=== PATIENT | male | born 1980 | race American Indian/Alaskan Native ===

== ENCOUNTER 2019-05-29 00:22 | Inpatient (IN) | payer MEDICAID ==
[2019-05-29 02:20] LABS: Basophils # (Auto) 0.1 K/mm3 (0.0-0.1); Basophils % (Auto) 0.7 % (0.0-1.8); Eosinophils # (Auto) 0.1 K/mm3 (0.0-0.4); Eosinophils % (Auto) 1.4 % (0.0-4.3); Hematocrit 31.9 % (35.5-45.6); Hemoglobin 9.8 gm/dl (11.8-15.2); Lymphocytes # (Auto) 1.4 K/mm3 (1.2-5.4); Mean Corpuscular HGB Conc 31 % (32-34); Mean Corpuscular Volume 87 fl (84-94); Monocytes # (Auto) 0.5 K/mm3 (0.0-0.8); Monocytes % (Auto) 5.1 % (0.0-7.3); Platelet Count 398 K/mm3 (140-440); Red Blood Count 3.66 M/mm3 (3.65-5.03); Red Cell Distribution Width 15.6 % (13.2-15.2)
[2019-05-29 02:45] LABS: Alanine Aminotransferase 15 units/L (7-56); Albumin 3.8 g/dL (3.9-5); BUN/Creatinine Ratio 31; Blood Urea Nitrogen 34 mg/dL (9-20); Calcium 9.3 mg/dL (8.4-10.2); Hemolysis Index 3
[2019-05-29] MEDS ORDERED: SODIUM CHLORIDE 0.9% 1000 ML 2,000 ML ONE (03:23)
[2019-05-29] MEDS ORDERED: SODIUM CHLORIDE 0.9% 1000 ML 1,000 ML IV ONE (03:26)
--- NOTE | 2019-05-29 03:28 | Emergency Department Report ---
ED General Adult HPI - General Chief complaint: Hyperglycemia Stated complaint: HYPERGLYCEMIA Time Seen by Provider: 05/29/19 03:25 Source: patient Mode of arrival: Ambulatory Limitations: No Limitations - History of Present Illness Initial comments: Patient is a 38-year-old type I diabetic that presents emergency room for high blood sugar. Patient states he ran out of his insulin 2 days ago. Patient states that he is having increased urination. Patient also complains of polyuria and polydipsia. Patient states he is pretty compliant with his med ications. Patient states he just moved to [place] and needs a primary care to help him with his refills. Patient also complains of an infection and open wound to his left BKA site. Patient states he had an ulcer that started 5 days ago and has a purulent discharge. Patient states right before he came to the hospital he poured a whole bottle of rubbing alcohol onto it. Patient states that the pain in the left BKA is an 8 out of 10. Patient states the pain is worse with palpation and movement. Patient states the pain is better with rest. -: Sudden - Related Data Allergies Allergy/AdvReac Type Severity Reaction Status Date / Time shellfish derived Allergy Hives Verified 05/29/19 01:22 ED Review of Systems ROS: Stated complaint: HYPERGLYCEMIA Other details as noted in HPI Constitutional: denies: chills, fever Eyes: denies: eye pain, eye discharge, vision change ENT: denies: ear pain, throat pain Respiratory: denies: cough, shortness of breath, wheezing Cardiovascular: denies: chest pain, palpitations Endocrine: no symptoms reported Gastrointestinal: denies: abdominal pain, nausea, diarrhea Genitourinary: denies: urgency, dysuria Musculoskeletal: denies: back pain, joint swelling, arthralgia Skin: denies: rash, lesions Neurological: denies: headache, weakness, paresthesias Psychiatric: denies: anxiety, depression Hematological/Lymphatic: denies: easy bleeding, easy bruising ED Past Medical Hx - Past Medical History Previous Medical History?: Yes Hx Diabetes: Yes (Type 1) - Surgical History Past Surgical History?: Yes Additional Surgical History: Left BKA - Social History Smoking Status: Current Every Day Smoker ED Physical Exam - General Limitations: No Limitations General appearance: alert, in no apparent distress - Head Head exam: Present: atraumatic, normocephalic - Eye Eye exam: Present: normal appearance - ENT ENT exam: Present: mucous membranes moist - Neck Neck exam: Present: normal inspection - Respiratory Respiratory exam: Present: normal lung sounds bilaterally. Absent: respiratory distress, wheezes, rales - Cardiovascular Cardiovascular Exam: Present: regular rate, normal rhythm. Absent: systolic murmur, diastolic murmur, rubs, gallop - GI/Abdominal GI/Abdominal exam: Present: soft, normal bowel sounds. Absent: distended, tenderness, guarding - Rectal Rectal exam: Present: deferred - Extremities Exam Extremities exam: Present: normal inspection (Except for left BKA.), tenderness (To the left BKA stump. Open area noted.) - Back Exam Back exam: Present: normal inspection - Neurological Exam Neurological exam: Present: alert, oriented X3 - Psychiatric Psychiatric exam: Present: normal affect, normal mood - Skin Skin exam: Present: warm, dry, normal color, other (Ulceration noted to the left BKA on the lateral aspect. Purulent discharge noted.). Absent: rash ED Course Vital Signs 05/29/19 05/29/19 00:32 05:05 Temperature 97.9 F Pulse Rate 93 H Respiratory 18 17 Rate Blood Pressure 121/80 O2 Sat by Pulse 97 98 Oximetry - Reevaluation(s) Reevaluation #1: I discussed all results with patient. I discussed plan of care with patient. Patient agrees with plan of care and admission. Patient to be admitted to the hospitalist service. 05/29/19 05:25 - Consultations Consultation #1: Hospitalist consulted for admission. Hospitalist to admit patient. Bridge orders placed. 05/29/19 05:20 ED Medical Decision Making - Lab Data Result diagrams: 05/29/19 01:36 05/29/19 05:32 - Medical Decision Making Patient is a 38-year-old male that presents emergency room with a elevated blood sugar and diabetic ulcer. Patient's findings with infected diabetic ulcer of the left BKA and extremely elevated blood sugar. Patient initial blood sugar was at 1090. Patient placed on insulin drip and given fluids. Patient also found to have hyperkalemia and hyponatremia. Patient given calcium chloride. Patient admitted to the hospitalist service and into the ICU. Patient also given clindamycin for his ulceration. - Differential Diagnosis DKA, HHS, hyperglycemia, electrolyte imbalance, dehydration, diabetic ulcer Critical Care Time: Yes Critical care time in (mins) excluding proc time.: 35 Critical care attestation.: If time is entered above; I have spent that time in minutes in the direct care of this critically ill patient, excluding procedure time. 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
[2019-05-29] MEDS ORDERED: INSULIN REGULAR, HUMAN 100 UNITS in SODIUM CHLORIDE 0.9% 99 ML IV SCH (04:00)
[2019-05-29] MEDS ORDERED: SODIUM POLYSTYRENE 15 GM/60 ML ORAL LIQD PO ONE (05:05)
[2019-05-29 05:18] LABS: BUN/Creatinine Ratio 33; Blood Urea Nitrogen 33 mg/dL (9-20); Calcium 8.9 mg/dL (8.4-10.2); Hemolysis Index 1
[2019-05-29 05:23] LABS: Bilirubin,Urine NEG (Negative); Blood,Urine NEG (Negative); Color,Urine Colorless (Yellow); Protein,Urine <15 mg/dL mg/dL (Negative); Urobilinogen,Urine < 2.0 mg/dL (<2.0)
[2019-05-29] MEDS ORDERED: ONDANSETRON 4 MG/2 ML INJ IV PRN (05:23)
[2019-05-29] MEDS ORDERED: MAGNESIUM HYDROXIDE (MOM) ORAL LIQD UDC PO PRN (05:23)
[2019-05-29] MEDS ORDERED: CALCIUM CHLORIDE 1,000 MG/10 ML SDV IVP ONE (05:25)
[2019-05-29] MEDS ORDERED: CLINDAMYCIN 300 MG/50 mL 300 MG/50 ML BAG IV ONE (05:36)
--- NOTE | 2019-05-29 05:36 | History and Physical Report ---
History of Present Illness Date of examination: 05/29/19 Date of admission: 05/29/2019 Chief complaint: Left lower extremity stump wound Elevated blood sugar History of present illness: 38-year-old male with known history of diabetes mellitus and left below-knee amputation presents to the emergency room today complaining of elevated blood glucose. He has been out of his insulin for about 2 days. He has also been having increased frequency of urination, polydipsia and polyuria. Patient also indicates that he has had a wound over the stump on on the stump of the left BKA. He denies any fever or chills, no chest pain or shortness of breath, no nausea vomiting and no diarrhea. Patient denies any headache or dizziness. He has been having worsening pain on the wound sites over the stump. He decided to poor bottle of alcohol on these wound site prior to reporting to the emergency room. Patient indicates that he has been quite compliant with his medications and he just returned from [place] where he went for burial of a family member. He is trying to establish with a primary care physician here in [place]. Work-up in the emergency room here reveals blood glucose of over 1000. Was found to be hyperkalemic and also hyponatremic. He was subsequently started on insulin drip. Past History Past Medical History: diabetes Past Surgical History: Other (Left BKA) Social history: no significant social history Family history: no significant family history Medications and Allergies Allergies Allergy/AdvReac Type Severity Reaction Status Date / Time shellfish derived Allergy Hives Verified 05/29/19 01:22 Active Meds: Active Medications Insulin Human Regular 100 (units/ Sodium Chloride) 100 mls @ 1 mls/hr IV TITR SHANIKA; Protocol Last Admin: 05/29/19 04:11 Dose: 8 units/hr, 8 mls/hr Documented by: Clindamycin HCl (Cleocin 300 Mg/50 Ml) 300 mg in 50 mls @ 100 mls/hr IV ONCE ONE; Protocol Stop: 05/29/19 06:05 Last Admin: 05/29/19 05:22 Dose: 100 mls/hr Documented by: Review of Systems Constitutional: no fever, no chills Cardiovascular: no chest pain, no palpitations Respiratory: no cough, no shortness of breath Gastrointestinal: no abdominal pain, no nausea, no vomiting, no diarrhea Genitourinary Male: no dysuria, no hematuria Musculoskeletal: other (Pain on left lower extremity stump), no neck pain, no low back pain Integumentary: no rash, no pruritis Neurological: no headaches, no confusion Exam - Constitutional Vitals: Temp Pulse Resp BP Pulse Ox 97.9 F 93 H 17 121/80 98 05/29/19 00:32 05/29/19 00:32 05/29/19 05:05 05/29/19 00:32 05/29/19 05:05 General appearance: Present: no acute distress, well-nourished - EENT Eyes: Present: PERRL, EOM intact ENT: hearing intact, clear oral mucosa, dentition normal - Neck Neck: Present: supple, normal ROM - Respiratory Respiratory effort: normal Respiratory: bilateral: CTA - Cardiovascular Rhythm: regular Heart Sounds: Present: S1 & S2 - Extremities Extremities: no ischemia, pulses intact, No edema, Full ROM, abnormal (Left BKA with open wound on the lateral aspect of the stump) Peripheral Pulses: within normal limits - Abdominal General gastrointestinal: Present: soft, non-tender, non-distended - Musculoskeletal Musculoskeletal: strength equal bilaterally, other (Left BKA) - Psychiatric Psychiatric: appropriate mood/affect, intact judgment & insight - Neurologic Neurologic: CNII-XII intact, moves all extremities Results - Labs CBC & Chem 7: 05/29/19 01:36 05/29/19 04:33 Labs: Abnormal lab results 05/29/19 05/29/19 05/29/19 Range/Units 00:46 01:36 01:36 Hgb 9.8 L (11.8-15.2) gm/dl Hct 31.9 L (35.5-45.6) % MCH 27 L (28-32) pg MCHC 31 L (32-34) % RDW 15.6 H (13.2-15.2) % Seg Neutrophils % 78.8 H (40.0-70.0) % Sodium 120 L (137-145) mmol/L Potassium 5.8 H (3.6-5.0) mmol/L Chloride 78.4 L (98-107) mmol/L BUN 34 H (9-20) mg/dL Glucose 1090 H* (75-100) mg/dL POC Glucose > 500 H (70-105) Alkaline Phosphatase 175 H (35-129) units/L Albumin 3.8 L (3.9-5) g/dL 05/28/ Range/Units 04:33 Hgb (11.8-15.2) gm/dl Hct (35.5-45.6) % MCH (28-32) pg MCHC (32-34) % RDW (13.2-15.2) % Seg Neutrophils % (40.0-70.0) % Sodium (137-145) mmol/L Potassium (3.6-5.0) mmol/L Chloride 85.9 L (98-107) mmol/L BUN 33 H (9-20) mg/dL Glucose (75-100) mg/dL POC Glucose (70-105) Alkaline Phosphatase (35-129) units/L Albumin (3.9-5) g/dL Assessment and Plan - Patient Problems (1) Hyperglycemia Current Visit: Yes Status: Acute Plan to address problem: Patient is having hyperosmolar nonketotic hyperglycemia. He has been placed on insulin drip will monitor blood glucose closely. (2) Hyperkalemia Current Visit: Yes Status: Acute Plan to address problem: We will monitor potassium levels. Patient has also had calcium chloride in the emergency room. We will also monitor EKG. (3) Diabetic ulcer of lower leg Current Visit: Yes Status: Acute Plan to address problem: He has been placed on empiric IV antibiotics for his stump ulcer. We will place a consult to wound care team for further evaluation. (4) DVT prophylaxis Current Visit: Yes Status: Acute Plan to address problem: Patient placed on subcutaneous heparin. (5) Hyponatremia Current Visit: Yes Status: Acute Plan to address problem: Possibly secondary to the hyperglycemia. Will monitor chemistry (6) Full code status Current Visit: Yes Status: Acute
[2019-05-29 06:01] LABS: BUN/Creatinine Ratio 30; Blood Urea Nitrogen 30 mg/dL (9-20); Calcium 11.1 mg/dL (8.4-10.2); Chol/HDL Ratio 5.38 %; Hemolysis Index 13
[2019-05-29] MEDS: HEPARIN 5,000 UNIT/1 ML VIAL SUB-Q SCH ×2 (06:40→16:30)
[2019-05-29] MEDS ORDERED: D5W/0.45% NACL/KCL 20 MEQ 20 MEQ/1,000 ML BAG IV ONE (07:43)
[2019-05-29] MEDS: D5W/0.45% NACL/KCL 20 MEQ 20 MEQ/1,000 ML BAG IV SCH (07:49)
[2019-05-29 08:52] LABS: BUN/Creatinine Ratio 33; Blood Urea Nitrogen 26 mg/dL (9-20); Calcium 10.5 mg/dL (8.4-10.2); Hemolysis Index 5
[2019-05-29] MEDS ORDERED: DEXTROSE 50% IN WATER (25GM) 50 ML SYRINGE IV ONE ×2 (09:16→09:20)
[2019-05-29] MEDS ORDERED: DEXTROSE 50% IN WATER (25GM) 50 ML SYRINGE IV PRN (10:49)
[2019-05-29] MEDS: INSULIN GLARGINE 100 UNITS/ML SUB-Q SCH (10:58)
--- NOTE | 2019-05-29 11:17 | Consultation ---
History of Present Illness Consult date: 05/29/19 Past History Past Medical History: diabetes Past Surgical History: Other (Left BKA) Social history: no significant social history Family history: no significant family history Medications and Allergies Allergies Allergy/AdvReac Type Severity Reaction Status Date / Time shellfish derived Allergy Hives Verified 05/29/19 01:22 Active Meds: Active Medications Dextrose (D50w (25gm) Syringe) 50 ml IV Q30MIN PRN; Protocol PRN Reason: Hypoglycemia Heparin Sodium (Porcine) (Heparin) 5,000 unit SUB-Q Q8HR [facility] Last Admin: 05/29/19 06:40 Dose: 5,000 unit Documented by: Potassium Chloride/Dextrose/Sod Cl (D5w/0.45% Nacl/Kcl 20 Meq) 20 meq in 1,000 mls @ 125 mls/hr IV DIRECT [facility] Last Admin: 05/29/19 07:49 Dose: 125 mls/hr Documented by: Clindamycin HCl (Cleocin 600 Mg/50 Ml) 600 mg in 50 mls @ 100 mls/hr IV Q8HR [facility]; Protocol Insulin Glargine (Lantus) 15 units SUB-Q QAMDIAB [facility] Stop: 06/04/19 10:29 Last Admin: 05/29/19 10:58 Dose: 15 units Documented by: Insulin Human Lispro (Humalog) 0 unit SUB-Q ACHS [facility]; Protocol Magnesium Hydroxide (Milk Of Magnesia) 30 ml PO Q4H PRN PRN Reason: Constipation Morphine Sulfate (Morphine) 2 mg IV Q4H PRN PRN Reason: Pain, Moderate (4-6) Ondansetron HCl (Zofran) 4 mg IV Q8H PRN PRN Reason: Nausea And Vomiting Sodium Chloride (Sodium Chloride Flush Syringe 10 Ml) 10 ml IV BID SHANIKA Sodium Chloride (Sodium Chloride Flush Syringe 10 Ml) 10 ml IV PRN PRN PRN Reason: LINE FLUSH Physical Examination Vital signs: Vital Signs Temp Pulse Resp BP Pulse Ox 97.9 F 93 H 18 121/80 97 05/29/19 00:32 05/29/19 00:32 05/29/19 00:32 05/29/19 00:32 05/29/19 00:32 Results - Laboratory Findings CBC and BMP: 05/29/19 01:36 05/29/19 08:06 Abnormal lab findings: Abnormal Labs 03/20/20 03/20/20 03/20/20 00:46 01:36 01:36 Hgb 9.8 L Hct 31.9 L MCH 27 L MCHC 31 L RDW 15.6 H Seg Neutrophils % 78.8 H Sodium 120 L Potassium 5.8 H Chloride 78.4 L BUN 34 H Glucose 1090 H* POC Glucose > 500 H Hemoglobin A1c Calcium Alkaline Phosphatase 175 H Albumin 3.8 L Triglycerides Cholesterol LDL Cholesterol Direct 05/29/19 05/29/19 05/29/19 04:33 05:32 05:32 Hgb Hct MCH MCHC RDW Seg Neutrophils % Sodium 128 L D 130 L Potassium Chloride 85.9 L 88.9 L BUN 33 H 30 H Glucose 749 H* 549 H* POC Glucose Hemoglobin A1c 12.0 H Calcium 11.1 H D Alkaline Phosphatase Albumin Triglycerides Cholesterol LDL Cholesterol Direct 05/29/19 05/29/19 05/29/19 05:32 06:45 07:40 Hgb Hct MCH MCHC RDW Seg Neutrophils % Sodium Potassium Chloride BUN Glucose POC Glucose 380 H 219 H Hemoglobin A1c Calcium Alkaline Phosphatase Albumin Triglycerides 172 H Cholesterol 253 H LDL Cholesterol Direct 174 H 05/29/19 05/29/19 05/29/19 08:06 09:02 09:26 Hgb Hct MCH MCHC RDW Seg Neutrophils % Sodium 134 L Potassium Chloride 92.7 L BUN 26 H Glucose 130 H POC Glucose 66 L 48 L Hemoglobin A1c Calcium 10.5 H Alkaline Phosphatase Albumin Triglycerides Cholesterol LDL Cholesterol Direct 05/29/19 10:35 Hgb Hct MCH MCHC RDW Seg Neutrophils % Sodium Potassium Chloride BUN Glucose POC Glucose 237 H Hemoglobin A1c Calcium Alkaline Phosphatase Albumin Triglycerides Cholesterol LDL Cholesterol Direct
[2019-05-29] MEDS ORDERED: MORPHINE 2 MG/1 ML INJ ONE ×2 (12:07→16:17)
[2019-05-29] MEDS ORDERED: INSULIN LISPRO 100 UNIT/ML SUB-Q ONE (12:10)
[2019-05-29] MEDS: INSULIN LISPRO 100 UNIT/ML SUB-Q SCH ×2 (12:21→22:58)
[2019-05-29] MEDS: MORPHINE 2 MG/1 ML INJ IV PRN ×2 (12:22→16:22)
--- NOTE | 2019-05-29 12:33 | Event Note ---
Date: 05/29/19 Patient seen and examined. We will continue to plan as outlined in the H&P. This is a follow-up from an admission earlier this morning. Total visit time equals 25 minutes with greater than 50% spent on coordination of care and counseling
[2019-05-29] MEDS ORDERED: HEPARIN 5,000 UNIT/1 ML VIAL ONE (16:28)
[2019-05-29] MEDS ORDERED: CLINDAMYCIN 600 MG/50 mL 600 MG/50 ML BAG IV ONE (16:28)
[2019-05-29] MEDS: CLINDAMYCIN 600 MG/50 mL 600 MG/50 ML BAG IV SCH (16:29)
[2019-05-29] MEDS ORDERED: INSULIN REGULAR, HUMAN 100 UNITS/1 ML ONE (23:02)
[2019-05-30] MEDS: D5W/0.45% NACL/KCL 20 MEQ 20 MEQ/1,000 ML BAG IV SCH (02:04)
[2019-05-30] MEDS: MORPHINE 2 MG/1 ML INJ IV PRN ×2 (02:10→22:21)
[2019-05-30] MEDS: CLINDAMYCIN 600 MG/50 mL 600 MG/50 ML BAG IV SCH ×4 (05:26→21:46)
[2019-05-30] MEDS: HEPARIN 5,000 UNIT/1 ML VIAL SUB-Q SCH ×5 (05:26→21:55)
[2019-05-30] MEDS: INSULIN LISPRO 100 UNIT/ML SUB-Q SCH ×5 (07:35→22:58)
[2019-05-30] MEDS ORDERED: INSULIN GLARGINE 100 UNITS/ML SUB-Q SCH (08:00)
[2019-05-30] MEDS: INSULIN GLARGINE 100 UNITS/ML SUB-Q SCH ×2 (08:19→12:10)
--- NOTE | 2019-05-30 09:25 | Discharge Summary ---
Providers - Providers Date of Admission: 05/29/19 05:11 Date of discharge: 05/30/19 Attending physician: GAB PATRICK 05/29/19 05:23 Consult to Dietitian/Nutrition [CONS] Routine Physician Instructions: Reason For Exam: hyperglycemia Reason for Consult: Nutrition Recommendations Reason for Consult: Diet education 05/29/19 05:27 Consult to Wound/ET Nurse [CONS] Routine Reason For Exam: wound eval on left lower extremity stump 05/29/19 05:28 Consult to Physician [CONS] Routine Comment: Consulting Provider: LAURENT RIVERA Physician Instructions: Reason For Exam: Hyperosmolar nonketotic hyperglycemia Primary care physician: TOUR MANAGER Hospitalization Reason for admission: HNKS Condition: Critical Hospital course: 38-year-old male with known history of diabetes mellitus and left below-knee amputation presents to the emergency room today complaining of elevated blood glucose. He was out of his insulin for about 2 days. He had also been having increased frequency of urination, polydipsia and polyuria. The patient was admitted with diagnosis of hyperosmolar nonketotic syndrome. Patient received initially IV insulin drip and then was transitioned to his home insulin regimen. The patient's blood sugars have now stabilized x24 hours. Patient is felt to receive maximal hospital benefit and will be discharged home. Dedicated discharge time 35 minutes. 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 Status: Acute Core Measure Documentation - Palliative Care Palliative Care/ Comfort Measures: Not Applicable - Core Measures Any of the following diagnoses?: none Exam - Constitutional Vitals: Temp Pulse Resp BP Pulse Ox 98.1 F 77 16 104/68 99 05/30/19 05:02 05/30/19 05:02 05/30/19 05:02 05/30/19 05:02 05/30/19 05:02 General appearance: Present: no acute distress, well-nourished - EENT Eyes: Present: PERRL ENT: hearing intact, clear oral mucosa - Neck Neck: Present: supple, normal ROM - Respiratory Respiratory effort: normal Respiratory: bilateral: CTA - Cardiovascular Heart Sounds: Present: S1 & S2. Absent: rub, click - Extremities Extremities: pulses symmetrical, No edema Peripheral Pulses: within normal limits - Abdominal General gastrointestinal: Present: soft, non-tender, non-distended, normal bowel sounds Male genitourinary: Present: normal - Integumentary Integumentary: Present: clear, warm, dry - Musculoskeletal Musculoskeletal: gait normal, strength equal bilaterally - Psychiatric Psychiatric: appropriate mood/affect, intact judgment & insight - Neurologic Neurologic: CNII-XII intact, moves all extremities Plan Activity: advance as tolerated Weight Bearing Status: Weight Bear as Tolerated Diet: diabetic Follow up with: PRIMARY CARE, [Primary Care Provider] - 3-5 Days Prescriptions: Insulin Glargine [Lantus VIAL] 15 units SUB-Q QAMDIAB 30 Days units
[2019-05-30] MEDS ORDERED: FLU VACC QUAD 2019-20 (3 YR UP)/PF 60 MCG/0.5 ML SYRINGE IM ONE (12:00)
--- NOTE | 2019-05-30 13:01 | Progress Note ---
Assessment and Plan Hyperosmolar non-ketotic syndrome Hyperkalemia Diabetic ulcer of lower leg Hyponatremia - continue wound care per WCT - continue mobility protocols to prevent pressure ulcers - PT/OT as tolerated - continue accuchecks with glycemic control per SSI for target blood glucose < 180 mg/dL - Smoking abstinence strongly counseled at the bedside - home oxygen evaluation at discharge - GI & VTE prophylaxis - Flu & pneumovax per protocol - prn analgesia per pain score - continue other care per attending / other consultants ... re-evaluate in am & prn Subjective Date of service: 05/30/19 Principal diagnosis: Hyperosmolar non-ketotic syndrome; Hyperkalemia; Infected DM Foot Ulcer Interval history: Patient is seen today for: Hyperosmolar non-ketotic syndrome; Hyperkalemia; Diabetic ulcer of lower leg; Hyponatremia; Infected Diabetic Foot Ulcer Seen and examined at bedside; 24hour events reviewed; nursing and respiratory care staff consulted; no adverse overnight events reported to me; resting peacefully in bed; sugars better controlled; awaiting prosthetic leg repair; No N/V/F/C; denies acute chest pains or palpitations Objective Vital Signs - 12hr 05/30/19 05/30/19 05/30/19 01:17 02:10 05:02 Temperature 98.1 F Pulse Rate 92 H 77 Respiratory 18 16 Rate Blood Pressure 104/68 O2 Sat by Pulse 99 Oximetry 05/30/19 12:06 Temperature 98.0 F Pulse Rate 84 Respiratory 15 Rate Blood Pressure 128/85 O2 Sat by Pulse 97 Oximetry Constitutional: no acute distress, other (young CM with normal respiratory effort at rest) Eyes: non-icteric ENT: oropharynx moist Neck: supple, no lymphadenopathy, no JVD Effort: normal Ascultation: Bilateral: clear Percussion: Bilateral: not dull Cardiovascular: regular rate and rhythm Gastrointestinal: normoactive bowel sounds, soft, non-tender, non-distended Integumentary: normal Extremities: no cyanosis, pink and warm, pulses normal, no ischemia or petechiae, other (Left BKA stump wound) Neurologic: normal mental status, non-focal exam, pupils equal and round, CN II- XII normal Psychiatric: mood appropriate, affect normal CBC and BMP: 05/29/19 01:36 05/29/19 08:06 Abnormal lab findings: Abnormal Labs 05/29/19 05/29/19 05/29/19 00:46 01:36 01:36 Hgb 9.8 L Hct 31.9 L MCH 27 L MCHC 31 L RDW 15.6 H Seg Neutrophils % 78.8 H Sodium 120 L Potassium 5.8 H Chloride 78.4 L BUN 34 H Glucose 1090 H* POC Glucose > 500 H Hemoglobin A1c Calcium Alkaline Phosphatase 175 H Albumin 3.8 L Triglycerides Cholesterol LDL Cholesterol Direct 05/29/19 05/29/19 05/29/19 04:33 05:32 05:32 Hgb Hct MCH MCHC RDW Seg Neutrophils % Sodium 128 L D 130 L Potassium Chloride 85.9 L 88.9 L BUN 33 H 30 H Glucose 749 H* 549 H* POC Glucose Hemoglobin A1c 12.0 H Calcium 11.1 H D Alkaline Phosphatase Albumin Triglycerides Cholesterol LDL Cholesterol Direct 05/29/19 05/29/19 05/29/19 05:32 06:45 07:40 Hgb Hct MCH MCHC RDW Seg Neutrophils % Sodium Potassium Chloride BUN Glucose POC Glucose 380 H 219 H Hemoglobin A1c Calcium Alkaline Phosphatase Albumin Triglycerides 172 H Cholesterol 253 H LDL Cholesterol Direct 174 H 05/29/19 05/29/19 05/29/19 08:06 09:02 09:26 Hgb Hct MCH MCHC RDW Seg Neutrophils % Sodium 134 L Potassium Chloride 92.7 L BUN 26 H Glucose 130 H POC Glucose 66 L 48 L Hemoglobin A1c Calcium 10.5 H Alkaline Phosphatase Albumin Triglycerides Cholesterol LDL Cholesterol Direct 05/29/19 05/29/19 05/29/19 10:35 12:13 17:45 Hgb Hct MCH MCHC RDW Seg Neutrophils % Sodium Potassium Chloride BUN Glucose POC Glucose 237 H 411 H 136 H Hemoglobin A1c Calcium Alkaline Phosphatase Albumin Triglycerides Cholesterol LDL Cholesterol Direct 05/29/19 05/30/19 05/30/19 23:08 08:19 12:13 Hgb Hct MCH MCHC RDW Seg Neutrophils % Sodium Potassium Chloride BUN Glucose POC Glucose 307 H 52 L 408 H Hemoglobin A1c Calcium Alkaline Phosphatase Albumin Triglycerides Cholesterol LDL Cholesterol Direct Allied health notes reviewed: nursing
[2019-05-31] MEDS: HEPARIN 5,000 UNIT/1 ML VIAL SUB-Q SCH ×2 (05:15→15:05)
[2019-05-31] MEDS: CLINDAMYCIN 600 MG/50 mL 600 MG/50 ML BAG IV SCH ×2 (05:20→14:39)
--- NOTE | 2019-05-31 08:14 | Progress Note ---
Assessment and Plan Assessment and plan: Hyperosmolar nonketotic syndrome. Patient has been weaned off of IV insulin drip and now is having long-acting insulin. Left BKA wound. Surgery consultation for further evaluation. Patient may need local/bedside debridement. Hyperkalemia. Resolved. DVT prophylaxis. - Patient Problems (1) Diabetic ulcer of lower leg Current Visit: Yes Status: Acute (2) History of left below knee amputation Current Visit: Yes Status: Acute (3) Hyperglycemia Current Visit: Yes Status: Acute (4) Secondary diabetes mellitus with hyperglycemia hyperosmolar non-ketotic coma Current Visit: Yes Status: Acute History Interval history: No new issues overnight. Hospitalist Physical - Constitutional Vitals: Temp Pulse Resp BP Pulse Ox 97.9 F 82 18 134/86 98 05/31/19 06:17 05/31/19 06:17 05/31/19 06:17 05/31/19 06:17 05/31/19 06:17 General appearance: Present: no acute distress, well-nourished - EENT Eyes: Present: PERRL, EOM intact ENT: hearing intact, clear oral mucosa, dentition normal - Neck Neck: Present: supple, normal ROM - Respiratory Respiratory effort: normal Respiratory: bilateral: CTA - Cardiovascular Rhythm: regular Heart Sounds: Present: S1 & S2. Absent: gallop, rub - Extremities Extremities: no ischemia, No edema, Full ROM - Abdominal General gastrointestinal: soft, non-tender, non-distended, normal bowel sounds - Integumentary Integumentary: Present: clear, warm, dry - Neurologic Neurologic: CNII-XII intact, moves all extremities Results - Labs CBC & Chem 7: 05/29/19 01:36 05/29/19 08:06 Labs: Laboratory Last Values WBC 9.8 K/mm3 (4.5-11.0) 05/29/19 01:36 RBC 3.66 M/mm3 (3.65-5.03) 05/29/19 01:36 Hgb 9.8 gm/dl (11.8-15.2) L 05/29/19 01:36 Hct 31.9 % (35.5-45.6) L 05/29/19 01:36 MCV 87 fl (84-94) 05/29/19 01:36 MCH 27 pg (28-32) L 05/29/19 01:36 MCHC 31 % (32-34) L 05/29/19 01:36 RDW 15.6 % (13.2-15.2) H 05/29/19 01:36 Plt Count 398 K/mm3 (140-440) 05/29/19 01:36 Lymph % (Auto) 14.0 % (13.4-35.0) 05/29/19 01:36 Cobb % (Auto) 5.1 % (0.0-7.3) 05/29/19 01:36 Eos % (Auto) 1.4 % (0.0-4.3) 05/29/19 01:36 Baso % (Auto) 0.7 % (0.0-1.8) 05/29/19 01:36 Lymph # 1.4 K/mm3 (1.2-5.4) 05/29/19 01:36 Cobb # 0.5 K/mm3 (0.0-0.8) 05/29/19 01:36 Eos # 0.1 K/mm3 (0.0-0.4) 05/29/19 01:36 Baso # 0.1 K/mm3 (0.0-0.1) 05/29/19 01:36 Seg Neutrophils % 78.8 % (40.0-70.0) H 05/29/19 01:36 Seg Neutrophils # 7.7 K/mm3 (1.8-7.7) 05/29/19 01:36 Sodium 134 mmol/L (137-145) L 05/29/19 08:06 Potassium 3.8 mmol/L (3.6-5.0) 05/29/19 08:06 Chloride 92.7 mmol/L (98-107) L 05/29/19 08:06 Carbon Dioxide 23 mmol/L (22-30) 05/29/19 08:06 Anion Gap 22 mmol/L 05/29/19 08:06 BUN 26 mg/dL (9-20) H 05/29/19 08:06 Creatinine 0.8 mg/dL (0.8-1.5) 05/29/19 08:06 Estimated GFR > 60 ml/min 05/29/19 08:06 BUN/Creatinine Ratio 33 % 05/29/19 08:06 Glucose 130 mg/dL (75-100) H 05/29/19 08:06 POC Glucose 236 (70-105) H 05/31/19 03:16 Hemoglobin A1c 12.0 % (4-6) H 05/29/19 05:32 Calcium 10.5 mg/dL (8.4-10.2) H 05/29/19 08:06 Phosphorus 3.90 mg/dL (2.5-4.5) 05/29/19 04:33 Magnesium 2.00 mg/dL (1.7-2.3) 05/29/19 04:33 Total Bilirubin 0.20 mg/dL (0.1-1.2) 05/29/19 01:36 AST 15 units/L (5-40) 05/29/19 01:36 ALT 15 units/L (7-56) 05/29/19 01:36 Alkaline Phosphatase 175 units/L (35-129) H 05/29/19 01:36 Total Protein 6.8 g/dL (6.3-8.2) 05/29/19 01:36 Albumin 3.8 g/dL (3.9-5) L 05/29/19 01:36 Albumin/Globulin Ratio 1.3 % 05/29/19 01:36 Triglycerides 172 mg/dL (2-149) H 05/29/19 05:32 Cholesterol 253 mg/dL (50-199) H 05/29/19 05:32 LDL Cholesterol Direct 174 mg/dL (50-130) H 05/29/19 05:32 HDL Cholesterol 47 mg/dL (40-59) 05/29/19 05:32 Cholesterol/HDL Ratio 5.38 % 05/29/19 05:32 Urine Color Colorless (Yellow) 05/29/19 05:04 Urine Turbidity Clear (Clear) 05/29/19 05:04 Urine pH 6.0 (5.0-7.0) 05/29/19 05:04 Ur Specific Poston 1.021 (1.003-1.030) 05/29/19 05:04 Urine Protein <15 mg/dl mg/dL (Negative) 05/29/19 05:04 Urine Glucose (UA) >=500 mg/dL (Negative) 05/29/19 05:04 Urine Ketones 20 mg/dL (Negative) 05/29/19 05:04 Urine Blood Neg (Negative) 05/29/19 05:04 Urine Nitrite Neg (Negative) 05/29/19 05:04 Urine Bilirubin Neg (Negative) 05/29/19 05:04 Urine Urobilinogen < 2.0 mg/dL (<2.0) 05/29/19 05:04 Ur Leukocyte Esterase Neg (Negative) 05/29/19 05:04 Urine WBC (Auto) Not Reportable 05/29/19 05:04 Urine RBC (Auto) 1.0 /HPF (0.0-6.0) 05/29/19 05:04 Contreras/IV: Voiding Method Urinal IV Catheter Type [Right Hand] INT / Saline Lock Active Medications - Current Medications Current Medications: Generic Name Dose Route Start Last Admin Trade Name Freq PRN Reason Stop Dose Admin Dextrose 50 ml 05/29/19 10:49 D50w (25gm) Syringe IV Q30MIN PRN Hypoglycemia Protocol Heparin Sodium (Porcine) 5,000 unit 05/29/19 06:00 05/31/19 05:15 Heparin SUB-Q Not Given Q8HR [facility] Clindamycin HCl 600 mg in 50 mls @ 100 mls/hr 05/29/19 14:00 05/31/19 05:20 Cleocin 600 Mg/50 Ml IV 100 mls/hr Q8HR SHANIKA Administration Protocol Insulin Glargine 15 units 05/29/19 10:30 05/30/19 12:10 Lantus SUB-Q 06/04/19 10:29 15 units QAMDIAB SHANIKA Administration Insulin Human Lispro 0 unit 05/29/19 11:30 05/30/19 22:58 Humalog SUB-Q 1 unit ACHS SHANIKA Administration Protocol Magnesium Hydroxide 30 ml 05/29/19 05:23 Milk Of Magnesia PO Q4H PRN Constipation Morphine Sulfate 2 mg 05/29/19 05:23 05/30/19 22:21 Morphine IV 2 mg Q4H PRN Administration Pain, Moderate (4-6) Ondansetron HCl 4 mg 05/29/19 05:23 Zofran IV Q8H PRN Nausea And Vomiting Sodium Chloride 10 ml 05/29/19 10:00 05/30/19 21:42 Sodium Chloride Flush Syringe 10 Ml IV 10 ml BID SHANIKA Administration Sodium Chloride 10 ml 05/29/19 05:23 Sodium Chloride Flush Syringe 10 Ml IV PRN PRN LINE FLUSH Nutrition/Malnutrition Assess - Dietary Evaluation Nutrition/Malnutrition Findings: Nutrition Notes Start: 05/29/19 08:25 Freq: Status: Active Protocol: Document 05/29/19 08:25 LM (Rec: 05/29/19 08:33 LM [id number]) Nutrition Notes Need for Assessment generated from: MD Order,Education Initial or Follow up Brief Note Current Diagnosis Diabetes Other Pertinent Diagnosis DM L leg ulcer Current Diet NPO Labs/Tests BG 549 A1c 12 Na 130 BUN 30 TG 172 Chol 253 Pertinent Medications Reviewed Height 6 ft Weight 77.111 kg Aldie Body Weight (kg) 80.90 BMI 23.0 Weight Status Appropriate Subjective/Other Information MD consult for diet education. Pt in ED. Nutrition Intervention Follow-Up By: 06/01/19 Additional Comments F/U for diet ed/assessment
[2019-05-31] MEDS: INSULIN LISPRO 100 UNIT/ML SUB-Q SCH ×2 (09:34→12:00)
[2019-05-31] MEDS: INSULIN GLARGINE 100 UNITS/ML SUB-Q SCH (09:36)
--- NOTE | 2019-05-31 10:15 | Consultation ---
History of Present Illness Consult date: 05/31/19 Reason for consult: other (left BKA stump wound) - History of present illness History of present illness: 38 year old male with a hx of Type 1 diabetes. He had a left BKA years ago, and recently moved to [place]. He has a hx of wound to the lateral side of the stump that he has had in past and healed, but has returned over the last 2-3 weeks. He says his prosthesis needs to be modified as it is applying pressure against the wound and making it worse. He has not been able to find the appropriate doctors since he moved here. He presented to ED with hyperglycemia after running out of his insulin. He says he knows how to take care of his wound, but needs to find PCP to facilitate orders to prosthetic company for revision. He says he can still fit the prosthesis but it is very tight with the recent swelling, making it more painful. Past History Past Medical History: diabetes Past Surgical History: Other (Left BKA) Social history: no significant social history Family history: no significant family history Medications and Allergies Allergies Allergy/AdvReac Type Severity Reaction Status Date / Time shellfish derived Allergy Hives Verified 05/29/19 01:22 Home Medications Medication Instructions Recorded Confirmed Last Taken Type Insulin Glargine [Lantus VIAL] 15 units SUB-Q QAMDIAB 30 Days 05/30/19 Unknown Rx units Active Meds: Active Medications Dextrose (D50w (25gm) Syringe) 50 ml IV Q30MIN PRN; Protocol PRN Reason: Hypoglycemia Heparin Sodium (Porcine) (Heparin) 5,000 unit SUB-Q Q8HR [facility] Last Admin: 05/31/19 05:15 Dose: Not Given Documented by: Clindamycin HCl (Cleocin 600 Mg/50 Ml) 600 mg in 50 mls @ 100 mls/hr IV Q8HR [facility]; Protocol Last Admin: 05/31/19 05:20 Dose: 100 mls/hr Documented by: Insulin Glargine (Lantus) 15 units SUB-Q QAMDIAB [facility] Stop: 06/04/19 10:29 Last Admin: 05/31/19 09:36 Dose: 15 units Documented by: Insulin Human Lispro (Humalog) 0 unit SUB-Q ACHS [facility]; Protocol Last Admin: 05/31/19 09:34 Dose: 3 unit Documented by: Magnesium Hydroxide (Milk Of Magnesia) 30 ml PO Q4H PRN PRN Reason: Constipation Morphine Sulfate (Morphine) 2 mg IV Q4H PRN PRN Reason: Pain, Moderate (4-6) Last Admin: 05/30/19 22:21 Dose: 2 mg Documented by: Ondansetron HCl (Zofran) 4 mg IV Q8H PRN PRN Reason: Nausea And Vomiting Sodium Chloride (Sodium Chloride Flush Syringe 10 Ml) 10 ml IV BID SHANIKA Last Admin: 05/31/19 09:35 Dose: 10 ml Documented by: Sodium Chloride (Sodium Chloride Flush Syringe 10 Ml) 10 ml IV PRN PRN PRN Reason: LINE FLUSH Review of Systems - Cardiovascular no chest pain - Respiratory no cough - Gastrointestinal no abdominal pain - Genitourinary no dysuria - Integumentary foot/leg ulcers Exam Vital Signs Temp Pulse Resp BP Pulse Ox 97.9 F 93 H 18 121/80 97 05/29/19 00:32 05/29/19 00:32 05/29/19 00:32 05/29/19 00:32 05/29/19 00:32 - General physical appearance Positive: well developed, no distress - Respiratory Positive: normal expansion, normal respiratory effort - Cardiovascular Heart Sounds: Present: S1 & S2 - Extremities Extremity abnormal: other (left BKA with 3cm shallow wound with granulation tissue and small amount of fibrinous exudate. no fluctuance suggestive of abscess, no active expression of fluid. no odor, minimal erythema directly around the wound. tender to firm palpation. mild swelling. ) Results - Labs 05/29/19 01:36 05/29/19 08:06 Abnormal lab results 05/30/19 05/30/19 05/30/19 Range/Units 12:13 17:38 22:35 POC Glucose 408 H 251 H 184 H (70-105) 05/31/19 05/31/19 05/31/19 Range/Units 00:44 03:16 08:19 POC Glucose 59 L 236 H 279 H (70-105) Assessment and Plan 38 year old male with type 1 diabetes. stable and afebrile with a non healing left BKA stump ulcer. no surgical intervention at this time, but needs daily wound care to keep it clean. He will need to get his prosthesis evaluated and possible revised to improve fit and allow ulcer to heal, or prevent future wounds. Pt should follow up with wound care clinic as an outpatient. [phone] Placed an order for crutches, to allow him to be mobile without him having to put on the ill fitting prosthesis at this time. Some relief may allow the wound a better environment for healing. He has suboptimal control of his blood sugars which may deter wound healing. Before discharge he should get a prescription for insulin so he can get it filled when he leaves and maintain his blood sugar within as normal limits as possible. Recommended Dr. Jaquez as PCP that he can be sent to in order to resume care.
--- NOTE | 2019-05-31 13:01 | Progress Note ---
Assessment and Plan Hyperosmolar non-ketotic syndrome Hyperkalemia Diabetic ulcer of lower leg Hyponatremia - per surgeon use crutches till able to fix prosthesis - continue accuchecks with glycemic control per SSI for target blood glucose < 180 mg/dL - continue wound care per WCT - continue mobility protocols to prevent pressure ulcers - PT/OT as tolerated - Smoking abstinence strongly counseled at the bedside - home oxygen evaluation at discharge - GI & VTE prophylaxis - Flu & pneumovax per protocol - prn analgesia per pain score - continue other care per attending / other consultants ... re-evaluate in am & prn Subjective Date of service: 05/31/19 Principal diagnosis: Hyperosmolar non-ketotic syndrome; Hyperkalemia; Infected DM Foot Ulcer Interval history: Patient is seen today for: Hyperosmolar non-ketotic syndrome; Hyperkalemia; Diabetic ulcer of lower leg; Hyponatremia; Infected Diabetic Foot Ulcer Seen and examined at bedside; 24hour events reviewed; nursing and respiratory care staff consulted; no adverse overnight events reported to me; resting peacefully in bed; seen by surgeoa; No N/V/F/C/Chest pains Objective Vital Signs - 12hr 05/31/19 06:17 Temperature 97.9 F Pulse Rate 82 Respiratory 18 Rate Blood Pressure 134/86 O2 Sat by Pulse 98 Oximetry Constitutional: no acute distress, other (young CM with normal respiratory effort at rest) Eyes: non-icteric ENT: oropharynx moist Neck: supple, no lymphadenopathy, no JVD Effort: normal Ascultation: Bilateral: clear Percussion: Bilateral: not dull Cardiovascular: regular rate and rhythm Gastrointestinal: normoactive bowel sounds, soft, non-tender, non-distended Integumentary: normal Extremities: no cyanosis, pink and warm, pulses normal, no ischemia or petechiae, other (Left BKA stump wound) Neurologic: normal mental status, non-focal exam, pupils equal and round, CN II- XII normal Psychiatric: mood appropriate, affect normal CBC and BMP: 05/29/19 01:36 05/29/19 08:06 Abnormal lab findings: Abnormal Labs 05/29/19 05/29/19 05/29/19 00:46 01:36 01:36 Hgb 9.8 L Hct 31.9 L MCH 27 L MCHC 31 L RDW 15.6 H Seg Neutrophils % 78.8 H Sodium 120 L Potassium 5.8 H Chloride 78.4 L BUN 34 H Glucose 1090 H* POC Glucose > 500 H Hemoglobin A1c Calcium Alkaline Phosphatase 175 H Albumin 3.8 L Triglycerides Cholesterol LDL Cholesterol Direct 05/29/19 05/29/19 05/29/19 04:33 05:32 05:32 Hgb Hct MCH MCHC RDW Seg Neutrophils % Sodium 128 L D 130 L Potassium Chloride 85.9 L 88.9 L BUN 33 H 30 H Glucose 749 H* 549 H* POC Glucose Hemoglobin A1c 12.0 H Calcium 11.1 H D Alkaline Phosphatase Albumin Triglycerides Cholesterol LDL Cholesterol Direct 05/29/19 05/29/19 05/29/19 05:32 06:45 07:40 Hgb Hct MCH MCHC RDW Seg Neutrophils % Sodium Potassium Chloride BUN Glucose POC Glucose 380 H 219 H Hemoglobin A1c Calcium Alkaline Phosphatase Albumin Triglycerides 172 H Cholesterol 253 H LDL Cholesterol Direct 174 H 05/29/19 05/29/19 05/29/19 08:06 09:02 09:26 Hgb Hct MCH MCHC RDW Seg Neutrophils % Sodium 134 L Potassium Chloride 92.7 L BUN 26 H Glucose 130 H POC Glucose 66 L 48 L Hemoglobin A1c Calcium 10.5 H Alkaline Phosphatase Albumin Triglycerides Cholesterol LDL Cholesterol Direct 05/29/19 05/29/19 05/29/19 10:35 12:13 17:45 Hgb Hct MCH MCHC RDW Seg Neutrophils % Sodium Potassium Chloride BUN Glucose POC Glucose 237 H 411 H 136 H Hemoglobin A1c Calcium Alkaline Phosphatase Albumin Triglycerides Cholesterol LDL Cholesterol Direct 05/29/19 05/30/19 05/30/19 23:08 08:19 12:13 Hgb Hct MCH MCHC RDW Seg Neutrophils % Sodium Potassium Chloride BUN Glucose POC Glucose 307 H 52 L 408 H Hemoglobin A1c Calcium Alkaline Phosphatase Albumin Triglycerides Cholesterol LDL Cholesterol Direct 05/30/19 05/30/19 05/31/19 17:38 22:35 00:44 Hgb Hct MCH MCHC RDW Seg Neutrophils % Sodium Potassium Chloride BUN Glucose POC Glucose 251 H 184 H 59 L Hemoglobin A1c Calcium Alkaline Phosphatase Albumin Triglycerides Cholesterol LDL Cholesterol Direct 05/31/19 05/31/19 03:16 08:19 Hgb Hct MCH MCHC RDW Seg Neutrophils % Sodium Potassium Chloride BUN Glucose POC Glucose 236 H 279 H Hemoglobin A1c Calcium Alkaline Phosphatase Albumin Triglycerides Cholesterol LDL Cholesterol Direct Allied health notes reviewed: nursing
[2019-05-31 13:58] VITALS: BP 106/75
[2019-05-31] MEDS: MORPHINE 2 MG/1 ML INJ IV PRN (14:56)
== END 2019-05-31 16:30 | disposition home or self-care (01) | DRG 638 ==
LOC: SUATTDRO 00:22 → ED 00:22 → CC1 05:11 → 3A 22:33
PROVIDERS: ADMIT Internal Medicine Geriatric Medicine; ATTEND Hospitalist
DX: E13.622 Other specified diabetes mellitus with other skin ulcer (principal); E87.1 Hypo-osmolality and hyponatremia; L97.828 Non-pressure chronic ulcer of other part of left lower leg with other specified severity; E13.65 Other specified diabetes mellitus with hyperglycemia; E13.00 Other specified diabetes mellitus with hyperosmolarity without nonketotic hyperglycemic-hyperosmolar coma (NKHHC); E87.5 Hyperkalemia; Z91.013 Allergy to seafood; F17.210 Nicotine dependence, cigarettes, uncomplicated; Z79.4 Long term (current) use of insulin; Z89.512 Acquired absence of left leg below knee
CPT/HCPCS: 36415; 80048; 80053; 80061; 81001; 82962; 83036; 83735; 84100; 85025; 87116; 90686; G0378; J1644; J1815; J2270; J7030

== ENCOUNTER 2019-07-23 14:16 | Emergency (ER) | payer MEDICAID ==
[2019-07-23] MEDS ORDERED: DEXTROSE 50% IN WATER (25GM) 50 ML SYRINGE IV PRN (15:31)
--- NOTE | 2019-07-23 15:32 | Emergency Department Report ---
ED General Adult HPI - General Chief complaint: Hypoglycemia Stated complaint: LOW BLOOD SUGAR PUI?: No Time Seen by Provider: 07/23/19 15:02 Source: patient, EMS (Verbal report received from emergency medical services. 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 This was corrected with dextrose. The patient states that he typically does not have to check his blood glucose because "I can feel when it is normal and not normal." He is now back to his baseline. He has no complaints at this time with the exception of chronic nontraumatic right-sided knee pain. Review of systems is otherwise negative. The patient has no complaints at this time. He denies fever, cough, and coronavirus exposure. As per collateral information from nursing team, he also did not eat much, if anything for breakfast, or have dinner last night. -: This afternoon Consistency: now resolved Improves with: medication Worsens with: other Associated Symptoms: denies other symptoms, other (Nontraumatic chronic right- sided knee pain) - Related Data Previous Rx's Medication Instructions Recorded Last Taken Type Insulin Glargine [Lantus VIAL] 15 units SUB-Q QAMDIAB 30 Days 05/30/19 Unknown Rx units Insulin NPH Hum/Reg Insulin Hm 6 unit SQ TIDAC #1 insuln.pen 07/11/19 Unknown Rx [Novolin 70-30 Flexpen] Allergies Allergy/AdvReac Type Severity Reaction Status Date / Time shellfish derived Allergy Hives Verified 05/29/19 01:22 ED Review of Systems ROS: Stated complaint: LOW BLOOD SUGAR Other details as noted in HPI Constitutional: denies: fever Eyes: denies: eye discharge ENT: denies: congestion Respiratory: denies: cough Cardiovascular: denies: syncope Gastrointestinal: denies: abdominal pain Genitourinary: denies: dysuria Musculoskeletal: arthralgia, myalgia Skin: as per HPI Neurological: as per HPI Psychiatric: as per HPI Hematological/Lymphatic: as per HPI ED Past Medical Hx - Past Medical History Hx Heart Attack/AMI: No Hx Congestive Heart Failure: No Hx Diabetes: Yes (Type 1) Hx Deep Vein Thrombosis: No Hx Arthritis: No Hx Seizures: No Hx Asthma: No Hx COPD: No Hx HIV: No - Surgical History Hx Cholecystectomy: No Hx Appendectomy: No Additional Surgical History: Left BKA - Social History Smoking Status: Never Smoker - Medications Home Medications: Home Medications Medication Instructions Recorded Confirmed Last Taken Type Insulin Glargine [Lantus VIAL] 15 units SUB-Q QAMDIAB 30 Days 05/30/19 07/10/19 Unknown Rx units Insulin NPH Hum/Reg Insulin Hm 6 unit SQ TIDAC #1 insuln.pen 07/11/19 Unknown Rx [Novolin 70-30 Flexpen] ED Physical Exam - General Limitations: No Limitations General appearance: alert, in no apparent distress - Head Head exam: Present: atraumatic, normocephalic - Eye Eye exam: Present: normal appearance, EOMI. Absent: nystagmus - ENT ENT exam: Present: normal exam, normal orophraynx, mucous membranes moist, normal external ear exam - Neck Neck exam: Present: normal inspection, full ROM. Absent: tenderness, meningismus - Respiratory Respiratory exam: Present: normal lung sounds bilaterally. Absent: respiratory distress - Cardiovascular Cardiovascular Exam: Present: regular rate, normal rhythm, normal heart sounds. Absent: bradycardia, tachycardia, irregular rhythm, systolic murmur, diastolic murmur, rubs, gallop - GI/Abdominal GI/Abdominal exam: Present: soft, normal bowel sounds. Absent: distended, tenderness, guarding, rebound, rigid, pulsatile mass - Rectal Rectal exam: Present: deferred - Extremities Exam Extremities exam: Present: normal inspection, full ROM, other (2+ pulses noted in the bilateral upper and right lower extremity. There is a left lower extremity below-knee amputation there is no palpable cord. negative Homans sign. Muscular compartments are soft. The pelvis is stable.). Absent: pedal edema, calf tenderness - Back Exam Back exam: Present: normal inspection, full ROM. Absent: tenderness, CVA tenderness (R), CVA tenderness (L), paraspinal tenderness, vertebral tenderness - Neurological Exam Neurological exam: Present: alert, oriented X3, other (No facial droop. Tongue midline. Extraocular movements intact bilaterally. Facial sensation intact to light touch in V1, V2, V3 distribution bilaterally. 5 and a 5 strength in 4 extremities. Sensation intact to light touch in 4 extremities.). Absent: motor sensory deficit - Psychiatric Psychiatric exam: Present: normal affect, normal mood - Skin Skin exam: Present: warm, dry, intact, normal color. Absent: rash ED Course Vital Signs 07/23/19 07/23/19 16:03 17:34 Temperature 98.5 F Pulse Rate 92 H 82 Respiratory 11 L 22 Rate Blood Pressure 146/80 Blood Pressure 145/91 [Left] O2 Sat by Pulse 100 97 Oximetry ED Medical Decision Making - Lab Data Vital Signs 07/23/19 16:03 Temperature 98.5 F Pulse Rate 92 H Respiratory 11 L Rate Blood Pressure 146/80 O2 Sat by Pulse 100 Oximetry - Medical Decision Making Differential diagnosis, including but not limited to: Hypoglycemia, now resolved Assessment and plan: 38-year-old gentleman, with resolved hypoglycemia, likely secondary to insulin administration without checking pre-existing glucose le vels, and inadequate oral intake. The patient is afebrile, with reassuring vital signs, clinically sober at this time, and denies additional complaints with the exception of chronic right-sided knee pain. The patient was fed in the emergency room, glucose remained stable, he was given acetaminophen for his chronic pain, and he did not experience a decompensation while here in the emergency room. The patient is reliable at this point time to monitor his glucose at home, he was counseled appropriately about insulin administration in the context of food intake and glucose monitoring. Critical care attestation.: If time is entered above; I have spent that time in minutes in the direct care of this critically ill patient, excluding procedure time. ED Disposition Clinical Impression: History of hypoglycemia Disposition: DC-01 TO HOME OR SELFCARE Is pt being admited?: No Does the pt Need Aspirin: No Condition: Stable Additional Instructions: Please make certain to eat at least 3-4 times per day, with meals that are appropriate for diabetic diet. Patient may reference the [place] [employer] website for recommendations on how to put together appropriate meals and diet plans if he has any questions. I also recommend that the patient check his glucose levels prior to insulin administration. Not checking glucose levels and administering insulin without knowing what sugar levels are, and not eating adequately may cause low blood sugar levels, which can cause , disability, paralysis, loss of quality of life. Please follow-up with your primary care doctor within the next 2 to 3 weeks. Patient may take [id number] Tylenol or Motrin as needed for chronic knee pain. Please return to the emergency room right away with new pain, worsened pain, migration of pain, projectile vomiting, change in mental status, confusion, inability to tolerate liquid feeds, new, worsened or different symptoms not present on the initial emergency room evaluation. Referrals: DARINEL MOSER MD [Primary Care Provider] - 3-5 Days
[2019-07-23] MEDS ORDERED: ACETAMINOPHEN 325 MG TAB PO ONE (16:02)
[2019-07-23 17:35] VITALS: BP 145/91
== END 2019-07-23 18:48 | disposition home or self-care (01) ==
LOC: ED 14:16
DX: E11.649 Type 2 diabetes mellitus with hypoglycemia without coma (principal); Z97.4 Presence of external hearing-aid; Z79.899 Other long term (current) drug therapy
CPT/HCPCS: 82962

== ENCOUNTER 2020-07-31 01:03 | Inpatient (IN) | payer MEDICAID ==
--- NOTE | 2020-07-31 05:36 | Event Note ---
ED Screening Note Date of service: 07/31/20 Time: 05:33 ED Screening Note: Patient is a 39 yo WM with a h/o IDDM and left AKA who presents to the ED with c/o right foot pain due to ulcerated diabetic ulcer wound and also states "I have DKA" with hyperglycemia of 273mg/dL prior to arrival in the ED for the last 2 days. Patient denies nausea, vomiting, abdominal pain, cough, chest pain, dyspnea, dizziness, syncope, vision changes, diarrhea, back pain, traumatic injury or vision changes. Patient refused any physical exam especially of his right foot stating "I know what am talking about." This initial assessment/diagnostic orders/clinical plan/treatment(s) is/are subject to change based on patients health status, clinical progression and re- assessment by fellow clinical providers in the ED. Further treatment and workup at subsequent clinical providers discretion. Patient/guardian urged not to elope from the ED as their condition may be serious if not clinically assessed and managed. Initial orders include: CBC, CMP Acetone
[2020-07-31 05:58] LABS: Basophils # (Auto) 0.1 K/mm3 (0.0-0.1); Basophils % (Auto) 0.7 % (0.0-1.8); Eosinophils # (Auto) 0.5 K/mm3 (0.0-0.4); Eosinophils % (Auto) 3.7 % (0.0-4.3); Hematocrit 32.8 % (35.5-45.6); Lymphocytes # (Auto) 2.7 K/mm3 (1.2-5.4); Lymphocytes % (Auto) 21.7 % (13.4-35.0); Mean Corpuscular HGB Conc 34 % (32-34); Mean Corpuscular Volume 84 fl (84-94); Monocytes # (Auto) 0.9 K/mm3 (0.0-0.8); Monocytes % (Auto) 7.5 % (0.0-7.3); Platelet Count 355 K/mm3 (140-440); Red Blood Count 3.91 M/mm3 (3.65-5.03); Red Cell Distribution Width 16.2 % (13.2-15.2)
[2020-07-31 06:28] LABS: Alanine Aminotransferase 11 units/L (7-56); Albumin 3.8 g/dL (3.9-5); Blood Urea Nitrogen 19 mg/dL (9-20); Calcium 9.1 mg/dL (8.4-10.2); Hemolysis Index 18
[2020-07-31 06:32] LABS: BUN/Creatinine Ratio 32
--- NOTE | 2020-07-31 09:15 | XRay Report ---
RIGHT FOOT 3 VIEW(S) INDICATION / CLINICAL INFORMATION: right foot redness with swelling COMPARISON: None available. FINDINGS: BONES / JOINT(S): Amputation first toe at proximal metatarsal. No acute fracture or subluxation. Old healed fractures of second through fifth distal metatarsals and second, third and fifth proximal phal anges. Cortical destruction involving the fourth toe distal phalanx with overlying soft tissue dressi ng SOFT TISSUES: Mild dorsal soft tissue swelling. ADDITIONAL FINDINGS: None. IMPRESSION: Osteomyelitis fourth toe distal phalanx. Signer Name: Ricky Casillas MD Signed: 07/31/2020 9:11 AM Workstation Name: [id number]
--- NOTE | 2020-07-31 10:45 | Emergency Department Report ---
ED Lower Extremity HPI - General Chief Complaint: Hyperglycemia Stated Complaint: DKA Time Seen by Provider: 07/31/20 08:24 Source: patient Mode of arrival: Ambulatory Limitations: No Limitations - History of Present Illness Initial Comments: Chief complaint: "I tried to take care of my foot myself." HPI: This is a 39-year-old male with history of type 1 diabetes mellitus and left BKA who presents with right foot infection. For several months he has had large ulceration with skin peeling especially around the toes. He has minimal pain in the area. He has not followed up with primary care physician or surgeon. He denies fever. Denies direct injury. MD Complaint: other (Right foot ulceration) Injury: Foot: Right Severity: severe Improves With: nothing Worsens With: nothing Treatments Prior to Arrival: bandage, other (Hydrogen peroxide) - Related Data Previous Rx's Medication Instructions Recorded Last Taken Type Insulin Glargine [Lantus VIAL] 15 units SUB-Q QAMDIAB 30 Days 05/30/19 Unknown Rx units Insulin NPH Hum/Reg Insulin Hm 6 unit SQ TIDAC #1 insuln.pen 07/11/19 Unknown Rx [Novolin 70-30 Flexpen] Allergies Allergy/AdvReac Type Severity Reaction Status Date / Time shellfish derived Allergy Hives Verified 05/29/19 01:22 ED Review of Systems ROS: Stated complaint: DKA Other details as noted in HPI Comment: All other systems reviewed and negative Constitutional: denies: fever, malaise Respiratory: denies: cough, shortness of breath Cardiovascular: denies: chest pain Gastrointestinal: denies: abdominal pain, nausea, vomiting, diarrhea Skin: rash, lesions ED Past Medical Hx - Past Medical History Previous Medical History?: Yes Hx Heart Attack/AMI: No Hx Congestive Heart Failure: No Hx Diabetes: Yes (Type 1) Hx Deep Vein Thrombosis: No Hx Arthritis: No Hx Seizures: No Hx Asthma: No Hx COPD: No Hx HIV: No - Surgical History Past Surgical History?: Yes Hx Cholecystectomy: No Hx Appendectomy: No Additional Surgical History: Left BKA, right great toe amputation - Family History Family history: diabetes - Social History Smoking Status: Never Smoker Substance Use Type: None - Medications Home Medications: Home Medications Medication Instructions Recorded Confirmed Last Taken Type Insulin Glargine [Lantus VIAL] 15 units SUB-Q QAMDIAB 30 Days 05/30/19 07/10/19 Unknown Rx units Insulin NPH Hum/Reg Insulin Hm 6 unit SQ TIDAC #1 insuln.pen 07/11/19 Unknown Rx [Novolin 70-30 Flexpen] ED Physical Exam - General Limitations: No Limitations General appearance: alert, in no apparent distress - Head Head exam: Present: atraumatic, normocephalic - Eye Eye exam: Present: normal appearance - ENT ENT exam: Present: mucous membranes moist - Neck Neck exam: Present: normal inspection, full ROM - Respiratory Respiratory exam: Present: normal lung sounds bilaterally. Absent: respiratory distress, wheezes, rales, rhonchi, stridor - Cardiovascular Cardiovascular Exam: Present: regular rate, normal rhythm, normal heart sounds. Absent: systolic murmur, diastolic murmur, rubs, gallop - GI/Abdominal GI/Abdominal exam: Present: soft, normal bowel sounds. Absent: distended, tenderness, guarding, rebound - Rectal Rectal exam: Present: deferred - Extremities Exam Extremities exam: Present: other (Left AKA with prosthesis,) - Back Exam Back exam: Present: normal inspection - Neurological Exam Neurological exam: Present: alert, oriented X3 - Psychiatric Psychiatric exam: Present: normal affect, normal mood - Other Other exam information: Large ulcer involving the entire right forefoot with beefy red skin underneath, pale dusky peeling skin involving the majority of the toes, there is a surgically absent right big toe ED Course Vital Signs 07/31/20 07/31/20 01:14 07:33 Temperature 98.2 F 98.8 F Pulse Rate 112 H 92 H Respiratory 16 20 Rate Blood Pressure 143/75 [Left] Blood Pressure 133/79 [Right] O2 Sat by Pulse 99 98 Oximetry ED Lower Extremity MDM - Lab Data Result diagrams: 07/31/20 05:24 07/31/20 05:24 Laboratory Results - last 24 hr 07/31/20 07/31/20 07/31/20 01:54 05:24 05:24 WBC 12.5 H RBC 3.91 Hgb 11.0 L Hct 32.8 L MCV 84 MCH 28 MCHC 34 RDW 16.2 H Plt Count 355 Lymph % (Auto) 21.7 [place] % (Auto) 7.5 H Eos % (Auto) 3.7 Baso % (Auto) 0.7 Lymph # (Auto) 2.7 [place] # (Auto) 0.9 H Eos # (Auto) 0.5 H Baso # (Auto) 0.1 Seg Neutrophils % 66.4 Seg Neutrophils # 8.3 H Sodium 142 Potassium 4.7 Chloride 101.5 Carbon Dioxide 31 H Anion Gap 14 BUN 19 Creatinine 0.6 L Estimated GFR > 60 BUN/Creatinine Ratio 32 Glucose 41 L POC Glucose 294 H Calcium 9.1 Total Bilirubin < 0.20 AST 17 ALT 11 Alkaline Phosphatase 158 H Total Protein 7.0 Albumin 3.8 L Albumin/Globulin Ratio 1.2 - Radiology Data Radiology results: report reviewed Patient Name: FRIEDA LIM Gender: Male Date of : 1980 Referring Provider: RADHA GARCÍA Organization: [facility] Accession Number: [id number] Requested Date: July 31, 2020 08:35 Report Status: Final Requested Procedure: 1 Procedure Description: XR foot 3+V RT Modality: XR Findings Reporting MD: Ricky Casillas Dictation Time: July 31, 2020 08:11 Director University: Not available Criminal Attorney Date: RIGHT FOOT 3 VIEW(S) INDICATION / CLINICAL INFORMATION: right foot redness with swelling COMPARISON: None available. FINDINGS: BONES / JOINT(S): Amputation first toe at proximal metatarsal. No acute fracture or subluxation. Old healed fractures of second through fifth distal metatarsals and second, third and fifth proximal phalanges. Cortical destruction involving the fourth toe distal phalanx with overlying soft tissue dressing SOFT TISSUES: Mild dorsal soft tissue swelling. ADDITIONAL FINDINGS: None. IMPRESSION: Osteomyelitis fourth toe distal phalanx. Signer Name: Ricky Casillas MD Signed: 07/31/2020 8:11 AM Workstation Name: [id number] - Medical Decision Making Diabetic foot infection and ulcer osteomyelitis of the fourth phalanx on radiographs: Patient is admitted for IV antibiotics and further treatment evaluation. Tdap booster ordered. Unasyn and vancomycin initiated in emergency department Critical care attestation.: If time is entered above; I have spent that time in minutes in the direct care of this critically ill patient, excluding procedure time. ED Disposition Clinical Impression: Diabetic infection of right foot, Diabetic foot ulcer, Diabetic osteomyelitis Disposition: OP ADMIT IP TO THIS HOSP Is pt being admited?: Yes Does the pt Need Aspirin: No Condition: Stable Instructions: Diabetes Mellitus Type 2 in Adults (ED)
[2020-07-31] MEDS ORDERED: TETANUS,DIPH,PERTUSS(ACELL) VACCINE 0.5 ML SYRINGE IM ONE (10:52)
[2020-07-31] MEDS ORDERED: VANCOMYCIN/NS 1 GM/250 ML 1 GM/250 ML BAG IV ONE (10:52)
[2020-07-31] MEDS ORDERED: AMPICILLIN/SULBACTA 3GM/100ML 3 GM/100 ML BAG IV ONE (10:52)
[2020-07-31] MEDS ORDERED: MORPHINE 4 MG/1 ML INJ IV PRN (12:37)
[2020-07-31] MEDS ORDERED: ACETAMINOPHEN 325 MG TAB PO PRN (12:37)
[2020-07-31] MEDS ORDERED: NALOXONE 0.4 MG/1 ML INJ IV PRN (12:37)
[2020-07-31] MEDS ORDERED: ONDANSETRON 4 MG/2 ML INJ IV PRN (12:37)
[2020-07-31] MEDS ORDERED: DEXTROSE 50% IN WATER (25GM) 50 ML SYRINGE IV PRN (12:49)
[2020-07-31] MEDS ORDERED: VANCOMYCIN PHARMACY TO DOSE IV SCH (13:00)
[2020-07-31] MEDS ORDERED: CEFEPIME/NS 2 GM/100 ML 2 GM/100 ML BAG IV SCH (13:00)
--- NOTE | 2020-07-31 13:32 | History and Physical Report ---
History of Present Illness Date of examination: 07/31/20 Date of admission: 07/31/20 10:55 Chief complaint: Right foot wound History of present illness: 39 year-old diabetic type I with history of left BKA who presents with right foot wound. Patient had some sort of plastic amount in his right shoe, dug into his right foot and caused a large wound over the dorsal aspect of his foot. Patient was using [id number] antibiotic cream and hydrogen peroxide to 10 to it for about a week. However swelling increased in his foot, came to [facility] for [facility]. Patient afebrile, slightly tachycardic, blood pressure controlled. Patient with 12.5 leukocytosis, blood glucose 41, creatinine 0.6, x-ray of the foot showing fourth toe, right foot osteomyelitis. Patient was placed on Unasyn and vancomycin. Patient will be admitted to the hospital for IV antibiotics, wound care, and blood glucose control. Past History Past Medical History: other (Diabetes mellitus type 1) Past Surgical History: Other (Right foot first hallux amputation, left BKA) Social history: other (Patient smokes 1 cigarette a day for the last 17 years, no alcohol use, no illicit drug use) Family history: other (Diabetes mellitus) Medications and Allergies Allergies Allergy/AdvReac Type Severity Reaction Status Date / Time shellfish derived Allergy Hives Verified 05/29/19 01:22 Home Medications Medication Instructions Recorded Confirmed Last Taken Type Insulin Glargine [Lantus VIAL] 15 units SUB-Q QAMDIAB 30 Days 05/30/19 07/10/19 Unknown Rx units Insulin NPH Hum/Reg Insulin Hm 6 unit SQ TIDAC #1 insuln.pen 07/11/19 Unknown Rx [Novolin 70-30 Flexpen] Active Meds: Active Medications Acetaminophen (Acetaminophen 325 Mg Tab) 650 mg PO Q4H PRN PRN Reason: Pain MILD(1-3)/Fever >100.5/ODOM Dextrose (Dextrose 50% In Water (25gm) 50 Ml Syringe) 50 ml IV Q30MIN PRN; Protocol PRN Reason: Hypoglycemia Heparin Sodium (Porcine) (Heparin 5,000 Unit/1 Ml Vial) 5,000 unit SUB-Q Q12HR [facility] Vancomycin HCl (Vancomycin/Ns 1 Gm/250 Ml) 1 gm in 250 mls @ 166.667 mls/hr IV Q12H [facility]; Protocol Cefepime HCl (Cefepime/Ns 2 Gm/100 Ml) 2 gm in 100 mls @ 200 mls/hr IV Q12HR [facility]; Protocol Vancomycin HCl (Vancomycin/Ns 500 Mg/100 Ml) 500 mg in 100 mls @ 100 mls/hr IV ONCE [facility] Sodium Chloride (Nacl 0.9% 1000 Ml) 1,000 mls @ 100 mls/hr IV DIRECT [facility]A Insulin Human Isoph/Insulin Regular (Insulin Nph/Regular 70/30 Inj) 10 unit SUB-Q BIDDIAB [facility] Insulin Human Lispro (Insulin Lispro 100 Unit/Ml) 0 unit SUB-Q ACHS [facility]; Pr otocol Lisinopril (Lisinopril 5 Mg Tab) 5 mg PO QDAY [facility] Morphine Sulfate (Morphine 4 Mg/1 Ml Inj) 4 mg IV Q4H PRN PRN Reason: Pain , Severe (7-10) Naloxone HCl (Naloxone 0.4 Mg/1 Ml Inj) 0.1 mg IV Q2MIN PRN PRN Reason: Res Rate </= 8 or 02 SAT < 92% Ondansetron HCl (Ondansetron 4 Mg/2 Ml Inj) 4 mg IV Q8H PRN PRN Reason: Nausea And Vomiting Oxycodone/Acetaminophen (Oxycodone /Acetaminophen 5-325mg Tab) 1 tab PO Q6H PRN PRN Reason: Pain, Moderate (4-6) Sodium Chloride (Sodium Chloride 0.9% 10 Ml Flush Syringe) 10 ml IV BID [facility] Sodium Chloride (Sodium Chloride 0.9% 10 Ml Flush Syringe) 10 ml IV PRN PRN PRN Reason: LINE FLUSH Review of Systems All systems: negative Integumentary: other (Right foot wound) Exam - Physical Exam Narrative exam: General appearance: no acute distress, well-nourished EENT: PERRL, EOM intact, hearing intact, clear oral mucosa Neck: Present: supple, normal ROM Respiratory: bilateral CTA, negative: rales, rhonchi, wheezing Cardiovascular: Regular rate/rhythm, Normal S1 & S2. No gallop, rub Extremities: Swelling of right foot, possible ischemia in toes of right foot, right foot first hallux amputation, left leg amputation Abdominal: soft, no tenderness, non-distended, normal bowel sounds Integumentary: Present: clear, warm, wet 4 cm x 3 cm dorsal wound on right foot, pale to black skin on toes of right foot Psychiatric: appropriate mood/affect, intact judgment & insight Neurologic: CNII-XII intact, decreased sensation in right foot - Constitutional Vitals: Temp Pulse Resp BP Pulse Ox 98.8 F 97 H 16 145/89 97 07/31/20 07:33 07/31/20 13:25 07/31/20 11:00 07/31/20 11:00 07/31/20 13:25 Results - Labs CBC & Chem 7: 07/31/20 05:24 07/31/20 05:24 Labs: Laboratory Last Values WBC 12.5 K/mm3 (4.5-11.0) H 07/31/20 05:24 RBC 3.91 M/mm3 (3.65-5.03) 07/31/20 05:24 Hgb 11.0 gm/dl (11.8-15.2) L 07/31/20 05:24 Hct 32.8 % (35.5-45.6) L 07/31/20 05:24 MCV 84 fl (84-94) 07/31/20 05:24 MCH 28 pg (28-32) 07/31/20 05:24 MCHC 34 % (32-34) 07/31/20 05:24 RDW 16.2 % (13.2-15.2) H 07/31/20 05:24 Plt Count 355 K/mm3 (140-440) 07/31/20 05:24 Lymph % (Auto) 21.7 % (13.4-35.0) 07/31/20 05:24 [place] % (Auto) 7.5 % (0.0-7.3) H 07/31/20 05:24 Eos % (Auto) 3.7 % (0.0-4.3) 07/31/20 05:24 Baso % (Auto) 0.7 % (0.0-1.8) 07/31/20 05:24 Lymph # (Auto) 2.7 K/mm3 (1.2-5.4) 07/31/20 05:24 [place] # (Auto) 0.9 K/mm3 (0.0-0.8) H 07/31/20 05:24 Eos # (Auto) 0.5 K/mm3 (0.0-0.4) H 07/31/20 05:24 Baso # (Auto) 0.1 K/mm3 (0.0-0.1) 07/31/20 05:24 Seg Neutrophils % 66.4 % (40.0-70.0) 07/31/20 05:24 Seg Neutrophils # 8.3 K/mm3 (1.8-7.7) H 07/31/20 05:24 Sodium 142 mmol/L (137-145) 07/31/20 05:24 Potassium 4.7 mmol/L (3.6-5.0) 07/31/20 05:24 Chloride 101.5 mmol/L (98-107) 07/31/20 05:24 Carbon Dioxide 31 mmol/L (22-30) H 07/31/20 05:24 Anion Gap 14 mmol/L 07/31/20 05:24 BUN 19 mg/dL (9-20) 07/31/20 05:24 Creatinine 0.6 mg/dL (0.8-1.3) L 07/31/20 05:24 Estimated GFR > 60 ml/min 07/31/20 05:24 BUN/Creatinine Ratio 32 % 07/31/20 05:24 Glucose 41 mg/dL (75-100) L 07/31/20 05:24 POC Glucose 294 mg/dL (70-105) H 07/31/20 01:54 Calcium 9.1 mg/dL (8.4-10.2) 07/31/20 05:24 Total Bilirubin < 0.20 mg/dL (0.1-1.2) 07/31/20 05:24 AST 17 units/L (5-40) 07/31/20 05:24 ALT 11 units/L (7-56) 07/31/20 05:24 Alkaline Phosphatase 158 units/L (35-129) H 07/31/20 05:24 Total Protein 7.0 g/dL (6.3-8.2) 07/31/20 05:24 Albumin 3.8 g/dL (3.9-5) L 07/31/20 05:24 Albumin/Globulin Ratio 1.2 % 07/31/20 05:24 Assessment and Plan Assessment and plan: 39-year-old male with a past medical history of uncontrolled diabetes type 1 who presents with right foot diabetic ulceration Right foot diabetic ulceration Wound care Vancomycin and cefepime antibiotics Blood cultures are pending Sepsis secondary to right foot fourth toe osteomyelitis X-ray foot reviewed Pending MRI Vancomycin and cefepime antibiotics Orthopedic surgery consulted for recommendations on debridement versus amputation Infectious disease consulted Blood cultures pending Wound cultures pending Possible ischemia of right foot toes Arterial Dopplers pending Diabetes mellitus type 1, insulin-dependent, uncontrolled 70/30 insulin, 10 units twice daily Hypoglycemia protocol initiated Insulin sliding scale Diabetic education Low-dose lisinopril initiated for renal protection Hypoglycemia Hypoglycemia protocol initiated Accu-Cheks Encourage p.o. intake CODE STATUS: Full DVT prophylaxis: Heparin Disposition: Patient will need more than 2 midnight stay, continue antibiotics, wound care, infectious disease and orthopedic consultation pending. Advance Directives: Yes VTE prophylaxis?: Chemical Plan of care discussed with patient/family: Yes
[2020-07-31] MEDS: SODIUM CHLORIDE 0.9% 1000 ML 1,000 ML IV SCH (14:12)
[2020-07-31] MEDS ORDERED: VANCOMYCIN/NS 500 MG/100 ML 500 MG/100 ML BAG IV SCH (16:00)
[2020-07-31] MEDS: INSULIN LISPRO 100 UNIT/ML SUB-Q SCH ×2 (17:29→22:54)
[2020-07-31] MEDS: INSULIN NPH/REGULAR 70/30 INJ SUB-Q SCH (17:46)
--- NOTE | 2020-07-31 17:49 | Consultation ---
History of Present Illness - Reason for Consult Consult date: 07/31/20 - History of Present Illness 39-year-old male past medical history type 1 diabetes with history of left BKA, right hallux amputation presents with right foot wound. Reportedly there is a traumatic wound with plastic dog into his foot which resulted in a large wound over the foot. Is a worsening swelling of the foot which resulted in him without him to the hospital for treatment. Afebrile since admission with a white count of 12.5 no cultures available for review. Currently on cefepime and vancomycin. Creatinine clearance normal. Imaging personally reviewed: Foot x-ray: Osteomyelitis of the fourth toe distal phalanx. Review of Systems: Bold if positive, otherwise negative General: fevers, chills, rigors HEENT: visual disturbance, diplopia, eye pain Respiratory: cough, sputum, hemoptysis, shortness of breath Cardiovascular: chest pain, syncope Gastrointestinal: nausea, vomiting, diarrhea, abdominal pain Genitourinary: dysuria, hematuria, flank pain Musculoskeletal: neck pain, back pain, joint pain, edema Neurologic: headaches, seizures Hematologic: easy bruising or bleeding Endocrine: night sweats, acute weight loss Skin: rash, jaundice, redness Psychiatric: suicidal, homicidal ideation Past History Past Medical History: other (Diabetes mellitus type 1) Past Surgical History: Other (Right foot first hallux amputation, left BKA) Social history: other (Patient smokes 1 cigarette a day for the last 17 years, no alcohol use, no illicit drug use) Family history: other (Diabetes mellitus) Medications and Allergies Allergies Allergy/AdvReac Type Severity Reaction Status Date / Time shellfish derived Allergy Hives Verified 05/29/19 01:22 Home Medications Medication Instructions Recorded Confirmed Last Taken Type Insulin Glargine [Lantus VIAL] 15 units SUB-Q QAMDIAB 30 Days 05/30/19 07/10/19 Unknown Rx units Insulin NPH Hum/Reg Insulin Hm 6 unit SQ TIDAC #1 insuln.pen 07/11/19 Unknown Rx [Novolin 70-30 Flexpen] Active Meds: Active Medications Acetaminophen (Acetaminophen 325 Mg Tab) 650 mg PO Q4H PRN PRN Reason: Pain MILD(1-3)/Fever >100.5/ODOM Dextrose (Dextrose 50% In Water (25gm) 50 Ml Syringe) 50 ml IV Q30MIN PRN; Protocol PRN Reason: Hypoglycemia Heparin Sodium (Porcine) (Heparin 5,000 Unit/1 Ml Vial) 5,000 unit SUB-Q Q12HR SHANIKA Vancomycin HCl (Vancomycin/Ns 1 Gm/250 Ml) 1 gm in 250 mls @ 166.667 mls/hr IV Q12H [facility]; Protocol Cefepime HCl (Cefepime/Ns 2 Gm/100 Ml) 2 gm in 100 mls @ 200 mls/hr IV Q12HR S ; Protocol Last Infusion: 07/31/20 14:41 Dose: Infused Documented by: Vancomycin HCl (Vancomycin/Ns 500 Mg/100 Ml) 500 mg in 100 mls @ 100 mls/hr IV ONCE SHANIKA Sodium Chloride (Nacl 0.9% 1000 Ml) 1,000 mls @ 100 mls/hr IV DIRECT SHANIKA Last Admin: 07/31/20 14:12 Dose: 100 mls/hr Documented by: Insulin Human Isoph/Insulin Regular (Insulin Nph/Regular 70/30 Inj) 10 unit SUB-Q BIDDIAB [facility] Insulin Human Lispro (Insulin Lispro 100 Unit/Ml) 0 unit SUB-Q ACHS [facility]; Protocol Last Admin: 07/31/20 17:29 Dose: 8 unit Documented by: Lisinopril (Lisinopril 5 Mg Tab) 5 mg PO QDAY [facility] Morphine Sulfate (Morphine 4 Mg/1 Ml Inj) 4 mg IV Q4H PRN PRN Reason: Pain , Severe (7-10) Naloxone HCl (Naloxone 0.4 Mg/1 Ml Inj) 0.1 mg IV Q2MIN PRN PRN Reason: Res Rate </= 8 or 02 SAT < 92% Ondansetron HCl (Ondansetron 4 Mg/2 Ml Inj) 4 mg IV Q8H PRN PRN Reason: Nausea And Vomiting Oxycodone/Acetaminophen (Oxycodone /Acetaminophen 5-325mg Tab) 1 tab PO Q6H PRN PRN Reason: Pain, Moderate (4-6) Sodium Chloride (Sodium Chloride 0.9% 10 Ml Flush Syringe) 10 ml IV BID [facility] Sodium Chloride (Sodium Chloride 0.9% 10 Ml Flush Syringe) 10 ml IV PRN PRN PRN Reason: LINE FLUSH Physical Examination - Physical Exam Narrative exam: Physical Exam: Constitutional: Alert, cooperative. No acute distress Head, Ears, Nose: Normocephalic, atraumatic. External ears, nose normal Eyes: Conjunctivae/corneas clear. No icterus. No ptosis. Neck: Supple, no meningeal signs Oral: dentition fair, no thrush Cardiovascular: S1, S2 normal. Respiratory: Good air entry, clear to auscultation bilaterally GI: Soft, non-tender; bowel sounds normal. No peritoneal signs. Musculoskeletal: Left BKA, right great toe amputation. Dorsal wound, sloughing skin over all remaining toes. Skin: No rash or abscess Hem/Lymphatic: No palpable cervical or supraclavicular nodes. No lymphangitis Psych: Mood ok. Affect normal Neurological: Awake, alert, oriented. No gross abnormality - Constitutional Vitals: Vital Signs Temp Pulse Resp BP Pulse Ox 98.2 F 97 H 18 125/79 98 07/31/20 17:40 07/31/20 17:40 07/31/20 17:40 07/31/20 17:40 07/31/20 17:40 Temperature -Last 24 Hours Temperature 98.2 F Temperature 98.8 F Temperature 98.4 F Temperature 98.2 F Results - Labs CBC & Chem 7: 07/31/20 05:24 07/31/20 05:24 Labs: Abnormal lab results 07/31/20 07/31/20 07/31/20 Range/Units 01:54 05:24 05:24 WBC 12.5 H (4.5-11.0) K/mm3 Hgb 11.0 L (11.8-15.2) gm/dl Hct 32.8 L (35.5-45.6) % RDW 16.2 H (13.2-15.2) % [place] % (Auto) 7.5 H (0.0-7.3) % [place] # (Auto) 0.9 H (0.0-0.8) K/mm3 Eos # (Auto) 0.5 H (0.0-0.4) K/mm3 Seg Neutrophils # 8.3 H (1.8-7.7) K/mm3 Carbon Dioxide 31 H (22-30) mmol/L Creatinine 0.6 L (0.8-1.3) mg/dL Glucose 41 L (75-100) mg/dL POC Glucose 294 H (70-105) mg/dL Alkaline Phosphatase 158 H (35-129) units/L Albumin 3.8 L (3.9-5) g/dL 07/31/ Range/Units 17:06 WBC (4.5-11.0) K/mm3 Hgb (11.8-15.2) gm/dl Hct (35.5-45.6) % RDW (13.2-15.2) % [place] % (Auto) (0.0-7.3) % [place] # (Auto) (0.0-0.8) K/mm3 Eos # (Auto) (0.0-0.4) K/mm3 Seg Neutrophils # (1.8-7.7) K/mm3 Carbon Dioxide (22-30) mmol/L Creatinine (0.8-1.3) mg/dL Glucose (75-100) mg/dL POC Glucose 379 H (70-105) mg/dL Alkaline Phosphatase (35-129) units/L Albumin (3.9-5) g/dL Assessment and Plan Cultures: None A/P: 39-year-old man past medical history of poorly controlled diabetes, history of left BKA, right great toe amputation presents with right foot wound #Right foot wound with fourth toe osteomyelitis: Given extent of sloughing skin over all the toes, recommend MRI to evaluate further for osteomyelitis in the other 3 toes. Continue empiric antibiotics for now, recommend surgical consult. #Diabetes: tight glycemic control for best outcomes. Recs: -Stop cefepime, start ceftriaxone 2 g every 24 hours -Continue vancomycin dosed per pharmacy, goal trough 10-20. -Obtain MRI of the right foot -Consult Dr. Shaw for wound care and potential amputation. -If amputation performed recommend obtaining cultures and distal margins for pathology. Thank you for the consult, we will continue to follow. Meeta Jara MD [facility] O: [phone] F: [phone]
[2020-07-31] MEDS: cefTRIAXone/NS 2 GM/100 ML 2 GM/100 ML BAG IV SCH (19:18)
[2020-07-31] MEDS: HEPARIN 5,000 UNIT/1 ML VIAL SUB-Q SCH ×2 (22:07→22:10)
[2020-08-01] MEDS: SODIUM CHLORIDE 0.9% 1000 ML 1,000 ML IV SCH ×2 (01:17→22:14)
[2020-08-01] MEDS ORDERED: VANCOMYCIN/NS 1 GM/250 ML 1 GM/250 ML BAG IV SCH (04:00)
[2020-08-01 06:51] LABS: Basophils # (Auto) 0.1 K/mm3 (0.0-0.1); Basophils % (Auto) 0.6 % (0.0-1.8); Eosinophils # (Auto) 0.4 K/mm3 (0.0-0.4); Eosinophils % (Auto) 4.4 % (0.0-4.3); Hematocrit 31.6 % (35.5-45.6); Hemoglobin 10.4 gm/dl (11.8-15.2); Lymphocytes # (Auto) 2.2 K/mm3 (1.2-5.4); Mean Corpuscular HGB Conc 33 % (32-34); Mean Corpuscular Volume 84 fl (84-94); Monocytes # (Auto) 0.7 K/mm3 (0.0-0.8); Monocytes % (Auto) 7.2 % (0.0-7.3); Platelet Count 308 K/mm3 (140-440); Red Blood Count 3.75 M/mm3 (3.65-5.03); Red Cell Distribution Width 16.5 % (13.2-15.2)
[2020-08-01 07:14] LABS: BUN/Creatinine Ratio 30; Blood Urea Nitrogen 18 mg/dL (9-20); HDL Cholesterol 40 mg/dL (40-59); Hemolysis Index 16; LDL Cholesterol,Direct 134 mg/dL (50-130)
[2020-08-01] MEDS: LISINOPRIL 5 MG TAB PO SCH (09:09)
[2020-08-01] MEDS: HEPARIN 5,000 UNIT/1 ML VIAL SUB-Q SCH ×2 (09:10→21:34)
[2020-08-01] MEDS: INSULIN LISPRO 100 UNIT/ML SUB-Q SCH ×4 (09:22→22:41)
[2020-08-01] MEDS: INSULIN NPH/REGULAR 70/30 INJ SUB-Q SCH (09:25)
--- NOTE | 2020-08-01 10:57 | Progress Note ---
Assessment and Plan Assessment and plan: 39-year-old male with a past medical history of uncontrolled diabetes type 1 who presents with right foot diabetic ulceration Right foot diabetic ulceration Wound care Vancomycin and ceftriaxone antibiotics Blood cultures are pending Sepsis secondary to right foot fourth toe osteomyelitis X-ray foot reviewed Pending MRI of right foot Vancomycin and ceftriaxone antibiotics General surgery surgery consulted for recommendations on debridement versus amputation Infectious disease consulted Blood cultures pending Wound cultures pending Possible ischemia of right foot toes Arterial Dopplers pending Diabetes mellitus type 1, insulin-dependent, uncontrolled 70/30 insulin, 10 units twice daily Hypoglycemia protocol initiated Insulin sliding scale Diabetic education Low-dose lisinopril initiated for renal protection Hypoglycemia Hypoglycemia protocol initiated Accu-Cheks Encourage p.o. intake CODE STATUS: Full DVT prophylaxis: Heparin Disposition: Patient will need more than 2 midnight stay, continue antibiotics, wound care, infectious disease recommendations noted and general surgery consultation pending. History Interval history: 08/01/2020: Patient seen and examined, no overnight events, patient's blood glucose somewhat elevated, insulin given, pain is controlled. Hospitalist Physical - Physical exam Narrative exam: General appearance: no acute distress, well-nourished EENT: PERRL, EOM intact, hearing intact, clear oral mucosa Neck: Present: supple, normal ROM Respiratory: bilateral CTA, negative: rales, rhonchi, wheezing Cardiovascular: Regular rate/rhythm, Normal S1 & S2. No gallop, rub Extremities: Swelling of right foot, right foot wrapped in gauze, left BKA Abdominal: soft, no tenderness, non-distended, normal bowel sounds Psychiatric: appropriate mood/affect, intact judgment & insight Neurologic: CNII-XII intact, decreased sensation in right foot - Constitutional Vitals: Temp Pulse Resp BP Pulse Ox 98.2 F 83 18 112/75 98 08/01/20 05:14 08/01/20 09:09 08/01/20 05:14 08/01/20 09:09 08/01/20 05:14 Results - Labs CBC & Chem 7: 08/01/20 06:21 08/01/20 06:21 Labs: Laboratory Last Values WBC 9.6 K/mm3 (4.5-11.0) 08/01/20 06:21 RBC 3.75 M/mm3 (3.65-5.03) 08/01/20 06:21 Hgb 10.4 gm/dl (11.8-15.2) L 08/01/20 06:21 Hct 31.6 % (35.5-45.6) L 08/01/20 06:21 MCV 84 fl (84-94) 08/01/20 06:21 MCH 28 pg (28-32) 08/01/20 06:21 MCHC 33 % (32-34) 08/01/20 06:21 RDW 16.5 % (13.2-15.2) H 08/01/20 06:21 Plt Count 308 K/mm3 (140-440) 08/01/20 06:21 Lymph % (Auto) 23.0 % (13.4-35.0) 08/01/20 06:21 Isabela % (Auto) 7.2 % (0.0-7.3) 08/01/20 06:21 Eos % (Auto) 4.4 % (0.0-4.3) H 08/01/20 06:21 Baso % (Auto) 0.6 % (0.0-1.8) 08/01/20 06:21 Lymph # (Auto) 2.2 K/mm3 (1.2-5.4) 08/01/20 06:21 Isabela # (Auto) 0.7 K/mm3 (0.0-0.8) 08/01/20 06:21 Eos # (Auto) 0.4 K/mm3 (0.0-0.4) 08/01/20 06:21 Baso # (Auto) 0.1 K/mm3 (0.0-0.1) 08/01/20 06:21 Seg Neutrophils % 64.8 % (40.0-70.0) 08/01/20 06:21 Seg Neutrophils # 6.2 K/mm3 (1.8-7.7) 08/01/20 06:21 Sodium 137 mmol/L (137-145) 08/01/20 06:21 Potassium 4.5 mmol/L (3.6-5.0) 08/01/20 06:21 Chloride 101.9 mmol/L (98-107) 08/01/20 06:21 Carbon Dioxide 28 mmol/L (22-30) 08/01/20 06:21 Anion Gap 12 mmol/L 08/01/20 06:21 BUN 18 mg/dL (9-20) 08/01/20 06:21 Creatinine 0.6 mg/dL (0.8-1.3) L 08/01/20 06:21 Estimated GFR > 60 ml/min 08/01/20 06:21 BUN/Creatinine Ratio 30 % 08/01/20 06:21 Glucose 183 mg/dL (75-100) H 08/01/20 06:21 POC Glucose 341 mg/dL (70-105) H 08/01/20 09:21 Hemoglobin A1c 10.5 % (4-6) H 08/01/20 06:21 Calcium 8.0 mg/dL (8.4-10.2) L 08/01/20 06:21 Total Bilirubin < 0.20 mg/dL (0.1-1.2) 07/31/20 05:24 AST 17 units/L (5-40) 07/31/20 05:24 ALT 11 units/L (7-56) 07/31/20 05:24 Alkaline Phosphatase 158 units/L (35-129) H 07/31/20 05:24 Total Protein 7.0 g/dL (6.3-8.2) 07/31/20 05:24 Albumin 3.8 g/dL (3.9-5) L 07/31/20 05:24 Albumin/Globulin Ratio 1.2 % 07/31/20 05:24 Triglycerides 107 mg/dL (2-149) 08/01/20 06:21 Cholesterol 188 mg/dL (50-199) 08/01/20 06:21 LDL Cholesterol Direct 134 mg/dL (50-130) H 08/01/20 06:21 HDL Cholesterol 40 mg/dL (40-59) 08/01/20 06:21 Cholesterol/HDL Ratio 4.70 % 08/01/20 06:21 Microbiology: Microbiology 07/31/20 17:26 Peripheral/Venous Blood Culture - Preliminary Culture in Progress 07/31/20 17:26 Peripheral/Venous Blood Culture - Preliminary Culture in Progress Contreras/IV: Voiding Method Urinal Active Medications - Current Medications Current Medications: Generic Name Dose Route Start Last Admin Trade Name Freq PRN Reason Stop Dose Admin Acetaminophen 650 mg 07/31/20 12:37 Acetaminophen 325 Mg Tab PO Q4H PRN Pain MILD(1-3)/Fever >100.5/ODOM Dextrose 50 ml 07/31/20 12:49 Dextrose 50% In Water (25gm) 50 Ml Syringe IV Q30MIN PRN Hypoglycemia Protocol Heparin Sodium (Porcine) 5,000 unit 07/31/20 22:00 08/01/20 09:10 Heparin 5,000 Unit/1 Ml Vial SUB-Q 5,000 unit Q12HR SHANIKA Administration Sodium Chloride 1,000 mls @ 100 mls/hr 07/31/20 13:15 08/01/20 01:17 Nacl 0.9% 1000 Ml IV 100 mls/hr DIRECT SHANIKA Administration Ceftriaxone Sodium 2 gm in 100 mls @ 200 mls/hr 07/31/20 18:00 07/31/20 19:18 Rocephin/Ns 2 Gm/100 Ml IV 200 mls/hr Q24H SHANIKA Administration Protocol Vancomycin HCl 1 gm in 250 mls @ 166.667 mls/hr 08/01/20 14:00 Vancomycin/Ns 1 Gm/250 Ml IV Q8HR SHANIKA Insulin Human Isoph/Insulin Regular 10 unit 07/31/20 17:00 08/01/20 09:25 Insulin Nph/Regular 70/30 Inj SUB-Q 10 unit BIDDIAB SHANIKA Administration Insulin Human Lispro 0 unit 07/31/20 16:30 08/01/20 09:22 Insulin Lispro 100 Unit/Ml SUB-Q 6 unit ACHS SHANIKA Administration Protocol Lisinopril 5 mg 08/01/20 10:00 08/01/20 09:09 Lisinopril 5 Mg Tab PO 5 mg QDAY SHANIKA Administration Morphine Sulfate 4 mg 07/31/20 12:37 Morphine 4 Mg/1 Ml Inj IV Q4H PRN Pain , Severe (7-10) Naloxone HCl 0.1 mg 07/31/20 12:37 Naloxone 0.4 Mg/1 Ml Inj IV Q2MIN PRN Res Rate </= 8 or 02 SAT < 92% Ondansetron HCl 4 mg 07/31/20 12:37 Ondansetron 4 Mg/2 Ml Inj IV Q8H PRN Nausea And Vomiting Oxycodone/Acetaminophen 1 tab 07/31/20 12:37 Oxycodone /Acetaminophen 5-325mg Tab PO Q6H PRN Pain, Moderate (4-6) Sodium Chloride 10 ml 07/31/20 22:00 07/31/20 22:55 Sodium Chloride 0.9% 10 Ml Flush Syringe IV 10 ml BID SHANIKA Administration Sodium Chloride 10 ml 07/31/20 12:37 Sodium Chloride 0.9% 10 Ml Flush Syringe IV PRN PRN LINE FLUSH
--- NOTE | 2020-08-01 11:48 | Vascular Lab Report ---
DUPLEX DOPPLER LOWER EXTREMITY ARTERIAL, RIGHT INDICATION / CLINICAL INFORMATION: r/o ischemia of lower right foot. TECHNIQUE: Arterial duplex examination of the right lower extremity performed using B-mode, color reagan w and spectral Doppler assessment. FINDINGS: RIGHT: Common Femoral Artery: PSV 131 cm/sec. Triphasic waveform. Proximal SFA: PSV 122 cm/sec. Triphasic waveform. Mid SFA: PSV 160 cm/sec. Triphasic waveform. Distal SFA: PSV 135 cm/sec. Triphasic waveform. Popliteal artery: PSV 113 cm/sec. Triphasic waveform. Posterior tibial artery: PSV 136 cm/sec. Triphasic waveform. Dorsalis Pedis Artery: PSV 103 cm/sec. Monophasic waveform. Right NICOLAS: Not performed. IMPRESSION: 1. Monophasic waveform in the right dorsalis pedis artery could represent mild upstream disease. No a dditional hemodynamically significant peripheral arterial disease. Ankle-Brachial Index (NICOLAS): - Calcified arteries > 1.4 - Normal = 0.9-1.4 - Mild PAD = 0.7-0.89 - Moderate PAD = 0.51-0.69 - Severe PAD < 0.5 Doppler Waveform: - Triphasic is normal. - Biphasic is abnormal if clear transition from triphasic signal along vascular tree. - Monophasic is abnormal. Scribed by: Kathy Mendoza RDMS, RVT Scribed: 08/01/2020 10:11 AM Signer Name: Matthias Jimenez MD Signed: 08/01/2020 11:43 AM Workstation Name: [id number]
[2020-08-01] MEDS ORDERED: FLU VACC QUAD 2020-2021 (6 months +)/PF 60 0.5 ML SYRINGE IM ONE (12:00)
--- NOTE | 2020-08-01 12:40 | Event Note ---
Date: 08/01/20 Patient off the floor. Continue ceftriaxone, vancomycin. Also obtain vascular consult. Follow-up MRI
--- NOTE | 2020-08-01 15:50 | Consultation ---
History of Present Illness - Reason for Consult Consult date: 08/01/20 Abnormal arterial duplex. Requesting physician: DENNIS PARRISH - History of Present Illness 39 year-old diabetic type I with history of left BKA who presents with right foot wound. Patient had some sort of plastic amount in his right shoe, dug into his right foot and caused a large wound over the dorsal aspect of his foot. Patient was using [id number] antibiotic cream and hydrogen peroxide to 10 to it for about a week. However swelling increased in his foot, came to [facility] for evaluation. Patient afebrile, slightly tachycardic, blood pressure controlled. Patient with 12.5 leukocytosis, blood glucose 41, creatinine 0.6, x-ray of the foot showing fourth toe, right foot osteomyelitis. Patient was placed on Unasyn and vancomycin. Patient will be admitted to the hospital for IV antibiotics, wound care, and blood glucose control. Vascular consulted for abnormal arterial Doppler. Patient has low resistance arterial Doppler signals in the anterior tibial and dorsalis pedis artery. He has bounding right dorsalis pedis and posterior tibial pulses. I tried to have a discussion with him, but he was difficult to remain oriented during the discussion. He reports that he crawls around his home due to his left BKA and this, combined with poor footwear, likely resulted in a large wound of his right foot given underlying neuropathy. Past History Past Medical History: other (Diabetes mellitus type 1) Past Surgical History: Other (Right foot first hallux amputation, left BKA) Social history: other (Patient smokes 1 cigarette a day for the last 17 years, no alcohol use, no illicit drug use) Family history: other (Diabetes mellitus) Medications and Allergies Allergies Allergy/AdvReac Type Severity Reaction Status Date / Time shellfish derived Allergy Hives Verified 05/29/19 01:22 Home Medications Medication Instructions Recorded Confirmed Last Taken Type Novolin 70-30 100 Unit/ml Vial 10 unit SUB-Q TID 08/01/20 08/01/20 Unknown History metFORMIN [Glucophage] 500 mg PO BID 08/01/20 08/01/20 Unknown History Active Meds: Active Medications Acetaminophen (Acetaminophen 325 Mg Tab) 650 mg PO Q4H PRN PRN Reason: Pain MILD(1-3)/Fever >100.5/ODOM Dextrose (Dextrose 50% In Water (25gm) 50 Ml Syringe) 50 ml IV Q30MIN PRN; Protocol PRN Reason: Hypoglycemia Heparin Sodium (Porcine) (Heparin 5,000 Unit/1 Ml Vial) 5,000 unit SUB-Q Q12HR [facility] Last Admin: 08/01/20 09:10 Dose: 5,000 unit Documented by: Sodium Chloride (Nacl 0.9% 1000 Ml) 1,000 mls @ 100 mls/hr IV DIRECT [facility] Last Admin: 08/01/20 01:17 Dose: 100 mls/hr Documented by: Ceftriaxone Sodium (Rocephin/Ns 2 Gm/100 Ml) 2 gm in 100 mls @ 200 mls/hr IV Q24H [facility]; Protocol Last Admin: 07/31/20 19:18 Dose: 200 mls/hr Documented by: Vancomycin HCl (Vancomycin/Ns 1 Gm/250 Ml) 1 gm in 250 mls @ 166.667 mls/hr IV Q8HR [facility] Insulin Human Isoph/Insulin Regular (Insulin Nph/Regular 70/30 Inj) 10 unit SUB-Q BIDDIAB [facility] Last Admin: 08/01/20 09:25 Dose: 10 unit Documented by: Insulin Human Lispro (Insulin Lispro 100 Unit/Ml) 0 unit SUB-Q ACHS [facility]; Protocol Last Admin: 08/01/20 09:22 Dose: 6 unit Documented by: Lisinopril (Lisinopril 5 Mg Tab) 5 mg PO QDAY [facility] Last Admin: 08/01/20 09:09 Dose: 5 mg Documented by: Morphine Sulfate (Morphine 4 Mg/1 Ml Inj) 4 mg IV Q4H PRN PRN Reason: Pain , Severe (7-10) Naloxone HCl (Naloxone 0.4 Mg/1 Ml Inj) 0.1 mg IV Q2MIN PRN PRN Reason: Res Rate </= 8 or 02 SAT < 92% Ondansetron HCl (Ondansetron 4 Mg/2 Ml Inj) 4 mg IV Q8H PRN PRN Reason: Nausea And Vomiting Oxycodone/Acetaminophen (Oxycodone /Acetaminophen 5-325mg Tab) 1 tab PO Q6H PRN PRN Reason: Pain, Moderate (4-6) Sodium Chloride (Sodium Chloride 0.9% 10 Ml Flush Syringe) 10 ml IV BID [facility] Last Admin: 07/31/20 22:55 Dose: 10 ml Documented by: Sodium Chloride (Sodium Chloride 0.9% 10 Ml Flush Syringe) 10 ml IV PRN PRN PRN Reason: LINE FLUSH Review of Systems All systems: negative (See HPI) Exam - Constitutional Vitals: Temp Pulse Resp BP Pulse Ox 98.2 F 83 20 112/75 98 08/01/20 05:14 08/01/20 09:09 08/01/20 11:35 08/01/20 09:09 08/01/20 05:14 General appearance: Present: no acute distress - EENT Eyes: Present: EOM intact ENT: hearing intact - Neck Neck: Present: supple - Respiratory Respiratory effort: normal - Extremities Extremities: abnormal (Palpable, booming, right DP and PT. Large bandage over the right forefoot, and when I inspected the images, large area of macerated skin with exposed tissue.) Extremity abnormal: other (Neuropathy of right forefoot, Charcot changes of the ankle) - Abdominal General gastrointestinal: Present: soft, non-tender - Psychiatric Psychiatric: cooperative, other (Would intermittently speak about himself as a prophet) - Neurologic Neurologic: other (Neuropathy) Results - Labs CBC & Chem 7: 08/01/20 06:21 08/01/20 06:21 Labs: Abnormal lab results 07/31/20 08/01/20 08/01/20 Range/Units 17:06 06:21 06:21 Hgb 10.4 L (11.8-15.2) gm/dl Hct 31.6 L (35.5-45.6) % RDW 16.5 H (13.2-15.2) % Eos % (Auto) 4.4 H (0.0-4.3) % Creatinine 0.6 L (0.8-1.3) mg/dL Glucose 183 H (75-100) mg/dL POC Glucose 379 H (70-105) mg/dL Hemoglobin A1c (4-6) % Calcium 8.0 L (8.4-10.2) mg/dL LDL Cholesterol Direct 134 H (50-130) mg/dL 08/01/20 08/01/20 Range/Units 06:21 09:21 Hgb (11.8-15.2) gm/dl Hct (35.5-45.6) % RDW (13.2-15.2) % Eos % (Auto) (0.0-4.3) % Creatinine (0.8-1.3) mg/dL Glucose (75-100) mg/dL POC Glucose 341 H (70-105) mg/dL Hemoglobin A1c 10.5 H (4-6) % Calcium (8.4-10.2) mg/dL LDL Cholesterol Direct (50-130) mg/dL Assessment and Plan 39-year-old male with type 1 diabetes with right forefoot diabetic ulceration. Patient has bounding right DP and PT pulses. Arterial ultrasound is likely secondary to low resistance waveforms due to underlying infection. No vascular disease which should impair healing. Recommend infectious disease and wound care continue to treat him. Recommend surgical shoe. Patient has some psychiatric issue as he refers to himself as a prophet during our discussion. May have some untreated delusional disorder. Question schizophrenia. Consider psychiatry consult.
--- NOTE | 2020-08-01 15:53 | Magnetic Resonance Report ---
MR LE nonjoint RT wo con INDICATION / CLINICAL INFORMATION: MAIN. TECHNIQUE: Multiplanar, multisequence MR images were obtained. COMPARISON: None available. FINDINGS: The great toe and first metatarsal have been surgically removed. There is fusion of the third and fou rth metatarsals. No abnormal marrow signal is seen on today's examination. No soft tissue fluid colle ction is present. There is no evidence of an abscess. IMPRESSION: 1. Previous great toe and first metatarsal resection 2. No definite evidence of osteomyelitis on today's exam 3. Fusion of the third and fourth metatarsals Signer Name: Sim Frey MD FACR Signed: 08/01/2020 3:49 PM Workstation Name: [id number]
[2020-08-01] MEDS: VANCOMYCIN/NS 1 GM/250 ML 1 GM/250 ML BAG IV SCH ×2 (16:14→22:41)
--- NOTE | 2020-08-01 17:39 | Consultation ---
History of Present Illness Consult date: 08/01/20 Chief complaint: Right DFU - History of present illness History of present illness: 39 yo male with uncontrolled DM and dorsal right foot ulcer. He is s/p left BKA and right great toe amputation. Past History Past Medical History: other (Diabetes mellitus type 1) Past Surgical History: Other (Right foot first hallux amputation, left BKA) Social history: other (Patient smokes 1 cigarette a day for the last 17 years, no alcohol use, no illicit drug use) Family history: other (Diabetes mellitus) Medications and Allergies Allergies Allergy/AdvReac Type Severity Reaction Status Date / Time shellfish derived Allergy Hives Verified 05/29/19 01:22 Home Medications Medication Instructions Recorded Confirmed Last Taken Type Novolin 70-30 100 Unit/ml Vial 10 unit SUB-Q TID 08/01/20 08/01/20 Unknown History metFORMIN [Glucophage] 500 mg PO BID 08/01/20 08/01/20 Unknown History Active Meds: Active Medications Acetaminophen (Acetaminophen 325 Mg Tab) 650 mg PO Q4H PRN PRN Reason: Pain MILD(1-3)/Fever >100.5/ODOM Dextrose (Dextrose 50% In Water (25gm) 50 Ml Syringe) 50 ml IV Q30MIN PRN; Prot ocol PRN Reason: Hypoglycemia Heparin Sodium (Porcine) (Heparin 5,000 Unit/1 Ml Vial) 5,000 unit SUB-Q Q12HR [facility] Last Admin: 08/01/20 09:10 Dose: 5,000 unit Documented by: Sodium Chloride (Nacl 0.9% 1000 Ml) 1,000 mls @ 100 mls/hr IV DIRECT [facility]IKA Last Admin: 08/01/20 01:17 Dose: 100 mls/hr Documented by: Ceftriaxone Sodium (Rocephin/Ns 2 Gm/100 Ml) 2 gm in 100 mls @ 200 mls/hr IV Q24H [facility]ANIKA; Protocol Last Admin: 07/31/20 19:18 Dose: 200 mls/hr Documented by: Vancomycin HCl (Vancomycin/Ns 1 Gm/250 Ml) 1 gm in 250 mls @ 166.667 mls/hr IV Q8HR [facility]ANIKA Last Admin: 08/01/20 16:14 Dose: 166.667 mls/hr Documented by: Insulin Human Isoph/Insulin Regular (Insulin Nph/Regular 70/30 Inj) 10 unit SUB-Q BIDDIAB [facility] Last Admin: 08/01/20 09:25 Dose: 10 unit Documented by: Insulin Human Lispro (Insulin Lispro 100 Unit/Ml) 0 unit SUB-Q ACHS [facility]; Protocol Last Admin: 08/01/20 09:22 Dose: 6 unit Documented by: Lisinopril (Lisinopril 5 Mg Tab) 5 mg PO QDAY [facility] Last Admin: 08/01/20 09:09 Dose: 5 mg Documented by: Morphine Sulfate (Morphine 4 Mg/1 Ml Inj) 4 mg IV Q4H PRN PRN Reason: Pain , Severe (7-10) Naloxone HCl (Naloxone 0.4 Mg/1 Ml Inj) 0.1 mg IV Q2MIN PRN PRN Reason: Res Rate </= 8 or 02 SAT < 92% Ondansetron HCl (Ondansetron 4 Mg/2 Ml Inj) 4 mg IV Q8H PRN PRN Reason: Nausea And Vomiting Oxycodone/Acetaminophen (Oxycodone /Acetaminophen 5-325mg Tab) 1 tab PO Q6H PRN PRN Reason: Pain, Moderate (4-6) Sodium Chloride (Sodium Chloride 0.9% 10 Ml Flush Syringe) 10 ml IV BID [facility] Last Admin: 08/01/20 16:15 Dose: 10 ml Documented by: Sodium Chloride (Sodium Chloride 0.9% 10 Ml Flush Syringe) 10 ml IV PRN PRN PRN Reason: LINE FLUSH Review of Systems All systems: negative (none) Exam Vital Signs Temp Pulse Resp BP Pulse Ox 98.2 F 112 H 16 143/75 99 07/31/20 01:14 07/31/20 01:14 07/31/20 01:14 07/31/20 01:14 07/31/20 01:14 - General physical appearance Positive: well developed, well nourished, no distress - Eyes Positive: PERRL, normal occular movement - ENT Positive: normal pinna, normal nares, normal mucosa, no hearing loss, no congestion - Neck Positive: no masses, no bruits, trachea midline, no venous distension - Respiratory Positive: normal expansion, normal respiratory effort, clear to auscultation - Cardiovascular Rhythm: regular Heart Sounds: Present: S1 & S2. Absent: rub, click - Extremities Extremities: no ischemia, No edema, abnormal (S/p left BKA. S/p right great toe TMA. There is a 3 X 6 X 0.3 cm clean ulcer of the dorsal distal right foot without underlying abscess.) - Breasts Breasts: normal, no mass, no skin changes - Abdomen Abdomen: Present: soft, bowel sounds normal. Absent: tender, distended Hernia: none - Genitourinary Male Genitourinary: normal Female Genitourinary: normal - Integumentary no rash, no growths, no abnormal pigmentation - Neurologic Neurologic: alert and oriented to time, place and person, motor strength and sensation are grossly intact - Musculoskeletal normal gait, normal posture - Psychiatric Psychiatric: appropriate mood/affect, intact judgment & insight Results - Labs 08/01/20 06:21 08/01/20 06:21 Abnormal lab results 08/01/20 08/01/20 08/01/20 Range/Units 06:21 06:21 06:21 Hgb 10.4 L (11.8-15.2) gm/dl Hct 31.6 L (35.5-45.6) % RDW 16.5 H (13.2-15.2) % Eos % (Auto) 4.4 H (0.0-4.3) % Creatinine 0.6 L (0.8-1.3) mg/dL Glucose 183 H (75-100) mg/dL POC Glucose (70-105) mg/dL Hemoglobin A1c 10.5 H (4-6) % Calcium 8.0 L (8.4-10.2) mg/dL LDL Cholesterol Direct 134 H (50-130) mg/dL 08/01/20 08/01/20 Range/Units 09:21 17:19 Hgb (11.8-15.2) gm/dl Hct (35.5-45.6) % RDW (13.2-15.2) % Eos % (Auto) (0.0-4.3) % Creatinine (0.8-1.3) mg/dL Glucose (75-100) mg/dL POC Glucose 341 H 303 H (70-105) mg/dL Hemoglobin A1c (4-6) % Calcium (8.4-10.2) mg/dL LDL Cholesterol Direct (50-130) mg/dL Diabetes panel 08/01/20 08/01/20 Range/Units 06:21 06:21 Sodium 137 (137-145) mmol/L Potassium 4.5 (3.6-5.0) mmol/L Chloride 101.9 (98-107) mmol/L Carbon Dioxide 28 (22-30) mmol/L BUN 18 (9-20) mg/dL Creatinine 0.6 L (0.8-1.3) mg/dL Glucose 183 H (75-100) mg/dL Hemoglobin A1c 10.5 H (4-6) % Calcium 8.0 L (8.4-10.2) mg/dL Triglycerides 107 (2-149) mg/dL HDL Cholesterol 40 (40-59) mg/dL Calcium panel 08/01/20 Range/Units 06:21 Calcium 8.0 L (8.4-10.2) mg/dL Pituitary panel 08/01/20 Range/Units 06:21 Sodium 137 (137-145) mmol/L Potassium 4.5 (3.6-5.0) mmol/L Chloride 101.9 (98-107) mmol/L Carbon Dioxide 28 (22-30) mmol/L BUN 18 (9-20) mg/dL Creatinine 0.6 L (0.8-1.3) mg/dL Glucose 183 H (75-100) mg/dL Calcium 8.0 L (8.4-10.2) mg/dL Adrenal panel 08/01/20 Range/Units 06:21 Sodium 137 (137-145) mmol/L Potassium 4.5 (3.6-5.0) mmol/L Chloride 101.9 (98-107) mmol/L Carbon Dioxide 28 (22-30) mmol/L BUN 18 (9-20) mg/dL Creatinine 0.6 L (0.8-1.3) mg/dL Glucose 183 H (75-100) mg/dL Calcium 8.0 L (8.4-10.2) mg/dL - Imaging Additional studies: MRI of right foot reviewed. RLE arterial dopplers reviewed. Assessment and Plan - Patient Problems (1) Diabetic foot ulcer Current Visit: Yes Status: Acute Plan to address problem: 1) Strict DM management 2) Wound care nurse consult 3) No surgical intervention is indicated.
[2020-08-01] MEDS: cefTRIAXone/NS 2 GM/100 ML 2 GM/100 ML BAG IV SCH (18:30)
[2020-08-01] MEDS: oxyCODONE /ACETAMINOPHEN 5-325MG TAB PO PRN (21:32)
[2020-08-02] MEDS: VANCOMYCIN/NS 1 GM/250 ML 1 GM/250 ML BAG IV SCH ×3 (05:21→21:34)
[2020-08-02] MEDS: SODIUM CHLORIDE 0.9% 1000 ML 1,000 ML IV SCH ×2 (05:22→11:21)
[2020-08-02] MEDS: oxyCODONE /ACETAMINOPHEN 5-325MG TAB PO PRN (05:27)
[2020-08-02] MEDS: INSULIN LISPRO 100 UNIT/ML SUB-Q SCH ×4 (09:28→22:53)
[2020-08-02] MEDS: INSULIN NPH/REGULAR 70/30 INJ SUB-Q SCH ×2 (09:34→18:30)
[2020-08-02] MEDS: LISINOPRIL 5 MG TAB PO SCH (09:38)
[2020-08-02] MEDS: HEPARIN 5,000 UNIT/1 ML VIAL SUB-Q SCH ×2 (09:40→21:32)
--- NOTE | 2020-08-02 16:10 | Progress Note ---
Assessment and Plan Cultures: 07/31/2020 blood culture: No growth 07/31/2020 right foot wound culture: Staph aureus A/P: 39-year-old man past medical history of poorly controlled diabetes, history of left BKA, right great toe amputation presents with right foot wound: #Right foot cellulitis: Appreciate surgical eval. MRI negative for osteomyelitis. #Diabetes mellitus: tight glycemic control for best outcomes. Recs: -Continue ceftriaxone, vancomycin for now -Follow-up wound cultures -Patient will need outpatient wound care, currently doing wound care himself which seems inadequate Kalina Jefferson MD, FACP [facility] O: [phone] F: [phone] Subjective Date of service: 08/02/20 Interval history: No fever. Denies any complaints. Got MRI done. Objective - Exam Narrative Exam: Physical Exam: Constitutional: Alert, cooperative. No acute distress Head, Ears, Nose: Normocephalic, atraumatic. External ears, nose normal Eyes: Conjunctivae/corneas clear. No icterus. No ptosis. Neck: Supple, no meningeal signs Cardiovascular: S1, S2 normal. Respiratory: Good air entry, clear to auscultation bilaterally GI: Soft, non-tender; bowel sounds normal. No peritoneal signs Musculoskeletal: Right foot with macerated skin, previous great toe amputation. Left BKA Skin: No rash or abscess Hem/Lymphatic: No palpable cervical or supraclavicular nodes. No lymphangitis Psych: Flat affect Neurological: Awake, alert, oriented. No gross abnormality - Constitutional Vitals: Vital Signs Temp Pulse Resp BP Pulse Ox 97.8 F 83 20 104/64 98 08/02/20 13:03 08/02/20 13:03 08/02/20 13:03 08/02/20 13:03 08/02/20 13:03 Temperature -Last 24 Hours Temperature 97.8 F Temperature 98.3 F Temperature 98.4 F - Labs CBC & Chem 7: 08/01/20 06:21 08/01/20 06:21 Labs: Abnormal lab results 08/01/20 08/01/20 08/02/20 Range/Units 17:19 21:05 01:26 POC Glucose 303 H 365 H 139 H (70-105) mg/dL 08/02/20 08/02/20 Range/Units 07:28 11:49 POC Glucose 333 H 268 H (70-105) mg/dL
--- NOTE | 2020-08-02 16:51 | Progress Note ---
Assessment and Plan 39-year-old male with a past medical history of uncontrolled diabetes type 1 who presents with right foot diabetic ulceration Right foot diabetic ulceration Continue wound care Vancomycin and ceftriaxone antibiotics Blood cultures are negative Sepsis secondary to right foot diabetic infection X-ray foot reviewed and showed possible right fourth toe osteomyelitis MRI of right foot did not show any sign of osteomyelitis Vancomycin and ceftriaxone antibiotics General surgery surgery consulted and recommended no surgical intervention needed Infectious disease consulted Blood cultures negative Wound cultures growing staph obvious Possible ischemia of right foot toes Arterial Dopplers showed monophasic flow and vascular surgery recommended no further intervention Diabetes mellitus type 1, insulin-dependent, uncontrolled 70/30 insulin, 10 units twice daily Hypoglycemia protocol initiated Insulin sliding scale Diabetic education Low-dose lisinopril initiated for renal protection Left foot BKA, supportive care Hypoglycemia Hypoglycemia protocol initiated Accu-Cheks Encourage p.o. intake CODE STATUS: Full DVT prophylaxis: Heparin Disposition: Patient will need more than 2 midnight stay, continue antibiotics, wound care, infectious disease recommendations noted and general surgery consultation pending. Daily clinical course: 08/01/2020: Patient seen and examined, no overnight events, patient's blood glucose somewhat elevated, insulin given, pain is controlled. Right foot x-ray suggestive for fourth toe osteomyelitis, ordered for MRI right foot 08/02/20: MRI of right foot showed no sign of osteomyelitis, continue empiric antibiotics, follow blood culture and wound culture. Initial wound cultures growing staph aureus. General surgery recommended no surgical intervention. Wait for pending culture results and ID recommendation for discharge antibiotics. Subjective Date of service: 08/02/20 Interval history: Patient seen and examined. Medical records and medication list reviewed. No acute event overnight noted by the RN. Patient denies any chest pain or difficulty breathing. Patient is tolerating diet. Discussed plan of care at bedside with patient. Objective - Exam Narrative Exam: GENERAL: well-developed and well-nourished white male sitting on bed appeared to be in no discomfort. HEENT: Normocephalic. Atraumatic. No conjunctival congestion or icterus. Patient has moist mucous membranes. NECK: Supple. Trachea midline. CHEST/LUNGS: Clear to auscultated bilaterally, breathing nonlabored. No wheezes crackles or rhonchi. HEART/CARDIOVASCULAR: Regular in rate and rhythm. S1 and S2 positive. ABDOMEN: Abdomen is soft, nontender. Patient has normal bowel sounds. SKIN: There is no rash. Warm and dry. NEURO: No focal motor deficit. Follows command. MUSCULOSKELETAL: No joint effusion or tenderness. EXTRIMITY: right foot wrapped in gauze, left BKA PSYCH: Cooperative. - Constitutional Vitals: Vital Signs - 12hr 08/02/20 08/02/20 09:38 13:03 Temperature 97.8 F Pulse Rate 89 83 Respiratory 20 Rate Blood Pressure 122/83 104/64 O2 Sat by Pulse 98 Oximetry - Labs CBC & Chem 7: 08/01/20 06:21 08/04/20 05:11 Labs: Abnormal lab results 08/01/20 08/01/20 08/02/20 Range/Units 17:19 21:05 01:26 POC Glucose 303 H 365 H 139 H (70-105) mg/dL 08/02/20 08/02/20 Range/Units 07:28 11:49 POC Glucose 333 H 268 H (70-105) mg/dL
[2020-08-02] MEDS: cefTRIAXone/NS 2 GM/100 ML 2 GM/100 ML BAG IV SCH (18:20)
[2020-08-03] MEDS: SODIUM CHLORIDE 0.9% 1000 ML 1,000 ML IV SCH (01:22)
[2020-08-03 05:58] LABS: Blood Urea Nitrogen 14 mg/dL (9-20); Calcium 7.7 mg/dL (8.4-10.2); Hemolysis Index 0
[2020-08-03 06:01] LABS: BUN/Creatinine Ratio 28
[2020-08-03] MEDS: VANCOMYCIN/NS 1 GM/250 ML 1 GM/250 ML BAG IV SCH (07:57)
[2020-08-03] MEDS: INSULIN NPH/REGULAR 70/30 INJ SUB-Q SCH ×3 (07:58→19:05)
[2020-08-03] MEDS: INSULIN LISPRO 100 UNIT/ML SUB-Q SCH ×4 (08:51→23:07)
[2020-08-03] MEDS: LISINOPRIL 5 MG TAB PO SCH (09:44)
[2020-08-03] MEDS: HEPARIN 5,000 UNIT/1 ML VIAL SUB-Q SCH ×2 (09:44→22:17)
--- NOTE | 2020-08-03 13:41 | Progress Note ---
Assessment and Plan Cultures: 07/31/2020 blood culture: No growth 07/31/2020 right foot wound culture: Staph aureus A/P: 39-year-old man past medical history of poorly controlled diabetes, history of left BKA, right great toe amputation presents with right foot wound: #Right foot cellulitis: Appreciate surgical eval. MRI negative for osteomyelitis. #Diabetes mellitus: tight glycemic control for best outcomes. Recs: -Continue vancomycin for now -Follow-up wound cultures, if MRSA, discharge on PO linezolid 600 mg BID x 7 days -Agree with outpatient wound care with home health Kalina Jefferson MD, FACP [facility] O: [phone] F: [phone] Subjective Date of service: 08/03/20 Interval history: No fever. Denies any complaints. Objective - Exam Narrative Exam: Physical Exam: Constitutional: Alert, cooperative. No acute distress Head, Ears, Nose: Normocephalic, atraumatic. External ears, nose normal Eyes: Conjunctivae/corneas clear. No icterus. No ptosis. Neck: Supple, no meningeal signs Cardiovascular: S1, S2 normal. Respiratory: Good air entry, clear to auscultation bilaterally GI: Soft, non-tender; bowel sounds normal. No peritoneal signs Musculoskeletal: Right foot with macerated skin, previous great toe amputation. Left BKA Skin: No rash or abscess Hem/Lymphatic: No palpable cervical or supraclavicular nodes. No lymphangitis Psych: Flat affect Neurological: Awake, alert, oriented. No gross abnormality - Constitutional Vitals: Vital Signs Temp Pulse Resp BP Pulse Ox 98.7 F 82 16 137/78 98 08/03/20 11:22 08/03/20 11:22 08/03/20 11:22 08/03/20 11:22 08/03/20 11:22 Temperature -Last 24 Hours Temperature 98.7 F Temperature 97.8 F Temperature 97.7 F Temperature 98.1 F - Labs CBC & Chem 7: 08/01/20 06:21 08/03/20 05:23 Labs: Abnormal lab results 08/02/20 08/02/20 08/02/20 Range/Units 11:49 16:36 19:41 Creatinine (0.8-1.3) mg/dL Glucose 233 H (75-100) mg/dL POC Glucose 268 H 27 L (70-105) mg/dL Calcium (8.4-10.2) mg/dL Vancomycin Trough (5.0-20.0) ug/mL 08/02/20 08/02/20 08/02/20 Range/Units 20:36 21:58 23:48 Creatinine (0.8-1.3) mg/dL Glucose (75-100) mg/dL POC Glucose 136 H 40 L 153 H (70-105) mg/dL Calcium (8.4-10.2) mg/dL Vancomycin Trough (5.0-20.0) ug/mL 08/03/20 08/03/20 08/03/20 Range/Units 05:02 05:23 05:23 Creatinine 0.5 L (0.8-1.3) mg/dL Glucose 162 H (75-100) mg/dL POC Glucose 148 H (70-105) mg/dL Calcium 7.7 L (8.4-10.2) mg/dL Vancomycin Trough 36.3 H (5.0-20.0) ug/mL 08/03/20 08/03/20 Range/Units 07:34 11:24 Creatinine (0.8-1.3) mg/dL Glucose (75-100) mg/dL POC Glucose 188 H 155 H (70-105) mg/dL Calcium (8.4-10.2) mg/dL Vancomycin Trough (5.0-20.0) ug/mL
--- NOTE | 2020-08-03 14:19 | Progress Note ---
Assessment and Plan 39-year-old male with a past medical history of uncontrolled diabetes type 1 who presents with right foot diabetic ulceration Sepsis secondary to right foot diabetic infection X-ray foot reviewed and showed possible right fourth toe osteomyelitis MRI of right foot did not show any sign of osteomyelitis Vancomycin and ceftriaxone antibiotics General surgery surgery consulted and recommended no surgical intervention needed Infectious disease consulted Blood cultures negative Wound cultures growing staph obvious Possible ischemia of right foot toes Arterial Dopplers showed monophasic flow and vascular surgery recommended no further intervention Diabetes mellitus type 1, insulin-dependent, uncontrolled 70/30 insulin, 10 units twice daily Hypoglycemia protocol initiated Insulin sliding scale Diabetic education Low-dose lisinopril initiated for renal protection Left foot BKA, supportive care Hypoglycemia Hypoglycemia protocol initiated Accu-Cheks Encourage p.o. intake CODE STATUS: Full DVT prophylaxis: Heparin Disposition: continue antibiotics, wound care, infectious disease recommendations noted and microbiological final culture data pending. Daily clinical course: 08/01/2020: Patient seen and examined, no overnight events, patient's blood glucose somewhat elevated, insulin given, pain is controlled. Right foot x-ray suggestive for fourth toe osteomyelitis, ordered for MRI right foot 08/02/20: MRI of right foot showed no sign of osteomyelitis, continue empiric antibiotics, follow blood culture and wound culture. Initial wound cultures growing staph aureus. General surgery recommended no surgical intervention. Wait for pending culture results and ID recommendation for discharge antibiotics. 08/03: pending wound cx, if growing MRSA ID recommended to d/c with linezolid for 7 days. wait for final cx result Subjective Date of service: 08/03/20 Interval history: Patient seen and examined. Medical records and medication list reviewed. No acute event overnight noted by the RN. Patient denies any chest pain or difficulty breathing. Patient is tolerating diet. Discussed plan of care at bedside with patient. Objective - Exam Narrative Exam: GENERAL: well-developed and well-nourished white male sitting on bed appeared to be in no discomfort. HEENT: Normocephalic. Atraumatic. No conjunctival congestion or icterus. Patient has moist mucous membranes. NECK: Supple. Trachea midline. CHEST/LUNGS: Clear to auscultated bilaterally, breathing nonlabored. No wheezes crackles or rhonchi. HEART/CARDIOVASCULAR: Regular in rate and rhythm. S1 and S2 positive. ABDOMEN: Abdomen is soft, nontender. Patient has normal bowel sounds. SKIN: There is no rash. Warm and dry. NEURO: No focal motor deficit. Follows command. MUSCULOSKELETAL: No joint effusion or tenderness. EXTRIMITY: right foot wrapped in gauze, left BKA PSYCH: Cooperative. - Constitutional Vitals: Vital Signs - 12hr 08/03/20 08/03/20 04:54 11:22 Temperature 97.8 F 98.7 F Pulse Rate 80 82 Respiratory 18 16 Rate Blood Pressure 110/66 137/78 O2 Sat by Pulse 99 98 Oximetry - Labs CBC & Chem 7: 08/01/20 06:21 08/04/20 05:11 Labs: Abnormal lab results 08/02/20 08/02/20 08/02/20 Range/Units 11:49 16:36 19:41 Creatinine (0.8-1.3) mg/dL Glucose 233 H (75-100) mg/dL POC Glucose 268 H 27 L (70-105) mg/dL Calcium (8.4-10.2) mg/dL Vancomycin Trough (5.0-20.0) ug/mL 08/02/20 08/02/20 08/02/20 Range/Units 20:36 21:58 23:48 Creatinine (0.8-1.3) mg/dL Glucose (75-100) mg/dL POC Glucose 136 H 40 L 153 H (70-105) mg/dL Calcium (8.4-10.2) mg/dL Vancomycin Trough (5.0-20.0) ug/mL 08/03/20 08/03/20 08/03/20 Range/Units 05:02 05:23 05:23 Creatinine 0.5 L (0.8-1.3) mg/dL Glucose 162 H (75-100) mg/dL POC Glucose 148 H (70-105) mg/dL Calcium 7.7 L (8.4-10.2) mg/dL Vancomycin Trough 36.3 H (5.0-20.0) ug/mL 08/03/20 08/03/20 Range/Units 07:34 11:24 Creatinine (0.8-1.3) mg/dL Glucose (75-100) mg/dL POC Glucose 188 H 155 H (70-105) mg/dL Calcium (8.4-10.2) mg/dL Vancomycin Trough (5.0-20.0) ug/mL
[2020-08-04 05:58] LABS: Blood Urea Nitrogen 15 mg/dL (9-20); Calcium 8.5 mg/dL (8.4-10.2); Hemolysis Index 3
[2020-08-04 06:00] LABS: BUN/Creatinine Ratio 25
[2020-08-04] MEDS: INSULIN NPH/REGULAR 70/30 INJ SUB-Q SCH ×2 (08:20→18:26)
[2020-08-04] MEDS: INSULIN LISPRO 100 UNIT/ML SUB-Q SCH ×4 (08:20→21:17)
[2020-08-04] MEDS: VANCOMYCIN/NS 1 GM/250 ML 1 GM/250 ML BAG IV SCH ×2 (10:12→21:18)
[2020-08-04] MEDS: LISINOPRIL 5 MG TAB PO SCH (10:13)
[2020-08-04] MEDS: HEPARIN 5,000 UNIT/1 ML VIAL SUB-Q SCH ×2 (10:13→21:19)
[2020-08-04] MEDS: oxyCODONE /ACETAMINOPHEN 5-325MG TAB PO PRN ×2 (10:16→22:11)
--- NOTE | 2020-08-04 12:24 | Progress Note ---
Assessment and Plan Cultures: 07/31/2020 blood culture: No growth 07/31/2020 right foot wound culture: Staph aureus A/P: 39-year-old man past medical history of poorly controlled diabetes, history of left BKA, right great toe amputation presents with right foot wound: #Right foot cellulitis: Appreciate surgical eval. MRI negative for osteomyelitis. #Diabetes mellitus: tight glycemic control for best outcomes. Recs: -Continue IV vancomycin for now. Called micro lab, no tech available till t omorrow -Follow-up wound cultures, if MRSA, discharge on PO linezolid 600 mg BID x 7 days. If MSSA, can do PO Keflex 750 mg QID x 7 days -Continue wound care as outpatient Kalina Jefferson MD, FACP [facility] ([facility] O: [phone] F: [phone] Subjective Date of service: 08/04/20 Interval history: No fever. Denies any complaints. Does not want home health for wound care, st ates he wants to go to the wound care clinic. Objective - Exam Narrative Exam: Physical Exam: Constitutional: Alert, cooperative. No acute distress Head, Ears, Nose: Normocephalic, atraumatic. External ears, nose normal Eyes: Conjunctivae/corneas clear. No icterus. No ptosis. Neck: Supple, no meningeal signs Cardiovascular: S1, S2 normal. Respiratory: Good air entry, clear to auscultation bilaterally GI: Soft, non-tender; bowel sounds normal. No peritoneal signs Musculoskeletal: Right foot with macerated skin, previous great toe amputation. Left BKA Skin: No rash or abscess Hem/Lymphatic: No palpable cervical or supraclavicular nodes. No lymphangitis Psych: Flat affect Neurological: Awake, alert, oriented. No gross abnormality - Constitutional Vitals: Vital Signs Temp Pulse Resp BP Pulse Ox 98.1 F 82 18 127/80 97 08/04/20 11:10 08/04/20 11:10 08/04/20 11:10 08/04/20 11:10 08/04/20 11:10 Temperature -Last 24 Hours Temperature 98.1 F Temperature 98.3 F Temperature 98.4 F - Labs CBC & Chem 7: 08/01/20 06:21 05/27/21 05:11 Labs: Abnormal lab results 08/03/20 08/03/20 08/04/20 Range/Units 11:24 21:39 05:11 Creatinine 0.6 L (0.8-1.3) mg/dL Glucose 119 H (75-100) mg/dL POC Glucose 155 H 329 H (70-105) mg/dL 08/04/20 Range/Units 07:36 Creatinine (0.8-1.3) mg/dL Glucose (75-100) mg/dL POC Glucose 207 H (70-105) mg/dL
--- NOTE | 2020-08-04 12:36 | Progress Note ---
Assessment and Plan 39-year-old male with a past medical history of uncontrolled diabetes type 1, status post left BKA who presents with right foot diabetic ulceration Sepsis secondary to right foot diabetic infection X-ray foot reviewed and showed possible right fourth toe osteomyelitis MRI of right foot did not show any sign of osteomyelitis Continue vancomycin antibiotics General surgery surgery consulted and recommended no surgical intervention n eeded Infectious disease consulted Blood cultures negative Wound cultures growing staph obvious Possible ischemia of right foot toes Arterial Dopplers showed monophasic flow and vascular surgery recommended no further intervention Diabetes mellitus type 1, insulin-dependent, uncontrolled 70/30 insulin, 10 units twice daily Hypoglycemia protocol initiated Insulin sliding scale Diabetic education Low-dose lisinopril initiated for renal protection Left foot BKA, supportive care Hypoglycemia Hypoglycemia protocol initiated Accu-Cheks Encourage p.o. intake CODE STATUS: Full DVT prophylaxis: Heparin Disposition: continue antibiotics, wound care, infectious disease recommendations noted and microbiological final culture data pending. Daily clinical course: 08/01/2020: Patient seen and examined, no overnight events, patient's blood glucose somewhat elevated, insulin given, pain is controlled. Right foot x-ray suggestive for fourth toe osteomyelitis, ordered for MRI right foot 08/02/20: MRI of right foot showed no sign of osteomyelitis, continue empiric antibiotics, follow blood culture and wound culture. Initial wound cultures growing staph aureus. General surgery recommended no surgical intervention. Wait for pending culture results and ID recommendation for discharge antibiotics. 08/03: pending wound cx, if growing MRSA ID recommended to d/c with linezolid for 7 days. wait for final cx result 08/04: Continue IV vancomycin for now. no tech available in microbiology lab till tomorrow. Follow-up wound cultures, if MRSA, discharge on PO linezolid 600 mg BID x 7 days. If MSSA, can do PO Keflex 750 mg QID x 7 days. Subjective Date of service: 08/04/20 Interval history: Patient seen and examined. Medical records and medication list reviewed. No acute event overnight noted by the RN. Patient denies any chest pain or difficulty breathing. Patient is tolerating diet. Discussed plan of care at bedside with patient. Objective - Exam Narrative Exam: GENERAL: well-developed and well-nourished white male sitting on bed appeared to be in no discomfort. HEENT: Normocephalic. Atraumatic. No conjunctival congestion or icterus. Patient has moist mucous membranes. NECK: Supple. Trachea midline. CHEST/LUNGS: Clear to auscultated bilaterally, breathing nonlabored. No wheezes crackles or rhonchi. HEART/CARDIOVASCULAR: Regular in rate and rhythm. S1 and S2 positive. ABDOMEN: Abdomen is soft, nontender. Patient has normal bowel sounds. SKIN: There is no rash. Warm and dry. NEURO: No focal motor deficit. Follows command. MUSCULOSKELETAL: No joint effusion or tenderness. EXTRIMITY: right foot wrapped in gauze, left BKA PSYCH: Cooperative. - Constitutional Vitals: Vital Signs - 12hr 08/04/20 08/04/20 05:13 11:10 Temperature 98.3 F 98.1 F Pulse Rate 78 82 Respiratory 18 18 Rate Blood Pressure 129/81 Blood Pressure 127/80 [Right] O2 Sat by Pulse 98 97 Oximetry - Labs CBC & Chem 7: 08/01/20 06:21 08/04/20 05:11 Labs: Abnormal lab results 08/03/20 08/03/20 08/04/20 Range/Units 11:24 21:39 05:11 Creatinine 0.6 L (0.8-1.3) mg/dL Glucose 119 H (75-100) mg/dL POC Glucose 155 H 329 H (70-105) mg/dL 08/04/20 Range/Units 07:36 Creatinine (0.8-1.3) mg/dL Glucose (75-100) mg/dL POC Glucose 207 H (70-105) mg/dL
[2020-08-05 04:06] VITALS: BP 120/71
[2020-08-05] MEDS: INSULIN LISPRO 100 UNIT/ML SUB-Q SCH ×3 (08:43→16:31)
[2020-08-05] MEDS: INSULIN NPH/REGULAR 70/30 INJ SUB-Q SCH (08:43)
[2020-08-05] MEDS: HEPARIN 5,000 UNIT/1 ML VIAL SUB-Q SCH (09:08)
[2020-08-05] MEDS: LISINOPRIL 5 MG TAB PO SCH (09:46)
[2020-08-05] MEDS: metFORMIN 500 MG TAB PO SCH ×2 (12:16→17:42)
--- NOTE | 2020-08-05 13:35 | Discharge Summary ---
Providers - Providers Date of Admission: 07/31/20 12:37 Date of discharge: 08/05/20 Attending physician: MAKSIM SAHU 07/31/20 12:41 Consult to Wound/ET Nurse [CONS] Routine Reason For Exam: wound eval 07/31/20 12:49 Consult to Dietitian/Nutrition [CONS] Routine Physician Instructions: Reason For Exam: Reason for Consult: Diet education 07/31/20 12:54 Consult to Physician [CONS] Routine Comment: Consulting Provider: ELANA SCHNEIDER Physician Instructions: Reason For Exam: osteomyelitis of right foot 07/31/20 13:57 Consult to Wound/ET Nurse [CONS] Routine Reason For Exam: wound to right foot pictures taken thanks 08/01/20 10:54 Consult to Physician [CONS] Routine Comment: Consulting Provider: DEVORAH ROGERS Physician Instructions: Reason For Exam: diabetic ulcer wound care/debridement recs 08/01/20 15:54 Consult to Physician [CONS] Routine Comment: Consulting Provider: LUCIO MACEDO Physician Instructions: Reason For Exam: PVD 08/02/20 15:35 Physical Therapy Evaluation and Treat [CONS] Routine Comment: Reason For Exam: Eval & Treat Primary care physician: [employer] Hospitalization Condition: Stable Pertinent studies: Foot xry LE MRI LE doppler study Hospital course: 39-year-old male with a past medical history of uncontrolled diabetes type 1, status post left BKA who presents with right foot diabetic ulceration. Daily clinical course: 08/01/2020: Patient seen and examined, no overnight events, patient's blood glucose somewhat elevated, insulin given, pain is controlled. Right foot x-ray suggestive for fourth toe osteomyelitis, ordered for MRI right foot 08/02/20: MRI of right foot showed no sign of osteomyelitis, continue empiric antibiotics, follow blood culture and wound culture. Initial wound cultures growing staph aureus. General surgery recommended no surgical intervention. Wait for pending culture results and ID recommendation for discharge antibiotics. 08/03: pending wound cx, if growing MRSA ID recommended to d/c with linezolid for 7 days. wait for final cx result 08/04: Continue IV vancomycin for now. no tech available in microbiology lab till tomorrow. Follow-up wound cultures, if MRSA, discharge on PO linezolid 600 mg BID x 7 days. If MSSA, can do PO Keflex 750 mg QID x 7 days. 08/05: Cx growing MSSA. Will d/.c home with PO Keflex 750 mg QID x 7 days. A/P: Sepsis secondary to right foot diabetic infection X-ray foot reviewed and showed possible right fourth toe osteomyelitis MRI of right foot did not show any sign of osteomyelitis Continue vancomycin antibiotics General surgery surgery consulted and recommended no surgical intervention ne eded Infectious disease consulted Blood cultures negative Wound cultures growing MSSA Possible ischemia of right foot toes Arterial Dopplers showed monophasic flow and vascular surgery recommended no further intervention Diabetes mellitus type 1, insulin-dependent, uncontrolled 70/30 insulin, 10 units twice daily Hypoglycemia protocol initiated Insulin sliding scale Diabetic education Low-dose lisinopril initiated for renal protection Left foot BKA, supportive care Hypoglycemia Hypoglycemia protocol initiated Accu-Cheks Encourage p.o. intake CODE STATUS: Full DVT prophylaxis: Heparin Disposition: DC- TO HOME OR SELFCARE Final Discharge Diagnosis (Prints w/discharge instructions): Sepsis secondary to right foot diabetic infection. Possible ischemia of right foot toes with Arterial Dopplers showed monophasic flow. Diabetes mellitus type 1, insulin- dependent, uncontrolled. Left foot BKA. Hypoglycemia Time spent for discharge: 36 minutes Core Measure Documentation - Palliative Care Palliative Care/ Comfort Measures: Not Applicable - Core Measures Any of the following diagnoses?: none Exam - Physical Exam Narrative exam: GENERAL: well-developed and well-nourished white male sitting on bed appeared to be in no discomfort. HEENT: Normocephalic. Atraumatic. No conjunctival congestion or icterus. Patient has moist mucous membranes. NECK: Supple. Trachea midline. CHEST/LUNGS: Clear to auscultated bilaterally, breathing nonlabored. No wheezes crackles or rhonchi. HEART/CARDIOVASCULAR: Regular in rate and rhythm. S1 and S2 positive. ABDOMEN: Abdomen is soft, nontender. Patient has normal bowel sounds. SKIN: There is no rash. Warm and dry. NEURO: No focal motor deficit. Follows command. MUSCULOSKELETAL: No joint effusion or tenderness. EXTRIMITY: right foot wrapped in gauze, left BKA PSYCH: Cooperative. - Constitutional Vitals: Temp Pulse Resp BP Pulse Ox 97.7 F 72 18 120/71 97 08/05/20 04:03 08/05/20 04:03 08/05/20 04:03 08/05/20 04:03 08/05/20 04:03 Plan Activity: advance as tolerated Weight Bearing Status: Weight Bear as Tolerated Diet: diabetic Wound: per wound nurse instructions Special Instructions: home health RN Prescriptions: Lispro Insulin [HumaLOG] 0 unit SUB-Q ACHS 30 Days units oxyCODONE [roxiCODONE] 5 mg PO Q6HR PRN #30 tablet PRN Reason: Pain lisinopriL [Zestril TAB] 5 mg PO QDAY #30 tablet
[2020-08-05] MEDS: VANCOMYCIN/NS 1 GM/250 ML 1 GM/250 ML BAG IV SCH (14:36)
[2020-08-05] MEDS ORDERED: VANCOMYCIN/NS 1 GM/250 ML 1 GM/250 ML BAG IV SCH (15:00)
--- NOTE | 2020-08-05 16:12 | Progress Note ---
Assessment and Plan Cultures: 07/31/2020 blood culture: No growth 07/31/2020 right foot wound culture: MSSA, beta-hemolytic group B streptococcus, Acinetobacter baumannii A/P: 39-year-old man past medical history of poorly controlled diabetes, history of left BKA, right great toe amputation presents with right foot wound: #Right foot cellulitis: Appreciate surgical eval. MRI negative for osteomyelitis. #Diabetes mellitus: tight glycemic control for best outcomes. Recs: -Okay for discharge on p.o. Keflex 500 mg 4 times daily + PO levofloxacin 500 mg daily for 10 days -Continue wound care as outpatient Kalina Jefferson MD, FACP [facility] O: [phone] F: [phone] Subjective Date of service: 08/05/20 Interval history: No fever. Denies any complaints. Objective - Exam Narrative Exam: Physical Exam: Constitutional: Alert, cooperative. No acute distress Head, Ears, Nose: Normocephalic, atraumatic. External ears, nose normal Eyes: Conjunctivae/corneas clear. No icterus. No ptosis. Neck: Supple, no meningeal signs Cardiovascular: S1, S2 normal. Respiratory: Good air entry, clear to auscultation bilaterally GI: Soft, non-tender; bowel sounds normal. No peritoneal signs Musculoskeletal: Right foot with macerated skin, previous great toe amputation. Left BKA Skin: No rash or abscess Hem/Lymphatic: No palpable cervical or supraclavicular nodes. No lymphangitis Psych: Flat affect Neurological: Awake, alert, oriented. No gross abnormality - Constitutional Vitals: Vital Signs Temp Pulse Resp BP Pulse Ox 97.7 F 72 18 120/71 97 08/05/20 04:03 08/05/20 04:03 08/05/20 04:03 08/05/20 04:03 08/05/20 04:03 Temperature -Last 24 Hours Temperature 97.7 F Temperature 98.5 F Temperature 98.1 F - Labs CBC & Chem 7: 08/01/20 06:21 08/05/20 11:57 Labs: Abnormal lab results 08/04/20 08/04/20 08/04/20 Range/Units 16:19 20:16 21:15 Glucose (75-100) mg/dL POC Glucose 241 H 39 L 112 H (70-105) mg/dL 08/05/20 08/05/20 08/05/20 Range/Units 07:55 11:22 11:57 Glucose 164 H (75-100) mg/dL POC Glucose 429 H 289 H (70-105) mg/dL 08/05/20 Range/Units 13:36 Glucose (75-100) mg/dL POC Glucose 38 L (70-105) mg/dL
[2020-08-05] MEDS ORDERED: INSULIN NPH/REGULAR 70/30 INJ SUB-Q SCH ×2 (17:00)
== END 2020-08-05 18:40 | disposition home or self-care (01) | DRG 872 ==
LOC: ED 01:03 → 3A 10:55 → OBSVTOIN 12:37
PROVIDERS: ADMIT Family Medicine; ATTEND Internal Medicine
DX: A41.9 Sepsis, unspecified organism (principal); E10.649 Type 1 diabetes mellitus with hypoglycemia without coma; E10.621 Type 1 diabetes mellitus with foot ulcer; E10.51 Type 1 diabetes mellitus with diabetic peripheral angiopathy without gangrene; D72.829 Elevated white blood cell count, unspecified; E10.69 Type 1 diabetes mellitus with other specified complication; M86.9 Osteomyelitis, unspecified; F17.210 Nicotine dependence, cigarettes, uncomplicated; Z79.4 Long term (current) use of insulin; Z91.013 Allergy to seafood; Z83.3 Family history of diabetes mellitus; Z89.411 Acquired absence of right great toe; Z79.899 Other long term (current) drug therapy; Z79.891 Long term (current) use of opiate analgesic; Z23 Encounter for immunization
CPT/HCPCS: 36415; 80048; 80053; 80061; 80202; 82947; 82962; 83036; 85025; 87040; 87076; 87116; 87186; 87641; 90471; 90715; 96374; 96375; G0378; J0295; J0692; J0696; J1644; J1815; J3370; J7030

== ENCOUNTER 2020-08-24 11:51 | Outpatient (CLI) | payer MEDICAID | END 2020-08-24 11:52 | disposition home or self-care (01) | LOC: WOUND 11:51 | PROVIDERS: ATTEND Surgery | DX: E11.621 Type 2 diabetes mellitus with foot ulcer (principal); L97.512 Non-pressure chronic ulcer of other part of right foot with fat layer exposed; F32.9 Major depressive disorder, single episode, unspecified; Z79.4 Long term (current) use of insulin; Z89.512 Acquired absence of left leg below knee; Z87.891 Personal history of nicotine dependence | CPT/HCPCS: 11042; G0463; 99215 ==

== ENCOUNTER 2021-06-10 06:11 | Inpatient (IN) | payer MEDICAID ==
[2021-06-10] MEDS ORDERED: SODIUM CHLORIDE 0.9% 1000 ML 1,000 ML IV ONE ×2 (06:33→11:12)
[2021-06-10] MEDS ORDERED: DEXTROSE 50% IN WATER (25GM) 50 ML SYRINGE IV PRN (06:33)
[2021-06-10] MEDS ORDERED: VANCOMYCIN 1,250 MG in SODIUM CHLORIDE 0.9% 500 ML 500 ML IV ONE (06:33)
[2021-06-10] MEDS ORDERED: SODIUM CHLORIDE 0.9% 1000 ML IV SOLN IV ONE (06:33)
[2021-06-10] MEDS ORDERED: ONDANSETRON 4 MG/2 ML INJ IV ONE (06:42)
--- NOTE | 2021-06-10 06:43 | Emergency Department Report ---
ED General Adult HPI - General Chief complaint: Hyperglycemia Stated complaint: HYPERGLYCEMIA Time Seen by Provider: 06/10/21 06:25 Source: patient, EMS Mode of arrival: Stretcher Limitations: Physical Limitation - History of Present Illness Initial comments: 40-year-old male with a past medical history of type 1 insulin-dependent diabetes with previous DKA, left BKA, and right great toe amputation presents to the hospital with complaints of progressively worsening left leg pain, fatigue, nausea, and vomiting. Patient initially thought that the pain to left leg was secondary to ill fitting prosthesis however pain continued and he has developed significant fatigue is sleeping a lot for the past 3 to 4 days. Patient denies having a fever. He has not been checking his sugar. He has not had much to eat or drink but states and states that he is taking his insulin. Mild cough reported. Patient is vaccinated for COVID. He denies abdominal pain or chest pain. Pt denies IVDA or and drug/substance abuse. - Related Data Home Medications Medication Instructions Recorded Confirmed Last Taken metFORMIN [Glucophage] 500 mg PO BID 08/01/20 08/04/20 07/29/20 22:00 Previous Rx's Medication Instructions Recorded Last Taken Type Insulin NPH/Regular [NovoLIN 70/30] 10 unit SUB-Q BIDDIAB 30 Days 08/05/20 Unknown Rx units Lispro Insulin [HumaLOG] 0 unit SUB-Q ACHS 30 Days units 08/05/20 Unknown Rx cephALEXin [Keflex] 500 mg PO Q8HR #40 cap 08/05/20 Unknown Rx levoFLOXacin [Levaquin TAB] 500 mg PO QDAY #10 tablet 08/05/20 Unknown Rx lisinopriL [Zestril TAB] 5 mg PO QDAY #30 tablet 08/05/20 Unknown Rx oxyCODONE [roxiCODONE] 5 mg PO Q6HR PRN #30 tablet 08/05/20 Unknown Rx Allergies Allergy/AdvReac Type Severity Reaction Status Date / Time piperacillin [From Zosyn] Allergy Itching Verified 06/10/21 06:36 shellfish derived Allergy Hives Verified 05/29/19 01:22 tazobactam [From Zosyn] Allergy Itching Verified 06/10/21 06:36 ED Review of Systems ROS: Stated complaint: HYPERGLYCEMIA Other details as noted in HPI Comment: All other systems reviewed and negative ED Past Medical Hx - Past Medical History Previous Medical History?: Yes Hx Heart Attack/AMI: No Hx Congestive Heart Failure: No Hx Diabetes: Yes (Type 1) Hx Deep Vein Thrombosis: No Hx Arthritis: No Hx Seizures: No Hx Asthma: No Hx COPD: No Hx HIV: No - Surgical History Past Surgical History?: Yes Hx Cholecystectomy: No Hx Appendectomy: No Additional Surgical History: Left BKA, right great toe amputation - Social History Smoking Status: Never Smoker Substance Use Type: None - Medications Home Medications: Home Medications Medication Instructions Recorded Confirmed Last Taken Type metFORMIN [Glucophage] 500 mg PO BID 08/01/20 08/04/20 07/29/20 22:00 History Insulin NPH/Regular [NovoLIN 70/30] 10 unit SUB-Q BIDDIAB 30 Days 08/05/20 Unknown Rx units Lispro Insulin [HumaLOG] 0 unit SUB-Q ACHS 30 Days units 08/05/20 Unknown Rx cephALEXin [Keflex] 500 mg PO Q8HR #40 cap 08/05/20 Unknown Rx levoFLOXacin [Levaquin TAB] 500 mg PO QDAY #10 tablet 08/05/20 Unknown Rx lisinopriL [Zestril TAB] 5 mg PO QDAY #30 tablet 08/05/20 Unknown Rx oxyCODONE [roxiCODONE] 5 mg PO Q6HR PRN #30 tablet 08/05/20 Unknown Rx ED Physical Exam - General Limitations: Physical Limitation - Other Other exam information: General: Ill-appearing Head: Atraumatic Eyes: normal appearance ENT: Dry mucous membrane Neck: Normal appearance, no midline tenderness Chest: Clear to auscultation bilaterally CV: Tachycardic regular rhythm Abdomen: Soft, normal bowel sounds, nontender, nondistended, no rebound or guarding Back: Normal inspection Extremity: Left leg BKA without anterior knee pain or swelling. Patient has erythema to distal posterior thigh/hamstring area with tenderness to palpation. Pain also reproducible with extension of the lower leg. No pain to hip with movement Neuro: Alert O x 3, no facial asymmetry, speech clear, no gross motor sensory deficit Psych: Appropriate behavior Skin: Hot to touch ED Course Vital Signs 06/10/21 06/10/21 06/10/21 06:17 06:46 07:33 Temperature 98 F 101.1 F H Pulse Rate 134 H 126 H Respiratory 20 20 16 Rate Blood Pressure 131/75 Blood Pressure 142/79 [Right] O2 Sat by Pulse 100 96 98 Oximetry 06/10/21 06/10/21 06/10/21 08:01 08:16 08:30 Temperature Pulse Rate 122 H 112 H 129 H Respiratory 13 16 19 Rate Blood Pressure 112/63 112/63 Blood Pressure [Right] O2 Sat by Pulse 98 94 96 Oximetry 06/10/21 06/10/21 06/10/21 08:46 09:18 09:19 Temperature 98.4 F Pulse Rate 104 H Respiratory 21 Rate Blood Pressure 112/63 Blood Pressure [Right] O2 Sat by Pulse 65 L 96 Oximetry - Reevaluation(s) Reevaluation #1: 06/10/21 06:43 Patient skin is warm to touch. Oral temp afebrile as per triage. Rectal temp requested 06/10/21 06:45 oral temp 101 therefore rectal canceled. initial oral temp entered was what was reported by ems 06/10/21 11:14 glucose 150's, Insulin drip discontinued. Nurse instructed to Recheck glucose in 1 hour. - Consultations Consultation #1: 06/10/21 09:[address] Pat orthopedic surgeon. He will evaluate patient at request surgery consultation 06/10/21 09:57 case d/w Michael gen surgeon, he will consult and assist with management of the patient 06/10/21 11:14 Case d/w Dr Harden to determine if patient is a IR candidate. Will evaluate ED Medical Decision Making - Lab Data Result diagrams: 06/10/21 06:56 06/10/21 08:07 Lab Results 06/10/21 06/10/21 06/10/21 Range/Units 06:56 06:56 06:56 WBC 19.2 H (4.5-11.0) K/mm3 RBC 3.63 L (3.65-5.03) M/mm3 Hgb 9.5 L (11.8-15.2) gm/dl Hct 29.2 L (35.5-45.6) % MCV 81 L (84-94) fl MCH 26 L (28-32) pg MCHC 33 (32-34) % RDW 15.5 H (13.2-15.2) % Plt Count 420 (140-440) K/mm3 Add Manual Diff Complete Total Counted 100 Seg Neutrophils % Swing Driver Seg Neuts % (Manual) 91.0 H (40.0-70.0) % Band Neutrophils % 0 % Lymphocytes % (Manual) 4.0 L (13.4-35.0) % Reactive Lymphs % (Man) 0 % Monocytes % (Manual) 5.0 (0.0-7.3) % Eosinophils % (Manual) 0 (0.0-4.3) % Basophils % (Manual) 0 (0.0-1.8) % Metamyelocytes % 0 % Myelocytes % 0 % Promyelocytes % 0 % Blast Cells % 0 % Nucleated RBC % Not Reportable Seg Neutrophils # Man 17.5 H (1.8-7.7) K/mm3 Band Neutrophils # 0.0 K/mm3 Lymphocytes # (Manual) 0.8 L (1.2-5.4) K/mm3 Abs React Lymphs (Man) 0.0 K/mm3 Monocytes # (Manual) 1.0 H (0.0-0.8) K/mm3 Eosinophils # (Manual) 0.0 (0.0-0.4) K/mm3 Basophils # (Manual) 0.0 (0.0-0.1) K/mm3 Metamyelocytes # 0.0 K/mm3 Myelocytes # 0.0 K/mm3 Promyelocytes # 0.0 K/mm3 Blast Cells # 0.0 K/mm3 WBC Morphology Not Reportable Hypersegmented Neuts Not Reportable Hyposegmented Neuts Not Reportable Hypogranular Neuts Not Reportable Smudge Cells Not Reportable Toxic Granulation Not Reportable Toxic Vacuolation Not Reportable Dohle Bodies Not Reportable Pelger-Huet Anomaly Not Reportable Rachid Rods Not Reportable Platelet Estimate Consistent w auto Clumped Platelets Not Reportable Plt Clumps, EDTA Not Reportable Large Platelets Not Reportable Giant Platelets Not Reportable Platelet Satelliting Not Reportable Plt Morphology Comment Not Reportable RBC Morphology Normal Dimorphic RBCs Not Reportable Polychromasia Not Reportable Hypochromasia Not Reportable Poikilocytosis Not Reportable Anisocytosis Not Reportable Microcytosis Not Reportable Macrocytosis Not Reportable Spherocytes Not Reportable Pappenheimer Bodies Not Reportable Sickle Cells Not Reportable Target Cells Not Reportable Tear Drop Cells Not Reportable Ovalocytes Not Reportable Helmet Cells Not Reportable Cardona-[place] Bodies Not Reportable [place] Rings Not Reportable Angelina Cells Not Reportable Bite Cells Not Reportable Crenated Cell Not Reportable Elliptocytes Not Reportable Acanthocytes (Spur) Not Reportable Rouleaux Not Reportable Hemoglobin C Crystals Not Reportable Schistocytes Not Reportable Malaria parasites Not Reportable Refugio Bodies Not Reportable Hem Pathologist Commnt No VBG pH (7.320-7.420) Sodium 129 L (137-145) mmol/L Potassium 4.4 (3.6-5.0) mmol/L Chloride 90.3 L (98-107) mmol/L Carbon Dioxide 23 (22-30) mmol/L Anion Gap 20 mmol/L BUN 45 H (9-20) mg/dL Creatinine 1.5 H (0.8-1.3) mg/dL Estimated GFR > 60 ml/min BUN/Creatinine Ratio 30 % Glucose 567 H* (75-100) mg/dL Lactic Acid (0.7-2.0) mmol/L Calcium 9.1 (8.4-10.2) mg/dL Phosphorus 1.90 L (2.5-4.5) mg/dL Magnesium 2.60 H (1.7-2.3) mg/dL Total Bilirubin 0.30 (0.1-1.2) mg/dL Direct Bilirubin (0-0.2) mg/dL Indirect Bilirubin mg/dL AST 7 (5-40) units/L ALT 5 L (7-56) units/L Alkaline Phosphatase 170 H (35-129) units/L Total Protein 7.5 (6.3-8.2) g/dL Albumin 3.2 L (3.9-5) g/dL Albumin/Globulin Ratio 0.7 % Lipase (13-60) units/L TSH (0.270-4.200) mlU/mL Free T4 (0.76-1.46) ng/dL 06/10/21 06/10/21 06/10/21 Range/Units 06:56 06:56 06:56 WBC (4.5-11.0) K/mm3 RBC (3.65-5.03) M/mm3 Hgb (11.8-15.2) gm/dl Hct (35.5-45.6) % MCV (84-94) fl MCH (28-32) pg MCHC (32-34) % RDW (13.2-15.2) % Plt Count (140-440) K/mm3 Add Manual Diff Total Counted Seg Neutrophils % Seg Neuts % (Manual) (40.0-70.0) % Band Neutrophils % % Lymphocytes % (Manual) (13.4-35.0) % Reactive Lymphs % (Man) % Monocytes % (Manual) (0.0-7.3) % Eosinophils % (Manual) (0.0-4.3) % Basophils % (Manual) (0.0-1.8) % Metamyelocytes % % Myelocytes % % Promyelocytes % % Blast Cells % % Nucleated RBC % Seg Neutrophils # Man (1.8-7.7) K/mm3 Band Neutrophils # K/mm3 Lymphocytes # (Manual) (1.2-5.4) K/mm3 Abs React Lymphs (Man) K/mm3 Monocytes # (Manual) (0.0-0.8) K/mm3 Eosinophils # (Manual) (0.0-0.4) K/mm3 Basophils # (Manual) (0.0-0.1) K/mm3 Metamyelocytes # K/mm3 Myelocytes # K/mm3 Promyelocytes # K/mm3 Blast Cells # K/mm3 WBC Morphology Hypersegmented Neuts Hyposegmented Neuts Hypogranular Neuts Smudge Cells Toxic Granulation Toxic Vacuolation Dohle Bodies Pelger-Huet Anomaly Rachid Rods Platelet Estimate Clumped Platelets Plt Clumps, EDTA Large Platelets Giant Platelets Platelet Satelliting Plt Morphology Comment RBC Morphology Dimorphic RBCs Polychromasia Hypochromasia Poikilocytosis Anisocytosis Microcytosis Macrocytosis Spherocytes Pappenheimer Bodies Sickle Cells Target Cells Tear Drop Cells Ovalocytes Helmet Cells Cardona-[place] Bodies [place] Rings Angelina Cells Bite Cells Crenated Cell Elliptocytes Acanthocytes (Spur) Rouleaux Hemoglobin C Crystals Schistocytes Malaria parasites Refugio Bodies Hem Pathologist Commnt VBG pH (7.320-7.420) Sodium 128 L (137-145) mmol/L Potassium 4.7 (3.6-5.0) mmol/L Chloride 88.9 L (98-107) mmol/L Carbon Dioxide 24 (22-30) mmol/L Anion Gap 20 mmol/L BUN 45 H (9-20) mg/dL Creatinine 1.5 H (0.8-1.3) mg/dL Estimated GFR > 60 ml/min BUN/Creatinine Ratio 30 % Glucose TNR (75-100) mg/dL Lactic Acid 2.90 H* (0.7-2.0) mmol/L Calcium 9.0 (8.4-10.2) mg/dL Phosphorus (2.5-4.5) mg/dL Magnesium (1.7-2.3) mg/dL Total Bilirubin (0.1-1.2) mg/dL Direct Bilirubin (0-0.2) mg/dL Indirect Bilirubin mg/dL AST (5-40) units/L ALT (7-56) units/L Alkaline Phosphatase (35-129) units/L Total Protein (6.3-8.2) g/dL Albumin (3.9-5) g/dL Albumin/Globulin Ratio % Lipase (13-60) units/L TSH 1.080 (0.270-4.200) mlU/mL Free T4 1.05 (0.76-1.46) ng/dL 06/10/21 06/10/21 06/10/21 Range/Units 06:56 08:07 08:07 WBC (4.5-11.0) K/mm3 RBC (3.65-5.03) M/mm3 Hgb (11.8-15.2) gm/dl Hct (35.5-45.6) % MCV (84-94) fl MCH (28-32) pg MCHC (32-34) % RDW (13.2-15.2) % Plt Count (140-440) K/mm3 Add Manual Diff Total Counted Seg Neutrophils % Seg Neuts % (Manual) (40.0-70.0) % Band Neutrophils % % Lymphocytes % (Manual) (13.4-35.0) % Reactive Lymphs % (Man) % Monocytes % (Manual) (0.0-7.3) % Eosinophils % (Manual) (0.0-4.3) % Basophils % (Manual) (0.0-1.8) % Metamyelocytes % % Myelocytes % % Promyelocytes % % Blast Cells % % Nucleated RBC % Seg Neutrophils # Man (1.8-7.7) K/mm3 Band Neutrophils # K/mm3 Lymphocytes # (Manual) (1.2-5.4) K/mm3 Abs React Lymphs (Man) K/mm3 Monocytes # (Manual) (0.0-0.8) K/mm3 Eosinophils # (Manual) (0.0-0.4) K/mm3 Basophils # (Manual) (0.0-0.1) K/mm3 Metamyelocytes # K/mm3 Myelocytes # K/mm3 Promyelocytes # K/mm3 Blast Cells # K/mm3 WBC Morphology Hypersegmented Neuts Hyposegmented Neuts Hypogranular Neuts Smudge Cells Toxic Granulation Toxic Vacuolation Dohle Bodies Pelger-Huet Anomaly Rachid Rods Platelet Estimate Clumped Platelets Plt Clumps, EDTA Large Platelets Giant Platelets Platelet Satelliting Plt Morphology Comment RBC Morphology Dimorphic RBCs Polychromasia Hypochromasia Poikilocytosis Anisocytosis Microcytosis Macrocytosis Spherocytes Pappenheimer Bodies Sickle Cells Target Cells Tear Drop Cells Ovalocytes Helmet Cells Cardona-[place] Bodies [place] Rings [place] Cells Bite Cells Crenated Cell Elliptocytes Acanthocytes (Spur) Rouleaux Hemoglobin C Crystals Schistocytes Malaria parasites Refugio Bodies Hem Pathologist Commnt VBG pH (7.320-7.420) Sodium 131 L (137-145) mmol/L Potassium 4.2 (3.6-5.0) mmol/L Chloride 94.4 L (98-107) mmol/L Carbon Dioxide 24 (22-30) mmol/L Anion Gap 17 mmol/L BUN 44 H (9-20) mg/dL Creatinine 1.5 H (0.8-1.3) mg/dL Estimated GFR > 60 ml/min BUN/Creatinine Ratio 29 % Glucose 472 H (75-100) mg/dL Lactic Acid 1.70 (0.7-2.0) mmol/L Calcium 8.2 L (8.4-10.2) mg/dL Phosphorus (2.5-4.5) mg/dL Magnesium (1.7-2.3) mg/dL Total Bilirubin 0.40 (0.1-1.2) mg/dL Direct Bilirubin < 0.2 (0-0.2) mg/dL Indirect Bilirubin 0.2 mg/dL AST 8 (5-40) units/L ALT 6 L (7-56) units/L Alkaline Phosphatase 172 H (35-129) units/L Total Protein 7.7 (6.3-8.2) g/dL Albumin 3.3 L (3.9-5) g/dL Albumin/Globulin Ratio 0.8 % Lipase 5 L (13-60) units/L TSH (0.270-4.200) mlU/mL Free T4 (0.76-1.46) ng/dL 06/10/21 Range/Units 08:07 WBC (4.5-11.0) K/mm3 RBC (3.65-5.03) M/mm3 Hgb (11.8-15.2) gm/dl Hct (35.5-45.6) % MCV (84-94) fl MCH (28-32) pg MCHC (32-34) % RDW (13.2-15.2) % Plt Count (140-440) K/mm3 Add Manual Diff Total Counted Seg Neutrophils % Seg Neuts % (Manual) (40.0-70.0) % Band Neutrophils % % Lymphocytes % (Manual) (13.4-35.0) % Reactive Lymphs % (Man) % Monocytes % (Manual) (0.0-7.3) % Eosinophils % (Manual) (0.0-4.3) % Basophils % (Manual) (0.0-1.8) % Metamyelocytes % % Myelocytes % % Promyelocytes % % Blast Cells % % Nucleated RBC % Seg Neutrophils # Man (1.8-7.7) K/mm3 Band Neutrophils # K/mm3 Lymphocytes # (Manual) (1.2-5.4) K/mm3 Abs React Lymphs (Man) K/mm3 Monocytes # (Manual) (0.0-0.8) K/mm3 Eosinophils # (Manual) (0.0-0.4) K/mm3 Basophils # (Manual) (0.0-0.1) K/mm3 Metamyelocytes # K/mm3 Myelocytes # K/mm3 Promyelocytes # K/mm3 Blast Cells # K/mm3 WBC Morphology Hypersegmented Neuts Hyposegmented Neuts Hypogranular Neuts Smudge Cells Toxic Granulation Toxic Vacuolation Dohle Bodies Pelger-Huet Anomaly Rachid Rods Platelet Estimate Clumped Platelets Plt Clumps, EDTA Large Platelets Giant Platelets Platelet Satelliting Plt Morphology Comment RBC Morphology Dimorphic RBCs Polychromasia Hypochromasia Poikilocytosis Anisocytosis Microcytosis Macrocytosis Spherocytes Pappenheimer Bodies Sickle Cells Target Cells Tear Drop Cells Ovalocytes Helmet Cells Cardona-[place] Bodies [place] Rings Angelina Cells Bite Cells Crenated Cell Elliptocytes Acanthocytes (Spur) Rouleaux Hemoglobin C Crystals Schistocytes Malaria parasites Refugio Bodies Hem Pathologist Commnt VBG pH 7.352 (7.320-7.420) Sodium (137-145) mmol/L Potassium (3.6-5.0) mmol/L Chloride (98-107) mmol/L Carbon Dioxide (22-30) mmol/L Anion Gap mmol/L BUN (9-20) mg/dL Creatinine (0.8-1.3) mg/dL Estimated GFR ml/min BUN/Creatinine Ratio % Glucose (75-100) mg/dL Lactic Acid (0.7-2.0) mmol/L Calcium (8.4-10.2) mg/dL Phosphorus (2.5-4.5) mg/dL Magnesium (1.7-2.3) mg/dL Total Bilirubin (0.1-1.2) mg/dL Direct Bilirubin (0-0.2) mg/dL Indirect Bilirubin mg/dL AST (5-40) units/L ALT (7-56) units/L Alkaline Phosphatase (35-129) units/L Total Protein (6.3-8.2) g/dL Albumin (3.9-5) g/dL Albumin/Globulin Ratio % Lipase (13-60) units/L TSH (0.270-4.200) mlU/mL Free T4 (0.76-1.46) ng/dL - EKG Data -: EKG Interpreted by Fl EKG shows normal: sinus rhythm, ST-T waves (No STEMI, no peak T waves) Rate: tachycardia (120) - Radiology Data Radiology results: report reviewed CHEST 1 VIEW 06/10/2021 6:40 AM INDICATION / CLINICAL INFORMATION: dka, fever. COMPARISON: 07/09/2019 FINDINGS: SUPPORT DEVICES: None. HEART / MEDIASTINUM: No significant abnormality. LUNGS / PLEURA: No significant pulmonary or pleural abnormality. No pneumothorax. ADDITIONAL FINDINGS: No significant additional findings. IMPRESSION: 1. No acute findings. CT lower extremity LT wo con INDICATION: pain, redness posterior distal thigh (hamstring). TECHNIQUE: All CT scans at this location are performed using CT dose reduction for ALARA by means of automated exposure control. COMPARISON: None available. FINDINGS: Soft tissue ulcer is seen along the lateral aspect of the fibula with cortical destruction of the fibular head characteristic for osteomyelitis. Within the left amputation is seen. Intramuscular multiloculated fluid collections/abscesses seen within the biceps femoris muscle measuring 1.1 x 1.8 cm on series 5 image 193 and more distally measuring 1.1 x 1.9 cm image 2020 IMPRESSION: 1. Acute osteomyelitis of proximal fibula with overlying soft tissue ulcer with intramuscular multiloculated abscesses in the biceps femoris muscle described above - Medical Decision Making 40-year male presents to the hospital with symptoms of sepsis and hyperglycemia. Sepsis protocol and DKA protocol initiated. Labs not consistent with DKA but are consistent with sepsis. Patient was initially treated with an IV bolus of insulin followed by insulin drip. Patient received aggressive IV hydration including 30 mL/kg bolus of normal saline. Clinical findings of left thigh cellulitis with CT findings of osteomyelitis and multiple intramuscular abscesses of the left biceps femoris muscle patient treated with IV vancomycin and Flagyl. Elevated lactic acid trending down with resuscitation. Labs consistent with acute renal insufficiency secondary to dehydration. Patient also received Zofran and Reglan for nausea and vomiting and morphine for pain. Case discussed with orthopedic surgery on-call as well as surgeon who have agreed to manage the patient during hospitalization. Critical Care Time: Yes Critical care attestation.: If time is entered above; I have spent that time in minutes in the direct care of this critically ill patient, excluding procedure time. Critical Care Time: 35 Minutes of critical care time excluding procedures were used in the care of the patient. I came immediately to the bedside upon patient's arrival. I obtained history from EMS at the bedside. I discussed treatment plan with the nursing team members. I reviewed electronic record. I Patient required multiple interventions and reassessments. Spoke with hospitalist and consultants for collaborative care ED Disposition Clinical Impression: Sepsis, Abscess of muscle of thigh, Cellulitis of left thigh, History of left below knee amputation, Osteomyelitis of fibula, Hyperglycemia due to diabetes mellitus, Dehydration, Mild renal insufficiency Disposition: 09 ADMITTED INPATIENT Is pt being admited?: Yes Condition: Stable Instructions: Diabetes Mellitus Type 2 in Adults (ED) Referrals: PRIMARY CARE, [Primary Care Provider] - 3-5 Days Time of Disposition: 09:57 (DR sri samuels (awaiting hospitalist admission orders))
[2021-06-10] MEDS ORDERED: ACETAMINOPHEN 500 MG TAB PO ONE (06:47)
[2021-06-10] MEDS ORDERED: MORPHINE 4 MG/1 ML INJ IV ONE (06:54)
[2021-06-10] MEDS ORDERED: VANCOMYCIN 1,250 MG in SODIUM CHLORIDE 0.9% 250ML 250 ML IV ONE (07:00)
[2021-06-10] MEDS ORDERED: INSULIN REGULAR, HUMAN 100 UNITS in SODIUM CHLORIDE 0.9% 99 ML IV SCH (07:00)
[2021-06-10] MEDS ORDERED: POTASSIUM CHLORIDE 10 MEQ 10 MEQ/100 ML BAG IV SCH (07:00)
[2021-06-10] MEDS ORDERED: POTASSIUM CHLORIDE 10 MEQ 10 MEQ/100 ML BAG IV PRN ×2 (07:00)
[2021-06-10] MEDS ORDERED: VANCOMYCIN PHARMACY TO DOSE IV SCH (07:00)
--- NOTE | 2021-06-10 07:00 | XRay Report ---
CHEST 1 VIEW 06/10/2021 6:40 AM INDICATION / CLINICAL INFORMATION: dka, fever. COMPARISON: 07/09/2019 FINDINGS: SUPPORT DEVICES: None. HEART / MEDIASTINUM: No significant abnormality. LUNGS / PLEURA: No significant pulmonary or pleural abnormality. No pneumothorax. ADDITIONAL FINDINGS: No significant additional findings. IMPRESSION: 1. No acute findings. Signer Name: Matthias Jimenez MD Signed: 06/10/2021 6:55 AM Workstation Name: [id number]
[2021-06-10 07:24] LABS: Hematocrit 29.2 % (35.5-45.6); Hemoglobin 9.5 gm/dl (11.8-15.2); Mean Corpuscular HGB Conc 33 % (32-34); Mean Corpuscular Volume 81 fl (84-94); Platelet Count 420 K/mm3 (140-440); Red Blood Count 3.63 M/mm3 (3.65-5.03); Red Cell Distribution Width 15.5 % (13.2-15.2)
[2021-06-10 07:43] LABS: BUN/Creatinine Ratio 30; Blood Urea Nitrogen 45 mg/dL (9-20); Hemolysis Index 2
[2021-06-10 07:46] LABS: Alanine Aminotransferase 6 units/L (7-56); Albumin 3.3 g/dL (3.9-5)
[2021-06-10 07:47] LABS: Alanine Aminotransferase 5 units/L (7-56); Albumin 3.2 g/dL (3.9-5); BUN/Creatinine Ratio 30; Blood Urea Nitrogen 45 mg/dL (9-20); Calcium 9.1 mg/dL (8.4-10.2); Hemolysis Index 0
[2021-06-10 07:53] LABS: Bilirubin,Direct < 0.2 mg/dL (0-0.2)
[2021-06-10 07:59] LABS: Free T4 (Free Thyroxine) 1.05 ng/dL (0.76-1.46)
[2021-06-10 08:12] LABS: Basophils % (Manual) 0 % (0.0-1.8); Eosinophils % (Manual) 0 % (0.0-4.3); Total Cells Counted 100
[2021-06-10 08:13] LABS: Platelet Estimate Consistent w Auto; RBC Morphology Normal
[2021-06-10] MEDS ORDERED: INSULIN REGULAR, HUMAN 100 UNITS/1 ML IV ONE (08:26)
[2021-06-10] MEDS ORDERED: METOCLOPRAMIDE 10 MG/2 ML INJ IV ONE (08:27)
[2021-06-10 08:58] LABS: BUN/Creatinine Ratio 29; Blood Urea Nitrogen 44 mg/dL (9-20); Calcium 8.2 mg/dL (8.4-10.2); Hemolysis Index 0
--- NOTE | 2021-06-10 09:12 | Cat Scan Report ---
CT lower extremity LT wo con INDICATION: pain, redness posterior distal thigh (hamstring). TECHNIQUE: All CT scans at this location are performed using CT dose reduction for ALARA by means of automated e xposure control. COMPARISON: None available. FINDINGS: Soft tissue ulcer is seen along the lateral aspect of the fibula with cortical destruction of the fib ular head characteristic for osteomyelitis. Within the left amputation is seen. Intramuscular multilo culated fluid collections/abscesses seen within the biceps femoris muscle measuring 1.1 x 1.8 cm on s eries 5 image 193 and more distally measuring 1.1 x 1.9 cm image 2020 IMPRESSION: 1. Acute osteomyelitis of proximal fibula with overlying soft tissue ulcer with intramuscular multilo culated abscesses in the biceps femoris muscle described above Signer Name: Ricky Casillas MD Signed: 06/10/2021 9:08 AM Workstation Name: [id number]
[2021-06-10] MEDS ORDERED: metroNIDAZOLE/NS 500 MG/100 ML 500 MG/100 ML BAG IV ONE (09:46)
[2021-06-10] MEDS ORDERED: LIDOCAINE (1%) 10 MG/1 ML VIAL 20 ML MDV INFILTRATI ONE (10:34)
--- NOTE | 2021-06-10 11:10 | Consultation ---
History of Present Illness Consult date: 06/10/21 Requesting physician: YASMANY WESTON - History of present illness History of present illness: 40-year-old male with a past medical history of type 1 insulin-dependent diabetes with previous DKA, left BKA, and right great toe amputation presents to the hospital with complaints of progressively worsening left leg pain, fatigue, nausea, and vomiting. Patient initially thought that the pain to left leg was secondary to ill fitting prosthesis however pain continued and he has developed significant fatigue is sleeping a lot for the past 3 to 4 days. Patient denies having a fever. He has not been checking his sugar. He has not had much to eat or drink but states and states that he is taking his insulin. Mild cough reported. Patient is vaccinated for COVID. He denies abdominal pain or chest pain. Pt denies IVDA or and drug/substance abuse. He had the initial bka at [facility] [address] of the left leg shows osteomyelitis of the fibular head and an intramuscular abscess or fluid collection in the biceps of thigh(hamstring muscle).US of the area consistant with deep process in the muscle belly. Medications and Allergies Allergies Allergy/AdvReac Type Severity Reaction Status Date / Time piperacillin [From Zosyn] Allergy Itching Verified 06/10/21 06:36 shellfish derived Allergy Hives Verified 05/29/19 01:22 tazobactam [From Zosyn] Allergy Itching Verified 06/10/21 06:36 Home Medications Medication Instructions Recorded Confirmed Last Taken Type metFORMIN [Glucophage] 500 mg PO BID 08/01/20 08/04/20 07/29/20 22:00 History Insulin NPH/Regular [NovoLIN 70/30] 10 unit SUB-Q BIDDIAB 30 Days 08/05/20 Unknown Rx units Lispro Insulin [HumaLOG] 0 unit SUB-Q ACHS 30 Days units 08/05/20 Unknown Rx cephALEXin [Keflex] 500 mg PO Q8HR #40 cap 08/05/20 Unknown Rx levoFLOXacin [Levaquin TAB] 500 mg PO QDAY #10 tablet 08/05/20 Unknown Rx lisinopriL [Zestril TAB] 5 mg PO QDAY #30 tablet 08/05/20 Unknown Rx oxyCODONE [roxiCODONE] 5 mg PO Q6HR PRN #30 tablet 08/05/20 Unknown Rx Active Meds: Active Medications Dextrose (Dextrose 50% In Water (25gm) 50 Ml Syringe) 0 ml IV Q30MIN PRN; Protocol PRN Reason: Hypoglycemia Insulin Human Regular 100 (units/ Sodium Chloride) 100 mls @ 1 mls/hr IV TITR SHANIKA; Protocol Last Titration: 06/10/21 09:40 Dose: 7 units/hr, 7 mls/hr Potassium Chloride (Kcl 10meq/100ml) 10 meq in 100 mls @ 100 mls/hr IV Q1H PRN PRN Reason: SEE PROTOCOL Potassium Chloride (Kcl 10meq/100ml) 10 meq in 100 mls @ 100 mls/hr IV Q1H PRN PRN Reason: SEE PROTOCOL Vancomycin HCl (Vancomycin/Ns 1 Gm/250 Ml) 1 gm in 250 mls @ 166.667 mls/hr IV Q12H SHANIKA Cefepime HCl (Cefepime/Ns 1 Gm/100 Ml) 1 gm in 100 mls @ 200 mls/hr IV Q8H SHANIKA; Protocol Exam Vital Signs Temp Pulse Resp BP Pulse Ox 98 F 134 H 20 131/75 100 06/10/21 06:17 06/10/21 06:17 06/10/21 06:17 06/10/21 06:17 06/10/21 06:17 - General physical appearance Positive: well developed, no distress - Eyes Positive: PERRL - Neck Positive: no masses, no bruits, trachea midline - Respiratory Positive: normal expansion - Cardiovascular Rhythm: regular - Extremities Extremities: no ischemia - Abdomen Abdomen: Present: soft. Absent: tender - Neurologic Neurologic: alert and oriented to time, place and person, motor strength and sensation are grossly intact, CN II-XII intact Results - Labs 06/10/21 06:56 06/10/21 08:07 Abnormal lab results 06/10/21 06/10/21 06/10/21 Range/Units 06:56 06:56 06:56 WBC 19.2 H (4.5-11.0) K/mm3 RBC 3.63 L (3.65-5.03) M/mm3 Hgb 9.5 L (11.8-15.2) gm/dl Hct 29.2 L (35.5-45.6) % MCV 81 L (84-94) fl MCH 26 L (28-32) pg RDW 15.5 H (13.2-15.2) % Seg Neuts % (Manual) 91.0 H (40.0-70.0) % Lymphocytes % (Manual) 4.0 L (13.4-35.0) % Seg Neutrophils # Man 17.5 H (1.8-7.7) K/mm3 Lymphocytes # (Manual) 0.8 L (1.2-5.4) K/mm3 Monocytes # (Manual) 1.0 H (0.0-0.8) K/mm3 Sodium 129 L (137-145) mmol/L Chloride 90.3 L (98-107) mmol/L BUN 45 H (9-20) mg/dL Creatinine 1.5 H (0.8-1.3) mg/dL Glucose 567 H* (75-100) mg/dL Lactic Acid (0.7-2.0) mmol/L Calcium (8.4-10.2) mg/dL Phosphorus 1.90 L (2.5-4.5) mg/dL Magnesium 2.60 H (1.7-2.3) mg/dL ALT 5 L (7-56) units/L Alkaline Phosphatase 170 H (35-129) units/L Albumin 3.2 L (3.9-5) g/dL Lipase (13-60) units/L 06/10/21 06/10/21 06/10/21 Range/Units 06:56 06:56 06:56 WBC (4.5-11.0) K/mm3 RBC (3.65-5.03) M/mm3 Hgb (11.8-15.2) gm/dl Hct (35.5-45.6) % MCV (84-94) fl MCH (28-32) pg RDW (13.2-15.2) % Seg Neuts % (Manual) (40.0-70.0) % Lymphocytes % (Manual) (13.4-35.0) % Seg Neutrophils # Man (1.8-7.7) K/mm3 Lymphocytes # (Manual) (1.2-5.4) K/mm3 Monocytes # (Manual) (0.0-0.8) K/mm3 Sodium 128 L (137-145) mmol/L Chloride 88.9 L (98-107) mmol/L BUN 45 H (9-20) mg/dL Creatinine 1.5 H (0.8-1.3) mg/dL Glucose (75-100) mg/dL Lactic Acid 2.90 H* (0.7-2.0) mmol/L Calcium (8.4-10.2) mg/dL Phosphorus (2.5-4.5) mg/dL Magnesium (1.7-2.3) mg/dL ALT 6 L (7-56) units/L Alkaline Phosphatase 172 H (35-129) units/L Albumin 3.3 L (3.9-5) g/dL Lipase 5 L (13-60) units/L 06/10/21 Range/Units 08:07 WBC (4.5-11.0) K/mm3 RBC (3.65-5.03) M/mm3 Hgb (11.8-15.2) gm/dl Hct (35.5-45.6) % MCV (84-94) fl MCH (28-32) pg RDW (13.2-15.2) % Seg Neuts % (Manual) (40.0-70.0) % Lymphocytes % (Manual) (13.4-35.0) % Seg Neutrophils # Man (1.8-7.7) K/mm3 Lymphocytes # (Manual) (1.2-5.4) K/mm3 Monocytes # (Manual) (0.0-0.8) K/mm3 Sodium 131 L (137-145) mmol/L Chloride 94.4 L (98-107) mmol/L BUN 44 H (9-20) mg/dL Creatinine 1.5 H (0.8-1.3) mg/dL Glucose 472 H (75-100) mg/dL Lactic Acid (0.7-2.0) mmol/L Calcium 8.2 L (8.4-10.2) mg/dL Phosphorus (2.5-4.5) mg/dL Magnesium (1.7-2.3) mg/dL ALT (7-56) units/L Alkaline Phosphatase (35-129) units/L Albumin (3.9-5) g/dL Lipase (13-60) units/L Diabetes panel 06/10/21 06/10/21 06/10/21 Range/Units 06:56 06:56 06:56 Sodium 129 L 128 L (137-145) mmol/L Potassium 4.4 4.7 (3.6-5.0) mmol/L Chloride 90.3 L 88.9 L (98-107) mmol/L Carbon Dioxide 23 24 (22-30) mmol/L BUN 45 H 45 H (9-20) mg/dL Creatinine 1.5 H 1.5 H (0.8-1.3) mg/dL Glucose 567 H* TNR (75-100) mg/dL Calcium 9.1 9.0 (8.4-10.2) mg/dL AST 7 8 (5-40) units/L ALT 5 L 6 L (7-56) units/L Alkaline Phosphatase 170 H 172 H (35-129) units/L Total Protein 7.5 7.7 (6.3-8.2) g/dL Albumin 3.2 L 3.3 L (3.9-5) g/dL 06/10/21 Range/Units 08:07 Sodium 131 L (137-145) mmol/L Potassium 4.2 (3.6-5.0) mmol/L Chloride 94.4 L (98-107) mmol/L Carbon Dioxide 24 (22-30) mmol/L BUN 44 H (9-20) mg/dL Creatinine 1.5 H (0.8-1.3) mg/dL Glucose 472 H (75-100) mg/dL Calcium 8.2 L (8.4-10.2) mg/dL AST (5-40) units/L ALT (7-56) units/L Alkaline Phosphatase (35-129) units/L Total Protein (6.3-8.2) g/dL Albumin (3.9-5) g/dL Thyroid panel 06/10/21 Range/Units 06:56 TSH 1.080 (0.270-4.200) mlU/mL Calcium panel 06/10/21 06/10/21 06/10/21 Range/Units 06:56 06:56 06:56 Calcium 9.1 9.0 (8.4-10.2) mg/dL Phosphorus 1.90 L (2.5-4.5) mg/dL Albumin 3.2 L (3.9-5) g/dL 06/10/21 06/10/21 Range/Units 06:56 08:07 Calcium 8.2 L (8.4-10.2) mg/dL Phosphorus (2.5-4.5) mg/dL Albumin 3.3 L (3.9-5) g/dL Pituitary panel 06/10/21 06/10/21 06/10/21 Range/Units 06:56 06:56 06:56 Sodium 129 L 128 L (137-145) mmol/L Potassium 4.4 4.7 (3.6-5.0) mmol/L Chloride 90.3 L 88.9 L (98-107) mmol/L Carbon Dioxide 23 24 (22-30) mmol/L BUN 45 H 45 H (9-20) mg/dL Creatinine 1.5 H 1.5 H (0.8-1.3) mg/dL Glucose 567 H* TNR (75-100) mg/dL Calcium 9.1 9.0 (8.4-10.2) mg/dL TSH 1.080 (0.270-4.200) mlU/mL 06/10/21 Range/Units 08:07 Sodium 131 L (137-145) mmol/L Potassium 4.2 (3.6-5.0) mmol/L Chloride 94.4 L (98-107) mmol/L Carbon Dioxide 24 (22-30) mmol/L BUN 44 H (9-20) mg/dL Creatinine 1.5 H (0.8-1.3) mg/dL Glucose 472 H (75-100) mg/dL Calcium 8.2 L (8.4-10.2) mg/dL TSH (0.270-4.200) mlU/mL Adrenal panel 06/10/21 06/10/21 06/10/21 Range/Units 06:56 06:56 06:56 Sodium 129 L 128 L (137-145) mmol/L Potassium 4.4 4.7 (3.6-5.0) mmol/L Chloride 90.3 L 88.9 L (98-107) mmol/L Carbon Dioxide 23 24 (22-30) mmol/L BUN 45 H 45 H (9-20) mg/dL Creatinine 1.5 H 1.5 H (0.8-1.3) mg/dL Glucose 567 H* TNR (75-100) mg/dL Calcium 9.1 9.0 (8.4-10.2) mg/dL Total Bilirubin 0.30 0.40 (0.1-1.2) mg/dL AST 7 8 (5-40) units/L ALT 5 L 6 L (7-56) units/L Alkaline Phosphatase 170 H 172 H (35-129) units/L Total Protein 7.5 7.7 (6.3-8.2) g/dL Albumin 3.2 L 3.3 L (3.9-5) g/dL 06/10/21 Range/Units 08:07 Sodium 131 L (137-145) mmol/L Potassium 4.2 (3.6-5.0) mmol/L Chloride 94.4 L (98-107) mmol/L Carbon Dioxide 24 (22-30) mmol/L BUN 44 H (9-20) mg/dL Creatinine 1.5 H (0.8-1.3) mg/dL Glucose 472 H (75-100) mg/dL Calcium 8.2 L (8.4-10.2) mg/dL Total Bilirubin (0.1-1.2) mg/dL AST (5-40) units/L ALT (7-56) units/L Alkaline Phosphatase (35-129) units/L Total Protein (6.3-8.2) g/dL Albumin (3.9-5) g/dL Assessment and Plan Left leg intra muscular process. He will be admitted to have iv ab, rehydration and consultaito to IR. Percutaneous drainage would be better so as not to int erfer with the wearing of a prosthetic limb.
--- NOTE | 2021-06-10 11:14 | History and Physical Report ---
History of Present Illness History of present illness: HPI: 40-year-old male with past medical history of uncontrolled type 1 diabetes, history of left BKA, history of right toe amputation presenting to our facility with complaint of left leg pain. Patient complains of worsening leg pain, nausea, and vomiting. Patient states that he utilizes a left leg prosthesis due to his hx of left bka to help ambulate but states that he has had issues with fitment and has noticed skin erroding from his amputation site for some itme now.. He has developed significant fatigue, nausea, vomiting over the last 3-4 days. he denied fevers or chills. He denied ODOM, chest pain, palpitatoins, shortness of breath, peripheral nerve pain. Remainder of ROS negative except stated above. Of note, patient is a poorly controlled diabetic. He swtiched his own insulin regimen to 70/30 which he fills at [facility]. he does not follow with a primary care doctor or food safety specialist. He does not know his fasting sugars as he does not check them. His last hemoglobin a1c in July 2020 was 10.4. He is fully vaccinated for COVID-19. He denies any IV drug abuse or substance abuse otherwise. PMHx: Type 1 Diabetes, History of rt toe amputation. 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 and Allergies Allergies Allergy/AdvReac Type Severity Reaction Status Date / Time piperacillin [From Zosyn] Allergy Itching Verified 06/10/21 06:36 shellfish derived Allergy Hives Verified 05/29/19 01:22 tazobactam [From Zosyn] Allergy Itching Verified 06/10/21 06:36 Home Medications Medication Instructions Recorded Confirmed Last Taken Type metFORMIN [Glucophage] 500 mg PO BID 08/01/20 08/04/20 07/29/20 22:00 History Insulin NPH/Regular [NovoLIN 70/30] 10 unit SUB-Q BIDDIAB 30 Days 08/05/20 Unknown Rx units Lispro Insulin [HumaLOG] 0 unit SUB-Q ACHS 30 Days units 08/05/20 Unknown Rx cephALEXin [Keflex] 500 mg PO Q8HR #40 cap 08/05/20 Unknown Rx levoFLOXacin [Levaquin TAB] 500 mg PO QDAY #10 tablet 08/05/20 Unknown Rx lisinopriL [Zestril TAB] 5 mg PO QDAY #30 tablet 08/05/20 Unknown Rx oxyCODONE [roxiCODONE] 5 mg PO Q6HR PRN #30 tablet 08/05/20 Unknown Rx Active Meds: Active Medications Dextrose (Dextrose 50% In Water (25gm) 50 Ml Syringe) 0 ml IV Q30MIN PRN; Protocol PRN Reason: Hypoglycemia Insulin Human Regular 100 (units/ Sodium Chloride) 100 mls @ 1 mls/hr IV TITR SHANIKA; Protocol Last Titration: 06/10/21 09:40 Dose: 7 units/hr, 7 mls/hr Potassium Chloride (Kcl 10meq/100ml) 10 meq in 100 mls @ 100 mls/hr IV Q1H PRN PRN Reason: SEE PROTOCOL Potassium Chloride (Kcl 10meq/100ml) 10 meq in 100 mls @ 100 mls/hr IV Q1H PRN PRN Reason: SEE PROTOCOL Vancomycin HCl (Vancomycin/Ns 1 Gm/250 Ml) 1 gm in 250 mls @ 166.667 mls/hr IV Q12H SHANIKA Review of Systems All systems: negative (as mentioned in HPI) Exam - Physical Exam Narrative exam: Physical Exam: VITAL SIGNS: Reviewed. GENERAL: The patient appears normally developed, Vital signs as documented. Thin gentleman appears older than stated age. Not in any distress HEAD: No signs of head trauma. EYES: Pupils are equal. Extraocular motions intact. EARS: Hearing grossly intact. MOUTH: Oropharynx is normal. NECK: No adenopathy, no JVD. CHEST: Chest with clear breath sounds bilaterally. No wheezes, rales, or rhonchi. CARDIAC: Regular rate and rhythm. S1 and S2, without murmurs, gallops, or rub s. VASCULAR: No Edema. Peripheral pulses normal and equal in all extremities. ABDOMEN: Soft, non tender and non distended. No rebound or guarding, and no masses palpated. Bowel Sounds normal. MUSCULOSKELETAL: Left leg BKA, right great toe amputation. Good range of motion of all major joints. Extremities without clubbing, cyanosis or edema. NEUROLOGIC EXAM: Alert and oriented x 4. no focal sensory or strength deficits. PSYCHIATRIC: Mood normal. SKIN: detail exam as documented in skin assessment. ulceration in left leg at the site of prosthetic implant. - Constitutional Vitals: Temp Pulse Resp BP Pulse Ox 98.4 F 104 H 21 112/63 96 06/10/21 09:18 06/10/21 08:46 06/10/21 08:46 06/10/21 08:46 06/10/21 09:19 Results - Labs CBC & Chem 7: 06/10/21 06:56 06/10/21 11:25 Labs: Laboratory Last Values WBC 19.2 K/mm3 (4.5-11.0) H 06/10/21 06:56 RBC 3.63 M/mm3 (3.65-5.03) L 06/10/21 06:56 Hgb 9.5 gm/dl (11.8-15.2) L 06/10/21 06:56 Hct 29.2 % (35.5-45.6) L 06/10/21 06:56 MCV 81 fl (84-94) L 06/10/21 06:56 MCH 26 pg (28-32) L 06/10/21 06:56 MCHC 33 % (32-34) 06/10/21 06:56 RDW 15.5 % (13.2-15.2) H 06/10/21 06:56 Plt Count 420 K/mm3 (140-440) 06/10/21 06:56 Add Manual Diff Complete 06/10/21 06:56 Total Counted 100 06/10/21 06:56 Seg Neutrophils % Net Trainer 06/10/21 06:56 Seg Neuts % (Manual) 91.0 % (40.0-70.0) H 06/10/21 06:56 Band Neutrophils % 0 % 06/10/21 06:56 Lymphocytes % (Manual) 4.0 % (13.4-35.0) L 06/10/21 06:56 Reactive Lymphs % (Man) 0 % 06/10/21 06:56 Monocytes % (Manual) 5.0 % (0.0-7.3) 06/10/21 06:56 Eosinophils % (Manual) 0 % (0.0-4.3) 06/10/21 06:56 Basophils % (Manual) 0 % (0.0-1.8) 06/10/21 06:56 Metamyelocytes % 0 % 06/10/21 06:56 Myelocytes % 0 % 06/10/21 06:56 Promyelocytes % 0 % 06/10/21 06:56 Blast Cells % 0 % 06/10/21 06:56 Nucleated RBC % Not Reportable 06/10/21 06:56 Seg Neutrophils # Man 17.5 K/mm3 (1.8-7.7) H 06/10/21 06:56 Band Neutrophils # 0.0 K/mm3 06/10/21 06:56 Lymphocytes # (Manual) 0.8 K/mm3 (1.2-5.4) L 06/10/21 06:56 Abs React Lymphs (Man) 0.0 K/mm3 06/10/21 06:56 Monocytes # (Manual) 1.0 K/mm3 (0.0-0.8) H 06/10/21 06:56 Eosinophils # (Manual) 0.0 K/mm3 (0.0-0.4) 06/10/21 06:56 Basophils # (Manual) 0.0 K/mm3 (0.0-0.1) 06/10/21 06:56 Metamyelocytes # 0.0 K/mm3 06/10/21 06:56 Myelocytes # 0.0 K/mm3 06/10/21 06:56 Promyelocytes # 0.0 K/mm3 06/10/21 06:56 Blast Cells # 0.0 K/mm3 06/10/21 06:56 WBC Morphology Not Reportable 06/10/21 06:56 Hypersegmented Neuts Not Reportable 06/10/21 06:56 Hyposegmented Neuts Not Reportable 06/10/21 06:56 Hypogranular Neuts Not Reportable 06/10/21 06:56 Smudge Cells Not Reportable 06/10/21 06:56 Toxic Granulation Not Reportable 06/10/21 06:56 Toxic Vacuolation Not Reportable 06/10/21 06:56 Dohle Bodies Not Reportable 06/10/21 06:56 Pelger-Huet Anomaly Not Reportable 06/10/21 06:56 Rachid Rods Not Reportable 06/10/21 06:56 Platelet Estimate Consistent w auto 06/10/21 06:56 Clumped Platelets Not Reportable 06/10/21 06:56 Plt Clumps, EDTA Not Reportable 06/10/21 06:56 Large Platelets Not Reportable 06/10/21 06:56 Giant Platelets Not Reportable 06/10/21 06:56 Platelet Satelliting Not Reportable 06/10/21 06:56 Plt Morphology Comment Not Reportable 06/10/21 06:56 RBC Morphology Normal 06/10/21 06:56 Dimorphic RBCs Not Reportable 06/10/21 06:56 Polychromasia Not Reportable 06/10/21 06:56 Hypochromasia Not Reportable 06/10/21 06:56 Poikilocytosis Not Reportable 06/10/21 06:56 Anisocytosis Not Reportable 06/10/21 06:56 Microcytosis Not Reportable 06/10/21 06:56 Macrocytosis Not Reportable 06/10/21 06:56 Spherocytes Not Reportable 06/10/21 06:56 Pappenheimer Bodies Not Reportable 06/10/21 06:56 Sickle Cells Not Reportable 06/10/21 06:56 Target Cells Not Reportable 06/10/21 06:56 Tear Drop Cells Not Reportable 06/10/21 06:56 Ovalocytes Not Reportable 06/10/21 06:56 Helmet Cells Not Reportable 06/10/21 06:56 [place] Bodies Not Reportable 06/10/21 06:56 [place] Rings Not Reportable 06/10/21 06:56 [place] Cells Not Reportable 06/10/21 06:56 Bite Cells Not Reportable 06/10/21 06:56 Crenated Cell Not Reportable 06/10/21 06:56 Elliptocytes Not Reportable 06/10/21 06:56 Acanthocytes (Spur) Not Reportable 06/10/21 06:56 Rouleaux Not Reportable 06/10/21 06:56 Hemoglobin C Crystals Not Reportable 06/10/21 06:56 Schistocytes Not Reportable 06/10/21 06:56 Malaria parasites Not Reportable 06/10/21 06:56 Refugio Bodies Not Reportable 06/10/21 06:56 Hem Pathologist Commnt No 06/10/21 06:56 VBG pH 7.352 (7.320-7.420) 06/10/21 08:07 Sodium 131 mmol/L (137-145) L 06/10/21 08:07 Potassium 4.2 mmol/L (3.6-5.0) 06/10/21 08:07 Chloride 94.4 mmol/L (98-107) L 06/10/21 08:07 Carbon Dioxide 24 mmol/L (22-30) 06/10/21 08:07 Anion Gap 17 mmol/L 06/10/21 08:07 BUN 44 mg/dL (9-20) H 06/10/21 08:07 Creatinine 1.5 mg/dL (0.8-1.3) H 06/10/21 08:07 Estimated GFR > 60 ml/min 06/10/21 08:07 BUN/Creatinine Ratio 29 % 06/10/21 08:07 Glucose 472 mg/dL (75-100) H 06/10/21 08:07 Lactic Acid 1.70 mmol/L (0.7-2.0) 06/10/21 08:07 Calcium 8.2 mg/dL (8.4-10.2) L 06/10/21 08:07 Phosphorus 1.90 mg/dL (2.5-4.5) L 06/10/21 06:56 Magnesium 2.60 mg/dL (1.7-2.3) H 06/10/21 06:56 Total Bilirubin 0.30 mg/dL (0.1-1.2) 06/10/21 06:56 Total Bilirubin 0.40 mg/dL (0.1-1.2) 06/10/21 06:56 Direct Bilirubin < 0.2 mg/dL (0-0.2) 06/10/21 06:56 Indirect Bilirubin 0.2 mg/dL 06/10/21 06:56 AST 7 units/L (5-40) 06/10/21 06:56 AST 8 units/L (5-40) 06/10/21 06:56 ALT 5 units/L (7-56) L 06/10/21 06:56 ALT 6 units/L (7-56) L 06/10/21 06:56 Alkaline Phosphatase 170 units/L (35-129) H 06/10/21 06:56 Alkaline Phosphatase 172 units/L (35-129) H 06/10/21 06:56 Total Protein 7.5 g/dL (6.3-8.2) 06/10/21 06:56 Total Protein 7.7 g/dL (6.3-8.2) 06/10/21 06:56 Albumin 3.2 g/dL (3.9-5) L 06/10/21 06:56 Albumin 3.3 g/dL (3.9-5) L 06/10/21 06:56 Albumin/Globulin Ratio 0.7 % 06/10/21 06:56 Albumin/Globulin Ratio 0.8 % 06/10/21 06:56 Lipase 5 units/L (13-60) L 06/10/21 06:56 TSH 1.080 mlU/mL (0.270-4.200) 06/10/21 06:56 Free T4 1.05 ng/dL (0.76-1.46) 06/10/21 06:56 Assessment and Plan Assessment and plan: #Sepsis secondary to possible left diabetic leg infection - wbc 19.2, LA 2.9, tachycardic on admission - CT left leg: acute osteomyelitis of proximal fibula with overlying soft tissue ulcer with intramuscular multiloculated abscess in the biceps femoris muscle. Please refer to official radiology report - general surgery consulted,d/w Dr. Rodriguez, will be completing bedside I&D today with cultures. - orthopedic surgery consulted - infectious disease consulted - started on vancomycin/cefepime IV #Left fibular head osteomyelitis -CT findings as above -IV antibiotics as above #Left leg intramuscular abscess -CT findings as above Surgical plan as above We will follow cultures from incision and drainage - IR consulted. IV antibiotics as above #Metabolic acidosis - multifactorial from sepsis and HHS IV fluids, glycemic control with IV and subcutaneous insulin #HHS - initiated on IV insulin in emergency department - will start long acting insulin, SSI. - diabetic diet once glycemic control achieved. #Acute kidney injury secondary to vasomotor nephropathy - Cr: 1.5, likely due to dehydration and underlying sepsis - has received approximately 3-4 liters IV fluid in ED. - will start IVF @75 x 1 bag - follow renal function on serial bmp #Type 1 diabetes with hyperglycemia, uncontrolled #History of left below the knee amputation Completed at [facility] approximately 10 years ago #History of right great toe amputation # Medication noncompliance +15 minutes behavioral health counseling on the importance of compliance with home insulin regimen #Advance care planning Disease education conducted, care plan discussed, diagnoses discussed, prognosis discussed, patient is full code, patient acknowledges understanding and agree with care plan, +30 minutes. Dispo: MedSurg
[2021-06-10] MEDS: CEFEPIME/NS 1 GM/100 ML 1 GM/100 ML BAG IV SCH ×2 (11:39→21:48)
[2021-06-10] MEDS ORDERED: SODIUM CHLORIDE 0.9% 1000 ML 1,000 ML IV SCH (12:00)
[2021-06-10 12:12] LABS: BUN/Creatinine Ratio 32; Blood Urea Nitrogen 41 mg/dL (9-20); Calcium 7.9 mg/dL (8.4-10.2); Hemolysis Index 3
[2021-06-10] MEDS: INSULIN LISPRO 100 UNIT/ML SUB-Q SCH ×2 (12:19→17:05)
[2021-06-10] MEDS: DEXTROSE 50% IN WATER (25GM) 50 ML SYRINGE IV PRN ×2 (12:30→13:39)
[2021-06-10] MEDS ORDERED: ONDANSETRON 4 MG/2 ML INJ IV PRN (12:51)
[2021-06-10] MEDS: oxyCODONE /ACETAMINOPHEN 5-325MG TAB PO PRN ×2 (13:39→18:08)
[2021-06-10] MEDS: HEPARIN 5,000 UNIT/1 ML VIAL SUB-Q SCH ×2 (13:40→21:49)
[2021-06-10 15:24] LABS: BUN/Creatinine Ratio 33; Blood Urea Nitrogen 39 mg/dL (9-20); Calcium 7.5 mg/dL (8.4-10.2); Hemolysis Index 4
[2021-06-10] MEDS: MORPHINE 4 MG/1 ML INJ IV PRN ×2 (16:18→20:48)
[2021-06-10 19:04] LABS: BUN/Creatinine Ratio 31; Blood Urea Nitrogen 37 mg/dL (9-20); Calcium 7.4 mg/dL (8.4-10.2); Hemolysis Index 22
[2021-06-10] MEDS ORDERED: diphenhydrAMINE 50 MG/ML VIAL IV ONE (20:53)
[2021-06-10] MEDS: VANCOMYCIN/NS 1 GM/250 ML 1 GM/250 ML BAG IV SCH (21:49)
--- NOTE | 2021-06-10 21:52 | Event Note ---
Date: 06/10/21 Contacted by ER earlier today regarding fluid collections in the left lower extremity musculature. Explained that staffing limitations prevent CT drainage after hours and on weekends. Can perform drainage on saturday. NPO after MN on saturday for CT guided drainage on saturday. If CT guided drainage fails to control the problem, may need open drainage.
[2021-06-10] MEDS ORDERED: INSULIN GLARGINE 100 UNITS/ML SUB-Q SCH (22:00)
[2021-06-10] MEDS: ACETAMINOPHEN 325 MG TAB PO PRN (23:03)
[2021-06-10 23:22] LABS: BUN/Creatinine Ratio 32; Blood Urea Nitrogen 32 mg/dL (9-20); Calcium 7.5 mg/dL (8.4-10.2); Hemolysis Index 133
[2021-06-11] MEDS: INSULIN LISPRO 100 UNIT/ML SUB-Q SCH ×4 (00:46→17:27)
[2021-06-11] MEDS: MORPHINE 4 MG/1 ML INJ IV PRN ×2 (02:34→21:24)
[2021-06-11] MEDS ORDERED: CETIRIZINE 10 MG TAB PO ONE (03:17)
[2021-06-11 03:27] LABS: Amphetamine Screen,Urine Negative; Benzodiazepines Screen,Urine Negative; Cannabinoid Screen,Urine Negative; Cocaine Screen,Urine Negative; Methadone Screen,Urine Negative
[2021-06-11 03:31] LABS: Amorphous Crystals,Urine 1+; Bacteria,Urine 1+ /HPF (Negative); Bilirubin,Urine NEG (Negative); Blood,Urine SM (Negative); Color,Urine Yellow (Yellow); Granular Casts,Urine 16 /LPF; Hyaline Casts,Urine 1 /LPF; Mucus,Urine FEW /HPF; Red Blood Cell Casts,Urine 13 /LPF; Urobilinogen,Urine < 2.0 mg/dL (<2.0)
[2021-06-11] MEDS ORDERED: IBUPROFEN 400 MG TAB PO ONE (03:55)
[2021-06-11 04:00] LABS: Opiate Screen,Urine Positive
[2021-06-11] MEDS: CEFEPIME/NS 1 GM/100 ML 1 GM/100 ML BAG IV SCH ×3 (05:15→21:09)
[2021-06-11] MEDS: HEPARIN 5,000 UNIT/1 ML VIAL SUB-Q SCH ×3 (05:15→21:13)
[2021-06-11] MEDS ORDERED: LISINOPRIL 5 MG TAB PO SCH (05:34)
[2021-06-11 06:09] LABS: Mean Corpuscular HGB Conc 32 % (32-34); Mean Corpuscular Volume 81 fl (84-94); Platelet Count 344 K/mm3 (140-440); Red Blood Count 3.09 M/mm3 (3.65-5.03); Red Cell Distribution Width 15.4 % (13.2-15.2)
[2021-06-11 06:37] LABS: BUN/Creatinine Ratio 29; Blood Urea Nitrogen 26 mg/dL (9-20); Calcium 7.8 mg/dL (8.4-10.2); Hemolysis Index 1
[2021-06-11 06:56] LABS: Band Neutrophils # (Manual) 0.9 K/mm3; Basophils % (Manual) 0 % (0.0-1.8); Eosinophils % (Manual) 0 % (0.0-4.3); Myelocytes # (Manual) 0.4 K/mm3; Total Cells Counted 100
[2021-06-11 06:57] LABS: Hypochromasia 1+
[2021-06-11 07:01] LABS: Platelet Estimate Consistent w Auto
--- NOTE | 2021-06-11 07:18 | Progress Note ---
Assessment and Plan Left leg intra muscular process. He will be admitted to have iv ab, rehydration and consultaito to IR. Percutaneous drainage would be better so as not to interfer with the wearing of a prosthetic limb. Marked improvement of wbc thru the night. IR (Dr. Harden) consult appreciated. Percutaneous drainage and C?S w gram stain anticipated for tomorrow. Subjective Date of service: 06/11/21 Patient Reports: Positive: no new complaints Narrative: Marked improvement of wbc thru the night. IR (Dr. Harden) consult appreciated. Percutaneous drainage and C?S w gram stain anticipated for tomorrow. Objective Vital Signs - 12hr 06/10/21 06/11/21 06/11/21 22:40 04:12 05:15 Temperature 101.7 F H 99.5 F Pulse Rate 124 H 120 H Respiratory 20 18 Rate Blood Pressure 142/76 134/78 O2 Sat by Pulse 91 96 94 Oximetry 06/11/21 06:53 Temperature Pulse Rate 120 H Respiratory Rate Blood Pressure 134/78 O2 Sat by Pulse Oximetry - Labs 06/11/21 04:57 06/11/21 04:57 Diabetes panel 06/10/21 06/10/21 06/10/21 Range/Units 06:56 06:56 06:56 Sodium 129 L 128 L (137-145) mmol/L Potassium 4.4 4.7 (3.6-5.0) mmol/L Chloride 90.3 L 88.9 L (98-107) mmol/L Carbon Dioxide 23 24 (22-30) mmol/L BUN 45 H 45 H (9-20) mg/dL Creatinine 1.5 H 1.5 H (0.8-1.3) mg/dL Glucose 567 H* TNR (75-100) mg/dL Calcium 9.1 9.0 (8.4-10.2) mg/dL AST 7 8 (5-40) units/L ALT 5 L 6 L (7-56) units/L Alkaline Phosphatase 170 H 172 H (35-129) units/L Total Protein 7.5 7.7 (6.3-8.2) g/dL Albumin 3.2 L 3.3 L (3.9-5) g/dL 06/10/21 06/10/21 06/10/21 Range/Units 08:07 11:25 14:39 Sodium 131 L 139 D 135 L (137-145) mmol/L Potassium 4.2 3.6 4.2 (3.6-5.0) mmol/L Chloride 94.4 L 104.6 103.1 (98-107) mmol/L Carbon Dioxide 24 21 L 23 (22-30) mmol/L BUN 44 H 41 H 39 H (9-20) mg/dL Creatinine 1.5 H 1.3 1.2 (0.8-1.3) mg/dL Glucose 472 H 132 H 169 H (75-100) mg/dL Calcium 8.2 L 7.9 L 7.5 L (8.4-10.2) mg/dL AST (5-40) units/L ALT (7-56) units/L Alkaline Phosphatase (35-129) units/L Total Protein (6.3-8.2) g/dL Albumin (3.9-5) g/dL 06/10/21 06/10/21 06/11/21 Range/Units 17:50 22:36 04:57 Sodium 130 L 128 L 133 L (137-145) mmol/L Potassium 4.4 4.7 3.9 (3.6-5.0) mmol/L Chloride 95.8 L 97.7 L 100.4 (98-107) mmol/L Carbon Dioxide 20 L 19 L 22 (22-30) mmol/L BUN 37 H 32 H 26 H (9-20) mg/dL Creatinine 1.2 1.0 0.9 (0.8-1.3) mg/dL Glucose 314 H 51 L 75 (75-100) mg/dL Calcium 7.4 L 7.5 L 7.8 L (8.4-10.2) mg/dL AST (5-40) units/L ALT (7-56) units/L Alkaline Phosphatase (35-129) units/L Total Protein (6.3-8.2) g/dL Albumin (3.9-5) g/dL Thyroid panel 06/10/21 Range/Units 06:56 TSH 1.080 (0.270-4.200) mlU/mL Calcium panel 06/10/21 06/10/21 06/10/21 Range/Units 06:56 06:56 06:56 Calcium 9.1 9.0 (8.4-10.2) mg/dL Phosphorus 1.90 L (2.5-4.5) mg/dL Albumin 3.2 L (3.9-5) g/dL 06/10/21 06/10/21 06/10/21 Range/Units 06:56 08:07 11:25 Calcium 8.2 L 7.9 L (8.4-10.2) mg/dL Phosphorus (2.5-4.5) mg/dL Albumin 3.3 L (3.9-5) g/dL 06/10/21 06/10/21 06/10/21 Range/Units 14:39 17:50 22:36 Calcium 7.5 L 7.4 L 7.5 L (8.4-10.2) mg/dL Phosphorus (2.5-4.5) mg/dL Albumin (3.9-5) g/dL 06/11/21 Range/Units 04:57 Calcium 7.8 L (8.4-10.2) mg/dL Phosphorus (2.5-4.5) mg/dL Albumin (3.9-5) g/dL Pituitary panel 06/10/21 06/10/21 06/10/21 Range/Units 06:56 06:56 06:56 Sodium 129 L 128 L (137-145) mmol/L Potassium 4.4 4.7 (3.6-5.0) mmol/L Chloride 90.3 L 88.9 L (98-107) mmol/L Carbon Dioxide 23 24 (22-30) mmol/L BUN 45 H 45 H (9-20) mg/dL Creatinine 1.5 H 1.5 H (0.8-1.3) mg/dL Glucose 567 H* TNR (75-100) mg/dL Calcium 9.1 9.0 (8.4-10.2) mg/dL TSH 1.080 (0.270-4.200) mlU/mL 06/10/21 06/10/21 06/10/21 Range/Units 08:07 11:25 14:39 Sodium 131 L 139 D 135 L (137-145) mmol/L Potassium 4.2 3.6 4.2 (3.6-5.0) mmol/L Chloride 94.4 L 104.6 103.1 (98-107) mmol/L Carbon Dioxide 24 21 L 23 (22-30) mmol/L BUN 44 H 41 H 39 H (9-20) mg/dL Creatinine 1.5 H 1.3 1.2 (0.8-1.3) mg/dL Glucose 472 H 132 H 169 H (75-100) mg/dL Calcium 8.2 L 7.9 L 7.5 L (8.4-10.2) mg/dL TSH (0.270-4.200) mlU/mL 06/10/21 06/10/21 06/11/21 Range/Units 17:50 22:36 04:57 Sodium 130 L 128 L 133 L (137-145) mmol/L Potassium 4.4 4.7 3.9 (3.6-5.0) mmol/L Chloride 95.8 L 97.7 L 100.4 (98-107) mmol/L Carbon Dioxide 20 L 19 L 22 (22-30) mmol/L BUN 37 H 32 H 26 H (9-20) mg/dL Creatinine 1.2 1.0 0.9 (0.8-1.3) mg/dL Glucose 314 H 51 L 75 (75-100) mg/dL Calcium 7.4 L 7.5 L 7.8 L (8.4-10.2) mg/dL TSH (0.270-4.200) mlU/mL Adrenal panel 06/10/21 06/10/21 06/10/21 Range/Units 06:56 06:56 06:56 Sodium 129 L 128 L (137-145) mmol/L Potassium 4.4 4.7 (3.6-5.0) mmol/L Chloride 90.3 L 88.9 L (98-107) mmol/L Carbon Dioxide 23 24 (22-30) mmol/L BUN 45 H 45 H (9-20) mg/dL Creatinine 1.5 H 1.5 H (0.8-1.3) mg/dL Glucose 567 H* TNR (75-100) mg/dL Calcium 9.1 9.0 (8.4-10.2) mg/dL Total Bilirubin 0.30 0.40 (0.1-1.2) mg/dL AST 7 8 (5-40) units/L ALT 5 L 6 L (7-56) units/L Alkaline Phosphatase 170 H 172 H (35-129) units/L Total Protein 7.5 7.7 (6.3-8.2) g/dL Albumin 3.2 L 3.3 L (3.9-5) g/dL 06/10/21 06/10/21 06/10/21 Range/Units 08:07 11:25 14:39 Sodium 131 L 139 D 135 L (137-145) mmol/L Potassium 4.2 3.6 4.2 (3.6-5.0) mmol/L Chloride 94.4 L 104.6 103.1 (98-107) mmol/L Carbon Dioxide 24 21 L 23 (22-30) mmol/L BUN 44 H 41 H 39 H (9-20) mg/dL Creatinine 1.5 H 1.3 1.2 (0.8-1.3) mg/dL Glucose 472 H 132 H 169 H (75-100) mg/dL Calcium 8.2 L 7.9 L 7.5 L (8.4-10.2) mg/dL Total Bilirubin (0.1-1.2) mg/dL AST (5-40) units/L ALT (7-56) units/L Alkaline Phosphatase (35-129) units/L Total Protein (6.3-8.2) g/dL Albumin (3.9-5) g/dL 06/10/21 06/10/21 06/11/21 Range/Units 17:50 22:36 04:57 Sodium 130 L 128 L 133 L (137-145) mmol/L Potassium 4.4 4.7 3.9 (3.6-5.0) mmol/L Chloride 95.8 L 97.7 L 100.4 (98-107) mmol/L Carbon Dioxide 20 L 19 L 22 (22-30) mmol/L BUN 37 H 32 H 26 H (9-20) mg/dL Creatinine 1.2 1.0 0.9 (0.8-1.3) mg/dL Glucose 314 H 51 L 75 (75-100) mg/dL Calcium 7.4 L 7.5 L 7.8 L (8.4-10.2) mg/dL Total Bilirubin (0.1-1.2) mg/dL AST (5-40) units/L ALT (7-56) units/L Alkaline Phosphatase (35-129) units/L Total Protein (6.3-8.2) g/dL Albumin (3.9-5) g/dL
--- NOTE | 2021-06-11 07:28 | Progress Note ---
Assessment and Plan Assessment and plan: HPI: 40-year-old male with past medical history of uncontrolled type 1 diabetes, history of left BKA, history of right toe amputation presenting to our facility with complaint of left leg pain. Patient complains of worsening leg pain, nausea, and vomiting. Patient states that he utilizes a left leg prosthesis due to his hx of left bka to help ambulate but states that he has had issues with fitment and has noticed skin erroding from his amputation site for some itme now.. He has developed significant fatigue, nausea, vomiting over the last 3-4 days. he denied fevers or chills. He denied ODOM, chest pain, palpitatoins, shortness of breath, peripheral nerve pain. Remainder of ROS negative except stated above. Of note, patient is a poorly controlled diabetic. He swtiched his own insulin regimen to 70/30 which he fills at [facility]. he does not follow with a primary care doctor or renal dialysis technician. He does not know his fasting sugars as he does not check them. His last hemoglobin a1c in July 2020 was 10.4. He is fully vaccinated for COVID-19. He denies any IV drug abuse or substance abuse otherwise. He will be admitted to med/surg floor for sepsis secondary to left leg abscess/osteomyelitis and hyperglycemic hyperosmolar syndrome. Hospital Course: 06/11: Hypoglycemic yesterday evening. Poor appetite per report, but improved this AM. Will decrease lantus to 15 units qhs, continue with SSI coverage. Once sugars stabilize will initiate meal time insulin. metabolic markers and leukocytosis improved. Leg pain likely diabetic neuropathy, added gabapentin for symptoms. Continue with IV abx therapy with guidance per ID. IR plan for CT guided aspiration of intramuscular fluid collection on Monday 06/12. NPO midnight. Assessment and Plan: #Sepsis secondary to left leg intramuscular abscess and fibular head osteomyelitis - wbc 19.2, LA 2.9, tachycardic on admission - CT left leg: acute osteomyelitis of proximal fibula with overlying soft tissue ulcer with intramuscular multiloculated abscess in the biceps femoris muscle. Please refer to official radiology report - general surgery consulted,d/w Dr. Rodriguez, recommended CT drainage of abscess by IR - orthopedic surgery consulted - infectious disease consulted - started on vancomycin/cefepime IV #Left fibular head osteomyelitis -CT findings as above -IV antibiotics as above #Left leg intramuscular abscess -CT findings as above Surgical plan as above - IR consulted, plan for CT guided drainage 06/12. We will follow cultures from incision and drainage IV antibiotics as above #Metabolic acidosis - multifactorial from sepsis and HHS IV fluids, glycemic control with IV and subcutaneous insulin #Diabetic hyperglycemic hyperosmolar syndrome (resolved) - initiated on IV insulin in emergency department, now d/c. - will start long acting insulin, SSI. - accuchecks q1hr then ac/hs once glycemic control achieved. - diabetic diet #Essential Hypertension - was hypotensive most of yesterday, likely due to volume depletion. - now hypertensive, - initiated on norvasc. Will likely need rajinder-i on discharge, however will hold due to recent alex/surgical plans #Type 1 diabetes with hyperglycemia, uncontrolled - A1c in july 2020: 10.3 - will start long acting insulin, SSI. - accuchecks q1hr then ac/hs once glycemic control achieved. - diabetic diet #Diabetic neuropathy Burning pain in left leg Gabapentin 100 mg p.o. 3 times daily initiated #Acute kidney injury secondary to vasomotor nephropathy (resolved) - Cr: 1.5--> 0.9, likely due to dehydration and underlying sepsis - has received approximately 3-4 liters IV fluid in ED. - will start IVF @75 x 1 bag - follow renal function on serial bmp #History of left below the knee amputation Completed at [facility] approximately 10 years ago #History of right great toe amputation # Medication noncompliance +15 minutes behavioral health counseling on the importance of compliance with home insulin regimen #Advance care planning Disease education conducted, care plan discussed, diagnoses discussed, prognosis discussed, patient is full code, patient acknowledges understanding and agree with care plan, +30 minutes. Dispo: MedSur History Interval history: Patient seen and evaluated at bedside. patient only complaint is severe left leg pain he was experiencing last night. He describes the pain as a burning sensation. he states symptoms abated upon administration of pain medication. Hospitalist Physical - Physical exam Narrative exam: Physical Exam: VITAL SIGNS: Reviewed. GENERAL: The patient appears normally developed, Vital signs as documented. Thin gentleman appears older than stated age. Not in any distress HEAD: No signs of head trauma. EYES: Pupils are equal. Extraocular motions intact. EARS: Hearing grossly intact. MOUTH: Oropharynx is normal. NECK: No adenopathy, no JVD. CHEST: Chest with clear breath sounds bilaterally. No wheezes, rales, or rhonchi. CARDIAC: Regular rate and rhythm. S1 and S2, without murmurs, gallops, or rubs. VASCULAR: No Edema. Peripheral pulses normal and equal in all extremities. ABDOMEN: Soft, non tender and non distended. No rebound or guarding, and no masses palpated. Bowel Sounds normal. MUSCULOSKELETAL: Left leg BKA, right great toe amputation. Good range of motion of all major joints. Extremities without clubbing, cyanosis or edema. NEUROLOGIC EXAM: Alert and oriented x 4. no focal sensory or strength deficits. PSYCHIATRIC: Mood normal. SKIN: detail exam as documented in skin assessment. ulceration in left leg at the site of prosthetic implant. - Constitutional Vitals: Temp Pulse Resp BP Pulse Ox 99.5 F 120 H 18 134/78 94 06/11/21 05:15 06/11/21 06:53 06/11/21 05:15 06/11/21 06:53 06/11/21 05:15 Results - Labs CBC & Chem 7: 06/11/21 04:57 06/11/21 04:57 Labs: Laboratory Last Values WBC 11.7 K/mm3 (4.5-11.0) H 06/11/21 04:57 RBC 3.09 M/mm3 (3.65-5.03) L 06/11/21 04:57 Hgb 8.0 gm/dl (11.8-15.2) L 06/11/21 04:57 Hct 25.0 % (35.5-45.6) L 06/11/21 04:57 MCV 81 fl (84-94) L 06/11/21 04:57 MCH 26 pg (28-32) L 06/11/21 04:57 MCHC 32 % (32-34) 06/11/21 04:57 RDW 15.4 % (13.2-15.2) H 06/11/21 04:57 Plt Count 344 K/mm3 (140-440) 06/11/21 04:57 Add Manual Diff Complete 06/11/21 04:57 Total Counted 100 06/11/21 04:57 Seg Neutrophils % Occupational Health And Safety Officer 06/10/21 06:56 Seg Neuts % (Manual) 81.0 % (40.0-70.0) H 06/11/21 04:57 Band Neutrophils % 8.0 % 06/11/21 04:57 Lymphocytes % (Manual) 6.0 % (13.4-35.0) L 06/11/21 04:57 Reactive Lymphs % (Man) 0 % 06/11/21 04:57 Monocytes % (Manual) 1.0 % (0.0-7.3) 06/11/21 04:57 Eosinophils % (Manual) 0 % (0.0-4.3) 06/11/21 04:57 Basophils % (Manual) 0 % (0.0-1.8) 06/11/21 04:57 Metamyelocytes % 1.0 % 06/11/21 04:57 Myelocytes % 3.0 % 06/11/21 04:57 Promyelocytes % 0 % 06/11/21 04:57 Blast Cells % 0 % 06/11/21 04:57 Nucleated RBC % Not Reportable 06/11/21 04:57 Seg Neutrophils # Man 9.5 K/mm3 (1.8-7.7) H 06/11/21 04:57 Band Neutrophils # 0.9 K/mm3 06/11/21 04:57 Lymphocytes # (Manual) 0.7 K/mm3 (1.2-5.4) L 06/11/21 04:57 Abs React Lymphs (Man) 0.0 K/mm3 06/11/21 04:57 Monocytes # (Manual) 0.1 K/mm3 (0.0-0.8) 06/11/21 04:57 Eosinophils # (Manual) 0.0 K/mm3 (0.0-0.4) 06/11/21 04:57 Basophils # (Manual) 0.0 K/mm3 (0.0-0.1) 06/11/21 04:57 Metamyelocytes # 0.1 K/mm3 06/11/21 04:57 Myelocytes # 0.4 K/mm3 06/11/21 04:57 Promyelocytes # 0.0 K/mm3 06/11/21 04:57 Blast Cells # 0.0 K/mm3 06/11/21 04:57 WBC Morphology Not Reportable 06/11/21 04:57 Hypersegmented Neuts Not Reportable 06/11/21 04:57 Hyposegmented Neuts Not Reportable 06/11/21 04:57 Hypogranular Neuts Not Reportable 06/11/21 04:57 Smudge Cells Not Reportable 06/11/21 04:57 Toxic Granulation Not Reportable 06/11/21 04:57 Toxic Vacuolation Not Reportable 06/11/21 04:57 Dohle Bodies Not Reportable 06/11/21 04:57 Pelger-Huet Anomaly Not Reportable 06/11/21 04:57 Rachid Rods Not Reportable 06/11/21 04:57 Platelet Estimate Consistent w auto 06/11/21 04:57 Clumped Platelets Not Reportable 06/11/21 04:57 Plt Clumps, EDTA Not Reportable 06/11/21 04:57 Large Platelets Not Reportable 06/11/21 04:57 Giant Platelets Not Reportable 06/11/21 04:57 Platelet Satelliting Not Reportable 06/11/21 04:57 Plt Morphology Comment Not Reportable 06/11/21 04:57 RBC Morphology Not Reportable 06/11/21 04:57 Dimorphic RBCs Not Reportable 06/11/21 04:57 Polychromasia Not Reportable 06/11/21 04:57 Hypochromasia 1+ 06/11/21 04:57 Poikilocytosis Not Reportable 06/11/21 04:57 Anisocytosis Not Reportable 06/11/21 04:57 Microcytosis Not Reportable 06/11/21 04:57 Macrocytosis Not Reportable 06/11/21 04:57 Spherocytes Not Reportable 06/11/21 04:57 Pappenheimer Bodies Not Reportable 06/11/21 04:57 Sickle Cells Not Reportable 06/11/21 04:57 Target Cells Not Reportable 06/11/21 04:57 Tear Drop Cells Not Reportable 06/11/21 04:57 Ovalocytes Not Reportable 06/11/21 04:57 Helmet Cells Not Reportable 06/11/21 04:57 Cardona-Ider Bodies Not Reportable 06/11/21 04:57 [place]more Rings Not Reportable 06/11/21 04:57 [place] Cells Not Reportable 06/11/21 04:57 Bite Cells Not Reportable 06/11/21 04:57 Crenated Cell Not Reportable 06/11/21 04:57 Elliptocytes Not Reportable 06/11/21 04:57 Acanthocytes (Spur) Not Reportable 06/11/21 04:57 Rouleaux Not Reportable 06/11/21 04:57 Hemoglobin C Crystals Not Reportable 06/11/21 04:57 Schistocytes Not Reportable 06/11/21 04:57 Malaria parasites Not Reportable 06/11/21 04:57 Refugio Bodies Not Reportable 06/11/21 04:57 Hem Pathologist Commnt No 06/11/21 04:57 VBG pH 7.352 (7.320-7.420) 06/10/21 08:07 Sodium 133 mmol/L (137-145) L 06/11/21 04:57 Potassium 3.9 mmol/L (3.6-5.0) 06/11/21 04:57 Chloride 100.4 mmol/L (98-107) 06/11/21 04:57 Carbon Dioxide 22 mmol/L (22-30) 06/11/21 04:57 Anion Gap 15 mmol/L 06/11/21 04:57 BUN 26 mg/dL (9-20) H 06/11/21 04:57 Creatinine 0.9 mg/dL (0.8-1.3) 06/11/21 04:57 Estimated GFR > 60 ml/min 06/11/21 04:57 BUN/Creatinine Ratio 29 % 06/11/21 04:57 Glucose 75 mg/dL (75-100) 06/11/21 04:57 POC Glucose 111 mg/dL (70-105) H 06/11/21 05:57 Lactic Acid 1.70 mmol/L (0.7-2.0) 06/10/21 08:07 Calcium 7.8 mg/dL (8.4-10.2) L 06/11/21 04:57 Phosphorus 1.90 mg/dL (2.5-4.5) L 06/10/21 06:56 Magnesium 2.60 mg/dL (1.7-2.3) H 06/10/21 06:56 Total Bilirubin 0.30 mg/dL (0.1-1.2) 06/10/21 06:56 Total Bilirubin 0.40 mg/dL (0.1-1.2) 06/10/21 06:56 Direct Bilirubin < 0.2 mg/dL (0-0.2) 06/10/21 06:56 Indirect Bilirubin 0.2 mg/dL 06/10/21 06:56 AST 7 units/L (5-40) 06/10/21 06:56 AST 8 units/L (5-40) 06/10/21 06:56 ALT 5 units/L (7-56) L 06/10/21 06:56 ALT 6 units/L (7-56) L 06/10/21 06:56 Alkaline Phosphatase 170 units/L (35-129) H 06/10/21 06:56 Alkaline Phosphatase 172 units/L (35-129) H 06/10/21 06:56 Total Protein 7.5 g/dL (6.3-8.2) 06/10/21 06:56 Total Protein 7.7 g/dL (6.3-8.2) 06/10/21 06:56 Albumin 3.2 g/dL (3.9-5) L 06/10/21 06:56 Albumin 3.3 g/dL (3.9-5) L 06/10/21 06:56 Albumin/Globulin Ratio 0.7 % 06/10/21 06:56 Albumin/Globulin Ratio 0.8 % 06/10/21 06:56 Lipase 5 units/L (13-60) L 06/10/21 06:56 TSH 1.080 mlU/mL (0.270-4.200) 06/10/21 06:56 Free T4 1.05 ng/dL (0.76-1.46) 06/10/21 06:56 Urine Color Yellow (Yellow) 06/10/21 Unknown Urine Turbidity Cloudy (Clear) 06/10/21 Unknown Urine pH 5.0 (5.0-7.0) 06/10/21 Unknown Ur Specific Martell 1.014 (1.003-1.030) 06/10/21 Unknown Urine Protein 100 mg/dl mg/dL (Negative) 06/10/21 Unknown Urine Glucose (UA) >=500 mg/dL (Negative) 06/10/21 Unknown Urine Ketones Neg mg/dL (Negative) 06/10/21 Unknown Urine Blood Sm (Negative) 06/10/21 Unknown Urine Nitrite Neg (Negative) 06/10/21 Unknown Urine Bilirubin Neg (Negative) 06/10/21 Unknown Urine Urobilinogen < 2.0 mg/dL (<2.0) 06/10/21 Unknown Ur Leukocyte Esterase Neg (Negative) 06/10/21 Unknown Urine WBC (Auto) 7.0 /HPF (0.0-6.0) H 06/10/21 Unknown Urine RBC (Auto) 95.0 /HPF (0.0-6.0) 06/10/21 Unknown U Epithel Cells (Auto) 6.0 /HPF (0-13.0) 06/10/21 Unknown Urine Bacteria (Auto) 1+ /HPF (Negative) 06/10/21 Unknown Amorphous Crystals 1+ 06/10/21 Unknown Hyaline Casts 1 /LPF 06/10/21 Unknown Granular Casts 16 /LPF 06/10/21 Unknown RBC Casts 13 /LPF 06/10/21 Unknown Urine Mucus Few /HPF 06/10/21 Unknown Urine Opiates Screen Positive 06/10/21 Unknown Urine Methadone Screen Negative 06/10/21 Unknown Ur Barbiturates Screen Negative 06/10/21 Unknown Ur Phencyclidine Scrn Negative 06/10/21 Unknown Ur Amphetamines Screen Negative 06/10/21 Unknown U Benzodiazepines Scrn Negative 06/10/21 Unknown Urine Cocaine Screen Negative 06/10/21 Unknown U Marijuana (THC) Screen Negative 06/10/21 Unknown Drugs of Abuse Note Disclamer 06/10/21 Unknown Microbiology: Microbiology 06/10/21 06:56 Peripheral/Venous Blood Culture - Preliminary Culture in Progress 06/10/21 06:56 Peripheral/Venous Blood Culture - Preliminary Culture in Progress Contreras/IV: Voiding Method Urinal Active Medications - Current Medications Current Medications: Generic Name Dose Route Start Last Admin Trade Name Freq PRN Reason Stop Dose Admin Acetaminophen 650 mg 06/10/21 12:51 06/10/21 23:03 Acetaminophen 325 Mg Tab PO 650 mg Q4H PRN Administration Pain MILD(1-3)/Fever >100.5/ODOM Dextrose 50 ml 06/10/21 11:43 06/10/21 13:39 Dextrose 50% In Water (25gm) 50 Ml Syringe IV 50 ml Q30MIN PRN Administration Hypoglycemia Protocol Heparin Sodium (Porcine) 5,000 unit 06/10/21 14:00 06/11/21 05:15 Heparin 5,000 Unit/1 Ml Vial SUB-Q 5,000 unit Q8HR SHANIKA Administration Potassium Chloride 10 meq in 100 mls @ 100 mls/hr 06/10/21 07:00 Kcl 10meq/100ml IV Q1H PRN SEE PROTOCOL Potassium Chloride 10 meq in 100 mls @ 100 mls/hr 06/10/21 07:00 Kcl 10meq/100ml IV Q1H PRN SEE PROTOCOL Vancomycin HCl 1 gm in 250 mls @ 166.667 mls/hr 06/10/21 20:00 06/10/21 21:49 Vancomycin/Ns 1 Gm/250 Ml IV 166.667 mls/hr Q12H SHANIKA Administration Cefepime HCl 1 gm in 100 mls @ 200 mls/hr 06/10/21 12:00 06/11/21 05:15 Cefepime/Ns 1 Gm/100 Ml IV 200 mls/hr Q8H SHANIKA Administration Protocol Insulin Glargine 15 units 06/11/21 07:22 Insulin Glargine 100 Units/Ml SUB-Q QHS [facility] Insulin Human Lispro 0 unit 06/10/21 12:00 06/11/21 05:58 Insulin Lispro 100 Unit/Ml SUB-Q Not Given Q6HR [facility] Protocol Lisinopril 5 mg 06/11/21 05:34 06/11/21 06:53 Lisinopril 5 Mg Tab PO 5 mg QDAY SHANIKA Administration Morphine Sulfate 2 mg 06/10/21 12:51 06/11/21 02:34 Morphine 4 Mg/1 Ml Inj IV 2 mg Q4H PRN Administration Pain , Severe (7-10) Ondansetron HCl 4 mg 06/10/21 12:51 Ondansetron 4 Mg/2 Ml Inj IV Q8H PRN Nausea And Vomiting Oxycodone/Acetaminophen 1 tab 06/10/21 12:51 06/10/21 18:08 Oxycodone /Acetaminophen 5-325mg Tab PO 1 tab Q6H PRN Administration Pain, Moderate (4-6) Sodium Chloride 10 ml 06/10/21 13:00 06/10/21 21:49 Sodium Chloride 0.9% 10 Ml Flush Syringe IV 10 ml BID SHANIKA Administration Sodium Chloride 10 ml 06/10/21 12:51 Sodium Chloride 0.9% 10 Ml Flush Syringe IV PRN PRN LINE FLUSH
--- NOTE | 2021-06-11 09:02 | Electrocardiograph Report ---
[facility] Test Date: 2021-06-10 Test Time: 07:30:52 Pat Name: FRIEDA LIM Department: Room: A384 Gender: M Tetryl Wringer Operator: DIANA : [id number] Requested By: YASMANY WESTON Order Number: [id number] Reading MD: Gerardo Aguiar Measurements Intervals [place] Rate: 120 P: 70 DC: 173 QRS: 73 QRSD: 92 T: 34 QT: 279 QTc: 393 Interpretive Statements Sinus tachycardia No previous ECG available for comparison Electronically Signed On 06-11-2021 9:02:14 EDT by Gerardo Aguiar
[2021-06-11] MEDS: VANCOMYCIN/NS 1 GM/250 ML 1 GM/250 ML BAG IV SCH ×2 (09:11→22:10)
[2021-06-11] MEDS: amLODIPine 5 MG TAB PO SCH (09:27)
[2021-06-11] MEDS: oxyCODONE /ACETAMINOPHEN 5-325MG TAB PO PRN ×2 (09:33→17:26)
[2021-06-11] MEDS: GABAPENTIN 100 MG CAP PO SCH ×2 (13:50→21:09)
[2021-06-11] MEDS: DEXTROSE 50% IN WATER (25GM) 50 ML SYRINGE IV PRN (22:36)
[2021-06-11] MEDS: INSULIN GLARGINE 100 UNITS/ML SUB-Q SCH (22:49)
[2021-06-12] MEDS: INSULIN LISPRO 100 UNIT/ML SUB-Q SCH ×4 (00:18→19:52)
--- NOTE | 2021-06-12 01:07 | Event Note ---
Date: 06/12/21 Patient persistently hypoglycemic Patient started on D5W at 100 cc an hour Patient was given glucagon 1 mg IV push x1 Primary team to address the hypoglycemia
[2021-06-12] MEDS: DEXTROSE 5% IN WATER 1,000 ML IV SCH (01:14)
[2021-06-12] MEDS ORDERED: GLUCAGON (HUMAN RECOMBINANT) 1 MG/ML INJ IV ONE (01:35)
[2021-06-12] MEDS: CEFEPIME/NS 1 GM/100 ML 1 GM/100 ML BAG IV SCH ×3 (03:18→19:55)
[2021-06-12] MEDS: ACETAMINOPHEN 325 MG TAB PO PRN (04:57)
[2021-06-12] MEDS: GABAPENTIN 100 MG CAP PO SCH ×3 (05:01→22:13)
[2021-06-12] MEDS ORDERED: MIDAZOLAM 5 MG/5 ML INJ MDV IV NR (09:00)
[2021-06-12] MEDS ORDERED: fentaNYL 100 MCG/2 ML INJ IV NR (09:00)
--- NOTE | 2021-06-12 09:17 | Progress Note ---
Assessment and Plan Left leg intra muscular process. He will be admitted to have iv ab, rehydration and consultaito to IR. Percutaneous drainage would be better so as not to interfer with the wearing of a prosthetic limb. Patient with continued left leg pain. He now notes that he has had periods of severe cramping into the back of his leg going up into his butt cheek on the left side. It is possible that during 1 of these episodes he had an intramuscu lar hemorrhage. We will continue to follow patient with you IR to evaluate today. Subjective Date of service: 06/12/21 Patient Reports: Positive: still having pain Narrative: Patient with continued left leg pain. He now notes that he has had periods of severe cramping into the back of his leg going up into his butt cheek on the left side. It is possible that during 1 of these episodes he had an intramu scular hemorrhage. We will continue to follow patient with you IR to evaluate today. Objective Vital Signs - 12hr 06/12/21 06/12/21 01:40 04:26 Temperature 101.0 F H Pulse Rate 127 H Respiratory 20 Rate Blood Pressure 153/80 O2 Sat by Pulse 97 94 Oximetry - Labs 06/11/21 04:57 06/11/21 04:57
[2021-06-12] MEDS: HEPARIN 5,000 UNIT/1 ML VIAL SUB-Q SCH ×3 (09:31→22:14)
[2021-06-12] MEDS: VANCOMYCIN/NS 1 GM/250 ML 1 GM/250 ML BAG IV SCH ×2 (09:32→19:55)
[2021-06-12] MEDS: amLODIPine 5 MG TAB PO SCH (09:33)
[2021-06-12] MEDS: MORPHINE 4 MG/1 ML INJ IV PRN ×3 (09:34→20:20)
--- NOTE | 2021-06-12 09:40 | Progress Note ---
Assessment and Plan #1 left lower extremity osteomyelitis proximal fibula -We will need 6 weeks antibiotics vancomycin. -Antibiotic coverage Sintia being scheduled per infectious disease. -Supportive care pain control and tight glycemic control #2 multiple abscess lower extremity -Plan today for I&D with interventional radiology -Not a candidate for any further debridement at this time for osteomyelitis Will be difficult to use prosthesis therefore will take a more conservative approach to debridement. #3 uncontrolled diabetes -Hemoglobin A1c 11.4. -Unlikely to benefit from small dose of long-acting medication. -We will change to NovoLog 70/30 15 units twice daily titrate accordingly. #4 hypertension -Fairly well controlled with amlodipine 5 mg. -We will benefit from GLENNA at some point for renal protection. But does not have to be now. #5 sepsis -Multifactorial secondary to multiple lower extremity abscess -Continue vancomycin cefepime. Will require 6 weeks antibiotics outpatient Subjective Date of service: 06/12/21 Principal diagnosis: Left leg abscess, osteomyelitis, hyperosmotic nonketotic state Interval history: 40-year-old male with a history of insulin-dependent diabetes mellitus, left BKA, right toe amputation originally presented to ED for left lower extremity pain. Patient found to have osteomyelitis and proximal fibula and multiple abscess as well as left femoral osteomyelitis. Patient scheduled today to have debridement via interventional radiology. At present patient resting comfortably pain fairly well controlled. All questions and concerns answered per patient Objective - Constitutional Vitals: Vital Signs - 12hr 06/12/21 06/12/21 01:40 04:26 Temperature 101.0 F H Pulse Rate 127 H Respiratory 20 Rate Blood Pressure 153/80 O2 Sat by Pulse 97 94 Oximetry General appearance: Present: no acute distress, well-nourished - EENT Eyes: PERRL, EOM intact ENT: hearing intact, clear oral mucosa Ears: bilateral: normal - Neck Neck: supple, normal ROM - Respiratory Respiratory effort: normal Respiratory: bilateral: CTA - Breasts Breasts: normal - Cardiovascular Rhythm: regular Heart Sounds: Present: S1 & S2. Absent: gallop, rub Extremities: pulses intact, No edema, normal color, Full ROM Extremity abnormal: other (Left BKA stump site erythematous tender.) - Gastrointestinal General gastrointestinal: Present: soft, non-tender, non-distended, normal bowel sounds - Genitourinary Male genitourinary: normal - Integumentary Integumentary: clear, warm, dry - Musculoskeletal Musculoskeletal: 1, strength equal bilaterally - Neurologic Neurologic: moves all extremities - Psychiatric Psychiatric: memory intact, appropriate mood/affect, intact judgment & insight - Labs CBC & Chem 7: 06/11/21 04:57 06/11/21 04:57 Labs: Abnormal lab results 06/11/21 06/11/21 06/11/21 Range/Units 11:42 16:44 22:28 POC Glucose 274 H 308 H 41 L (70-105) mg/dL 06/12/21 Range/Units 00:41 POC Glucose 33 L (70-105) mg/dL
[2021-06-12] MEDS ORDERED: SODIUM CHLORIDE 0.9% 500 ML 500 ML IV SCH (10:00)
--- NOTE | 2021-06-12 10:04 | Progress Note ---
Assessment and Plan Cultures: Blood culture 06/10/21 no growth so far A/P: # # # # Recs: - - - - Thank you for the consult, we will continue to follow. Meeta Jara MD [facility], [place], [facility] ([facility]) O: [phone] F: [phone] Subjective Date of service: 06/12/21 Principal diagnosis: Left leg abscess, osteomyelitis, hyperosmotic nonketotic state Interval history: 40-year-old male past medical history type 1 diabetes, prior left BKA, right toe amputations presented to the hospital complaining of left stump pain. He also notes associated nausea and vomiting. He uses a orthotic limb to help ambulate, however it has been rubbing against his stomach, causing skin erosions. 05/09/2000, white count 11.7, improved from 19.2 on admission. Blood cultures no growth so far. Currently on cefepime and vancomycin. Imaging personally reviewed: CT lower extremity: Acute osteo of the proximal fibula with multiloculated abscesses in the biceps femoris. Review of Systems: Bold if positive, otherwise negative General: fevers, chills, rigors HEENT: visual disturbance, diplopia, eye pain Respiratory: cough, sputum, hemoptysis, shortness of breath Cardiovascular: chest pain, syncope Gastrointestinal: nausea, vomiting, diarrhea, abdominal pain Genitourinary: dysuria, hematuria, flank pain Musculoskeletal: neck pain, back pain, joint pain, edema Neurologic: headaches, seizures Hematologic: easy bruising or bleeding Endocrine: night sweats, acute weight loss Skin: rash, jaundice, redness Psychiatric: suicidal, homicidal ideation Objective - Exam Narrative Exam: Physical Exam: Constitutional: Alert, cooperative. No acute distress Head, Ears, Nose: Normocephalic, atraumatic. External ears, nose normal Eyes: Conjunctivae/corneas clear. No icterus. No ptosis. Neck: Supple, no meningeal signs Oral: dentition fair, no thrush Cardiovascular: S1, S2 normal. Respiratory: Good air entry, clear to auscultation bilaterally GI: Soft, non-tender; bowel sounds normal. No peritoneal signs. Musculoskeletal: Left BKA Skin: No rash or abscess Hem/Lymphatic: No palpable cervical or supraclavicular nodes. No lymphangitis Psych: Mood ok. Affect normal Neurological: Awake, alert, oriented. No gross abnormality - Constitutional Vitals: Vital Signs Temp Pulse Resp BP Pulse Ox 101.0 F H 127 H 20 153/80 94 06/12/21 04:26 06/12/21 04:26 06/12/21 04:26 06/12/21 04:26 06/12/21 04:26 Temperature -Last 24 Hours Temperature 101.0 F Temperature 99.4 F Temperature 97.9 F Temperature 98.3 F - Labs CBC & Chem 7: 06/11/21 04:57 06/11/21 04:57 Labs: Abnormal lab results 06/11/21 06/11/21 06/11/21 Range/Units 11:42 16:44 22:28 POC Glucose 274 H 308 H 41 L (70-105) mg/dL 06/12/21 06/12/21 06/12/21 Range/Units 00:41 05:49 07:21 POC Glucose 33 L 327 H 341 H (70-105) mg/dL
--- NOTE | 2021-06-12 10:10 | Consultation ---
History of Present Illness - Reason for Consult Consult date: 06/12/21 - History of Present Illness 40-year-old male past medical history type 1 diabetes, prior left BKA, right toe amputations presented to the hospital complaining of left stump pain. He also notes associated nausea and vomiting. He uses a orthotic limb to help ambulate, however it has been rubbing against his stomach, causing skin erosions. 05/09/2000, white count 11.7, improved from 19.2 on admission. Blood cultures no growth so far. Currently on cefepime and vancomycin. Imaging personally reviewed: CT lower extremity: Acute osteo of the proximal fibula with multiloculated abscesses in the biceps femoris. Review of Systems: Bold if positive, otherwise negative General: fevers, chills, rigors HEENT: visual disturbance, diplopia, eye pain Respiratory: cough, sputum, hemoptysis, shortness of breath Cardiovascular: chest pain, syncope Gastrointestinal: nausea, vomiting, diarrhea, abdominal pain Genitourinary: dysuria, hematuria, flank pain Musculoskeletal: neck pain, back pain, joint pain, edema Neurologic: headaches, seizures Hematologic: easy bruising or bleeding Endocrine: night sweats, acute weight loss Skin: rash, jaundice, redness Psychiatric: suicidal, homicidal ideation Past History Past Medical History: other (Se HPI) Past Surgical History: Other (See HPI) Social history: denies: smoking, alcohol abuse Family history: diabetes Medications and Allergies Allergies Allergy/AdvReac Type Severity Reaction Status Date / Time piperacillin [From Zosyn] Allergy Itching Verified 06/10/21 06:36 shellfish derived Allergy Hives Verified 05/29/19 01:22 tazobactam [From Zosyn] Allergy Itching Verified 06/10/21 06:36 Home Medications Medication Instructions Recorded Confirmed Last Taken Type metFORMIN [Glucophage] 500 mg PO BID 08/01/20 08/04/20 07/29/20 22:00 History Insulin NPH/Regular [NovoLIN 70/30] 10 unit SUB-Q BIDDIAB 30 Days 08/05/20 Unknown Rx units Lispro Insulin [HumaLOG] 0 unit SUB-Q ACHS 30 Days units 08/05/20 Unknown Rx cephALEXin [Keflex] 500 mg PO Q8HR #40 cap 08/05/20 Unknown Rx levoFLOXacin [Levaquin TAB] 500 mg PO QDAY #10 tablet 08/05/20 Unknown Rx lisinopriL [Zestril TAB] 5 mg PO QDAY #30 tablet 08/05/20 Unknown Rx oxyCODONE [roxiCODONE] 5 mg PO Q6HR PRN #30 tablet 08/05/20 Unknown Rx Active Meds: Active Medications Acetaminophen (Acetaminophen 325 Mg Tab) 650 mg PO Q4H PRN PRN Reason: Pain MILD(1-3)/Fever >100.5/ODOM Last Admin: 06/12/21 04:57 Dose: 650 mg Amlodipine Besylate (Amlodipine 5 Mg Tab) 5 mg PO QDAY SHANIKA Last Admin: 06/12/21 09:33 Dose: Not Given Dextrose (Dextrose 50% In Water (25gm) 50 Ml Syringe) 50 ml IV Q30MIN PRN; Protocol PRN Reason: Hypoglycemia Last Admin: 06/11/21 22:36 Dose: 50 ml Fentanyl (Fentanyl 100 Mcg/2 Ml Inj) 100 mcg IV ONCE NR Stop: 06/12/21 18:00 Gabapentin (Gabapentin 100 Mg Cap) 100 mg PO Q8HR SHANIKA Last Admin: 06/12/21 05:01 Dose: 100 mg Heparin Sodium (Porcine) (Heparin 5,000 Unit/1 Ml Vial) 5,000 unit SUB-Q Q8HR SHANIKA Last Admin: 06/12/21 09:31 Dose: Not Given Vancomycin HCl (Vancomycin/Ns 1 Gm/250 Ml) 1 gm in 250 mls @ 166.667 mls/hr IV Q12H SHANIKA Last Admin: 06/12/21 09:32 Dose: 166.667 mls/hr Cefepime HCl (Cefepime/Ns 1 Gm/100 Ml) 1 gm in 100 mls @ 200 mls/hr IV Q8H SHANIKA; Protocol Last Admin: 06/12/21 03:18 Dose: 200 mls/hr Dextrose (D5w) 1,000 mls @ 100 mls/hr IV DIRECT SHANIKA Last Admin: 06/12/21 01:14 Dose: 100 mls/hr Sodium Chloride (Nacl 0.9% 500 Ml) 500 mls @ 50 mls/hr IV DIRECT SHANIKA Insulin Glargine (Insulin Glargine 100 Units/Ml) 15 units SUB-Q QHS SHANIKA Last Admin: 06/11/21 22:49 Dose: Not Given Insulin Human Lispro (Insulin Lispro 100 Unit/Ml) 0 unit SUB-Q Q6HR [facility]; Protocol Last Admin: 06/12/21 09:31 Dose: Not Given Midazolam HCl (Midazolam 5 Mg/5 Ml Inj Mdv) 5 mg IV ONCE NR Stop: 06/12/21 18:00 Morphine Sulfate (Morphine 4 Mg/1 Ml Inj) 2 mg IV Q4H PRN PRN Reason: Pain , Severe (7-10) Last Admin: 06/12/21 09:34 Dose: 2 mg Ondansetron HCl (Ondansetron 4 Mg/2 Ml Inj) 4 mg IV Q8H PRN PRN Reason: Nausea And Vomiting Oxycodone/Acetaminophen (Oxycodone /Acetaminophen 5-325mg Tab) 1 tab PO Q6H PRN PRN Reason: Pain, Moderate (4-6) Last Admin: 06/11/21 17:26 Dose: 1 tab Sodium Chloride (Sodium Chloride 0.9% 10 Ml Flush Syringe) 10 ml IV BID SHANIKA Last Admin: 06/12/21 09:33 Dose: 10 ml Sodium Chloride (Sodium Chloride 0.9% 10 Ml Flush Syringe) 10 ml IV PRN PRN PRN Reason: LINE FLUSH Physical Examination - Physical Exam Narrative exam: Physical Exam: Constitutional: Alert, cooperative. No acute distress Head, Ears, Nose: Normocephalic, atraumatic. External ears, nose normal Eyes: Conjunctivae/corneas clear. No icterus. No ptosis. Neck: Supple, no meningeal signs Oral: dentition fair, no thrush Cardiovascular: S1, S2 normal. Respiratory: Good air entry, clear to auscultation bilaterally GI: Soft, non-tender; bowel sounds normal. No peritoneal signs. Musculoskeletal: Left BKA, right toe amputations Skin: No rash or abscess Hem/Lymphatic: No palpable cervical or supraclavicular nodes. No lymphangitis Psych: Mood ok. Affect normal Neurological: Awake, alert, oriented. No gross abnormality - Constitutional Vitals: Vital Signs Temp Pulse Resp BP Pulse Ox 101.0 F H 127 H 20 153/80 94 06/12/21 04:26 06/12/21 04:26 06/12/21 04:26 06/12/21 04:26 06/12/21 04:26 Temperature -Last 24 Hours Temperature 101.0 F Temperature 99.4 F Temperature 97.9 F Temperature 98.3 F Results - Labs CBC & Chem 7: 06/11/21 04:57 06/11/21 04:57 Labs: Abnormal lab results 06/11/21 06/11/21 06/11/21 Range/Units 11:42 16:44 22:28 POC Glucose 274 H 308 H 41 L (70-105) mg/dL 06/12/21 06/12/21 06/12/21 Range/Units 00:41 05:49 07:21 POC Glucose 33 L 327 H 341 H (70-105) mg/dL Assessment and Plan Cultures: Blood culture 06/10/21 no growth so far A/P: 40-year-old male past medical history type 1 diabetes, prior left BKA, right toe amputations now with: #Acute sepsis: Present with leukocytosis, secondary to left femur osteomyelitis and abscesses. #Left femur osteomyelitis: Surgery prefers to avoid further debridement in order to allow for continued prosthesis use. Will require 6 weeks antibiotics #Muscular abscesses in the left stump: Pending IR debridement #Diabetes: tight glycemic control for best outcomes. Recs: -Agree with vancomycin goal trough 10-20, cefepime for now pending cultures. -Please obtain cultures during IR drainage of abscesses -We will plan on 6 weeks antibiotics, will likely need PICC when blood cultures negative x48 hours Thank you for the consult, we will continue to follow. MD [facility] ([facility]) O: [phone] F: [phone]
--- NOTE | 2021-06-12 15:09 | Operative Report ---
Operative Report Operative Report: EXAM: CT-guided 8 Tajik drain placement in the left thigh musculature DATE: 06/12/2021 MAGNETO REPAIRER: LUCIO MACEDO MD INDICATION: Intramuscular abscess in the left thigh musculature MEDICATIONS: Please see nursing report for full details. DEVICES: 8 Tajik UreSil drainage catheter CONTRAST: None PROCEDURE: Risks, benefits, and alternatives were discussed with the patient; written informed consent was obtained. The patient was placed prone on the CT scanner and plasticator imaging was performed of the left thigh demonstrating a multiloculated fluid collection in the left posterior thigh musculature. The area was prepped and draped in a sterile fashion. Finder needle was used to access the area in a manner that did not pass through the insertion of the muscles. The area was anesthetized prior to needle access. Intermittent CT scanning was performed until an 18-gauge needle was passed into the fluid collection in the posterior thigh musculature and a 0.035 inch wire was passed into the fluid collection. Serial dilatation was performed and ultimately an 8 Tajik UreSil drainage catheter was advanced over the wire. Approximately 5 mL of foul-smelling purulent fluid was removed and a suction drain was attached. The drain was secured with 0 silk suture and Weston wrap was applied to help sq ueeze the collection into the drain. Patient tolerated the procedure well. No immediate postprocedural complications. FINDINGS: The foul-smelling pinkish purulent fluid was sent to the lab for culture. IMPRESSION: Successful CT-guided drainage placement in left posterior thigh musculature.
[2021-06-12] MEDS: oxyCODONE /ACETAMINOPHEN 5-325MG TAB PO PRN (16:15)
[2021-06-12] MEDS: INSULIN GLARGINE 100 UNITS/ML SUB-Q SCH (22:13)
[2021-06-13] MEDS: oxyCODONE /ACETAMINOPHEN 5-325MG TAB PO PRN (01:37)
[2021-06-13] MEDS: INSULIN LISPRO 100 UNIT/ML SUB-Q SCH ×3 (01:38→13:18)
[2021-06-13] MEDS: CEFEPIME/NS 1 GM/100 ML 1 GM/100 ML BAG IV SCH ×3 (04:02→21:02)
[2021-06-13] MEDS: GABAPENTIN 100 MG CAP PO SCH ×3 (05:03→21:09)
[2021-06-13] MEDS: HEPARIN 5,000 UNIT/1 ML VIAL SUB-Q SCH ×3 (05:03→21:08)
[2021-06-13] MEDS: ACETAMINOPHEN 325 MG TAB PO PRN ×3 (06:44→22:30)
[2021-06-13 07:58] LABS: Hematocrit 26.1 % (35.5-45.6); Hemoglobin 8.5 gm/dl (11.8-15.2); Mean Corpuscular HGB Conc 33 % (32-34); Mean Corpuscular Volume 78 fl (84-94); Platelet Count 500 K/mm3 (140-440); Red Blood Count 3.33 M/mm3 (3.65-5.03); Red Cell Distribution Width 15.7 % (13.2-15.2)
[2021-06-13 08:23] LABS: Blood Urea Nitrogen 20 mg/dL (9-20); Calcium 8.4 mg/dL (8.4-10.2); Hemolysis Index 5
[2021-06-13 08:38] LABS: BUN/Creatinine Ratio 29
[2021-06-13 08:52] LABS: Band Neutrophils # (Manual) 0.5 K/mm3; Basophils % (Manual) 0 % (0.0-1.8); Total Cells Counted 100
[2021-06-13 08:53] LABS: Anisocytosis 1+; Dohle Bodies Rare; Toxic Granulation 2+; Toxic Vacuolation 1+
[2021-06-13 08:54] LABS: Platelet Estimate Consistent w Auto
--- NOTE | 2021-06-13 10:04 | Progress Note ---
Assessment and Plan Cultures: Blood culture 06/10/21 no growth so far IR drainage culture 06/12/2021 pending. GNR A/P: 40-year-old male past medical history type 1 diabetes, prior left BKA, right toe amputations now with: #Acute sepsis: Present with leukocytosis, secondary to left femur osteomyelitis and abscesses. #Left femur osteomyelitis: Surgery prefers to avoid further debridement in order to allow for continued prosthesis use. Will require 6 weeks antibiotics #Muscular abscesses in the left stump: Pending IR debridement #Diabetes: tight glycemic control for best outcomes. Recs: -Agree with vancomycin goal trough 10-20, cefepime for now pending cultures. -Follow up cultures -We will plan on 6 weeks antibiotics, will likely need PICC when blood cultures negative x48 hours Thank you for the consult, we will continue to follow. Meeta Jara MD [facility] ([facility]) O: [phone] F: [phone] Subjective Date of service: 06/13/21 Principal diagnosis: Left leg abscess, osteomyelitis, hyperosmotic nonketotic state Interval history: Afebrile overnight, white count 15.9 post-procedure. Mostly gram negative rods on the gram stain so far. Objective - Exam Narrative Exam: Physical Exam: Constitutional: Alert, cooperative. No acute distress Head, Ears, Nose: Normocephalic, atraumatic. External ears, nose normal Eyes: Conjunctivae/corneas clear. No icterus. No ptosis. Neck: Supple, no meningeal signs Oral: dentition fair, no thrush Cardiovascular: S1, S2 normal. Respiratory: Good air entry, clear to auscultation bilaterally GI: Soft, non-tender; bowel sounds normal. No peritoneal signs. Musculoskeletal: L BKA, R toes amputated Skin: No rash or abscess Hem/Lymphatic: No palpable cervical or supraclavicular nodes. No lymphangitis Psych: Mood ok. Affect normal Neurological: Awake, alert, oriented. No gross abnormality - Constitutional Vitals: Vital Signs Temp Pulse Resp BP Pulse Ox 98.2 F 106 H 18 134/77 985 H 06/13/21 03:59 06/13/21 03:59 06/13/21 03:59 06/13/21 03:59 04/05/22 09:37 Temperature -Last 24 Hours Temperature 98.2 F Temperature 98.5 F Temperature 98.4 F Temperature 97.9 F - Labs CBC & Chem 7: 06/13/21 07:30 06/13/21 07:30 Labs: Abnormal lab results 06/12/21 06/12/21 06/12/21 Range/Units 11:20 15:47 19:27 WBC (4.5-11.0) K/mm3 RBC (3.65-5.03) M/mm3 Hgb (11.8-15.2) gm/dl Hct (35.5-45.6) % MCV (84-94) fl MCH (28-32) pg RDW (13.2-15.2) % Plt Count (140-440) K/mm3 Seg Neuts % (Manual) (40.0-70.0) % Lymphocytes % (Manual) (13.4-35.0) % Seg Neutrophils # Man (1.8-7.7) K/mm3 Sodium (137-145) mmol/L Carbon Dioxide (22-30) mmol/L Creatinine (0.8-1.3) mg/dL POC Glucose 397 H 498 H 402 H (70-105) mg/dL 06/12/21 06/13/21 06/13/21 Range/Units 23:24 01:30 07:30 WBC 15.9 H (4.5-11.0) K/mm3 RBC 3.33 L (3.65-5.03) M/mm3 Hgb 8.5 L (11.8-15.2) gm/dl Hct 26.1 L (35.5-45.6) % MCV 78 L (84-94) fl MCH 26 L (28-32) pg RDW 15.7 H (13.2-15.2) % Plt Count 500 H (140-440) K/mm3 Seg Neuts % (Manual) 81.0 H (40.0-70.0) % Lymphocytes % (Manual) 13.0 L (13.4-35.0) % Seg Neutrophils # Man 12.9 H (1.8-7.7) K/mm3 Sodium (137-145) mmol/L Carbon Dioxide (22-30) mmol/L Creatinine (0.8-1.3) mg/dL POC Glucose 210 H 288 H (70-105) mg/dL 06/13/21 Range/Units 07:30 WBC (4.5-11.0) K/mm3 RBC (3.65-5.03) M/mm3 Hgb (11.8-15.2) gm/dl Hct (35.5-45.6) % MCV (84-94) fl MCH (28-32) pg RDW (13.2-15.2) % Plt Count (140-440) K/mm3 Seg Neuts % (Manual) (40.0-70.0) % Lymphocytes % (Manual) (13.4-35.0) % Seg Neutrophils # Man (1.8-7.7) K/mm3 Sodium 134 L (137-145) mmol/L Carbon Dioxide 21 L (22-30) mmol/L Creatinine 0.7 L (0.8-1.3) mg/dL POC Glucose (70-105) mg/dL
--- NOTE | 2021-06-13 12:02 | Progress Note ---
Assessment and Plan Left leg intra muscular process. He will be admitted to have iv ab, rehydration and consultaito to IR. Percutaneous drainage would be better so as not to interfer with the wearing of a prosthetic limb. Patient with continued left leg pain. He now notes that he has had periods of severe cramping into the back of his leg going up into his butt cheek on the left side. It is possible that during 1 of these episodes he had an intramuscu lar hemorrhage. Dr. Harden successfully placed drain percutaneously yesterday is of is much appreciated. We will continue to follow patient with you IR to evaluate today. Subjective Date of service: 06/13/21 Patient Reports: Positive: still having pain Objective Vital Signs - 12hr 06/13/21 06/13/21 03:59 09:37 Temperature 98.2 F Pulse Rate 106 H Respiratory 18 Rate Blood Pressure 134/77 O2 Sat by Pulse 95 985 H Oximetry - Labs 06/13/21 07:30 06/13/21 07:30 Diabetes panel 06/13/21 Range/Units 07:30 Sodium 134 L (137-145) mmol/L Potassium 4.3 (3.6-5.0) mmol/L Chloride 99.4 (98-107) mmol/L Carbon Dioxide 21 L (22-30) mmol/L BUN 20 (9-20) mg/dL Creatinine 0.7 L (0.8-1.3) mg/dL Glucose 96 (75-100) mg/dL Calcium 8.4 (8.4-10.2) mg/dL Calcium panel 06/13/21 Range/Units 07:30 Calcium 8.4 (8.4-10.2) mg/dL Pituitary panel 06/13/21 Range/Units 07:30 Sodium 134 L (137-145) mmol/L Potassium 4.3 (3.6-5.0) mmol/L Chloride 99.4 (98-107) mmol/L Carbon Dioxide 21 L (22-30) mmol/L BUN 20 (9-20) mg/dL Creatinine 0.7 L (0.8-1.3) mg/dL Glucose 96 (75-100) mg/dL Calcium 8.4 (8.4-10.2) mg/dL Adrenal panel 06/13/21 Range/Units 07:30 Sodium 134 L (137-145) mmol/L Potassium 4.3 (3.6-5.0) mmol/L Chloride 99.4 (98-107) mmol/L Carbon Dioxide 21 L (22-30) mmol/L BUN 20 (9-20) mg/dL Creatinine 0.7 L (0.8-1.3) mg/dL Glucose 96 (75-100) mg/dL Calcium 8.4 (8.4-10.2) mg/dL
[2021-06-13] MEDS: MORPHINE 4 MG/1 ML INJ IV PRN ×2 (13:20→20:51)
--- NOTE | 2021-06-13 15:49 | Cat Scan Report ---
PLEASE SEE OPERATIVE REPORT ON 06/12/21 @1501 MTDD
--- NOTE | 2021-06-13 18:25 | Progress Note ---
Assessment and Plan Assessment and plan: Successful CT-guided drainage placement in the left posterior thigh musculature/abscess per interventional radiologist CT-guided 8 Cymro drain placement in the left thigh musculature 06/13/2019 Continue current antibiotics, pain medications, supportive care Surgery following #1 left lower extremity osteomyelitis proximal fibula -We will need 6 weeks antibiotics vancomycin. -Antibiotic coverage [place] being scheduled per infectious disease. -Supportive care pain control and tight glycemic control #2 multiple abscess lower extremity -Plan today for I&D with interventional radiology -Not a candidate for any further debridement at this time for osteomyelitis Will be difficult to use prosthesis therefore will take a more conservative approach to debridement. #3 uncontrolled diabetes -Hemoglobin A1c 11.4. -Unlikely to benefit from small dose of long-acting medication. -We will change to NovoLog 70/30 15 units twice daily titrate accordingly. #4 hypertension -Fairly well controlled with amlodipine 5 mg. -We will benefit from GLENNA at some point for renal protection. But does not have to be now. #5 sepsis -Multifactorial secondary to multiple lower extremity abscess -Continue vancomycin cefepime. Will require 6 weeks antibiotics outpatient Closely monitor the patient and adjust management as needed Plan of care reviewed with the patient and his nurse History Interval history: I have seen and examined the patient at bedside Patient's chart and medications reviewed Patient complains of severe pain in the left thigh Drainage tube in place to suction Patient complains of excruciating pain Agitated vital signs noted Hospitalist Physical - Constitutional Vitals: Temp Pulse Resp BP Pulse Ox 98.0 F 112 H 18 144/71 95 06/13/21 16:18 06/13/21 16:18 06/13/21 16:18 06/13/21 16:18 06/13/21 16:18 General appearance: Present: no acute distress, well-nourished - EENT Eyes: Present: PERRL, EOM intact - Neck Neck: Present: supple, normal ROM - Respiratory Respiratory effort: normal Respiratory: bilateral: CTA, diminished, rhonchi, negative: rales, wheezing - Cardiovascular Rhythm: regular Heart Sounds: Present: S1 & S2 - Extremities Extremities: no ischemia, abnormal (Left thigh abscess suction drain in place) - Abdominal General gastrointestinal: soft, non-tender, non-distended, normal bowel sounds - Integumentary Integumentary: Present: clear, warm - Psychiatric Psychiatric: appropriate mood/affect, cooperative - Neurologic Neurologic: CNII-XII intact, moves all extremities Results - Labs CBC & Chem 7: 06/13/21 07:30 06/13/21 07:30 Labs: Laboratory Last Values WBC 15.9 K/mm3 (4.5-11.0) H 06/13/21 07:30 RBC 3.33 M/mm3 (3.65-5.03) L 06/13/21 07:30 Hgb 8.5 gm/dl (11.8-15.2) L 06/13/21 07:30 Hct 26.1 % (35.5-45.6) L 06/13/21 07:30 MCV 78 fl (84-94) L 06/13/21 07:30 MCH 26 pg (28-32) L 06/13/21 07:30 MCHC 33 % (32-34) 06/13/21 07:30 RDW 15.7 % (13.2-15.2) H 06/13/21 07:30 Plt Count 500 K/mm3 (140-440) H 06/13/21 07:30 Add Manual Diff Complete 06/13/21 07:30 Total Counted 100 06/13/21 07:30 Seg Neutrophils % [employer] 06/10/21 06:56 Seg Neuts % (Manual) 81.0 % (40.0-70.0) H 06/13/21 07:30 Band Neutrophils % 3.0 % 06/13/21 07:30 Lymphocytes % (Manual) 13.0 % (13.4-35.0) L 06/13/21 07:30 Reactive Lymphs % (Man) 0 % 06/13/21 07:30 Monocytes % (Manual) 2.0 % (0.0-7.3) 06/13/21 07:30 Eosinophils % (Manual) 1.0 % (0.0-4.3) 06/13/21 07:30 Basophils % (Manual) 0 % (0.0-1.8) 06/13/21 07:30 Metamyelocytes % 0 % 06/13/21 07:30 Myelocytes % 0 % 06/13/21 07:30 Promyelocytes % 0 % 06/13/21 07:30 Blast Cells % 0 % 06/13/21 07:30 Nucleated RBC % Not Reportable 06/13/21 07:30 Seg Neutrophils # Man 12.9 K/mm3 (1.8-7.7) H 06/13/21 07:30 Band Neutrophils # 0.5 K/mm3 06/13/21 07:30 Lymphocytes # (Manual) 2.1 K/mm3 (1.2-5.4) 06/13/21 07:30 Abs React Lymphs (Man) 0.0 K/mm3 06/13/21 07:30 Monocytes # (Manual) 0.3 K/mm3 (0.0-0.8) 06/13/21 07:30 Eosinophils # (Manual) 0.2 K/mm3 (0.0-0.4) 06/13/21 07:30 Basophils # (Manual) 0.0 K/mm3 (0.0-0.1) 06/13/21 07:30 Metamyelocytes # 0.0 K/mm3 06/13/21 07:30 Myelocytes # 0.0 K/mm3 06/13/21 07:30 Promyelocytes # 0.0 K/mm3 06/13/21 07:30 Blast Cells # 0.0 K/mm3 06/13/21 07:30 WBC Morphology Not Reportable 06/13/21 07:30 Hypersegmented Neuts Not Reportable 06/13/21 07:30 Hyposegmented Neuts Not Reportable 06/13/21 07:30 Hypogranular Neuts Not Reportable 06/13/21 07:30 Smudge Cells Not Reportable 06/13/21 07:30 Toxic Granulation 2+ 06/13/21 07:30 Toxic Vacuolation 1+ 06/13/21 07:30 Dohle Bodies Rare 06/13/21 07:30 Pelger-Huet Anomaly Not Reportable 06/13/21 07:30 Rachid Rods Not Reportable 06/13/21 07:30 Platelet Estimate Consistent w auto 06/13/21 07:30 Clumped Platelets Not Reportable 06/13/21 07:30 Plt Clumps, EDTA Not Reportable 06/13/21 07:30 Large Platelets Not Reportable 06/13/21 07:30 Giant Platelets Not Reportable 06/13/21 07:30 Platelet Satelliting Not Reportable 06/13/21 07:30 Plt Morphology Comment Not Reportable 06/13/21 07:30 RBC Morphology Not Reportable 06/13/21 07:30 Dimorphic RBCs Not Reportable 06/13/21 07:30 Polychromasia Not Reportable 06/13/21 07:30 Hypochromasia Not Reportable 06/13/21 07:30 Poikilocytosis Not Reportable 06/13/21 07:30 Anisocytosis 1+ 06/13/21 07:30 Microcytosis Not Reportable 06/13/21 07:30 Macrocytosis Not Reportable 06/13/21 07:30 Spherocytes Not Reportable 06/13/21 07:30 Pappenheimer Bodies Not Reportable 06/13/21 07:30 Sickle Cells Not Reportable 06/13/21 07:30 Target Cells Not Reportable 06/13/21 07:30 Tear Drop Cells Not Reportable 06/13/21 07:30 Ovalocytes Not Reportable 06/13/21 07:30 Helmet Cells Not Reportable 06/13/21 07:30 [place] Bodies Not Reportable 06/13/21 07:30 Marcell Rings Not Reportable 06/13/21 07:30 Angelina Cells Not Reportable 06/13/21 07:30 Bite Cells Not Reportable 06/13/21 07:30 Crenated Cell Not Reportable 06/13/21 07:30 Elliptocytes Not Reportable 06/13/21 07:30 Acanthocytes (Spur) Not Reportable 06/13/21 07:30 Rouleaux Not Reportable 06/13/21 07:30 Hemoglobin C Crystals Not Reportable 06/13/21 07:30 Schistocytes Not Reportable 06/13/21 07:30 Malaria parasites Not Reportable 06/13/21 07:30 Refugio Bodies Not Reportable 06/13/21 07:30 Hem Pathologist Commnt No 06/13/21 07:30 VBG pH 7.352 (7.320-7.420) 06/10/21 08:07 Sodium 134 mmol/L (137-145) L 06/13/21 07:30 Potassium 4.3 mmol/L (3.6-5.0) 06/13/21 07:30 Chloride 99.4 mmol/L (98-107) 06/13/21 07:30 Carbon Dioxide 21 mmol/L (22-30) L 06/13/21 07:30 Anion Gap 18 mmol/L 06/13/21 07:30 BUN 20 mg/dL (9-20) 06/13/21 07:30 Creatinine 0.7 mg/dL (0.8-1.3) L 06/13/21 07:30 Estimated GFR > 60 ml/min 06/13/21 07:30 BUN/Creatinine Ratio 29 % 06/13/21 07:30 Glucose 96 mg/dL (75-100) 06/13/21 07:30 POC Glucose 180 mg/dL (70-105) H 06/13/21 15:38 Hemoglobin A1c 11.7 % (4-6) H 06/11/21 Unknown Lactic Acid 1.70 mmol/L (0.7-2.0) 06/10/21 08:07 Calcium 8.4 mg/dL (8.4-10.2) 06/13/21 07:30 Phosphorus 1.90 mg/dL (2.5-4.5) L 06/10/21 06:56 Magnesium 2.60 mg/dL (1.7-2.3) H 06/10/21 06:56 Total Bilirubin 0.30 mg/dL (0.1-1.2) 06/10/21 06:56 Total Bilirubin 0.40 mg/dL (0.1-1.2) 06/10/21 06:56 Direct Bilirubin < 0.2 mg/dL (0-0.2) 06/10/21 06:56 Indirect Bilirubin 0.2 mg/dL 06/10/21 06:56 AST 7 units/L (5-40) 06/10/21 06:56 AST 8 units/L (5-40) 06/10/21 06:56 ALT 5 units/L (7-56) L 06/10/21 06:56 ALT 6 units/L (7-56) L 06/10/21 06:56 Alkaline Phosphatase 170 units/L (35-129) H 06/10/21 06:56 Alkaline Phosphatase 172 units/L (35-129) H 06/10/21 06:56 Total Protein 7.5 g/dL (6.3-8.2) 06/10/21 06:56 Total Protein 7.7 g/dL (6.3-8.2) 06/10/21 06:56 Albumin 3.2 g/dL (3.9-5) L 06/10/21 06:56 Albumin 3.3 g/dL (3.9-5) L 06/10/21 06:56 Albumin/Globulin Ratio 0.7 % 06/10/21 06:56 Albumin/Globulin Ratio 0.8 % 06/10/21 06:56 Lipase 5 units/L (13-60) L 06/10/21 06:56 TSH 1.080 mlU/mL (0.270-4.200) 06/10/21 06:56 Free T4 1.05 ng/dL (0.76-1.46) 06/10/21 06:56 Urine Color Yellow (Yellow) 06/10/21 Unknown Urine Turbidity Cloudy (Clear) 06/10/21 Unknown Urine pH 5.0 (5.0-7.0) 06/10/21 Unknown Ur Specific [place] 1.014 (1.003-1.030) 06/10/21 Unknown Urine Protein 100 mg/dl mg/dL (Negative) 06/10/21 Unknown Urine Glucose (UA) >=500 mg/dL (Negative) 06/10/21 Unknown Urine Ketones Neg mg/dL (Negative) 06/10/21 Unknown Urine Blood Sm (Negative) 06/10/21 Unknown Urine Nitrite Neg (Negative) 06/10/21 Unknown Urine Bilirubin Neg (Negative) 06/10/21 Unknown Urine Urobilinogen < 2.0 mg/dL (<2.0) 06/10/21 Unknown Ur Leukocyte Esterase Neg (Negative) 06/10/21 Unknown Urine WBC (Auto) 7.0 /HPF (0.0-6.0) H 06/10/21 Unknown Urine RBC (Auto) 95.0 /HPF (0.0-6.0) 06/10/21 Unknown U Epithel Cells (Auto) 6.0 /HPF (0-13.0) 06/10/21 Unknown Urine Bacteria (Auto) 1+ /HPF (Negative) 06/10/21 Unknown Amorphous Crystals 1+ 06/10/21 Unknown Hyaline Casts 1 /LPF 06/10/21 Unknown Granular Casts 16 /LPF 06/10/21 Unknown RBC Casts 13 /LPF 06/10/21 Unknown Urine Mucus Few /HPF 06/10/21 Unknown Vancomycin Trough 19.6 ug/mL (5.0-20.0) 06/13/21 07:30 Urine Opiates Screen Positive 06/10/21 Unknown Urine Methadone Screen Negative 06/10/21 Unknown Ur Barbiturates Screen Negative 06/10/21 Unknown Ur Phencyclidine Scrn Negative 06/10/21 Unknown Ur Amphetamines Screen Negative 06/10/21 Unknown U Benzodiazepines Scrn Negative 06/10/21 Unknown Urine Cocaine Screen Negative 06/10/21 Unknown U Marijuana (THC) Screen Negative 06/10/21 Unknown Drugs of Abuse Note Disclamer 06/10/21 Unknown Microbiology: Microbiology 06/10/21 06:56 Peripheral/Venous Blood Culture - Preliminary NO GROWTH AFTER 72 HOURS 06/10/21 06:56 Peripheral/Venous Blood Culture - Preliminary NO GROWTH AFTER 72 HOURS 06/12/21 Unknown Thigh - Left Surgical Culture - Preliminary [place]/IV: Voiding Method Urinal Active Medications - Current Medications Current Medications: Generic Name Dose Route Start Last Admin Trade Name Freq PRN Reason Stop Dose Admin Acetaminophen 650 mg 06/10/21 12:51 06/13/21 13:19 Acetaminophen 325 Mg Tab PO 650 mg Q4H PRN Administration Pain MILD(1-3)/Fever >100.5/ODOM Amlodipine Besylate 5 mg 06/11/21 10:00 06/12/21 09:33 Amlodipine 5 Mg Tab PO Not Given QDAY SHANIKA Dextrose 50 ml 06/10/21 11:43 06/11/21 22:36 Dextrose 50% In Water (25gm) 50 Ml Syringe IV 50 ml Q30MIN PRN Administration Hypoglycemia Protocol Gabapentin 100 mg 06/11/21 14:00 06/13/21 13:20 Gabapentin 100 Mg Cap PO 100 mg Q8HR SHANIKA Administration Heparin Sodium (Porcine) 5,000 unit 06/10/21 14:00 06/13/21 13:19 Heparin 5,000 Unit/1 Ml Vial SUB-Q 5,000 unit Q8HR SHANIKA Administration Cefepime HCl 1 gm in 100 mls @ 200 mls/hr 06/10/21 12:00 06/13/21 04:02 Cefepime/Ns 1 Gm/100 Ml IV 200 mls/hr Q8H SHANIKA Administration Protocol Dextrose 1,000 mls @ 100 mls/hr 06/12/21 01:00 06/12/21 01:14 D5w IV 100 mls/hr DIRECT SHANIKA Administration Vancomycin HCl 1 gm in 250 mls @ 166.667 mls/hr 06/13/21 10:00 Vancomycin/Ns 1 Gm/250 Ml IV Q12HR [facility] Insulin Glargine 15 units 06/11/21 22:00 06/12/21 22:13 Insulin Glargine 100 Units/Ml SUB-Q 15 units QHS SHANIKA Administration Insulin Human Lispro 0 unit 06/10/21 12:00 06/13/21 13:18 Insulin Lispro 100 Unit/Ml SUB-Q 6 unit Q6HR SHANIKA Administration Protocol Morphine Sulfate 2 mg 06/10/21 12:51 06/13/21 13:20 Morphine 4 Mg/1 Ml Inj IV 2 mg Q4H PRN Administration Pain , Severe (7-10) Ondansetron HCl 4 mg 06/10/21 12:51 Ondansetron 4 Mg/2 Ml Inj IV Q8H PRN Nausea And Vomiting Oxycodone/Acetaminophen 2 tab 06/13/21 18:21 Oxycodone /Acetaminophen 5-325mg Tab PO Q4H PRN Pain, Moderate (4-6) Sodium Chloride 10 ml 06/10/21 13:00 06/12/21 22:15 Sodium Chloride 0.9% 10 Ml Flush Syringe IV 10 ml BID SHANIKA Administration Sodium Chloride 10 ml 06/10/21 12:51 Sodium Chloride 0.9% 10 Ml Flush Syringe IV PRN PRN LINE FLUSH Nutrition/Malnutrition Assess - Dietary Evaluation Nutrition/Malnutrition Findings: Nutrition Notes Start: 06/11/21 11:43 Freq: Status: Active Protocol: Document 06/12/21 15:49 NATHALY (Rec: 06/12/21 16:18 NATHALY [id number]) Nutrition Notes Initial or Follow up Assessment Current Diagnosis Diabetes,Sepsis,Hypertension Other Pertinent Diagnosis T1DM, L-BKA, R-Toe Amputation, L-Fibula Osteomyelitis, Abscess in L-stump. Current Diet Consistent Carbohydrates Diet (since D 06/12). Labs/Tests 06/11: Na 133, BUN 26, Ca 7.8. Pertinent Medications 06/12: D5w 1000 ml @ 100 ml/hr , others nutritionally unremarkable. Height 5 ft 11 in Weight 67 kg [place] Body Weight (kg) 78.18 BMI 20.6 Weight change and time frame 0.3 Kg body weight loss in 1 day reported. Weight Status Appropriate Subjective/Other Information RD consult for routine F/U on nutrition education. Pt's PO intake of meals has been Fair (50%), according to ADL notes. Pt is on Room Air with O2 saturation @ 100%, according to Physical Assessment History notes. Pt presents abscess un L-Stump s/p drain placement, according to Progress notes & Operative report. Procedure on 06/12: Drain placement in L-Thigh musculature. Well tolerated, according to Progress notes. Pt still in critical condition , not a candidate for Nutrition Education at the time, will assess feasibility on F/U. Percent of energy/protein needs met: Prescribed Consistent Carbohydrates Diet provides for energy/protein needs (2, 061 Kcal/91 g) during LOS. Burn Absent Trauma Absent GI Symptoms None Food Allergy Yes Skin Integrity/Comment Abscess un L-Stump Current % PO Fair (50-74%) Minimum of two criteria No #1 Nutrition Diagnosis No nutrition diagnosis at this time Comments: Will continue to assess PO intake of meals at F/U. Is patient on ventilator? No Is Patient Ambulatory and/or Out of Bed No [facility] [phone] Calculation Used for Recommendations [facility] Additional Notes Protein: 0.8-1 g/Kg ABW; 54-80 g/day. Fluids: 1 ml/Kcal, or as per MD. Nutrition Intervention Change Diet Order: Continue Consistent Carbohydrates Diet. Goal #1 Maintain body weight within +/ -3% of admission body weight during LOS. Follow-Up By: 06/19/21 Additional Comments Nutrition education will be provided on F/U, if feasible. Continue monitoring food tolerance, %PO intake of meals , and BM.
[2021-06-13] MEDS: VANCOMYCIN/NS 1 GM/250 ML 1 GM/250 ML BAG IV SCH ×2 (21:07)
[2021-06-13] MEDS: DEXTROSE 5% IN WATER 1,000 ML IV SCH (21:14)
[2021-06-13] MEDS: INSULIN GLARGINE 100 UNITS/ML SUB-Q SCH (22:30)
[2021-06-14] MEDS: INSULIN LISPRO 100 UNIT/ML SUB-Q SCH ×6 (00:37→21:00)
[2021-06-14] MEDS: MORPHINE 4 MG/1 ML INJ IV PRN ×4 (02:28→20:47)
[2021-06-14] MEDS: CEFEPIME/NS 1 GM/100 ML 1 GM/100 ML BAG IV SCH ×3 (04:09→20:46)
[2021-06-14] MEDS: HEPARIN 5,000 UNIT/1 ML VIAL SUB-Q SCH ×3 (06:24→21:00)
[2021-06-14] MEDS: GABAPENTIN 100 MG CAP PO SCH ×3 (06:25→21:00)
--- NOTE | 2021-06-14 09:13 | Progress Note ---
Assessment and Plan Assessment and plan: Successful CT-guided drainage placement in the left posterior thigh musculature/abscess per interventional radiologist CT-guided 8 Congolese drain placement in the left thigh musculature 06/13/2019 Continue current antibiotics, pain medications, supportive care Surgery following -- left lower extremity osteomyelitis proximal fibula -We will need 6 weeks antibiotics vancomycin. -Antibiotic coverage S[place]ia being scheduled per infectious disease. -Supportive care pain control and tight glycemic control -- multiple abscess lower extremity -Plan today for I&D with interventional radiology -Not a candidate for any further debridement at this time for osteomyelitis Will be difficult to use prosthesis therefore will take a more conservative approach to debridement. --uncontrolled diabetes -Hemoglobin A1c 11.4. -Unlikely to benefit from small dose of long-acting medication. -We will change to NovoLog 70/30 15 units twice daily titrate accordingly. -- hypertension -Fairly well controlled with amlodipine 5 mg. -We will benefit from GLENNA at some point for renal protection. But does not have to be now. -- sepsis -Multifactorial secondary to multiple lower extremity abscess -Continue vancomycin cefepime. Will require 6 weeks antibiotics outpatient --generalized anxiety; We will add low-dose Xanax 0.253 times a day as needed for anxiety Closely monitor the patient and adjust management as needed Plan of care reviewed with the patient and his nurse Physical therapy/Occupational Therapy evaluation and treatment as tolerated Discharge planning per case agency sales management assistant recommendations noted and appreciated History Interval history: I have seen and examined the patient at the bedside Patient's chart and medications reviewed Patient is very anxious and angry Feels that nobody is taking care of him properly Feels that all the caregivers are confused Patient is in mild distress due to generalized anxiety Vital signs reviewed Hospitalist Physical - Constitutional Vitals: Temp Pulse Resp BP Pulse Ox 98.5 F 116 H 20 153/84 97 06/14/21 05:59 06/14/21 05:59 06/14/21 05:59 06/14/21 05:59 06/14/21 05:59 General appearance: Present: no acute distress, well-nourished - EENT Eyes: Present: PERRL, EOM intact - Neck Neck: Present: supple, normal ROM - Respiratory Respiratory effort: normal Respiratory: bilateral: diminished, negative: rales, rhonchi, wheezing - Cardiovascular Rhythm: regular Heart Sounds: Present: S1 & S2 - Extremities Extremities: no ischemia, No edema, abnormal (Left BKA/left thigh abscess continues to drain in place) - Abdominal General gastrointestinal: soft, non-tender - Integumentary Integumentary: Present: clear, warm - Psychiatric Psychiatric: other (Anxious) - Neurologic Neurologic: moves all extremities Results - Labs CBC & Chem 7: 06/14/21 07:58 06/14/21 07:58 Labs: Laboratory Last Values WBC 15.9 K/mm3 (4.5-11.0) H 06/13/21 07:30 RBC 3.33 M/mm3 (3.65-5.03) L 06/13/21 07:30 Hgb 8.5 gm/dl (11.8-15.2) L 06/13/21 07:30 Hct 26.1 % (35.5-45.6) L 06/13/21 07:30 MCV 78 fl (84-94) L 06/13/21 07:30 MCH 26 pg (28-32) L 06/13/21 07:30 MCHC 33 % (32-34) 06/13/21 07:30 RDW 15.7 % (13.2-15.2) H 06/13/21 07:30 Plt Count 500 K/mm3 (140-440) H 06/13/21 07:30 Add Manual Diff Complete 06/13/21 07:30 Total Counted 100 06/13/21 07:30 Seg Neutrophils % Carpenter Form 06/10/21 06:56 Seg Neuts % (Manual) 81.0 % (40.0-70.0) H 06/13/21 07:30 Band Neutrophils % 3.0 % 06/13/21 07:30 Lymphocytes % (Manual) 13.0 % (13.4-35.0) L 06/13/21 07:30 Reactive Lymphs % (Man) 0 % 06/13/21 07:30 Monocytes % (Manual) 2.0 % (0.0-7.3) 06/13/21 07:30 Eosinophils % (Manual) 1.0 % (0.0-4.3) 06/13/21 07:30 Basophils % (Manual) 0 % (0.0-1.8) 06/13/21 07:30 Metamyelocytes % 0 % 06/13/21 07:30 Myelocytes % 0 % 06/13/21 07:30 Promyelocytes % 0 % 06/13/21 07:30 Blast Cells % 0 % 06/13/21 07:30 Nucleated RBC % Not Reportable 06/13/21 07:30 Seg Neutrophils # Man 12.9 K/mm3 (1.8-7.7) H 06/13/21 07:30 Band Neutrophils # 0.5 K/mm3 06/13/21 07:30 Lymphocytes # (Manual) 2.1 K/mm3 (1.2-5.4) 06/13/21 07:30 Abs React Lymphs (Man) 0.0 K/mm3 06/13/21 07:30 Monocytes # (Manual) 0.3 K/mm3 (0.0-0.8) 06/13/21 07:30 Eosinophils # (Manual) 0.2 K/mm3 (0.0-0.4) 06/13/21 07:30 Basophils # (Manual) 0.0 K/mm3 (0.0-0.1) 06/13/21 07:30 Metamyelocytes # 0.0 K/mm3 06/13/21 07:30 Myelocytes # 0.0 K/mm3 06/13/21 07:30 Promyelocytes # 0.0 K/mm3 06/13/21 07:30 Blast Cells # 0.0 K/mm3 06/13/21 07:30 WBC Morphology Not Reportable 06/13/21 07:30 Hypersegmented Neuts Not Reportable 06/13/21 07:30 Hyposegmented Neuts Not Reportable 06/13/21 07:30 Hypogranular Neuts Not Reportable 06/13/21 07:30 Smudge Cells Not Reportable 06/13/21 07:30 Toxic Granulation 2+ 06/13/21 07:30 Toxic Vacuolation 1+ 06/13/21 07:30 Dohle Bodies Rare 06/13/21 07:30 Pelger-Huet Anomaly Not Reportable 06/13/21 07:30 Rachid Rods Not Reportable 06/13/21 07:30 Platelet Estimate Consistent w auto 06/13/21 07:30 Clumped Platelets Not Reportable 06/13/21 07:30 Plt Clumps, EDTA Not Reportable 06/13/21 07:30 Large Platelets Not Reportable 06/13/21 07:30 Giant Platelets Not Reportable 06/13/21 07:30 Platelet Satelliting Not Reportable 06/13/21 07:30 Plt Morphology Comment Not Reportable 06/13/21 07:30 RBC Morphology Not Reportable 06/13/21 07:30 Dimorphic RBCs Not Reportable 06/13/21 07:30 Polychromasia Not Reportable 06/13/21 07:30 Hypochromasia Not Reportable 06/13/21 07:30 Poikilocytosis Not Reportable 06/13/21 07:30 Anisocytosis 1+ 06/13/21 07:30 Microcytosis Not Reportable 06/13/21 07:30 Macrocytosis Not Reportable 06/13/21 07:30 Spherocytes Not Reportable 06/13/21 07:30 Pappenheimer Bodies Not Reportable 06/13/21 07:30 Sickle Cells Not Reportable 06/13/21 07:30 Target Cells Not Reportable 06/13/21 07:30 Tear Drop Cells Not Reportable 06/13/21 07:30 Ovalocytes Not Reportable 06/13/21 07:30 Helmet Cells Not Reportable 06/13/21 07:30 Cardona-Keats Bodies Not Reportable 06/13/21 07:30 [place] Rings Not Reportable 06/13/21 07:30 Crane Cells Not Reportable 06/13/21 07:30 Bite Cells Not Reportable 06/13/21 07:30 Crenated Cell Not Reportable 06/13/21 07:30 Elliptocytes Not Reportable 06/13/21 07:30 Acanthocytes (Spur) Not Reportable 06/13/21 07:30 Rouleaux Not Reportable 06/13/21 07:30 Hemoglobin C Crystals Not Reportable 06/13/21 07:30 Schistocytes Not Reportable 06/13/21 07:30 Malaria parasites Not Reportable 06/13/21 07:30 Refugio Bodies Not Reportable 06/13/21 07:30 Hem Pathologist Commnt No 06/13/21 07:30 VBG pH 7.352 (7.320-7.420) 06/10/21 08:07 Sodium 134 mmol/L (137-145) L 06/13/21 07:30 Potassium 4.3 mmol/L (3.6-5.0) 06/13/21 07:30 Chloride 99.4 mmol/L (98-107) 06/13/21 07:30 Carbon Dioxide 21 mmol/L (22-30) L 06/13/21 07:30 Anion Gap 18 mmol/L 06/13/21 07:30 BUN 20 mg/dL (9-20) 06/13/21 07:30 Creatinine 0.7 mg/dL (0.8-1.3) L 06/13/21 07:30 Estimated GFR > 60 ml/min 06/13/21 07:30 BUN/Creatinine Ratio 29 % 06/13/21 07:30 Glucose 96 mg/dL (75-100) 06/13/21 07:30 POC Glucose 182 mg/dL (70-105) H 06/14/21 01:57 Hemoglobin A1c 11.7 % (4-6) H 06/11/21 Unknown Lactic Acid 1.70 mmol/L (0.7-2.0) 06/10/21 08:07 Calcium 8.4 mg/dL (8.4-10.2) 06/13/21 07:30 Phosphorus 1.90 mg/dL (2.5-4.5) L 06/10/21 06:56 Magnesium 2.60 mg/dL (1.7-2.3) H 06/10/21 06:56 Total Bilirubin 0.30 mg/dL (0.1-1.2) 06/10/21 06:56 Total Bilirubin 0.40 mg/dL (0.1-1.2) 06/10/21 06:56 Direct Bilirubin < 0.2 mg/dL (0-0.2) 06/10/21 06:56 Indirect Bilirubin 0.2 mg/dL 06/10/21 06:56 AST 7 units/L (5-40) 06/10/21 06:56 AST 8 units/L (5-40) 06/10/21 06:56 ALT 5 units/L (7-56) L 06/10/21 06:56 ALT 6 units/L (7-56) L 06/10/21 06:56 Alkaline Phosphatase 170 units/L (35-129) H 06/10/21 06:56 Alkaline Phosphatase 172 units/L (35-129) H 06/10/21 06:56 Total Protein 7.5 g/dL (6.3-8.2) 06/10/21 06:56 Total Protein 7.7 g/dL (6.3-8.2) 06/10/21 06:56 Albumin 3.2 g/dL (3.9-5) L 06/10/21 06:56 Albumin 3.3 g/dL (3.9-5) L 06/10/21 06:56 Albumin/Globulin Ratio 0.7 % 06/10/21 06:56 Albumin/Globulin Ratio 0.8 % 06/10/21 06:56 Lipase 5 units/L (13-60) L 06/10/21 06:56 TSH 1.080 mlU/mL (0.270-4.200) 06/10/21 06:56 Free T4 1.05 ng/dL (0.76-1.46) 06/10/21 06:56 Urine Color Yellow (Yellow) 06/10/21 Unknown Urine Turbidity Cloudy (Clear) 06/10/21 Unknown Urine pH 5.0 (5.0-7.0) 06/10/21 Unknown Ur Specific [place] 1.014 (1.003-1.030) 06/10/21 Unknown Urine Protein 100 mg/dl mg/dL (Negative) 06/10/21 Unknown Urine Glucose (UA) >=500 mg/dL (Negative) 06/10/21 Unknown Urine Ketones Neg mg/dL (Negative) 06/10/21 Unknown Urine Blood Sm (Negative) 06/10/21 Unknown Urine Nitrite Neg (Negative) 06/10/21 Unknown Urine Bilirubin Neg (Negative) 06/10/21 Unknown Urine Urobilinogen < 2.0 mg/dL (<2.0) 06/10/21 Unknown Ur Leukocyte Esterase Neg (Negative) 06/10/21 Unknown Urine WBC (Auto) 7.0 /HPF (0.0-6.0) H 06/10/21 Unknown Urine RBC (Auto) 95.0 /HPF (0.0-6.0) 06/10/21 Unknown U Epithel Cells (Auto) 6.0 /HPF (0-13.0) 06/10/21 Unknown Urine Bacteria (Auto) 1+ /HPF (Negative) 06/10/21 Unknown Amorphous Crystals 1+ 06/10/21 Unknown Hyaline Casts 1 /LPF 06/10/21 Unknown Granular Casts 16 /LPF 06/10/21 Unknown RBC Casts 13 /LPF 06/10/21 Unknown Urine Mucus Few /HPF 06/10/21 Unknown Vancomycin Trough 19.6 ug/mL (5.0-20.0) 06/13/21 07:30 Urine Opiates Screen Positive 06/10/21 Unknown Urine Methadone Screen Negative 06/10/21 Unknown Ur Barbiturates Screen Negative 06/10/21 Unknown Ur Phencyclidine Scrn Negative 06/10/21 Unknown Ur Amphetamines Screen Negative 06/10/21 Unknown U Benzodiazepines Scrn Negative 06/10/21 Unknown Urine Cocaine Screen Negative 06/10/21 Unknown U Marijuana (THC) Screen Negative 06/10/21 Unknown Drugs of Abuse Note Disclamer 06/10/21 Unknown Microbiology: Microbiology 06/10/21 06:56 Peripheral/Venous Blood Culture - Preliminary NO GROWTH AFTER 72 HOURS 06/10/21 06:56 Peripheral/Venous Blood Culture - Preliminary NO GROWTH AFTER 72 HOURS Contreras/IV: Voiding Method Urinal Active Medications - Current Medications Current Medications: Generic Name Dose Route Start Last Admin Trade Name Freq PRN Reason Stop Dose Admin Acetaminophen 650 mg 06/10/21 12:51 06/13/21 22:30 Acetaminophen 325 Mg Tab PO 650 mg Q4H PRN Administration Pain MILD(1-3)/Fever >100.5/ODOM Amlodipine Besylate 5 mg 06/11/21 10:00 06/12/21 09:33 Amlodipine 5 Mg Tab PO Not Given QDAY SHANIKA Dextrose 50 ml 06/10/21 11:43 06/11/21 22:36 Dextrose 50% In Water (25gm) 50 Ml Syringe IV 50 ml Q30MIN PRN Administration Hypoglycemia Protocol Gabapentin 100 mg 06/11/21 14:00 06/14/21 06:25 Gabapentin 100 Mg Cap PO 100 mg Q8HR SHANIKA Administration Heparin Sodium (Porcine) 5,000 unit 06/10/21 14:00 06/14/21 06:24 Heparin 5,000 Unit/1 Ml Vial SUB-Q 5,000 unit Q8HR SHANIKA Administration Cefepime HCl 1 gm in 100 mls @ 200 mls/hr 06/10/21 12:00 06/14/21 04:09 Cefepime/Ns 1 Gm/100 Ml IV 200 mls/hr Q8H SHANIKA Administration Protocol Dextrose 1,000 mls @ 100 mls/hr 06/12/21 01:00 06/13/21 21:14 D5w IV 100 mls/hr DIRECT SHANIKA Administration Vancomycin HCl 1 gm in 250 mls @ 166.667 mls/hr 06/13/21 10:00 06/13/21 21:07 Vancomycin/Ns 1 Gm/250 Ml IV 166.667 mls/hr Q12HR SHANIKA Administration Insulin Glargine 15 units 06/11/21 22:00 06/13/21 22:30 Insulin Glargine 100 Units/Ml SUB-Q 15 units QHS SHANIKA Administration Insulin Human Lispro 0 unit 06/10/21 12:00 06/14/21 00:49 Insulin Lispro 100 Unit/Ml SUB-Q Not Given Q6HR [facility] Protocol Morphine Sulfate 2 mg 06/10/21 12:51 06/14/21 08:39 Morphine 4 Mg/1 Ml Inj IV 2 mg Q4H PRN Administration Pain , Severe (7-10) Ondansetron HCl 4 mg 06/10/21 12:51 Ondansetron 4 Mg/2 Ml Inj IV Q8H PRN Nausea And Vomiting Oxycodone/Acetaminophen 2 tab 06/13/21 18:21 Oxycodone /Acetaminophen 5-325mg Tab PO Q4H PRN Pain, Moderate (4-6) Sodium Chloride 10 ml 06/10/21 13:00 06/13/21 21:10 Sodium Chloride 0.9% 10 Ml Flush Syringe IV 10 ml BID SHANIKA Administration Sodium Chloride 10 ml 06/10/21 12:51 Sodium Chloride 0.9% 10 Ml Flush Syringe IV PRN PRN LINE FLUSH Nutrition/Malnutrition Assess - Dietary Evaluation Nutrition/Malnutrition Findings: Nutrition Notes Start: 06/11/21 11:43 Freq: Status: Active Protocol: Document 06/12/21 15:49 NATHALY (Rec: 06/12/21 16:18 NATHALY [id number]) Nutrition Notes Initial or Follow up Assessment Current Diagnosis Diabetes,Sepsis,Hypertension Other Pertinent Diagnosis T1DM, L-BKA, R-Toe Amputation, L-Fibula Osteomyelitis, Abscess in L-stump. Current Diet Consistent Carbohydrates Diet (since D 06/12). Labs/Tests 06/11: Na 133, BUN 26, Ca 7.8. Pertinent Medications 06/12: D5w 1000 ml @ 100 ml/hr , others nutritionally unremarkable. Height 5 ft 11 in Weight 67 kg [place] Body Weight (kg) 78.18 BMI 20.6 Weight change and time frame 0.3 Kg body weight loss in 1 day reported. Weight Status Appropriate Subjective/Other Information RD consult for routine F/U on nutrition education. Pt's PO intake of meals has been Fair (50%), according to ADL notes. Pt is on Room Air with O2 saturation @ 100%, according to Physical Assessment History notes. Pt presents abscess un L-Stump s/p drain placement, according to Progress notes & Operative report. Procedure on 06/12: Drain placement in L-Thigh musculature. Well tolerated, according to Progress notes. Pt still in critical condition , not a candidate for Nutrition Education at the time, will assess feasibility on F/U. Percent of energy/protein needs met: Prescribed Consistent Carbohydrates Diet provides for energy/protein needs (2, 061 Kcal/91 g) during LOS. Burn Absent Trauma Absent GI Symptoms None Food Allergy Yes Skin Integrity/Comment Abscess un L-Stump Current % PO Fair (50-74%) Minimum of two criteria No #1 Nutrition Diagnosis No nutrition diagnosis at this time Comments: Will continue to assess PO intake of meals at F/U. Is patient on ventilator? No Is Patient Ambulatory and/or Out of Bed No REE-([facility]-confined to bed) [phone] Calculation Used for Recommendations [facility] Additional Notes Protein: 0.8-1 g/Kg ABW; 54-80 g/day. Fluids: 1 ml/Kcal, or as per MD. Nutrition Intervention Change Diet Order: Continue Consistent Carbohydrates Diet. Goal #1 Maintain body weight within +/ -3% of admission body weight during LOS. Follow-Up By: 06/19/21 Additional Comments Nutrition education will be provided on F/U, if feasible. Continue monitoring food tolerance, %PO intake of meals , and BM.
[2021-06-14 09:27] LABS: Hematocrit 25.7 % (35.5-45.6); Hemoglobin 8.3 gm/dl (11.8-15.2); Mean Corpuscular HGB Conc 32 % (32-34); Mean Corpuscular Volume 80 fl (84-94); Platelet Count 474 K/mm3 (140-440); Red Blood Count 3.21 M/mm3 (3.65-5.03); Red Cell Distribution Width 16.1 % (13.2-15.2)
[2021-06-14 09:37] LABS: Blood Urea Nitrogen 15 mg/dL (9-20); Calcium 8.2 mg/dL (8.4-10.2); Hemolysis Index 2
[2021-06-14 09:40] LABS: BUN/Creatinine Ratio 21
[2021-06-14] MEDS: amLODIPine 5 MG TAB PO SCH ×2 (10:39→10:41)
--- NOTE | 2021-06-14 10:39 | Progress Note ---
Assessment and Plan Cultures: Blood culture 06/10/21 no growth so far IR drainage culture 06/12/2021 pending. GNR A/P: 40-year-old male past medical history type 1 diabetes, prior left BKA, right toe amputations now with: #Acute sepsis: Present with leukocytosis, secondary to left femur osteomyelitis and abscesses. #Left femur osteomyelitis: Surgery prefers to avoid further debridement in order to allow for continued prosthesis use. Will require 6 weeks antibiotics #Muscular abscesses in the left stump: Pending IR debridement #Diabetes: tight glycemic control for best outcomes. Recs: -Agree with vancomycin goal trough 10-20, cefepime for now pending cultures. -Follow up cultures -We will plan on 6 weeks antibiotics, will likely need PICC when blood cultures negative x48 hours Thank you for the consult, we will continue to follow. Meeta Jara MD [facility] ([facility]) O: [phone] F: [phone] Subjective Date of service: 06/14/21 Principal diagnosis: Left leg abscess, osteomyelitis, hyperosmotic nonketotic state Interval history: Afebrile, white count increasing. Cultures remain negative thus far. Objective - Exam Narrative Exam: Physical Exam: Constitutional: Alert, cooperative. No acute distress Head, Ears, Nose: Normocephalic, atraumatic. External ears, nose normal Eyes: Conjunctivae/corneas clear. No icterus. No ptosis. Neck: Supple, no meningeal signs Oral: dentition fair, no thrush Cardiovascular: S1, S2 normal. Respiratory: Good air entry, clear to auscultation bilaterally GI: Soft, non-tender; bowel sounds normal. No peritoneal signs. Musculoskeletal: L BKA, R toes amputated Skin: No rash or abscess Hem/Lymphatic: No palpable cervical or supraclavicular nodes. No lymphangitis Psych: Mood ok. Affect normal Neurological: Awake, alert, oriented. No gross abnormality - Constitutional Vitals: Vital Signs Temp Pulse Resp BP Pulse Ox 98.5 F 116 H 20 153/84 97 06/14/21 05:59 06/14/21 05:59 06/14/21 05:59 06/14/21 05:59 06/14/21 05:59 Temperature -Last 24 Hours Temperature 98.5 F Temperature 99.0 F Temperature 98.0 F Temperature 98.6 F - Labs CBC & Chem 7: 06/14/21 07:58 06/14/21 07:58 Labs: Abnormal lab results 06/13/21 06/13/21 06/13/21 Range/Units 05:26 11:08 15:38 WBC (4.5-11.0) K/mm3 RBC (3.65-5.03) M/mm3 Hgb (11.8-15.2) gm/dl Hct (35.5-45.6) % MCV (84-94) fl MCH (28-32) pg RDW (13.2-15.2) % Plt Count (140-440) K/mm3 Sodium (137-145) mmol/L Creatinine (0.8-1.3) mg/dL POC Glucose 112 H 261 H 180 H (70-105) mg/dL Calcium (8.4-10.2) mg/dL 06/13/21 06/14/21 06/14/21 Range/Units 21:36 01:57 07:58 WBC (4.5-11.0) K/mm3 RBC (3.65-5.03) M/mm3 Hgb (11.8-15.2) gm/dl Hct (35.5-45.6) % MCV (84-94) fl MCH (28-32) pg RDW (13.2-15.2) % Plt Count (140-440) K/mm3 Sodium 134 L (137-145) mmol/L Creatinine 0.7 L (0.8-1.3) mg/dL POC Glucose 222 H 182 H (70-105) mg/dL Calcium 8.2 L (8.4-10.2) mg/dL 06/14/21 Range/Units 07:58 WBC 19.3 H (4.5-11.0) K/mm3 RBC 3.21 L (3.65-5.03) M/mm3 Hgb 8.3 L (11.8-15.2) gm/dl Hct 25.7 L (35.5-45.6) % MCV 80 L (84-94) fl MCH 26 L (28-32) pg RDW 16.1 H (13.2-15.2) % Plt Count 474 H (140-440) K/mm3 Sodium (137-145) mmol/L Creatinine (0.8-1.3) mg/dL POC Glucose (70-105) mg/dL Calcium (8.4-10.2) mg/dL
[2021-06-14] MEDS: VANCOMYCIN/NS 1 GM/250 ML 1 GM/250 ML BAG IV SCH ×2 (10:41→22:11)
[2021-06-14] MEDS: oxyCODONE /ACETAMINOPHEN 5-325MG TAB PO PRN ×2 (10:41→17:02)
[2021-06-14 12:28] LABS: Anisocytosis 1+; Band Neutrophils # (Manual) 2.3 K/mm3; Basophils % (Manual) 0 % (0.0-1.8); Myelocytes # (Manual) 0.6 K/mm3; Platelet Estimate Consistent w Auto; Total Cells Counted 100; Toxic Granulation 1+; Toxic Vacuolation 1+
--- NOTE | 2021-06-14 13:42 | Progress Note ---
Assessment and Plan 40 yo M with 1. left thigh intramuscular abscess s/p IR drainage 2. Left femur osteomyelitis 3. sepsis 2/2 #1 and #2 4. DM - poorly controlled A1C 11.7 Drain output: 30cc/24 hr purulent Abscess culture prelim - gram neg rods Plan: 1. continue management of drain per IR. 2. follow up abscess cultures 3. IV abx per ID 4. strict glucose control 5. OOB to chair 6. prn pain control Will follow peripherally Thank you, please call with questions Subjective Date of service: 06/14/21 Narrative: Pt seen and examined. No acute complaints. Afebrile. Pain well controlled. Objective Vital Signs - 12hr 06/14/21 06/14/21 06/14/21 05:59 09:00 11:44 Temperature 98.5 F 97.8 F Pulse Rate 116 H 116 H Respiratory 20 18 Rate Blood Pressure 153/84 114/67 O2 Sat by Pulse 97 96 95 Oximetry - General physical appearance Narrative Exam: Gen.: Awake, alert, oriented x3. No apparent distress ENT: Trachea midline. No lymphadenopathy. No scleral icterus or conjunctival pallor CV: S1, S2 present Respiratory: No audible wheezes Ext: LLE BKA with old healed wounds. IR drain present with purulent fluid in collection bag - Labs 06/14/21 07:58 06/14/21 07:58 Diabetes panel 06/14/21 Range/Units 07:58 Sodium 134 L (137-145) mmol/L Potassium 3.8 (3.6-5.0) mmol/L Chloride 99.3 (98-107) mmol/L Carbon Dioxide 25 (22-30) mmol/L BUN 15 (9-20) mg/dL Creatinine 0.7 L (0.8-1.3) mg/dL Glucose 81 (75-100) mg/dL Calcium 8.2 L (8.4-10.2) mg/dL Calcium panel 06/14/21 Range/Units 07:58 Calcium 8.2 L (8.4-10.2) mg/dL Pituitary panel 06/14/21 Range/Units 07:58 Sodium 134 L (137-145) mmol/L Potassium 3.8 (3.6-5.0) mmol/L Chloride 99.3 (98-107) mmol/L Carbon Dioxide 25 (22-30) mmol/L BUN 15 (9-20) mg/dL Creatinine 0.7 L (0.8-1.3) mg/dL Glucose 81 (75-100) mg/dL Calcium 8.2 L (8.4-10.2) mg/dL Adrenal panel 06/14/21 Range/Units 07:58 Sodium 134 L (137-145) mmol/L Potassium 3.8 (3.6-5.0) mmol/L Chloride 99.3 (98-107) mmol/L Carbon Dioxide 25 (22-30) mmol/L BUN 15 (9-20) mg/dL Creatinine 0.7 L (0.8-1.3) mg/dL Glucose 81 (75-100) mg/dL Calcium 8.2 L (8.4-10.2) mg/dL
[2021-06-14] MEDS ORDERED: INSULIN NPH/REGULAR 70/30 INJ SUB-Q ONE (18:55)
[2021-06-15] MEDS: MORPHINE 4 MG/1 ML INJ IV PRN ×3 (02:44→20:14)
[2021-06-15] MEDS: CEFEPIME/NS 1 GM/100 ML 1 GM/100 ML BAG IV SCH (03:20)
[2021-06-15] MEDS: HEPARIN 5,000 UNIT/1 ML VIAL SUB-Q SCH ×3 (05:22→21:13)
[2021-06-15] MEDS: ACETAMINOPHEN 325 MG TAB PO PRN (05:23)
[2021-06-15] MEDS: oxyCODONE /ACETAMINOPHEN 5-325MG TAB PO PRN ×3 (05:23→17:06)
[2021-06-15] MEDS: GABAPENTIN 100 MG CAP PO SCH ×3 (05:23→21:13)
[2021-06-15] MEDS: INSULIN LISPRO 100 UNIT/ML SUB-Q SCH ×4 (08:01→22:19)
[2021-06-15] MEDS: INSULIN NPH/REGULAR 70/30 INJ SUB-Q SCH ×2 (08:31→17:05)
[2021-06-15] MEDS: VANCOMYCIN/NS 1 GM/250 ML 1 GM/250 ML BAG IV SCH (09:31)
[2021-06-15] MEDS: amLODIPine 5 MG TAB PO SCH (09:33)
--- NOTE | 2021-06-15 09:59 | Progress Note ---
Assessment and Plan Cultures: Blood culture 06/10/21 no growth so far IR drainage culture 06/12/2021 Proteus mirabilis A/P: 40-year-old male past medical history type 1 diabetes, prior left BKA, right toe amputations now with: #Acute sepsis: Present with leukocytosis, secondary to left femur osteomyelitis and abscesses. #Left femur osteomyelitis: Surgery prefers to avoid further debridement in order to allow for continued prosthesis use. Will require 6 weeks antibiotics #Muscular abscesses in the left stump: Pending IR debridement #Diabetes: tight glycemic control for best outcomes. Recs: -Stop current antibiotics Start ceftriaxone 2 g every 24 hours given MICHAEL profile of Proteus -Repeat fevers likely representing source control issue given appropriate coverage and antibiotics. If they continue may need repeat CT to evaluate for uncontrolled abscess. -Check CRP -We will plan on 6 weeks antibiotics, will likely need PICC when blood cultures negative x48 hours Thank you for the consult, we will continue to follow. Meeta Jara MD [facility] ([facility]) O: [phone] F: [phone] Subjective Date of service: 06/15/21 Principal diagnosis: Left leg abscess, osteomyelitis, hyperosmotic nonketotic state Interval history: Repeat fevers to 102.1 with a white count 19.3 as of yesterday. Surgical cultures with Proteus mirabilis which is largely sensitive. Objective - Exam Narrative Exam: Physical Exam: Constitutional: Alert, cooperative. No acute distress Head, Ears, Nose: Normocephalic, atraumatic. External ears, nose normal Eyes: Conjunctivae/corneas clear. No icterus. No ptosis. Neck: Supple, no meningeal signs Oral: dentition fair, no thrush Cardiovascular: S1, S2 normal. Respiratory: Good air entry, clear to auscultation bilaterally GI: Soft, non-tender; bowel sounds normal. No peritoneal signs. Musculoskeletal: L BKA, R toes amputated Skin: No rash or abscess Hem/Lymphatic: No palpable cervical or supraclavicular nodes. No lymphangitis Psych: Mood ok. Affect normal Neurological: Awake, alert, oriented. No gross abnormality - Constitutional Vitals: Vital Signs Temp Pulse Resp BP Pulse Ox 102.1 F H 103 H 18 118/68 94 06/15/21 03:38 06/15/21 09:33 06/15/21 03:38 06/15/21 09:33 06/15/21 03:38 Temperature -Last 24 Hours Temperature 102.1 F Temperature 100.4 F Temperature 97.8 F - Labs CBC & Chem 7: 06/14/21 07:58 06/14/21 07:58 Labs: Abnormal lab results 06/14/21 06/14/21 06/14/21 Range/Units 07:58 16:18 20:49 Seg Neuts % (Manual) 77.0 H (40.0-70.0) % Lymphocytes % (Manual) 1.0 L (13.4-35.0) % Seg Neutrophils # Man 14.9 H (1.8-7.7) K/mm3 Lymphocytes # (Manual) 0.2 L (1.2-5.4) K/mm3 Monocytes # (Manual) 1.2 H (0.0-0.8) K/mm3 POC Glucose 257 H 44 L (70-105) mg/dL 06/15/21 Range/Units 07:27 Seg Neuts % (Manual) (40.0-70.0) % Lymphocytes % (Manual) (13.4-35.0) % Seg Neutrophils # Man (1.8-7.7) K/mm3 Lymphocytes # (Manual) (1.2-5.4) K/mm3 Monocytes # (Manual) (0.0-0.8) K/mm3 POC Glucose 132 H (70-105) mg/dL
[2021-06-15 10:39] LABS: BUN/Creatinine Ratio 20; Blood Urea Nitrogen 16 mg/dL (9-20); Calcium 7.9 mg/dL (8.4-10.2); Hemolysis Index 9
[2021-06-15] MEDS: cefTRIAXone/NS 2 GM/100 ML 2 GM/100 ML BAG IV SCH (12:47)
[2021-06-15] MEDS ORDERED: FUROSEMIDE 40 MG/4 ML INJ IV ONE (19:46)
--- NOTE | 2021-06-15 19:46 | Progress Note ---
Assessment and Plan Assessment and plan: Successful CT-guided drainage placement in the left posterior thigh musculature/abscess per interventional radiologist CT-guided 8 [place] drain placement in the left thigh musculature 06/13/2019 Continue current antibiotics, pain medications, supportive care Surgery following -- left lower extremity osteomyelitis proximal fibula -We will need 6 weeks antibiotics vancomycin. -Antibiotic coverage [place] being scheduled per infectious disease. -Supportive care pain control and tight glycemic control -- multiple abscess lower extremity -Plan today for I&D with interventional radiology -Not a candidate for any further debridement at this time for osteomyelitis Will be difficult to use prosthesis therefore will take a more conservative approach to debridement. --uncontrolled diabetes -Hemoglobin A1c 11.4. -Unlikely to benefit from small dose of long-acting medication. -We will change to NovoLog 70/30 15 units twice daily titrate accordingly. -- hypertension -Fairly well controlled with amlodipine 5 mg. -We will benefit from GLENNA at some point for renal protection. But does not have to be now. -- sepsis -Multifactorial secondary to multiple lower extremity abscess -Continue vancomycin cefepime. Will require 6 weeks antibiotics outpatient --generalized anxiety; We will add low-dose Xanax 0.253 times a day as needed for anxiety Closely monitor the patient and adjust management as needed Plan of care reviewed with the patient and his nurse Physical therapy/Occupational Therapy evaluation and treatment as tolerated Discharge planning per case business management professor recommendations noted and appreciated History Interval history: I have seen and examined the patient at the bedside Patient's chart and medications reviewed Patient feels slightly better Still frustrated about many things Complaints of feeling bloated Feels that he has a lot of fluid/edema in the scrotal area Patient refused examination Hospitalist Physical - Constitutional Vitals: Temp Pulse Resp BP Pulse Ox 99.1 F 107 H 16 117/68 96 06/15/21 16:25 06/15/21 16:25 06/15/21 16:25 06/15/21 16:25 06/15/21 16:25 General appearance: Present: no acute distress, well-nourished - EENT Eyes: Present: PERRL, EOM intact - Neck Neck: Present: supple, normal ROM - Respiratory Respiratory effort: normal Respiratory: bilateral: diminished, negative: rales, rhonchi, wheezing - Cardiovascular Rhythm: regular Heart Sounds: Present: S1 & S2 - Extremities Extremities: no ischemia, abnormal (Left BKA, left thigh drain functional) - Abdominal General gastrointestinal: soft, non-tender, non-distended - Integumentary Integumentary: Present: clear, warm - Psychiatric Psychiatric: appropriate mood/affect, cooperative - Neurologic Neurologic: moves all extremities Results - Labs CBC & Chem 7: 06/14/21 07:58 06/15/21 09:42 Labs: Laboratory Last Values WBC 19.3 K/mm3 (4.5-11.0) H 06/14/21 07:58 RBC 3.21 M/mm3 (3.65-5.03) L 06/14/21 07:58 Hgb 8.3 gm/dl (11.8-15.2) L 06/14/21 07:58 Hct 25.7 % (35.5-45.6) L 06/14/21 07:58 MCV 80 fl (84-94) L 06/14/21 07:58 MCH 26 pg (28-32) L 06/14/21 07:58 MCHC 32 % (32-34) 06/14/21 07:58 RDW 16.1 % (13.2-15.2) H 06/14/21 07:58 Plt Count 474 K/mm3 (140-440) H 06/14/21 07:58 Add Manual Diff Complete 06/14/21 07:58 Total Counted 100 06/14/21 07:58 Seg Neutrophils % Online User Experience Strategist 06/10/21 06:56 Seg Neuts % (Manual) 77.0 % (40.0-70.0) H 06/14/21 07:58 Band Neutrophils % 12.0 % 06/14/21 07:58 Lymphocytes % (Manual) 1.0 % (13.4-35.0) L 06/14/21 07:58 Reactive Lymphs % (Man) 0 % 06/14/21 07:58 Monocytes % (Manual) 6.0 % (0.0-7.3) 06/14/21 07:58 Eosinophils % (Manual) 1.0 % (0.0-4.3) 06/14/21 07:58 Basophils % (Manual) 0 % (0.0-1.8) 06/14/21 07:58 Metamyelocytes % 0 % 06/14/21 07:58 Myelocytes % 3.0 % 06/14/21 07:58 Promyelocytes % 0 % 06/14/21 07:58 Blast Cells % 0 % 06/14/21 07:58 Nucleated RBC % Not Reportable 06/14/21 07:58 Seg Neutrophils # Man 14.9 K/mm3 (1.8-7.7) H 06/14/21 07:58 Band Neutrophils # 2.3 K/mm3 06/14/21 07:58 Lymphocytes # (Manual) 0.2 K/mm3 (1.2-5.4) L 06/14/21 07:58 Abs React Lymphs (Man) 0.0 K/mm3 06/14/21 07:58 Monocytes # (Manual) 1.2 K/mm3 (0.0-0.8) H 06/14/21 07:58 Eosinophils # (Manual) 0.2 K/mm3 (0.0-0.4) 06/14/21 07:58 Basophils # (Manual) 0.0 K/mm3 (0.0-0.1) 06/14/21 07:58 Metamyelocytes # 0.0 K/mm3 06/14/21 07:58 Myelocytes # 0.6 K/mm3 06/14/21 07:58 Promyelocytes # 0.0 K/mm3 06/14/21 07:58 Blast Cells # 0.0 K/mm3 06/14/21 07:58 WBC Morphology Not Reportable 06/14/21 07:58 Hypersegmented Neuts Not Reportable 06/14/21 07:58 Hyposegmented Neuts Not Reportable 06/14/21 07:58 Hypogranular Neuts Not Reportable 06/14/21 07:58 Smudge Cells Not Reportable 06/14/21 07:58 Toxic Granulation 1+ 06/14/21 07:58 Toxic Vacuolation 1+ 06/14/21 07:58 Dohle Bodies Not Reportable 06/14/21 07:58 Pelger-Huet Anomaly Not Reportable 06/14/21 07:58 Rachid Rods Not Reportable 06/14/21 07:58 Platelet Estimate Consistent w auto 06/14/21 07:58 Clumped Platelets Not Reportable 06/14/21 07:58 Plt Clumps, EDTA Not Reportable 06/14/21 07:58 Large Platelets Not Reportable 06/14/21 07:58 Giant Platelets Not Reportable 06/14/21 07:58 Platelet Satelliting Not Reportable 06/14/21 07:58 Plt Morphology Comment Not Reportable 06/14/21 07:58 RBC Morphology Not Reportable 06/14/21 07:58 Dimorphic RBCs Not Reportable 06/14/21 07:58 Polychromasia Not Reportable 06/14/21 07:58 Hypochromasia Not Reportable 06/14/21 07:58 Poikilocytosis Not Reportable 06/14/21 07:58 Anisocytosis 1+ 06/14/21 07:58 Microcytosis Not Reportable 06/14/21 07:58 Macrocytosis Not Reportable 06/14/21 07:58 Spherocytes Not Reportable 06/14/21 07:58 Pappenheimer Bodies Not Reportable 06/14/21 07:58 Sickle Cells Not Reportable 06/14/21 07:58 Target Cells Not Reportable 06/14/21 07:58 Tear Drop Cells Not Reportable 06/14/21 07:58 Ovalocytes Not Reportable 06/14/21 07:58 Helmet Cells Not Reportable 06/14/21 07:58 [place] Bodies Not Reportable 06/14/21 07:58 [place] Rings Not Reportable 06/14/21 07:58 [place] Cells Not Reportable 06/14/21 07:58 Bite Cells Not Reportable 06/14/21 07:58 Crenated Cell Not Reportable 06/14/21 07:58 Elliptocytes Not Reportable 06/14/21 07:58 Acanthocytes (Spur) Not Reportable 06/14/21 07:58 Rouleaux Not Reportable 06/14/21 07:58 Hemoglobin C Crystals Not Reportable 06/14/21 07:58 Schistocytes Not Reportable 06/14/21 07:58 Malaria parasites Not Reportable 06/14/21 07:58 [place] Bodies Not Reportable 06/14/21 07:58 Hem Pathologist Commnt No 06/14/21 07:58 VBG pH 7.352 (7.320-7.420) 06/10/21 08:07 Sodium 131 mmol/L (137-145) L 06/15/21 09:42 Potassium 4.5 mmol/L (3.6-5.0) 06/15/21 09:42 Chloride 93.3 mmol/L (98-107) L 06/15/21 09:42 Carbon Dioxide 27 mmol/L (22-30) 06/15/21 09:42 Anion Gap 15 mmol/L 06/15/21 09:42 BUN 16 mg/dL (9-20) 06/15/21 09:42 Creatinine 0.8 mg/dL (0.8-1.3) 06/15/21 09:42 Estimated GFR > 60 ml/min 06/15/21 09:42 BUN/Creatinine Ratio 20 % 06/15/21 09:42 Glucose 241 mg/dL (75-100) H 06/15/21 09:42 POC Glucose 157 mg/dL (70-105) H 06/15/21 16:56 Hemoglobin A1c 11.7 % (4-6) H 06/11/21 Unknown Lactic Acid 1.70 mmol/L (0.7-2.0) 06/10/21 08:07 Calcium 7.9 mg/dL (8.4-10.2) L 06/15/21 09:42 Phosphorus 1.90 mg/dL (2.5-4.5) L 06/10/21 06:56 Magnesium 2.00 mg/dL (1.7-2.3) 06/14/21 07:58 Total Bilirubin 0.30 mg/dL (0.1-1.2) 06/10/21 06:56 Total Bilirubin 0.40 mg/dL (0.1-1.2) 06/10/21 06:56 Direct Bilirubin < 0.2 mg/dL (0-0.2) 06/10/21 06:56 Indirect Bilirubin 0.2 mg/dL 06/10/21 06:56 AST 7 units/L (5-40) 06/10/21 06:56 AST 8 units/L (5-40) 06/10/21 06:56 ALT 5 units/L (7-56) L 06/10/21 06:56 ALT 6 units/L (7-56) L 06/10/21 06:56 Alkaline Phosphatase 170 units/L (35-129) H 06/10/21 06:56 Alkaline Phosphatase 172 units/L (35-129) H 06/10/21 06:56 Total Protein 7.5 g/dL (6.3-8.2) 06/10/21 06:56 Total Protein 7.7 g/dL (6.3-8.2) 06/10/21 06:56 Albumin 3.2 g/dL (3.9-5) L 06/10/21 06:56 Albumin 3.3 g/dL (3.9-5) L 06/10/21 06:56 Albumin/Globulin Ratio 0.7 % 06/10/21 06:56 Albumin/Globulin Ratio 0.8 % 06/10/21 06:56 Lipase 5 units/L (13-60) L 06/10/21 06:56 TSH 1.080 mlU/mL (0.270-4.200) 06/10/21 06:56 Free T4 1.05 ng/dL (0.76-1.46) 06/10/21 06:56 Urine Color Yellow (Yellow) 06/10/21 Unknown Urine Turbidity Cloudy (Clear) 06/10/21 Unknown Urine pH 5.0 (5.0-7.0) 06/10/21 Unknown Ur Specific [place] 1.014 (1.003-1.030) 06/10/21 Unknown Urine Protein 100 mg/dl mg/dL (Negative) 06/10/21 Unknown Urine Glucose (UA) >=500 mg/dL (Negative) 06/10/21 Unknown Urine Ketones Neg mg/dL (Negative) 06/10/21 Unknown Urine Blood Sm (Negative) 06/10/21 Unknown Urine Nitrite Neg (Negative) 06/10/21 Unknown Urine Bilirubin Neg (Negative) 06/10/21 Unknown Urine Urobilinogen < 2.0 mg/dL (<2.0) 06/10/21 Unknown Ur Leukocyte Esterase Neg (Negative) 06/10/21 Unknown Urine WBC (Auto) 7.0 /HPF (0.0-6.0) H 06/10/21 Unknown Urine RBC (Auto) 95.0 /HPF (0.0-6.0) 06/10/21 Unknown U Epithel Cells (Auto) 6.0 /HPF (0-13.0) 06/10/21 Unknown Urine Bacteria (Auto) 1+ /HPF (Negative) 06/10/21 Unknown Amorphous Crystals 1+ 06/10/21 Unknown Hyaline Casts 1 /LPF 06/10/21 Unknown Granular Casts 16 /LPF 06/10/21 Unknown RBC Casts 13 /LPF 06/10/21 Unknown Urine Mucus Few /HPF 06/10/21 Unknown Vancomycin Trough 19.6 ug/mL (5.0-20.0) 06/13/21 07:30 Urine Opiates Screen Positive 06/10/21 Unknown Urine Methadone Screen Negative 06/10/21 Unknown Ur Barbiturates Screen Negative 06/10/21 Unknown Ur Phencyclidine Scrn Negative 06/10/21 Unknown Ur Amphetamines Screen Negative 06/10/21 Unknown U Benzodiazepines Scrn Negative 06/10/21 Unknown Urine Cocaine Screen Negative 06/10/21 Unknown U Marijuana (THC) Screen Negative 06/10/21 Unknown Drugs of Abuse Note Disclamer 06/10/21 Unknown Microbiology: Microbiology 06/10/21 06:56 Peripheral/Venous Blood Culture - Final NO GROWTH AFTER 5 DAYS 06/10/21 06:56 Peripheral/Venous Blood Culture - Final NO GROWTH AFTER 5 DAYS 06/12/21 Unknown Thigh - Left Surgical Culture - Final Proteus Mirabilis Contreras/IV: Voiding Method Urinal Active Medications - Current Medications Current Medications: Generic Name Dose Route Start Last Admin Trade Name Freq PRN Reason Stop Dose Admin Acetaminophen 650 mg 06/10/21 12:51 06/15/21 05:23 Acetaminophen 325 Mg Tab PO 650 mg Q4H PRN Administration Pain MILD(1-3)/Fever >100.5/ODOM Alprazolam 0.25 mg 06/14/21 19:00 Alprazolam 0.25 Mg Tab PO Q8H PRN Anxiety Amlodipine Besylate 5 mg 06/11/21 10:00 06/15/21 09:33 Amlodipine 5 Mg Tab PO 5 mg QDAY SHANIKA Administration Dextrose 50 ml 06/10/21 11:43 06/11/21 22:36 Dextrose 50% In Water (25gm) 50 Ml Syringe IV 50 ml Q30MIN PRN Administration Hypoglycemia Protocol Gabapentin 100 mg 06/11/21 14:00 06/15/21 17:10 Gabapentin 100 Mg Cap PO 100 mg Q8HR SHANIKA Administration Heparin Sodium (Porcine) 5,000 unit 06/10/21 14:00 06/15/21 17:05 Heparin 5,000 Unit/1 Ml Vial SUB-Q 5,000 unit Q8HR SHANIKA Administration Ceftriaxone Sodium 2 gm in 100 mls @ 200 mls/hr 06/15/21 12:00 06/15/21 12:47 Rocephin/Ns 2 Gm/100 Ml IV 200 mls/hr Q24H SHANIKA Administration Protocol Insulin Human Isoph/Insulin Regular 15 unit 06/15/21 08:00 06/15/21 17:05 Insulin Nph/Regular 70/30 Inj SUB-Q 15 unit BIDDIAB SHANIKA Administration Insulin Human Lispro 0 unit 06/14/21 22:00 06/15/21 17:11 Insulin Lispro 100 Unit/Ml SUB-Q 2 unit ACHS SHANIKA Administration Protocol Morphine Sulfate 2 mg 06/10/21 12:51 06/15/21 12:08 Morphine 4 Mg/1 Ml Inj IV 2 mg Q4H PRN Administration Pain , Severe (7-10) Ondansetron HCl 4 mg 06/10/21 12:51 Ondansetron 4 Mg/2 Ml Inj IV Q8H PRN Nausea And Vomiting Oxycodone/Acetaminophen 2 tab 06/13/21 18:21 06/15/21 17:06 Oxycodone /Acetaminophen 5-325mg Tab PO 2 tab Q4H PRN Administration Pain, Moderate (4-6) Sodium Chloride 10 ml 06/10/21 13:00 06/15/21 09:34 Sodium Chloride 0.9% 10 Ml Flush Syringe IV 10 ml BID SHANIKA Administration Sodium Chloride 10 ml 06/10/21 12:51 Sodium Chloride 0.9% 10 Ml Flush Syringe IV PRN PRN LINE FLUSH Nutrition/Malnutrition Assess - Dietary Evaluation Nutrition/Malnutrition Findings: Nutrition Notes Start: 06/11/21 11:43 Freq: Status: Active Protocol: Document 06/12/21 15:49 NATHALY (Rec: 06/12/21 16:18 NATHALY [id number]) Nutrition Notes Initial or Follow up Assessment Current Diagnosis Diabetes,Sepsis,Hypertension Other Pertinent Diagnosis T1DM, L-BKA, R-Toe Amputation, L-Fibula Osteomyelitis, Abscess in L-stump. Current Diet Consistent Carbohydrates Diet (since D 06/12). Labs/Tests 06/11: Na 133, BUN 26, Ca 7.8. Pertinent Medications 06/12: D5w 1000 ml @ 100 ml/hr , others nutritionally unremarkable. Height 5 ft 11 in Weight 67 kg [place] Body Weight (kg) 78.18 BMI 20.6 Weight change and time frame 0.3 Kg body weight loss in 1 day reported. Weight Status Appropriate Subjective/Other Information RD consult for routine F/U on nutrition education. Pt's PO intake of meals has been Fair (50%), according to ADL notes. Pt is on Room Air with O2 saturation @ 100%, according to Physical Assessment History notes. Pt presents abscess un L-Stump s/p drain placement, according to Progress notes & Operative report. Procedure on 06/12: Drain placement in L-Thigh musculature. Well tolerated, according to Progress notes. Pt still in critical condition , not a candidate for Nutrition Education at the time, will assess feasibility on F/U. Percent of energy/protein needs met: Prescribed Consistent Carbohydrates Diet provides for energy/protein needs (2, 061 Kcal/91 g) during LOS. Burn Absent Trauma Absent GI Symptoms None Food Allergy Yes Skin Integrity/Comment Abscess un L-Stump Current % PO Fair (50-74%) Minimum of two criteria No #1 Nutrition Diagnosis No nutrition diagnosis at this time Comments: Will continue to assess PO intake of meals at F/U. Is patient on ventilator? No Is Patient Ambulatory and/or Out of Bed No REE-(Schleicher-St. Jeor-confined to bed) [phone] Calculation [facility]ations [facility] Additional Notes Protein: 0.8-1 g/Kg ABW; 54-80 g/day. Fluids: 1 ml/Kcal, or as per MD. Nutrition Intervention Change Diet Order: Continue Consistent Carbohydrates Diet. Goal #1 Maintain body weight within +/ -3% of admission body weight during LOS. Follow-Up By: 06/19/21 Additional Comments Nutrition education will be provided on F/U, if feasible. Continue monitoring food tolerance, %PO intake of meals , and BM.
[2021-06-15] MEDS ORDERED: diphenhydrAMINE 50 MG/ML VIAL IV PRN (20:03)
[2021-06-15] MEDS: DEXTROSE 50% IN WATER (25GM) 50 ML SYRINGE IV PRN (21:57)
[2021-06-16] MEDS: oxyCODONE /ACETAMINOPHEN 5-325MG TAB PO PRN ×4 (02:29→20:48)
[2021-06-16] MEDS: GABAPENTIN 100 MG CAP PO SCH ×3 (05:56→21:03)
[2021-06-16] MEDS: HEPARIN 5,000 UNIT/1 ML VIAL SUB-Q SCH ×3 (05:56→21:03)
[2021-06-16 06:32] LABS: BUN/Creatinine Ratio 19; Blood Urea Nitrogen 19 mg/dL (9-20); Hemolysis Index 0
[2021-06-16] MEDS: INSULIN LISPRO 100 UNIT/ML SUB-Q SCH ×4 (08:53→21:04)
[2021-06-16] MEDS: INSULIN NPH/REGULAR 70/30 INJ SUB-Q SCH ×2 (08:56→17:16)
--- NOTE | 2021-06-16 10:18 | Progress Note ---
Assessment and Plan Assessment and plan: Successful CT-guided drainage placement in the left posterior thigh musculature/abscess per interventional radiologist CT-guided 8 [place] drain placement in the left thigh musculature 06/13/2019 Continue current antibiotics, pain medications, supportive care Surgery following -- left lower extremity osteomyelitis proximal fibula -We will need 6 weeks antibiotics vancomycin. -Antibiotic coverage [place] being scheduled per infectious disease. -Supportive care pain control and tight glycemic control -- multiple abscess lower extremity -Plan today for I&D with interventional radiology -Not a candidate for any further debridement at this time for osteomyelitis Will be difficult to use prosthesis therefore will take a more conservative approach to debridement. --uncontrolled diabetes -Hemoglobin A1c 11.4. -Unlikely to benefit from small dose of long-acting medication. -We will change to NovoLog 70/30 15 units twice daily titrate accordingly. -- hypertension -Fairly well controlled with amlodipine 5 mg. -We will benefit from GLENNA at some point for renal protection. But does not have to be now. -- sepsis -Multifactorial secondary to multiple lower extremity abscess -Continue vancomycin cefepime. Will require 6 weeks antibiotics outpatient --generalized anxiety; We will add low-dose Xanax 0.253 times a day as needed for anxiety --Advance care planning Disease education conducted, care plan discussed, diagnoses discussed, Long-term antibiotics due to osteomyelitis discussed with the patient, consultants recommendations discussed with the patient prognosis discussed, patient is full code, patient acknowledges understanding, had numerous questions, answered all of them Patient verbalized understanding and agree with care plan, +30 minutes. Closely monitor the patient and adjust management as needed Plan of care reviewed with the patient and his nurse Physical therapy/Occupational Therapy evaluation and treatment as tolerated Discharge planning per case configuration management advisor recommendations noted and appreciated History Interval history: I seen and examined the patient at the bedside Patient's chart and medications reviewed Patient complaining about generalized body pains Patient feels little better after receiving low-dose of Lasix Due to poor oral intake, blood sugars are labile Vital signs noted Hospitalist Physical - Constitutional Vitals: Temp Pulse Resp BP Pulse Ox 99.6 F 110 H 18 105/64 94 06/16/21 05:10 06/16/21 05:10 06/16/21 05:10 06/16/21 05:10 06/16/21 05:10 General appearance: Present: no acute distress, well-nourished - EENT Eyes: Present: PERRL, EOM intact - Neck Neck: Present: supple, normal ROM - Respiratory Respiratory effort: normal Respiratory: bilateral: diminished, negative: rales, rhonchi, wheezing - Cardiovascular Rhythm: regular Heart Sounds: Present: S1 & S2 - Extremities Extremities: no ischemia, abnormal (Osteomyelitis left lower extremity left BKA, drain in place) - Abdominal General gastrointestinal: soft, non-tender, non-distended, normal bowel sounds - Integumentary Integumentary: Present: clear, warm - Psychiatric Psychiatric: appropriate mood/affect, cooperative, other (Angry and verbal) - Neurologic Neurologic: moves all extremities Results - Labs CBC & Chem 7: 06/14/21 07:58 06/16/21 05:33 Labs: Laboratory Last Values WBC 19.3 K/mm3 (4.5-11.0) H 06/14/21 07:58 RBC 3.21 M/mm3 (3.65-5.03) L 06/14/21 07:58 Hgb 8.3 gm/dl (11.8-15.2) L 06/14/21 07:58 Hct 25.7 % (35.5-45.6) L 06/14/21 07:58 MCV 80 fl (84-94) L 06/14/21 07:58 MCH 26 pg (28-32) L 06/14/21 07:58 MCHC 32 % (32-34) 06/14/21 07:58 RDW 16.1 % (13.2-15.2) H 06/14/21 07:58 Plt Count 474 K/mm3 (140-440) H 06/14/21 07:58 Add Manual Diff Complete 06/14/21 07:58 Total Counted 100 06/14/21 07:58 Seg Neutrophils % [place] 06/10/21 06:56 Seg Neuts % (Manual) 77.0 % (40.0-70.0) H 06/14/21 07:58 Band Neutrophils % 12.0 % 06/14/21 07:58 Lymphocytes % (Manual) 1.0 % (13.4-35.0) L 06/14/21 07:58 Reactive Lymphs % (Man) 0 % 06/14/21 07:58 Monocytes % (Manual) 6.0 % (0.0-7.3) 06/14/21 07:58 Eosinophils % (Manual) 1.0 % (0.0-4.3) 06/14/21 07:58 Basophils % (Manual) 0 % (0.0-1.8) 06/14/21 07:58 Metamyelocytes % 0 % 06/14/21 07:58 Myelocytes % 3.0 % 06/14/21 07:58 Promyelocytes % 0 % 06/14/21 07:58 Blast Cells % 0 % 06/14/21 07:58 Nucleated RBC % Not Reportable 06/14/21 07:58 Seg Neutrophils # Man 14.9 K/mm3 (1.8-7.7) H 06/14/21 07:58 Band Neutrophils # 2.3 K/mm3 06/14/21 07:58 Lymphocytes # (Manual) 0.2 K/mm3 (1.2-5.4) L 06/14/21 07:58 Abs React Lymphs (Man) 0.0 K/mm3 06/14/21 07:58 Monocytes # (Manual) 1.2 K/mm3 (0.0-0.8) H 06/14/21 07:58 Eosinophils # (Manual) 0.2 K/mm3 (0.0-0.4) 06/14/21 07:58 Basophils # (Manual) 0.0 K/mm3 (0.0-0.1) 06/14/21 07:58 Metamyelocytes # 0.0 K/mm3 06/14/21 07:58 Myelocytes # 0.6 K/mm3 06/14/21 07:58 Promyelocytes # 0.0 K/mm3 06/14/21 07:58 Blast Cells # 0.0 K/mm3 06/14/21 07:58 WBC Morphology Not Reportable 06/14/21 07:58 Hypersegmented Neuts Not Reportable 06/14/21 07:58 Hyposegmented Neuts Not Reportable 06/14/21 07:58 Hypogranular Neuts Not Reportable 06/14/21 07:58 Smudge Cells Not Reportable 06/14/21 07:58 Toxic Granulation 1+ 06/14/21 07:58 Toxic Vacuolation 1+ 06/14/21 07:58 Dohle Bodies Not Reportable 06/14/21 07:58 Pelger-Huet Anomaly Not Reportable 06/14/21 07:58 Rachid Rods Not Reportable 06/14/21 07:58 Platelet Estimate Consistent w auto 06/14/21 07:58 Clumped Platelets Not Reportable 06/14/21 07:58 Plt Clumps, EDTA Not Reportable 06/14/21 07:58 Large Platelets Not Reportable 06/14/21 07:58 Giant Platelets Not Reportable 06/14/21 07:58 Platelet Satelliting Not Reportable 06/14/21 07:58 Plt Morphology Comment Not Reportable 06/14/21 07:58 RBC Morphology Not Reportable 06/14/21 07:58 Dimorphic RBCs Not Reportable 06/14/21 07:58 Polychromasia Not Reportable 06/14/21 07:58 Hypochromasia Not Reportable 06/14/21 07:58 Poikilocytosis Not Reportable 06/14/21 07:58 Anisocytosis 1+ 06/14/21 07:58 Microcytosis Not Reportable 06/14/21 07:58 Macrocytosis Not Reportable 06/14/21 07:58 Spherocytes Not Reportable 06/14/21 07:58 Pappenheimer Bodies Not Reportable 06/14/21 07:58 Sickle Cells Not Reportable 06/14/21 07:58 Target Cells Not Reportable 06/14/21 07:58 Tear Drop Cells Not Reportable 06/14/21 07:58 Ovalocytes Not Reportable 06/14/21 07:58 Helmet Cells Not Reportable 06/14/21 07:58 Cardona-Niarada Bodies Not Reportable 06/14/21 07:58 [place] Rings Not Reportable 06/14/21 07:58 Angelina Cells Not Reportable 06/14/21 07:58 Bite Cells Not Reportable 06/14/21 07:58 Crenated Cell Not Reportable 06/14/21 07:58 Elliptocytes Not Reportable 06/14/21 07:58 Acanthocytes (Spur) Not Reportable 06/14/21 07:58 Rouleaux Not Reportable 06/14/21 07:58 Hemoglobin C Crystals Not Reportable 06/14/21 07:58 Schistocytes Not Reportable 06/14/21 07:58 Malaria parasites Not Reportable 06/14/21 07:58 Refugio Bodies Not Reportable 06/14/21 07:58 Hem Pathologist Commnt No 06/14/21 07:58 VBG pH 7.352 (7.320-7.420) 06/10/21 08:07 Sodium 135 mmol/L (137-145) L 06/16/21 05:33 Potassium 4.1 mmol/L (3.6-5.0) 06/16/21 05:33 Chloride 94.7 mmol/L (98-107) L 06/16/21 05:33 Carbon Dioxide 27 mmol/L (22-30) 06/16/21 05:33 Anion Gap 17 mmol/L 06/16/21 05:33 BUN 19 mg/dL (9-20) 06/16/21 05:33 Creatinine 1.0 mg/dL (0.8-1.3) 06/16/21 05:33 Estimated GFR > 60 ml/min 06/16/21 05:33 BUN/Creatinine Ratio 19 % 06/16/21 05:33 Glucose 199 mg/dL (75-100) H 06/16/21 05:33 POC Glucose 240 mg/dL (70-105) H 06/16/21 07:28 Hemoglobin A1c 11.7 % (4-6) H 06/11/21 Unknown Lactic Acid 1.70 mmol/L (0.7-2.0) 06/10/21 08:07 Calcium 8.0 mg/dL (8.4-10.2) L 06/16/21 05:33 Phosphorus 1.90 mg/dL (2.5-4.5) L 06/10/21 06:56 Magnesium 2.00 mg/dL (1.7-2.3) 06/14/21 07:58 Total Bilirubin 0.30 mg/dL (0.1-1.2) 06/10/21 06:56 Total Bilirubin 0.40 mg/dL (0.1-1.2) 06/10/21 06:56 Direct Bilirubin < 0.2 mg/dL (0-0.2) 06/10/21 06:56 Indirect Bilirubin 0.2 mg/dL 06/10/21 06:56 AST 7 units/L (5-40) 06/10/21 06:56 AST 8 units/L (5-40) 06/10/21 06:56 ALT 5 units/L (7-56) L 06/10/21 06:56 ALT 6 units/L (7-56) L 06/10/21 06:56 Alkaline Phosphatase 170 units/L (35-129) H 06/10/21 06:56 Alkaline Phosphatase 172 units/L (35-129) H 06/10/21 06:56 C-Reactive Protein 28.90 mg/dL (0.00-1.30) H 06/16/21 09:01 Total Protein 7.5 g/dL (6.3-8.2) 06/10/21 06:56 Total Protein 7.7 g/dL (6.3-8.2) 06/10/21 06:56 Albumin 3.2 g/dL (3.9-5) L 06/10/21 06:56 Albumin 3.3 g/dL (3.9-5) L 06/10/21 06:56 Albumin/Globulin Ratio 0.7 % 06/10/21 06:56 Albumin/Globulin Ratio 0.8 % 06/10/21 06:56 Lipase 5 units/L (13-60) L 06/10/21 06:56 TSH 1.080 mlU/mL (0.270-4.200) 06/10/21 06:56 Free T4 1.05 ng/dL (0.76-1.46) 06/10/21 06:56 Urine Color Yellow (Yellow) 06/10/21 Unknown Urine Turbidity Cloudy (Clear) 06/10/21 Unknown Urine pH 5.0 (5.0-7.0) 06/10/21 Unknown Ur Specific [place] 1.014 (1.003-1.030) 06/10/21 Unknown Urine Protein 100 mg/dl mg/dL (Negative) 06/10/21 Unknown Urine Glucose (UA) >=500 mg/dL (Negative) 06/10/21 Unknown Urine Ketones Neg mg/dL (Negative) 06/10/21 Unknown Urine Blood Sm (Negative) 06/10/21 Unknown Urine Nitrite Neg (Negative) 06/10/21 Unknown Urine Bilirubin Neg (Negative) 06/10/21 Unknown Urine Urobilinogen < 2.0 mg/dL (<2.0) 06/10/21 Unknown Ur Leukocyte Esterase Neg (Negative) 06/10/21 Unknown Urine WBC (Auto) 7.0 /HPF (0.0-6.0) H 06/10/21 Unknown Urine RBC (Auto) 95.0 /HPF (0.0-6.0) 06/10/21 Unknown U Epithel Cells (Auto) 6.0 /HPF (0-13.0) 06/10/21 Unknown Urine Bacteria (Auto) 1+ /HPF (Negative) 06/10/21 Unknown Amorphous Crystals 1+ 06/10/21 Unknown Hyaline Casts 1 /LPF 06/10/21 Unknown Granular Casts 16 /LPF 06/10/21 Unknown RBC Casts 13 /LPF 06/10/21 Unknown Urine Mucus Few /HPF 06/10/21 Unknown Vancomycin Trough 19.6 ug/mL (5.0-20.0) 06/13/21 07:30 Urine Opiates Screen Positive 06/10/21 Unknown Urine Methadone Screen Negative 06/10/21 Unknown Ur Barbiturates Screen Negative 06/10/21 Unknown Ur Phencyclidine Scrn Negative 06/10/21 Unknown Ur Amphetamines Screen Negative 06/10/21 Unknown U Benzodiazepines Scrn Negative 06/10/21 Unknown Urine Cocaine Screen Negative 06/10/21 Unknown U Marijuana (THC) Screen Negative 06/10/21 Unknown Drugs of Abuse Note Disclamer 06/10/21 Unknown Microbiology: Microbiology 06/10/21 06:56 Peripheral/Venous Blood Culture - Final NO GROWTH AFTER 5 DAYS 06/10/21 06:56 Peripheral/Venous Blood Culture - Final NO GROWTH AFTER 5 DAYS 06/12/21 Unknown Thigh - Left Surgical Culture - Final Proteus Mirabilis Contreras/IV: Voiding Method Urinal Active Medications - Current Medications Current Medications: Generic Name Dose Route Start Last Admin Trade Name Freq PRN Reason Stop Dose Admin Acetaminophen 650 mg 06/10/21 12:51 06/15/21 05:23 Acetaminophen 325 Mg Tab PO 650 mg Q4H PRN Administration Pain MILD(1-3)/Fever >100.5/ODOM Alprazolam 0.25 mg 06/14/21 19:00 Alprazolam 0.25 Mg Tab PO Q8H PRN Anxiety Amlodipine Besylate 5 mg 06/11/21 10:00 06/15/21 09:33 Amlodipine 5 Mg Tab PO 5 mg QDAY SHANIKA Administration Dextrose 50 ml 06/10/21 11:43 06/15/21 21:57 Dextrose 50% In Water (25gm) 50 Ml Syringe IV 50 ml Q30MIN PRN Administration Hypoglycemia Protocol Diphenhydramine HCl 25 mg 06/15/21 20:03 06/15/21 20:16 Diphenhydramine 50 Mg/Ml Vial IV 25 mg Q6H PRN Administration Itching Gabapentin 100 mg 06/11/21 14:00 06/16/21 05:56 Gabapentin 100 Mg Cap PO 100 mg Q8HR SHANIKA Administration Heparin Sodium (Porcine) 5,000 unit 06/10/21 14:00 06/16/21 05:56 Heparin 5,000 Unit/1 Ml Vial SUB-Q 5,000 unit Q8HR SHANIKA Administration Ceftriaxone Sodium 2 gm in 100 mls @ 200 mls/hr 06/15/21 12:00 06/15/21 12:47 Rocephin/Ns 2 Gm/100 Ml IV 200 mls/hr Q24H SHANIKA Administration Protocol Insulin Human Isoph/Insulin Regular 18 unit 06/16/21 08:00 06/16/21 08:56 Insulin Nph/Regular 70/30 Inj SUB-Q 18 unit BIDDIAB SHANIKA Administration Insulin Human Lispro 0 unit 06/14/21 22:00 06/16/21 08:53 Insulin Lispro 100 Unit/Ml SUB-Q 3 unit ACHS SHANIKA Administration Protocol Morphine Sulfate 2 mg 06/10/21 12:51 06/15/21 20:14 Morphine 4 Mg/1 Ml Inj IV 2 mg Q4H PRN Administration Pain , Severe (7-10) Ondansetron HCl 4 mg 06/10/21 12:51 Ondansetron 4 Mg/2 Ml Inj IV Q8H PRN Nausea And Vomiting Oxycodone/Acetaminophen 2 tab 06/13/21 18:21 06/16/21 10:12 Oxycodone /Acetaminophen 5-325mg Tab PO 2 tab Q4H PRN Administration Pain, Moderate (4-6) Sodium Chloride 10 ml 06/10/21 13:00 06/15/21 21:20 Sodium Chloride 0.9% 10 Ml Flush Syringe IV 10 ml BID SHANIKA Administration Sodium Chloride 10 ml 06/10/21 12:51 Sodium Chloride 0.9% 10 Ml Flush Syringe IV PRN PRN LINE FLUSH Nutrition/Malnutrition Assess - Dietary Evaluation Nutrition/Malnutrition Findings: Nutrition Notes Start: 06/11/21 11:43 Freq: Status: Active Protocol: Document 06/12/21 15:49 NATHALY (Rec: 06/12/21 16:18 NATHALY [id number]) Nutrition Notes Initial or Follow up Assessment Current Diagnosis Diabetes,Sepsis,Hypertension Other Pertinent Diagnosis T1DM, L-BKA, R-Toe Amputation, L-Fibula Osteomyelitis, Abscess in L-stump. Current Diet Consistent Carbohydrates Diet (since D 06/12). Labs/Tests 06/11: Na 133, BUN 26, Ca 7.8. Pertinent Medications 06/12: D5w 1000 ml @ 100 ml/hr , others nutritionally unremarkable. Height 5 ft 11 in Weight 67 kg [place] Body Weight (kg) 78.18 BMI 20.6 Weight change and time frame 0.3 Kg body weight loss in 1 day reported. Weight Status Appropriate Subjective/Other Information RD consult for routine F/U on nutrition education. Pt's PO intake of meals has been Fair (50%), according to ADL notes. Pt is on Room Air with O2 saturation @ 100%, according to Physical Assessment History notes. Pt presents abscess un L-Stump s/p drain placement, according to Progress notes & Operative report. Procedure on 06/12: Drain placement in L-Thigh musculature. Well tolerated, according to Progress notes. Pt still in critical condition , not a candidate for Nutrition Education at the time, will assess feasibility on F/U. Percent of energy/protein needs met: Prescribed Consistent Carbohydrates Diet provides for energy/protein needs (2, 061 Kcal/91 g) during LOS. Burn Absent Trauma Absent GI Symptoms None Food Allergy Yes Skin Integrity/Comment Abscess un L-Stump Current % PO Fair (50-74%) Minimum of two criteria No #1 Nutrition Diagnosis No nutrition diagnosis at this time Comments: Will continue to assess PO intake of meals at F/U. Is patient on ventilator? No Is Patient Ambulatory and/or Out of Bed No REE-([facility]-confined to bed) [phone] Calculation Used for Recommendations [facility] Additional Notes Protein: 0.8-1 g/Kg ABW; 54-80 g/day. Fluids: 1 ml/Kcal, or as per MD. Nutrition Intervention Change Diet Order: Continue Consistent Carbohydrates Diet. Goal #1 Maintain body weight within +/ -3% of admission body weight during LOS. Follow-Up By: 06/19/21 Additional Comments Nutrition education will be provided on F/U, if feasible. Continue monitoring food tolerance, %PO intake of meals , and BM.
[2021-06-16] MEDS: amLODIPine 5 MG TAB PO SCH (10:21)
[2021-06-16] MEDS: ALPRAZolam 0.25 MG TAB PO PRN (10:47)
[2021-06-16] MEDS: DEXTROSE 50% IN WATER (25GM) 50 ML SYRINGE IV PRN (11:51)
--- NOTE | 2021-06-16 15:05 | Progress Note ---
Assessment and Plan Cultures: Blood culture 06/10/21 no growth so far IR drainage culture 06/12/2021 Proteus mirabilis A/P: 40-year-old male past medical history type 1 diabetes, prior left BKA, right toe amputations now with: #Acute sepsis: Present with leukocytosis, secondary to left femur osteomyelitis and abscesses. #Left femur osteomyelitis: Surgery prefers to avoid further debridement in order to allow for continued prosthesis use. Will require 6 weeks antibiotics #Muscular abscesses in the left stump: Pending IR debridement #Diabetes: tight glycemic control for best outcomes. Recs: Start ceftriaxone 2 g every 24 hours given MICHAEL profile of Proteus -We will plan on 6 weeks antibiotics, OK for PICC line. -Case management consulted for ceftriaxone 2g q24h until 07/24/2021 Thank you for the consult, we will continue to follow. Meeat Jara MD [facility] ([facility]) O: [phone] F: [phone] Subjective Date of service: 06/16/21 Principal diagnosis: Left leg abscess, osteomyelitis, hyperosmotic nonketotic state Interval history: Afebrile overnight, no white blood cell count checked. Surgical culture with Proteus. Objective - Exam Narrative Exam: Physical Exam: Constitutional: Alert, cooperative. No acute distress Head, Ears, Nose: Normocephalic, atraumatic. External ears, nose normal Eyes: Conjunctivae/corneas clear. No icterus. No ptosis. Neck: Supple, no meningeal signs Oral: dentition fair, no thrush Cardiovascular: S1, S2 normal. Respiratory: Good air entry, clear to auscultation bilaterally GI: Soft, non-tender; bowel sounds normal. No peritoneal signs. Musculoskeletal: L BKA, R toes amputated Skin: No rash or abscess Hem/Lymphatic: No palpable cervical or supraclavicular nodes. No lymphangitis Psych: Mood ok. Affect normal Neurological: Awake, alert, oriented. No gross abnormality - Constitutional Vitals: Vital Signs Temp Pulse Resp BP Pulse Ox 98.2 F 117 H 18 123/72 96 06/16/21 10:08 06/16/21 10:21 06/16/21 10:08 06/16/21 10:06/16/21 10:08 Temperature -Last 24 Hours Temperature 98.2 F Temperature 99.6 F Temperature 98.7 F Temperature 99.1 F - Labs CBC & Chem 7: 06/14/21 07:58 06/16/21 05:33 Labs: Abnormal lab results 06/15/21 06/15/21 06/15/21 Range/Units 16:56 21:50 22:56 Sodium (137-145) mmol/L Chloride (98-107) mmol/L Glucose (75-100) mg/dL POC Glucose 157 H 40 L 127 H (70-105) mg/dL Calcium (8.4-10.2) mg/dL C-Reactive Protein (0.00-1.30) mg/dL 06/16/21 06/16/21 06/16/21 Range/Units 05:33 07:28 09:01 Sodium 135 L (137-145) mmol/L Chloride 94.7 L (98-107) mmol/L Glucose 199 H (75-100) mg/dL POC Glucose 240 H (70-105) mg/dL Calcium 8.0 L (8.4-10.2) mg/dL C-Reactive Protein 28.90 H (0.00-1.30) mg/dL 06/16/21 Range/Units 11:32 Sodium (137-145) mmol/L Chloride (98-107) mmol/L Glucose (75-100) mg/dL POC Glucose 46 L (70-105) mg/dL Calcium (8.4-10.2) mg/dL C-Reactive Protein (0.00-1.30) mg/dL
[2021-06-16] MEDS: cefTRIAXone/NS 2 GM/100 ML 2 GM/100 ML BAG IV SCH (16:05)
--- NOTE | 2021-06-16 17:33 | Cat Scan Report ---
. CT pelvis w con INDICATION / CLINICAL INFORMATION: L buttock Pain, sepsis. r/o abscess. TECHNIQUE: Axial coronal and sagittal images All CT scans at this location are performed using CT dose reduction for ALARA by means of automated exposure control. COMPARISON: None available. FINDINGS: There is prominence of left gluteal muscles and pelvis. There is a large collection within the left u pper thigh/hamstring. Mixed fluid collection is identified. The inferior extent of this collection is not well seen. Some gas foci are seen anteriorly with hyperdense material centrally. On axial images this measures 7.9 x 6.7 cm. This collection may be intramuscular. On coronal images the inferior ext ent is not visualized and extends inferiorly within the posterior hamstring of the thigh. It measures 9.4 cm in length where visualized. Mild bladder wall thickening. Mild anasarca and subcutaneous edema. Small amount of free fluid in the pelvis. Constipation. IMPRESSION: Large complex fluid collection in the left posterior thigh and hamstring. There is areas of increased density centrally within the complex collection with some foci of gas anteriorly. Findings concernin g for a large intramuscular/subcutaneous abscess. There may be hematoma/blood products centrally wit h areas of foci peripherally. The inferior extent of the collection is not well seen. Bladder wall thickening with free fluid in the pelvis. Signer Name: Zeus Cano MD Signed: 06/16/2021 5:29 PM Workstation Name: [id number]
[2021-06-16] MEDS: MORPHINE 4 MG/1 ML INJ IV PRN (23:55)
[2021-06-17] MEDS: oxyCODONE /ACETAMINOPHEN 5-325MG TAB PO PRN ×2 (04:54→16:41)
[2021-06-17] MEDS: GABAPENTIN 100 MG CAP PO SCH ×3 (05:03→22:44)
[2021-06-17] MEDS: HEPARIN 5,000 UNIT/1 ML VIAL SUB-Q SCH ×3 (05:03→22:43)
[2021-06-17] MEDS: INSULIN LISPRO 100 UNIT/ML SUB-Q SCH ×4 (07:30→22:41)
--- NOTE | 2021-06-17 07:53 | Progress Note ---
Assessment and Plan Assessment and plan: -- left femur osteomyelitis ; Left femur osteomyelitis; Surgery evaluated the patient, no surgical indication ID evaluated the patient long-term antibiotics ceftriaxone 2 g total for 6 weeks, stop date 07/24/2021 Case management consulted Supportive care pain control and tight glycemic control --Muscular abscess left lower extremity -Plan today for I&D with interventional radiology -Not a candidate for any further debridement at this time for osteomyelitis Will be difficult to use prosthesis therefore will take a more conservative approach to debridement. Muscular abscess in the left stump; CT-guided drainage, continue wound care, Cultures positive for Proteus, continue Rocephin next, Successful CT-guided drainage placement in the left posterior thigh musculature/abscess per interventional radiologist CT-guided 8 [place] drain placement in the left thigh musculature 06/13/2019 Continue current antibiotics, pain medications, supportive care Surgery following - sepsis/osteomyelitis/muscular abscess status post I&D -Multifactorial secondary to multiple lower extremity abscess -Continue vancomycin cefepime. Will require 6 weeks antibiotics outpatient --uncontrolled diabetes -Hemoglobin A1c 11.4. Labile blood sugars Accu-Cheks sliding scale coverage ADA diet Long-acting insulin, adjust dose as needed Diabetic education, nutrition education Home health nurse for disease monitoring upon discharge -- hypertension -Fairly well controlled with amlodipine 5 mg. -We will benefit from GLENNA at some point for renal protection. But does not have to be now. --generalized anxiety; We will add low-dose Xanax 0.253 times a day as needed for anxiety Closely monitor the patient and adjust management as needed Plan of care reviewed with the patient and his nurse Physical therapy/Occupational Therapy evaluation and treatment as tolerated Discharge planning per case program management analyst recommendations noted and appreciated --Advance care planning Disease education conducted, care plan discussed, diagnoses discussed, Long-term antibiotics due to osteomyelitis discussed with the patient, consultants recommendations discussed with the patient prognosis discussed, patient is full code, patient acknowledges understanding, had numerous questions, answered all of them Patient verbalized understanding and agree with care plan, +30 minutes. 06/16/2021; osteomyelitis of the left lower extremity, long-term antibiotics total 6 weeks per ID 06/17; patient was given IV Lasix for fluid overload and scrotal edema, edema slightly improved We will continue low-dose Lasix 20 mg p.o. daily and closely monitor input output History Interval history: I have seen and examined the patient at the bedside Patient's chart and medications reviewed No new events reported by the nursing staff Patient continues to have discomfort unable to sit Complains of excruciating pain in buttocks and ischial tuberosities Hospitalist Physical - Constitutional Vitals: Temp Pulse Resp BP Pulse Ox 97.5 F L 101 H 18 132/72 92 06/17/21 04:08 06/17/21 04:08 06/17/21 04:08 06/17/21 04:08 06/17/21 04:08 General appearance: Present: mild distress, well-nourished, other - EENT Eyes: Present: PERRL, EOM intact - Neck Neck: Present: supple, normal ROM - Respiratory Respiratory effort: normal Respiratory: negative: diminished, rales, rhonchi - Cardiovascular Rhythm: regular Heart Sounds: Present: S1 & S2 - Extremities Extremities: No edema, abnormal (Left lower extremity BKA/osteomyelitis) - Abdominal General gastrointestinal: soft, non-tender, non-distended, normal bowel sounds - Integumentary Integumentary: Present: clear, warm - Psychiatric Psychiatric: cooperative, other (Agitated and angry at times) - Neurologic Neurologic: moves all extremities Results - Labs CBC & Chem 7: 06/14/21 07:58 06/16/21 05:33 Labs: Laboratory Last Values WBC 19.3 K/mm3 (4.5-11.0) H 06/14/21 07:58 RBC 3.21 M/mm3 (3.65-5.03) L 06/14/21 07:58 Hgb 8.3 gm/dl (11.8-15.2) L 06/14/21 07:58 Hct 25.7 % (35.5-45.6) L 06/14/21 07:58 MCV 80 fl (84-94) L 06/14/21 07:58 MCH 26 pg (28-32) L 06/14/21 07:58 MCHC 32 % (32-34) 06/14/21 07:58 RDW 16.1 % (13.2-15.2) H 06/14/21 07:58 Plt Count 474 K/mm3 (140-440) H 06/14/21 07:58 Add Manual Diff Complete 06/14/21 07:58 Total Counted 100 06/14/21 07:58 Seg Neutrophils % Loin Puller 06/10/21 06:56 Seg Neuts % (Manual) 77.0 % (40.0-70.0) H 06/14/21 07:58 Band Neutrophils % 12.0 % 06/14/21 07:58 Lymphocytes % (Manual) 1.0 % (13.4-35.0) L 06/14/21 07:58 Reactive Lymphs % (Man) 0 % 06/14/21 07:58 Monocytes % (Manual) 6.0 % (0.0-7.3) 06/14/21 07:58 Eosinophils % (Manual) 1.0 % (0.0-4.3) 06/14/21 07:58 Basophils % (Manual) 0 % (0.0-1.8) 06/14/21 07:58 Metamyelocytes % 0 % 06/14/21 07:58 Myelocytes % 3.0 % 06/14/21 07:58 Promyelocytes % 0 % 06/14/21 07:58 Blast Cells % 0 % 06/14/21 07:58 Nucleated RBC % Not Reportable 06/14/21 07:58 Seg Neutrophils # Man 14.9 K/mm3 (1.8-7.7) H 06/14/21 07:58 Band Neutrophils # 2.3 K/mm3 06/14/21 07:58 Lymphocytes # (Manual) 0.2 K/mm3 (1.2-5.4) L 06/14/21 07:58 Abs React Lymphs (Man) 0.0 K/mm3 06/14/21 07:58 Monocytes # (Manual) 1.2 K/mm3 (0.0-0.8) H 06/14/21 07:58 Eosinophils # (Manual) 0.2 K/mm3 (0.0-0.4) 06/14/21 07:58 Basophils # (Manual) 0.0 K/mm3 (0.0-0.1) 06/14/21 07:58 Metamyelocytes # 0.0 K/mm3 06/14/21 07:58 Myelocytes # 0.6 K/mm3 06/14/21 07:58 Promyelocytes # 0.0 K/mm3 06/14/21 07:58 Blast Cells # 0.0 K/mm3 06/14/21 07:58 WBC Morphology Not Reportable 06/14/21 07:58 Hypersegmented Neuts Not Reportable 06/14/21 07:58 Hyposegmented Neuts Not Reportable 06/14/21 07:58 Hypogranular Neuts Not Reportable 06/14/21 07:58 Smudge Cells Not Reportable 06/14/21 07:58 Toxic Granulation 1+ 06/14/21 07:58 Toxic Vacuolation 1+ 06/14/21 07:58 Dohle Bodies Not Reportable 06/14/21 07:58 Pelger-Huet Anomaly Not Reportable 06/14/21 07:58 Rachid Rods Not Reportable 06/14/21 07:58 Platelet Estimate Consistent w auto 06/14/21 07:58 Clumped Platelets Not Reportable 06/14/21 07:58 Plt Clumps, EDTA Not Reportable 06/14/21 07:58 Large Platelets Not Reportable 06/14/21 07:58 Giant Platelets Not Reportable 06/14/21 07:58 Platelet Satelliting Not Reportable 06/14/21 07:58 Plt Morphology Comment Not Reportable 06/14/21 07:58 RBC Morphology Not Reportable 06/14/21 07:58 Dimorphic RBCs Not Reportable 06/14/21 07:58 Polychromasia Not Reportable 06/14/21 07:58 Hypochromasia Not Reportable 06/14/21 07:58 Poikilocytosis Not Reportable 06/14/21 07:58 Anisocytosis 1+ 06/14/21 07:58 Microcytosis Not Reportable 06/14/21 07:58 Macrocytosis Not Reportable 06/14/21 07:58 Spherocytes Not Reportable 06/14/21 07:58 Pappenheimer Bodies Not Reportable 06/14/21 07:58 Sickle Cells Not Reportable 06/14/21 07:58 Target Cells Not Reportable 06/14/21 07:58 Tear Drop Cells Not Reportable 06/14/21 07:58 Ovalocytes Not Reportable 06/14/21 07:58 Helmet Cells Not Reportable 06/14/21 07:58 [place] Bodies Not Reportable 06/14/21 07:58 [place] Rings Not Reportable 06/14/21 07:58 [place] Cells Not Reportable 06/14/21 07:58 Bite Cells Not Reportable 06/14/21 07:58 Crenated Cell Not Reportable 06/14/21 07:58 Elliptocytes Not Reportable 06/14/21 07:58 Acanthocytes (Spur) Not Reportable 06/14/21 07:58 Rouleaux Not Reportable 06/14/21 07:58 Hemoglobin C Crystals Not Reportable 06/14/21 07:58 Schistocytes Not Reportable 06/14/21 07:58 Malaria parasites Not Reportable 06/14/21 07:58 [place] Bodies Not Reportable 06/14/21 07:58 Hem Pathologist Commnt No 06/14/21 07:58 VBG pH 7.352 (7.320-7.420) 06/10/21 08:07 Sodium 135 mmol/L (137-145) L 06/16/21 05:33 Potassium 4.1 mmol/L (3.6-5.0) 06/16/21 05:33 Chloride 94.7 mmol/L (98-107) L 06/16/21 05:33 Carbon Dioxide 27 mmol/L (22-30) 06/16/21 05:33 Anion Gap 17 mmol/L 06/16/21 05:33 BUN 19 mg/dL (9-20) 06/16/21 05:33 Creatinine 1.0 mg/dL (0.8-1.3) 06/16/21 05:33 Estimated GFR > 60 ml/min 06/16/21 05:33 BUN/Creatinine Ratio 19 % 06/16/21 05:33 Glucose 199 mg/dL (75-100) H 06/16/21 05:33 POC Glucose 187 mg/dL (70-105) H 06/16/21 21:01 Hemoglobin A1c 11.7 % (4-6) H 06/11/21 Unknown Lactic Acid 1.70 mmol/L (0.7-2.0) 06/10/21 08:07 Calcium 8.0 mg/dL (8.4-10.2) L 06/16/21 05:33 Phosphorus 1.90 mg/dL (2.5-4.5) L 06/10/21 06:56 Magnesium 2.00 mg/dL (1.7-2.3) 06/14/21 07:58 Total Bilirubin 0.30 mg/dL (0.1-1.2) 06/10/21 06:56 Total Bilirubin 0.40 mg/dL (0.1-1.2) 06/10/21 06:56 Direct Bilirubin < 0.2 mg/dL (0-0.2) 06/10/21 06:56 Indirect Bilirubin 0.2 mg/dL 06/10/21 06:56 AST 7 units/L (5-40) 06/10/21 06:56 AST 8 units/L (5-40) 06/10/21 06:56 ALT 5 units/L (7-56) L 06/10/21 06:56 ALT 6 units/L (7-56) L 06/10/21 06:56 Alkaline Phosphatase 170 units/L (35-129) H 06/10/21 06:56 Alkaline Phosphatase 172 units/L (35-129) H 06/10/21 06:56 C-Reactive Protein 28.90 mg/dL (0.00-1.30) H 06/16/21 09:01 Total Protein 7.5 g/dL (6.3-8.2) 06/10/21 06:56 Total Protein 7.7 g/dL (6.3-8.2) 06/10/21 06:56 Albumin 3.2 g/dL (3.9-5) L 06/10/21 06:56 Albumin 3.3 g/dL (3.9-5) L 06/10/21 06:56 Albumin/Globulin Ratio 0.7 % 06/10/21 06:56 Albumin/Globulin Ratio 0.8 % 06/10/21 06:56 Lipase 5 units/L (13-60) L 06/10/21 06:56 TSH 1.080 mlU/mL (0.270-4.200) 06/10/21 06:56 Free T4 1.05 ng/dL (0.76-1.46) 06/10/21 06:56 Urine Color Yellow (Yellow) 06/10/21 Unknown Urine Turbidity Cloudy (Clear) 06/10/21 Unknown Urine pH 5.0 (5.0-7.0) 06/10/21 Unknown Ur Specific [place] 1.014 (1.003-1.030) 06/10/21 Unknown Urine Protein 100 mg/dl mg/dL (Negative) 06/10/21 Unknown Urine Glucose (UA) >=500 mg/dL (Negative) 06/10/21 Unknown Urine Ketones Neg mg/dL (Negative) 06/10/21 Unknown Urine Blood Sm (Negative) 06/10/21 Unknown Urine Nitrite Neg (Negative) 06/10/21 Unknown Urine Bilirubin Neg (Negative) 06/10/21 Unknown Urine Urobilinogen < 2.0 mg/dL (<2.0) 06/10/21 Unknown Ur Leukocyte Esterase Neg (Negative) 06/10/21 Unknown Urine WBC (Auto) 7.0 /HPF (0.0-6.0) H 06/10/21 Unknown Urine RBC (Auto) 95.0 /HPF (0.0-6.0) 06/10/21 Unknown U Epithel Cells (Auto) 6.0 /HPF (0-13.0) 06/10/21 Unknown Urine Bacteria (Auto) 1+ /HPF (Negative) 06/10/21 Unknown Amorphous Crystals 1+ 06/10/21 Unknown Hyaline Casts 1 /LPF 06/10/21 Unknown Granular Casts 16 /LPF 06/10/21 Unknown RBC Casts 13 /LPF 06/10/21 Unknown Urine Mucus Few /HPF 06/10/21 Unknown Vancomycin Trough 19.6 ug/mL (5.0-20.0) 06/13/21 07:30 Urine Opiates Screen Positive 06/10/21 Unknown Urine Methadone Screen Negative 06/10/21 Unknown Ur Barbiturates Screen Negative 06/10/21 Unknown Ur Phencyclidine Scrn Negative 06/10/21 Unknown Ur Amphetamines Screen Negative 06/10/21 Unknown U Benzodiazepines Scrn Negative 06/10/21 Unknown Urine Cocaine Screen Negative 06/10/21 Unknown U Marijuana (THC) Screen Negative 06/10/21 Unknown Drugs of Abuse Note Disclamer 06/10/21 Unknown Contreras/IV: Voiding Method Bedside Commode Active Medications - Current Medications Current Medications: Generic Name Dose Route Start Last Admin Trade Name Freq PRN Reason Stop Dose Admin Acetaminophen 650 mg 06/10/21 12:51 06/15/21 05:23 Acetaminophen 325 Mg Tab PO 650 mg Q4H PRN Administration Pain MILD(1-3)/Fever >100.5/ODOM Alprazolam 0.25 mg 06/14/21 19:00 06/16/21 10:47 Alprazolam 0.25 Mg Tab PO 0.25 mg Q8H PRN Administration Anxiety Amlodipine Besylate 5 mg 06/11/21 10:00 06/16/21 10:21 Amlodipine 5 Mg Tab PO 5 mg QDAY SHANIKA Administration Dextrose 50 ml 06/10/21 11:43 06/16/21 11:51 Dextrose 50% In Water (25gm) 50 Ml Syringe IV 50 ml Q30MIN PRN Administration Hypoglycemia Protocol Diphenhydramine HCl 25 mg 06/15/21 20:03 06/15/21 20:16 Diphenhydramine 50 Mg/Ml Vial IV 25 mg Q6H PRN Administration Itching Gabapentin 100 mg 06/11/21 14:00 06/17/21 05:03 Gabapentin 100 Mg Cap PO 100 mg Q8HR SHANIKA Administration Heparin Sodium (Porcine) 5,000 unit 06/10/21 14:00 06/17/21 05:03 Heparin 5,000 Unit/1 Ml Vial SUB-Q 5,000 unit Q8HR SHANIKA Administration Ceftriaxone Sodium 2 gm in 100 mls @ 200 mls/hr 06/15/21 12:00 06/16/21 16:05 Rocephin/Ns 2 Gm/100 Ml IV 200 mls/hr Q24H SHANIKA Administration Protocol Insulin Human Isoph/Insulin Regular 18 unit 06/16/21 08:00 06/16/21 17:16 Insulin Nph/Regular 70/30 Inj SUB-Q Not Given BIDDIAB [facility] Insulin Human Lispro 0 unit 06/14/21 22:00 06/16/21 21:04 Insulin Lispro 100 Unit/Ml SUB-Q Not Given ACHS [facility] Protocol Morphine Sulfate 2 mg 06/10/21 12:51 06/16/21 23:55 Morphine 4 Mg/1 Ml Inj IV 2 mg Q4H PRN Administration Pain , Severe (7-10) Ondansetron HCl 4 mg 06/10/21 12:51 Ondansetron 4 Mg/2 Ml Inj IV Q8H PRN Nausea And Vomiting Oxycodone/Acetaminophen 2 tab 06/13/21 18:21 06/17/21 04:54 Oxycodone /Acetaminophen 5-325mg Tab PO 2 tab Q4H PRN Administration Pain, Moderate (4-6) Sodium Chloride 10 ml 06/10/21 13:00 06/16/21 21:03 Sodium Chloride 0.9% 10 Ml Flush Syringe IV 10 ml BID SHANIKA Administration Sodium Chloride 10 ml 06/10/21 12:51 Sodium Chloride 0.9% 10 Ml Flush Syringe IV PRN PRN LINE FLUSH Nutrition/Malnutrition Assess - Dietary Evaluation Nutrition/Malnutrition Findings: Nutrition Notes Start: 06/11/21 11:43 Freq: Status: Active Protocol: Document 06/12/21 15:49 NATHALY (Rec: 06/12/21 16:18 NATHALY [id number]) Nutrition Notes Initial or Follow up Assessment Current Diagnosis Diabetes,Sepsis,Hypertension Other Pertinent Diagnosis T1DM, L-BKA, R-Toe Amputation, L-Fibula Osteomyelitis, Abscess in L-stump. Current Diet Consistent Carbohydrates Diet (since D 06/12). Labs/Tests 06/11: Na 133, BUN 26, Ca 7.8. Pertinent Medications 06/12: D5w 1000 ml @ 100 ml/hr , others nutritionally unremarkable. Height 5 ft 11 in Weight 67 kg [place] Body Weight (kg) 78.18 BMI 20.6 Weight change and time frame 0.3 Kg body weight loss in 1 day reported. Weight Status Appropriate Subjective/Other Information RD consult for routine F/U on nutrition education. Pt's PO intake of meals has been Fair (50%), according to ADL notes. Pt is on Room Air with O2 saturation @ 100%, according to Physical Assessment History notes. Pt presents abscess un L-Stump s/p drain placement, according to Progress notes & Operative report. Procedure on 06/12: Drain placement in L-Thigh musculature. Well tolerated, according to Progress notes. Pt still in critical condition , not a candidate for Nutrition Education at the time, will assess feasibility on F/U. Percent of energy/protein needs met: Prescribed Consistent Carbohydrates Diet provides for energy/protein needs (2, 061 Kcal/91 g) during LOS. Burn Absent Trauma Absent GI Symptoms None Food Allergy Yes Skin Integrity/Comment Abscess un L-Stump Current % PO Fair (50-74%) Minimum of two criteria No #1 Nutrition Diagnosis No nutrition diagnosis at this time Comments: Will continue to assess PO intake of meals at F/U. Is patient on ventilator? No Is Patient Ambulatory and/or Out of Bed No REE-([facility]-confined to bed) [phone] Calculation Used for Recommendations [facility] Additional Notes Protein: 0.8-1 g/Kg ABW; 54-80 g/day. Fluids: 1 ml/Kcal, or as per MD. Nutrition Intervention Change Diet Order: Continue Consistent Carbohydrates Diet. Goal #1 Maintain body weight within +/ -3% of admission body weight during LOS. Follow-Up By: 06/19/21 Additional Comments Nutrition education will be provided on F/U, if feasible. Continue monitoring food tolerance, %PO intake of meals , and BM.
[2021-06-17] MEDS: MORPHINE 4 MG/1 ML INJ IV PRN ×2 (07:57→13:33)
[2021-06-17] MEDS: INSULIN NPH/REGULAR 70/30 INJ SUB-Q SCH ×2 (08:00→17:05)
[2021-06-17] MEDS: FUROSEMIDE 20 MG TAB PO SCH (09:57)
[2021-06-17] MEDS: amLODIPine 5 MG TAB PO SCH (09:57)
[2021-06-17] MEDS: cefTRIAXone/NS 2 GM/100 ML 2 GM/100 ML BAG IV SCH (12:00)
[2021-06-18] MEDS: oxyCODONE /ACETAMINOPHEN 5-325MG TAB PO PRN ×3 (01:46→11:12)
[2021-06-18] MEDS: HEPARIN 5,000 UNIT/1 ML VIAL SUB-Q SCH ×3 (05:49→22:10)
[2021-06-18] MEDS: GABAPENTIN 100 MG CAP PO SCH ×3 (05:50→22:10)
[2021-06-18] MEDS: INSULIN LISPRO 100 UNIT/ML SUB-Q SCH ×4 (08:04→22:10)
[2021-06-18] MEDS: INSULIN NPH/REGULAR 70/30 INJ SUB-Q SCH ×2 (08:05→16:52)
--- NOTE | 2021-06-18 09:09 | Progress Note ---
Assessment and Plan Assessment and plan: CT pelvis with contrast large complex fluid collection in the left posterior thigh and hamstring area of increased density centrally within the complex collection with some foci gas findings concerning for large intramuscular subcutaneous abscess may be hematoma blood products centrally with areas of foci peripherally the inferior extent of the collection not well seen bladder wall thickening with fluid in the pelvis --Febrile illness; T-max last 24 hours is 102 F Patient has severe sepsis due to osteomyelitis left BKA stump As well as muscular abscess left lower extremity Patient is on IV Rocephin total 6 weeks stop date 07/24/2021 Follow cultures/ID following - left femur osteomyelitis ; Surgery evaluated the patient, no surgical intervention at this point ID evaluated the patient long-term antibiotics total 6 weeks Case management consulted --Muscular abscess left lower extremity Status post CT-guided IR drainage 06/12/2021 -Not a candidate for any further debridement at this time for osteomyelitis Will be difficult to use prosthesis therefore will take a more conservative approach to debridement. Cultures positive for Proteus, continue Rocephin next, Continue current antibiotics, pain medications, Surgery following - sepsis/osteomyelitis/muscular abscess status post I&D -Multifactorial secondary to multiple lower extremity abscess s/pvancomycin cefepime. Will require 6 weeks antibiotics Rocephin --uncontrolled diabetes/labile blood sugars/difficult to control -Hemoglobin A1c 11.4. Labile blood sugars Accu-Cheks sliding scale coverage ADA diet Long-acting insulin, adjust dose as needed Diabetic education, nutrition education Home health nurse for disease monitoring upon discharge -- hypertension -Fairly well controlled with amlodipine 5 mg. -We will benefit from GLENNA at some point for renal protection. But does not have to be now. --generalized anxiety; We will add low-dose Xanax 0.253 times a day as needed for anxiety Closely monitor the patient and adjust management as needed Plan of care reviewed with the patient and his nurse Physical therapy/Occupational Therapy evaluation and treatment as tolerated Discharge planning per case forest fire management officer recommendations noted and appreciated Plan of care reviewed with the patient and his nurse --Advance care planning Disease education conducted, care plan discussed, diagnoses discussed, Long-term antibiotics due to osteomyelitis discussed with the patient, consultants recommendations discussed with the patient prognosis discussed, patient is full code, patient acknowledges understanding, had numerous questions, answered all of them Patient verbalized understanding and agree with care plan, +30 minutes. 06/16/2021; osteomyelitis of the left lower extremity, long-term antibiotics total 6 weeks per ID 06/17; patient was given IV Lasix for fluid overload and scrotal edema, edema slightly improved We will continue low-dose Lasix 20 mg p.o. daily and closely monitor input output 06/18; labile blood sugars, unable to stabilize due to. Soft severe hypoglycemia Closely monitor blood sugars and adjust as needed History Interval history: I have seen and examined the patient at the bedside Patient's chart and medications reviewed Patient is feeling much better today Sometimes very anxious Vital signs noted Hospitalist Physical - Constitutional Vitals: Temp Pulse Resp BP Pulse Ox 97.7 F 106 H 16 120/67 97 06/18/21 03:56 06/17/21 21:27 06/18/21 03:56 06/18/21 03:56 06/17/21 22:00 General appearance: Present: mild distress, well-nourished, other - EENT Eyes: Present: PERRL, EOM intact - Neck Neck: Present: supple, normal ROM - Respiratory Respiratory effort: normal Respiratory: bilateral: diminished, negative: rales, rhonchi, wheezing - Cardiovascular Rhythm: regular Heart Sounds: Present: S1 & S2 - Extremities Extremities: abnormal (Left lower extremity status post BKA/stump osteomyelitis) Extremity abnormal: other (Left thigh drain intact) - Abdominal General gastrointestinal: soft, non-tender, non-distended, normal bowel sounds - Integumentary Integumentary: Present: clear, warm - Psychiatric Psychiatric: appropriate mood/affect, cooperative, other (Anxious) - Neurologic Neurologic: moves all extremities Results - Labs CBC & Chem 7: 06/14/21 07:58 06/16/21 05:33 Labs: Laboratory Last Values WBC 19.3 K/mm3 (4.5-11.0) H 06/14/21 07:58 RBC 3.21 M/mm3 (3.65-5.03) L 06/14/21 07:58 Hgb 8.3 gm/dl (11.8-15.2) L 06/14/21 07:58 Hct 25.7 % (35.5-45.6) L 06/14/21 07:58 MCV 80 fl (84-94) L 06/14/21 07:58 MCH 26 pg (28-32) L 06/14/21 07:58 MCHC 32 % (32-34) 06/14/21 07:58 RDW 16.1 % (13.2-15.2) H 06/14/21 07:58 Plt Count 474 K/mm3 (140-440) H 06/14/21 07:58 Add Manual Diff Complete 06/14/21 07:58 Total Counted 100 06/14/21 07:58 Seg Neutrophils % [employer] 06/10/21 06:56 Seg Neuts % (Manual) 77.0 % (40.0-70.0) H 06/14/21 07:58 Band Neutrophils % 12.0 % 06/14/21 07:58 Lymphocytes % (Manual) 1.0 % (13.4-35.0) L 06/14/21 07:58 Reactive Lymphs % (Man) 0 % 06/14/21 07:58 Monocytes % (Manual) 6.0 % (0.0-7.3) 06/14/21 07:58 Eosinophils % (Manual) 1.0 % (0.0-4.3) 06/14/21 07:58 Basophils % (Manual) 0 % (0.0-1.8) 06/14/21 07:58 Metamyelocytes % 0 % 06/14/21 07:58 Myelocytes % 3.0 % 06/14/21 07:58 Promyelocytes % 0 % 06/14/21 07:58 Blast Cells % 0 % 06/14/21 07:58 Nucleated RBC % Not Reportable 06/14/21 07:58 Seg Neutrophils # Man 14.9 K/mm3 (1.8-7.7) H 06/14/21 07:58 Band Neutrophils # 2.3 K/mm3 06/14/21 07:58 Lymphocytes # (Manual) 0.2 K/mm3 (1.2-5.4) L 06/14/21 07:58 Abs React Lymphs (Man) 0.0 K/mm3 06/14/21 07:58 Monocytes # (Manual) 1.2 K/mm3 (0.0-0.8) H 06/14/21 07:58 Eosinophils # (Manual) 0.2 K/mm3 (0.0-0.4) 06/14/21 07:58 Basophils # (Manual) 0.0 K/mm3 (0.0-0.1) 06/14/21 07:58 Metamyelocytes # 0.0 K/mm3 06/14/21 07:58 Myelocytes # 0.6 K/mm3 06/14/21 07:58 Promyelocytes # 0.0 K/mm3 06/14/21 07:58 Blast Cells # 0.0 K/mm3 06/14/21 07:58 WBC Morphology Not Reportable 06/14/21 07:58 Hypersegmented Neuts Not Reportable 06/14/21 07:58 Hyposegmented Neuts Not Reportable 06/14/21 07:58 Hypogranular Neuts Not Reportable 06/14/21 07:58 Smudge Cells Not Reportable 06/14/21 07:58 Toxic Granulation 1+ 06/14/21 07:58 Toxic Vacuolation 1+ 06/14/21 07:58 Dohle Bodies Not Reportable 06/14/21 07:58 Pelger-Huet Anomaly Not Reportable 06/14/21 07:58 Rachid Rods Not Reportable 06/14/21 07:58 Platelet Estimate Consistent w auto 06/14/21 07:58 Clumped Platelets Not Reportable 06/14/21 07:58 Plt Clumps, EDTA Not Reportable 06/14/21 07:58 Large Platelets Not Reportable 06/14/21 07:58 Giant Platelets Not Reportable 06/14/21 07:58 Platelet Satelliting Not Reportable 06/14/21 07:58 Plt Morphology Comment Not Reportable 06/14/21 07:58 RBC Morphology Not Reportable 06/14/21 07:58 Dimorphic RBCs Not Reportable 06/14/21 07:58 Polychromasia Not Reportable 06/14/21 07:58 Hypochromasia Not Reportable 06/14/21 07:58 Poikilocytosis Not Reportable 06/14/21 07:58 Anisocytosis 1+ 06/14/21 07:58 Microcytosis Not Reportable 06/14/21 07:58 Macrocytosis Not Reportable 06/14/21 07:58 Spherocytes Not Reportable 06/14/21 07:58 Pappenheimer Bodies Not Reportable 06/14/21 07:58 Sickle Cells Not Reportable 06/14/21 07:58 Target Cells Not Reportable 06/14/21 07:58 Tear Drop Cells Not Reportable 06/14/21 07:58 Ovalocytes Not Reportable 06/14/21 07:58 Helmet Cells Not Reportable 06/14/21 07:58 [place] Bodies Not Reportable 06/14/21 07:58 [place] Rings Not Reportable 06/14/21 07:58 [place] Cells Not Reportable 06/14/21 07:58 Bite Cells Not Reportable 06/14/21 07:58 Crenated Cell Not Reportable 06/14/21 07:58 Elliptocytes Not Reportable 06/14/21 07:58 Acanthocytes (Spur) Not Reportable 06/14/21 07:58 Rouleaux Not Reportable 06/14/21 07:58 Hemoglobin C Crystals Not Reportable 06/14/21 07:58 Schistocytes Not Reportable 06/14/21 07:58 Malaria parasites Not Reportable 06/14/21 07:58 [place] Bodies Not Reportable 06/14/21 07:58 Hem Pathologist Commnt No 06/14/21 07:58 VBG pH 7.352 (7.320-7.420) 06/10/21 08:07 Sodium 135 mmol/L (137-145) L 06/16/21 05:33 Potassium 4.1 mmol/L (3.6-5.0) 06/16/21 05:33 Chloride 94.7 mmol/L (98-107) L 06/16/21 05:33 Carbon Dioxide 27 mmol/L (22-30) 06/16/21 05:33 Anion Gap 17 mmol/L 06/16/21 05:33 BUN 19 mg/dL (9-20) 06/16/21 05:33 Creatinine 1.0 mg/dL (0.8-1.3) 06/16/21 05:33 Estimated GFR > 60 ml/min 06/16/21 05:33 BUN/Creatinine Ratio 19 % 06/16/21 05:33 Glucose 199 mg/dL (75-100) H 06/16/21 05:33 POC Glucose 143 mg/dL (70-105) H 06/17/21 21:35 Hemoglobin A1c 11.7 % (4-6) H 06/11/21 Unknown Lactic Acid 1.70 mmol/L (0.7-2.0) 06/10/21 08:07 Calcium 8.0 mg/dL (8.4-10.2) L 06/16/21 05:33 Phosphorus 1.90 mg/dL (2.5-4.5) L 06/10/21 06:56 Magnesium 2.00 mg/dL (1.7-2.3) 06/14/21 07:58 Total Bilirubin 0.30 mg/dL (0.1-1.2) 06/10/21 06:56 Total Bilirubin 0.40 mg/dL (0.1-1.2) 06/10/21 06:56 Direct Bilirubin < 0.2 mg/dL (0-0.2) 06/10/21 06:56 Indirect Bilirubin 0.2 mg/dL 06/10/21 06:56 AST 7 units/L (5-40) 06/10/21 06:56 AST 8 units/L (5-40) 06/10/21 06:56 ALT 5 units/L (7-56) L 06/10/21 06:56 ALT 6 units/L (7-56) L 06/10/21 06:56 Alkaline Phosphatase 170 units/L (35-129) H 06/10/21 06:56 Alkaline Phosphatase 172 units/L (35-129) H 06/10/21 06:56 C-Reactive Protein 28.90 mg/dL (0.00-1.30) H 06/16/21 09:01 Total Protein 7.5 g/dL (6.3-8.2) 06/10/21 06:56 Total Protein 7.7 g/dL (6.3-8.2) 06/10/21 06:56 Albumin 3.2 g/dL (3.9-5) L 06/10/21 06:56 Albumin 3.3 g/dL (3.9-5) L 06/10/21 06:56 Albumin/Globulin Ratio 0.7 % 06/10/21 06:56 Albumin/Globulin Ratio 0.8 % 06/10/21 06:56 Lipase 5 units/L (13-60) L 06/10/21 06:56 TSH 1.080 mlU/mL (0.270-4.200) 06/10/21 06:56 Free T4 1.05 ng/dL (0.76-1.46) 06/10/21 06:56 Urine Color Yellow (Yellow) 06/10/21 Unknown Urine Turbidity Cloudy (Clear) 06/10/21 Unknown Urine pH 5.0 (5.0-7.0) 06/10/21 Unknown Ur Specific [place] 1.014 (1.003-1.030) 06/10/21 Unknown Urine Protein 100 mg/dl mg/dL (Negative) 06/10/21 Unknown Urine Glucose (UA) >=500 mg/dL (Negative) 06/10/21 Unknown Urine Ketones Neg mg/dL (Negative) 06/10/21 Unknown Urine Blood Sm (Negative) 06/10/21 Unknown Urine Nitrite Neg (Negative) 06/10/21 Unknown Urine Bilirubin Neg (Negative) 06/10/21 Unknown Urine Urobilinogen < 2.0 mg/dL (<2.0) 06/10/21 Unknown Ur Leukocyte Esterase Neg (Negative) 06/10/21 Unknown Urine WBC (Auto) 7.0 /HPF (0.0-6.0) H 06/10/21 Unknown Urine RBC (Auto) 95.0 /HPF (0.0-6.0) 06/10/21 Unknown U Epithel Cells (Auto) 6.0 /HPF (0-13.0) 06/10/21 Unknown Urine Bacteria (Auto) 1+ /HPF (Negative) 06/10/21 Unknown Amorphous Crystals 1+ 06/10/21 Unknown Hyaline Casts 1 /LPF 06/10/21 Unknown Granular Casts 16 /LPF 06/10/21 Unknown RBC Casts 13 /LPF 06/10/21 Unknown Urine Mucus Few /HPF 06/10/21 Unknown Vancomycin Trough 19.6 ug/mL (5.0-20.0) 06/13/21 07:30 Urine Opiates Screen Positive 06/10/21 Unknown Urine Methadone Screen Negative 06/10/21 Unknown Ur Barbiturates Screen Negative 06/10/21 Unknown Ur Phencyclidine Scrn Negative 06/10/21 Unknown Ur Amphetamines Screen Negative 06/10/21 Unknown U Benzodiazepines Scrn Negative 06/10/21 Unknown Urine Cocaine Screen Negative 06/10/21 Unknown U Marijuana (THC) Screen Negative 06/10/21 Unknown Drugs of Abuse Note Disclamer 06/10/21 Unknown Contreras/IV: Voiding Method Urinal Active Medications - Current Medications Current Medications: Generic Name Dose Route Start Last Admin Trade Name Freq PRN Reason Stop Dose Admin Acetaminophen 650 mg 06/10/21 12:51 06/15/21 05:23 Acetaminophen 325 Mg Tab PO 650 mg Q4H PRN Administration Pain MILD(1-3)/Fever >100.5/ODOM Alprazolam 0.25 mg 06/14/21 19:00 06/16/21 10:47 Alprazolam 0.25 Mg Tab PO 0.25 mg Q8H PRN Administration Anxiety Amlodipine Besylate 5 mg 06/11/21 10:00 06/17/21 09:57 Amlodipine 5 Mg Tab PO 5 mg QDAY SHANIKA Administration Dextrose 50 ml 06/10/21 11:43 06/16/21 11:51 Dextrose 50% In Water (25gm) 50 Ml Syringe IV 50 ml Q30MIN PRN Administration Hypoglycemia Protocol Diphenhydramine HCl 25 mg 06/15/21 20:03 06/15/21 20:16 Diphenhydramine 50 Mg/Ml Vial IV 25 mg Q6H PRN Administration Itching Furosemide 20 mg 06/17/21 10:00 06/17/21 09:57 Furosemide 20 Mg Tab PO 20 mg QDAY SHANIKA Administration Gabapentin 100 mg 06/11/21 14:00 06/18/21 05:50 Gabapentin 100 Mg Cap PO 100 mg Q8HR SHANIKA Administration Heparin Sodium (Porcine) 5,000 unit 06/10/21 14:00 06/18/21 05:49 Heparin 5,000 Unit/1 Ml Vial SUB-Q 5,000 unit Q8HR SHANIKA Administration Ceftriaxone Sodium 2 gm in 100 mls @ 200 mls/hr 06/15/21 12:00 06/17/21 12:00 Rocephin/Ns 2 Gm/100 Ml IV 200 mls/hr Q24H SHANIKA Administration Protocol Insulin Human Isoph/Insulin Regular 18 unit 06/16/21 08:00 06/18/21 08:05 Insulin Nph/Regular 70/30 Inj SUB-Q 18 unit BIDDIAB SHANIKA Administration Insulin Human Lispro 0 unit 06/14/21 22:00 06/18/21 08:04 Insulin Lispro 100 Unit/Ml SUB-Q 8 unit ACHS SHANIKA Administration Protocol Morphine Sulfate 2 mg 06/10/21 12:51 06/17/21 13:33 Morphine 4 Mg/1 Ml Inj IV 2 mg Q4H PRN Administration Pain , Severe (7-10) Ondansetron HCl 4 mg 06/10/21 12:51 Ondansetron 4 Mg/2 Ml Inj IV Q8H PRN Nausea And Vomiting Oxycodone/Acetaminophen 2 tab 06/13/21 18:21 06/18/21 05:50 Oxycodone /Acetaminophen 5-325mg Tab PO 2 tab Q4H PRN Administration Pain, Moderate (4-6) Sodium Chloride 10 ml 06/10/21 13:00 06/17/21 22:46 Sodium Chloride 0.9% 10 Ml Flush Syringe IV 10 ml BID SHANIKA Administration Sodium Chloride 10 ml 06/10/21 12:51 Sodium Chloride 0.9% 10 Ml Flush Syringe IV PRN PRN LINE FLUSH Nutrition/Malnutrition Assess - Dietary Evaluation Nutrition/Malnutrition Findings: Nutrition Notes Start: 06/11/21 11:43 Freq: Status: Active Protocol: Document 06/12/21 15:49 NATHALY (Rec: 06/12/21 16:18 NATHALY [id number]) Nutrition Notes Initial or Follow up Assessment Current Diagnosis Diabetes,Sepsis,Hypertension Other Pertinent Diagnosis T1DM, L-BKA, R-Toe Amputation, L-Fibula Osteomyelitis, Abscess in L-stump. Current Diet Consistent Carbohydrates Diet (since D 06/12). Labs/Tests 06/11: Na 133, BUN 26, Ca 7.8. Pertinent Medications 06/12: D5w 1000 ml @ 100 ml/hr , others nutritionally unremarkable. Height 5 ft 11 in Weight 67 kg [place] Body Weight (kg) 78.18 BMI 20.6 Weight change and time frame 0.3 Kg body weight loss in 1 day reported. Weight Status Appropriate Subjective/Other Information RD consult for routine F/U on nutrition education. Pt's PO intake of meals has been Fair (50%), according to ADL notes. Pt is on Room Air with O2 saturation @ 100%, according to Physical Assessment History notes. Pt presents abscess un L-Stump s/p drain placement, according to Progress notes & Operative report. Procedure on 06/12: Drain placement in L-Thigh musculature. Well tolerated, according to Progress notes. Pt still in critical condition , not a candidate for Nutrition Education at the time, will assess feasibility on F/U. Percent of energy/protein needs met: Prescribed Consistent Carbohydrates Diet provides for energy/protein needs (2, 061 Kcal/91 g) during LOS. Burn Absent Trauma Absent GI Symptoms None Food Allergy Yes Skin Integrity/Comment Abscess un L-Stump Current % PO Fair (50-74%) Minimum of two criteria No #1 Nutrition Diagnosis No nutrition diagnosis at this time Comments: Will continue to assess PO intake of meals at F/U. Is patient on ventilator? No Is Patient Ambulatory and/or Out of Bed No REE-([facility]-confined to bed) [phone] Calculation Used for Recommendations [facility] Additional Notes Protein: 0.8-1 g/Kg ABW; 54-80 g/day. Fluids: 1 ml/Kcal, or as per MD. Nutrition Intervention Change Diet Order: Continue Consistent Carbohydrates Diet. Goal #1 Maintain body weight within +/ -3% of admission body weight during LOS. Follow-Up By: 06/19/21 Additional Comments Nutrition education will be provided on F/U, if feasible. Continue monitoring food tolerance, %PO intake of meals , and BM.
[2021-06-18] MEDS: FUROSEMIDE 20 MG TAB PO SCH (09:30)
[2021-06-18] MEDS: amLODIPine 5 MG TAB PO SCH (09:30)
--- NOTE | 2021-06-18 11:33 | Progress Note ---
Assessment and Plan 40 yo M with 1. left posterior thigh intramuscular abscess s/p IR drainage 2. Left femur osteomyelitis 3. sepsis 2/2 #1 and #2 4. DM - poorly controlled A1C 11.7 Ct Scan pelvis 06/16/21 -images reviewed independently and radiology report is follows- Large complex fluid collection in left posterior thigh and hamstring. Measuring 7.9 x 6.7. Plan: 1. continue management of drain per IR. 2. IV abx per ID 3. strict glucose control 4. OOB to chair 5. prn pain control 6. Both CT left lower extremity as well as CT scan pelvis reviewed. Unclear if collection seen on CT scan pelvis is separate from or connected to collection with IR drain - as images do not continue distally. Will review with radiology in a.m. to determine if patient will require additional drain placement or will need open drainage of abscesses. Plan discussed with patient in detail and all questions answered. Thank you, please call with questions Subjective Date of service: 06/18/21 Narrative: Pt seen and examined. States he feels much better today and had a good night. Tm 102.9 yesterday evening. No f/c today. Anitha diet. Pain well controlled with medications. IR drain in place. Objective Vital Signs - 12hr 06/18/21 06/18/21 06/18/21 03:56 09:39 10:00 Temperature 97.7 F 98.1 F Pulse Rate 96 H Respiratory 16 20 Rate Blood Pressure 120/67 Blood Pressure 118/66 [Right] O2 Sat by Pulse 96 97 Oximetry 06/18/21 11:12 Temperature Pulse Rate Respiratory 20 Rate Blood Pressure Blood Pressure [Right] O2 Sat by Pulse Oximetry - General physical appearance Narrative Exam: Gen.: Awake, alert, oriented x3. No apparent distress ENT: Trachea midline. No lymphadenopathy. No scleral icterus or conjunctival pallor CV: S1, S2 present Respiratory: No audible wheezes Extremities: LLE IR drain in place with purulent drainage in collection bag. 100cc output recorded for today thus far. Left posterior thigh and buttock is soft with minimal discomfort on palpation. - Labs 06/14/21 07:58 06/16/21 05:33
[2021-06-18] MEDS: CYCLOBENZAPRINE 10 MG TAB PO PRN (13:09)
[2021-06-18] MEDS: cefTRIAXone/NS 2 GM/100 ML 2 GM/100 ML BAG IV SCH (13:17)
[2021-06-18] MEDS: ALPRAZolam 0.25 MG TAB PO PRN (16:05)
[2021-06-18] MEDS: MORPHINE 4 MG/1 ML INJ IV PRN (20:03)
[2021-06-18] MEDS: ACETAMINOPHEN 325 MG TAB PO PRN (22:12)
[2021-06-19 06:26] LABS: Hematocrit 23.5 % (35.5-45.6); Hemoglobin 8.1 gm/dl (11.8-15.2); Mean Corpuscular HGB Conc 35 % (32-34); Mean Corpuscular Volume 78 fl (84-94); Platelet Count 647 K/mm3 (140-440); Red Blood Count 3.01 M/mm3 (3.65-5.03); Red Cell Distribution Width 15.6 % (13.2-15.2)
[2021-06-19] MEDS: GABAPENTIN 100 MG CAP PO SCH ×3 (06:44→21:45)
[2021-06-19] MEDS: HEPARIN 5,000 UNIT/1 ML VIAL SUB-Q SCH ×3 (06:45→21:44)
[2021-06-19] MEDS: MORPHINE 4 MG/1 ML INJ IV PRN ×3 (06:45→21:55)
[2021-06-19] MEDS: INSULIN LISPRO 100 UNIT/ML SUB-Q SCH ×4 (08:30→21:38)
[2021-06-19] MEDS: INSULIN NPH/REGULAR 70/30 INJ SUB-Q SCH ×3 (08:32→17:54)
[2021-06-19] MEDS: FUROSEMIDE 20 MG TAB PO SCH (09:58)
[2021-06-19] MEDS: oxyCODONE /ACETAMINOPHEN 5-325MG TAB PO PRN (09:58)
[2021-06-19] MEDS: amLODIPine 5 MG TAB PO SCH (10:03)
--- NOTE | 2021-06-19 12:44 | Progress Note ---
Assessment and Plan Cultures: Blood culture 06/10/21 no growth so far IR drainage culture 06/12/2021 Proteus mirabilis A/P: 40-year-old male past medical history type 1 diabetes, prior left BKA, right toe amputations now with: #Sepsis secondary to left femur osteomyelitis and intramuscular abscesses, s/p IR drainage on 06/12/2021. CT pelvis showed a large complex fluid collection in the left posterior thigh and hamstring region with foci of gas. #Left femur osteomyelitis: Will require 6 weeks of antibiotics #Acute thrombocytosis: Reactive secondary to above #Diabetes mellitus, uncontrolled: tight glycemic control for best outcomes. #Penicillin allergy: Tolerating ceftriaxone without issue. Recs: -Persistent low-grade fevers, worsening leukocytosis, CT pelvis findings noted. General surgery following. Might need additional drainage, open v/s IR. Please send cultures. -Continue IV ceftriaxone 2 g daily -Flagyl added for anaerobic coverage Kalina Jefferson MD, FACP, OMER [facility] ([facility] O: [phone] F: [phone] C: [phone] Subjective Date of service: 06/19/21 Principal diagnosis: Left leg abscess, osteomyelitis, hyperosmotic nonketotic state Interval history: Patient reports low-grade fevers, ongoing sweats. Pain in his left buttock region. Objective - Exam Narrative Exam: Physical Exam: Constitutional: Alert, cooperative. No acute distress Head, Ears, Nose: Normocephalic, atraumatic. External ears, nose normal Eyes: Conjunctivae/corneas clear. No icterus. No ptosis. Neck: Supple, no meningeal signs Cardiovascular: S1, S2 + Respiratory: Good air entry, clear to auscultation bilaterally GI: Soft, non-tender; bowel sounds normal. No peritoneal signs Musculoskeletal: Left BKA, drain present, left buttock region with induration, tenderness right foot with prior toe amputations. Skin: No rash or abscess Hem/Lymphatic: No palpable cervical or supraclavicular nodes. No lymphangitis Psych: Mood ok. Affect normal Neurological: Awake, alert, oriented. No gross abnormality - Constitutional Vitals: Vital Signs Temp Pulse Resp BP Pulse Ox 98.2 F 111 H 16 118/75 98 06/19/21 04:57 06/19/21 10:03 06/19/21 04:57 06/19/21 10:03 06/19/21 04:57 Temperature -Last 24 Hours Temperature 98.2 F Temperature 100.3 F Temperature 100.1 F - Labs CBC & Chem 7: 06/19/21 05:13 06/16/21 05:33 Labs: Abnormal lab results 06/18/21 06/18/21 06/18/21 Range/Units 15:56 17:38 21:32 WBC (4.5-11.0) K/mm3 RBC (3.65-5.03) M/mm3 Hgb (11.8-15.2) gm/dl Hct (35.5-45.6) % MCV (84-94) fl MCH (28-32) pg MCHC (32-34) % RDW (13.2-15.2) % Plt Count (140-440) K/mm3 POC Glucose 44 L 118 H 176 H (70-105) mg/dL 06/18/21 06/19/21 06/19/21 Range/Units 22:04 05:13 08:07 WBC 19.9 H (4.5-11.0) K/mm3 RBC 3.01 L (3.65-5.03) M/mm3 Hgb 8.1 L (11.8-15.2) gm/dl Hct 23.5 L (35.5-45.6) % MCV 78 L (84-94) fl MCH 27 L (28-32) pg MCHC 35 H (32-34) % RDW 15.6 H (13.2-15.2) % Plt Count 647 H (140-440) K/mm3 POC Glucose 180 H 223 H (70-105) mg/dL - Imaging and cardiology CT scan - pelvis: report reviewed, image reviewed (large complex fluid collection in the left posterior thigh and hamstring region with foci of gas)
[2021-06-19] MEDS: cefTRIAXone/NS 2 GM/100 ML 2 GM/100 ML BAG IV SCH (13:42)
[2021-06-19] MEDS: metroNIDAZOLE 500 MG TAB PO SCH ×2 (13:42→21:45)
[2021-06-19] MEDS: IBUPROFEN 600 MG TAB PO SCH (17:54)
--- NOTE | 2021-06-19 18:53 | Progress Note ---
Assessment and Plan Assessment and plan: CT pelvis with contrast large complex fluid collection in the left posterior thigh and hamstring area of increased density centrally within the complex collection with some foci gas findings concerning for large intramuscular subcutaneous abscess may be hematoma blood products centrally with areas of foci peripherally the inferior extent of the collection not well seen bladder wall thickening with fluid in the pelvis --Febrile illness; T-max last 24 hours is 102 F Patient has severe sepsis due to osteomyelitis left BKA stump As well as muscular abscess left lower extremity Patient is on IV Rocephin total 6 weeks stop date 07/24/2021 Follow cultures/ID following - left femur osteomyelitis ; Surgery evaluated the patient, no surgical intervention at this point ID evaluated the patient long-term antibiotics total 6 weeks Case management consulted --Muscular abscess left thigh Status post CT-guided IR drainage 06/12/2021 -Not a candidate for any further debridement at this time for osteomyelitis Will be difficult to use prosthesis therefore will take a more conservative approach to debridement. Cultures positive for Proteus, continue Rocephin next, Continue current antibiotics, pain medications, Surgery following - sepsis/osteomyelitis/muscular abscess status post I&D -Multifactorial secondary to multiple lower extremity abscess s/pvancomycin cefepime. Will require 6 weeks antibiotics Rocephin --uncontrolled diabetes/labile blood sugars/difficult to control -Hemoglobin A1c 11.4. Labile blood sugars Accu-Cheks sliding scale coverage ADA diet Long-acting insulin, adjust dose as needed Diabetic education, nutrition education Home health nurse for disease monitoring upon discharge -- hypertension -Fairly well controlled with amlodipine 5 mg. -We will benefit from GLENNA at some point for renal protection. But does not have to be now. --generalized anxiety; We will add low-dose Xanax 0.253 times a day as needed for anxiety Closely monitor the patient and adjust management as needed Plan of care reviewed with the patient and his nurse Physical therapy/Occupational Therapy evaluation and treatment as tolerated Discharge planning per case content management consultant recommendations noted and appreciated Plan of care reviewed with the patient and his nurse --Advance care planning Disease education conducted, care plan discussed, diagnoses discussed, Long-term antibiotics due to osteomyelitis discussed with the patient, consultants recommendations discussed with the patient prognosis discussed, patient is full code, patient acknowledges understanding, had numerous questions, answered all of them Patient verbalized understanding and agree with care plan, +30 minutes. Brief history and hospital course: Very unfortunate 40-year-old male patient with history of type 1 diabetes mellitus DKA, left BKA, right great toe amputation was admitted through emergency room with worsening left leg pain fatigue nausea and vomiting, patient was evaluated by vascular interventional patient had Left lower extremity thigh muscle abscess status post CT-guided drain placement, patient has osteomyelitis, surgery, ID following recommended long-term a ntibiotics 06/16/2021; osteomyelitis of the left lower extremity, long-term antibiotics total 6 weeks per ID 06/17; patient was given IV Lasix for fluid overload and scrotal edema, edema slightly improved We will continue low-dose Lasix 20 mg p.o. daily and closely monitor input output 06/18; labile blood sugars, unable to stabilize due to. Soft severe hypoglycemia Closely monitor blood sugars and adjust as needed 06/19; uncontrolled labile blood sugars , closely monitor and adjust as needed Diabetic education, diabetic diet education Continue current management Disposition; long-term antibiotics, possible placement when medically stable ; History Interval history: I have seen and examined the patient at the bedside this afternoon Patient's chart and medications reviewed Patient complains of generalized body pains and the pain medications are not working I advised anti-inflammatories ibuprofen 600 mg every 8 hours after meal as needed Patient also requested heating pad for his buttocks and lower back Vital signs noted Hospitalist Physical - Constitutional Vitals: Temp Pulse Resp BP Pulse Ox 98.2 F 111 H 16 118/75 94 06/19/21 04:57 06/19/21 10:03 06/19/21 04:57 06/19/21 10:03 06/19/21 10:00 General appearance: Present: mild distress, well-nourished, other - EENT Eyes: Present: PERRL, EOM intact - Neck Neck: Present: supple, normal ROM - Respiratory Respiratory effort: normal Respiratory: bilateral: diminished, negative: rales, rhonchi - Cardiovascular Rhythm: regular Heart Sounds: Present: S1 & S2 - Extremities Extremities: no ischemia, No edema, abnormal (Left posterior thigh intramuscular abscess with continuous drain per IR) Extremity abnormal: other (Left BKA stump osteomyelitis) - Abdominal General gastrointestinal: soft, non-tender, non-distended, normal bowel sounds - Integumentary Integumentary: Present: clear, warm - Psychiatric Psychiatric: appropriate mood/affect, other (Anxious) - Neurologic Neurologic: moves all extremities Results - Labs CBC & Chem 7: 06/19/21 05:13 06/16/21 05:33 Labs: Laboratory Last Values WBC 19.9 K/mm3 (4.5-11.0) H 06/19/21 05:13 RBC 3.01 M/mm3 (3.65-5.03) L 06/19/21 05:13 Hgb 8.1 gm/dl (11.8-15.2) L 06/19/21 05:13 Hct 23.5 % (35.5-45.6) L 06/19/21 05:13 MCV 78 fl (84-94) L 06/19/21 05:13 MCH 27 pg (28-32) L 06/19/21 05:13 MCHC 35 % (32-34) H 06/19/21 05:13 RDW 15.6 % (13.2-15.2) H 06/19/21 05:13 Plt Count 647 K/mm3 (140-440) H 06/19/21 05:13 Add Manual Diff Complete 06/14/21 07:58 Total Counted 100 06/14/21 07:58 Seg Neutrophils % [employer] Helper 06/10/21 06:56 Seg Neuts % (Manual) 77.0 % (40.0-70.0) H 06/14/21 07:58 Band Neutrophils % 12.0 % 06/14/21 07:58 Lymphocytes % (Manual) 1.0 % (13.4-35.0) L 06/14/21 07:58 Reactive Lymphs % (Man) 0 % 06/14/21 07:58 Monocytes % (Manual) 6.0 % (0.0-7.3) 06/14/21 07:58 Eosinophils % (Manual) 1.0 % (0.0-4.3) 06/14/21 07:58 Basophils % (Manual) 0 % (0.0-1.8) 06/14/21 07:58 Metamyelocytes % 0 % 06/14/21 07:58 Myelocytes % 3.0 % 06/14/21 07:58 Promyelocytes % 0 % 06/14/21 07:58 Blast Cells % 0 % 06/14/21 07:58 Nucleated RBC % Not Reportable 06/14/21 07:58 Seg Neutrophils # Man 14.9 K/mm3 (1.8-7.7) H 06/14/21 07:58 Band Neutrophils # 2.3 K/mm3 06/14/21 07:58 Lymphocytes # (Manual) 0.2 K/mm3 (1.2-5.4) L 06/14/21 07:58 Abs React Lymphs (Man) 0.0 K/mm3 06/14/21 07:58 Monocytes # (Manual) 1.2 K/mm3 (0.0-0.8) H 06/14/21 07:58 Eosinophils # (Manual) 0.2 K/mm3 (0.0-0.4) 06/14/21 07:58 Basophils # (Manual) 0.0 K/mm3 (0.0-0.1) 06/14/21 07:58 Metamyelocytes # 0.0 K/mm3 06/14/21 07:58 Myelocytes # 0.6 K/mm3 06/14/21 07:58 Promyelocytes # 0.0 K/mm3 06/14/21 07:58 Blast Cells # 0.0 K/mm3 06/14/21 07:58 WBC Morphology Not Reportable 06/14/21 07:58 Hypersegmented Neuts Not Reportable 06/14/21 07:58 Hyposegmented Neuts Not Reportable 06/14/21 07:58 Hypogranular Neuts Not Reportable 06/14/21 07:58 Smudge Cells Not Reportable 06/14/21 07:58 Toxic Granulation 1+ 06/14/21 07:58 Toxic Vacuolation 1+ 06/14/21 07:58 Dohle Bodies Not Reportable 06/14/21 07:58 Pelger-Huet Anomaly Not Reportable 06/14/21 07:58 Rachid Rods Not Reportable 06/14/21 07:58 Platelet Estimate Consistent w auto 06/14/21 07:58 Clumped Platelets Not Reportable 06/14/21 07:58 Plt Clumps, EDTA Not Reportable 06/14/21 07:58 Large Platelets Not Reportable 06/14/21 07:58 Giant Platelets Not Reportable 06/14/21 07:58 Platelet Satelliting Not Reportable 06/14/21 07:58 Plt Morphology Comment Not Reportable 06/14/21 07:58 RBC Morphology Not Reportable 06/14/21 07:58 Dimorphic RBCs Not Reportable 06/14/21 07:58 Polychromasia Not Reportable 06/14/21 07:58 Hypochromasia Not Reportable 06/14/21 07:58 Poikilocytosis Not Reportable 06/14/21 07:58 Anisocytosis 1+ 06/14/21 07:58 Microcytosis Not Reportable 06/14/21 07:58 Macrocytosis Not Reportable 06/14/21 07:58 Spherocytes Not Reportable 06/14/21 07:58 Pappenheimer Bodies Not Reportable 06/14/21 07:58 Sickle Cells Not Reportable 06/14/21 07:58 Target Cells Not Reportable 06/14/21 07:58 Tear Drop Cells Not Reportable 06/14/21 07:58 Ovalocytes Not Reportable 06/14/21 07:58 Helmet Cells Not Reportable 06/14/21 07:58 [place] Bodies Not Reportable 06/14/21 07:58 Julian Rings Not Reportable 06/14/21 07:58 Angelina Cells Not Reportable 06/14/21 07:58 Bite Cells Not Reportable 06/14/21 07:58 Crenated Cell Not Reportable 06/14/21 07:58 Elliptocytes Not Reportable 06/14/21 07:58 Acanthocytes (Spur) Not Reportable 06/14/21 07:58 Rouleaux Not Reportable 06/14/21 07:58 Hemoglobin C Crystals Not Reportable 06/14/21 07:58 Schistocytes Not Reportable 06/14/21 07:58 Malaria parasites Not Reportable 06/14/21 07:58 Refugio Bodies Not Reportable 06/14/21 07:58 Hem Pathologist Commnt No 06/14/21 07:58 VBG pH 7.352 (7.320-7.420) 06/10/21 08:07 Sodium 135 mmol/L (137-145) L 06/16/21 05:33 Potassium 4.1 mmol/L (3.6-5.0) 06/16/21 05:33 Chloride 94.7 mmol/L (98-107) L 06/16/21 05:33 Carbon Dioxide 27 mmol/L (22-30) 06/16/21 05:33 Anion Gap 17 mmol/L 06/16/21 05:33 BUN 19 mg/dL (9-20) 06/16/21 05:33 Creatinine 1.0 mg/dL (0.8-1.3) 06/16/21 05:33 Estimated GFR > 60 ml/min 06/16/21 05:33 BUN/Creatinine Ratio 19 % 06/16/21 05:33 Glucose 199 mg/dL (75-100) H 06/16/21 05:33 POC Glucose 382 mg/dL (70-105) H 06/19/21 16:26 Hemoglobin A1c 11.7 % (4-6) H 06/11/21 Unknown Lactic Acid 1.70 mmol/L (0.7-2.0) 06/10/21 08:07 Calcium 8.0 mg/dL (8.4-10.2) L 06/16/21 05:33 Phosphorus 1.90 mg/dL (2.5-4.5) L 06/10/21 06:56 Magnesium 2.00 mg/dL (1.7-2.3) 06/14/21 07:58 Total Bilirubin 0.30 mg/dL (0.1-1.2) 06/10/21 06:56 Total Bilirubin 0.40 mg/dL (0.1-1.2) 06/10/21 06:56 Direct Bilirubin < 0.2 mg/dL (0-0.2) 06/10/21 06:56 Indirect Bilirubin 0.2 mg/dL 06/10/21 06:56 AST 7 units/L (5-40) 06/10/21 06:56 AST 8 units/L (5-40) 06/10/21 06:56 ALT 5 units/L (7-56) L 06/10/21 06:56 ALT 6 units/L (7-56) L 06/10/21 06:56 Alkaline Phosphatase 170 units/L (35-129) H 06/10/21 06:56 Alkaline Phosphatase 172 units/L (35-129) H 06/10/21 06:56 C-Reactive Protein 28.90 mg/dL (0.00-1.30) H 06/16/21 09:01 Total Protein 7.5 g/dL (6.3-8.2) 06/10/21 06:56 Total Protein 7.7 g/dL (6.3-8.2) 06/10/21 06:56 Albumin 3.2 g/dL (3.9-5) L 06/10/21 06:56 Albumin 3.3 g/dL (3.9-5) L 06/10/21 06:56 Albumin/Globulin Ratio 0.7 % 06/10/21 06:56 Albumin/Globulin Ratio 0.8 % 06/10/21 06:56 Lipase 5 units/L (13-60) L 06/10/21 06:56 TSH 1.080 mlU/mL (0.270-4.200) 06/10/21 06:56 Free T4 1.05 ng/dL (0.76-1.46) 06/10/21 06:56 Urine Color Yellow (Yellow) 06/10/21 Unknown Urine Turbidity Cloudy (Clear) 06/10/21 Unknown Urine pH 5.0 (5.0-7.0) 06/10/21 Unknown Ur Specific [place] 1.014 (1.003-1.030) 06/10/21 Unknown Urine Protein 100 mg/dl mg/dL (Negative) 06/10/21 Unknown Urine Glucose (UA) >=500 mg/dL (Negative) 06/10/21 Unknown Urine Ketones Neg mg/dL (Negative) 06/10/21 Unknown Urine Blood Sm (Negative) 06/10/21 Unknown Urine Nitrite Neg (Negative) 06/10/21 Unknown Urine Bilirubin Neg (Negative) 06/10/21 Unknown Urine Urobilinogen < 2.0 mg/dL (<2.0) 06/10/21 Unknown Ur Leukocyte Esterase Neg (Negative) 06/10/21 Unknown Urine WBC (Auto) 7.0 /HPF (0.0-6.0) H 06/10/21 Unknown Urine RBC (Auto) 95.0 /HPF (0.0-6.0) 06/10/21 Unknown U Epithel Cells (Auto) 6.0 /HPF (0-13.0) 06/10/21 Unknown Urine Bacteria (Auto) 1+ /HPF (Negative) 06/10/21 Unknown Amorphous Crystals 1+ 06/10/21 Unknown Hyaline Casts 1 /LPF 06/10/21 Unknown Granular Casts 16 /LPF 06/10/21 Unknown RBC Casts 13 /LPF 06/10/21 Unknown Urine Mucus Few /HPF 04/02/22 Unknown Vancomycin Trough 19.6 ug/mL (5.0-20.0) 06/13/21 07:30 Urine Opiates Screen Positive 06/10/21 Unknown Urine Methadone Screen Negative 06/10/21 Unknown Ur Barbiturates Screen Negative 06/10/21 Unknown Ur Phencyclidine Scrn Negative 06/10/21 Unknown Ur Amphetamines Screen Negative 06/10/21 Unknown U Benzodiazepines Scrn Negative 06/10/21 Unknown Urine Cocaine Screen Negative 06/10/21 Unknown U Marijuana (THC) Screen Negative 06/10/21 Unknown Drugs of Abuse Note Disclamer 06/10/21 Unknown Contreras/IV: Voiding Method Urinal Active Medications - Current Medications Current Medications: Generic Name Dose Route Start Last Admin Trade Name Freq PRN Reason Stop Dose Admin Acetaminophen 650 mg 06/10/21 12:51 06/18/21 22:12 Acetaminophen 325 Mg Tab PO 650 mg Q4H PRN Administration Pain MILD(1-3)/Fever >100.5/ODOM Alprazolam 0.25 mg 06/14/21 19:00 06/18/21 16:05 Alprazolam 0.25 Mg Tab PO 0.25 mg Q8H PRN Administration Anxiety Amlodipine Besylate 5 mg 06/11/21 10:00 06/19/21 10:03 Amlodipine 5 Mg Tab PO 5 mg QDAY SHANIKA Administration Cyclobenzaprine HCl 5 mg 06/18/21 11:30 06/18/21 13:09 Cyclobenzaprine 10 Mg Tab PO 5 mg Q8H PRN Administration Muscle Spasm Dextrose 50 ml 06/10/21 11:43 06/16/21 11:51 Dextrose 50% In Water (25gm) 50 Ml Syringe IV 50 ml Q30MIN PRN Administration Hypoglycemia Protocol Diphenhydramine HCl 25 mg 06/15/21 20:03 06/15/21 20:16 Diphenhydramine 50 Mg/Ml Vial IV 25 mg Q6H PRN Administration Itching Furosemide 20 mg 06/17/21 10:00 06/19/21 09:58 Furosemide 20 Mg Tab PO 20 mg QDAY SHANIKA Administration Gabapentin 100 mg 06/11/21 14:00 06/19/21 13:42 Gabapentin 100 Mg Cap PO 100 mg Q8HR SHANIKA Administration Heparin Sodium (Porcine) 5,000 unit 06/10/21 14:00 06/19/21 13:43 Heparin 5,000 Unit/1 Ml Vial SUB-Q 5,000 unit Q8HR SHANIKA Administration Ceftriaxone Sodium 2 gm in 100 mls @ 200 mls/hr 06/15/21 12:00 06/19/21 13:42 Rocephin/Ns 2 Gm/100 Ml IV 07/24/21 12:29 200 mls/hr Q24H SHANIKA Administration Protocol Ibuprofen 600 mg 06/19/21 17:00 06/19/21 17:54 Ibuprofen 600 Mg Tab PO 600 mg Q8H SHANIKA Administration Insulin Human Isoph/Insulin Regular 18 unit 06/16/21 08:00 06/19/21 17:54 Insulin Nph/Regular 70/30 Inj SUB-Q 18 unit BIDDIAB SHANIKA Administration Insulin Human Lispro 0 unit 06/14/21 22:00 06/19/21 17:53 Insulin Lispro 100 Unit/Ml SUB-Q 8 unit ACHS SHANIKA Administration Protocol Metronidazole 500 mg 06/19/21 14:00 06/19/21 13:42 Metronidazole 500 Mg Tab PO 500 mg Q8HR SHANIKA Administration Protocol Morphine Sulfate 2 mg 06/10/21 12:51 06/19/21 15:27 Morphine 4 Mg/1 Ml Inj IV 2 mg Q4H PRN Administration Pain , Severe (7-10) Ondansetron HCl 4 mg 06/10/21 12:51 Ondansetron 4 Mg/2 Ml Inj IV Q8H PRN Nausea And Vomiting Oxycodone/Acetaminophen 2 tab 06/13/21 18:21 06/19/21 09:58 Oxycodone /Acetaminophen 5-325mg Tab PO 2 tab Q4H PRN Administration Pain, Moderate (4-6) Sodium Chloride 10 ml 06/10/21 13:00 06/19/21 10:03 Sodium Chloride 0.9% 10 Ml Flush Syringe IV 10 ml BID SHANIKA Administration Sodium Chloride 10 ml 06/10/21 12:51 Sodium Chloride 0.9% 10 Ml Flush Syringe IV PRN PRN LINE FLUSH Nutrition/Malnutrition Assess - Dietary Evaluation Nutrition/Malnutrition Findings: Nutrition Notes Start: 06/11/21 11:43 Freq: Status: Active Protocol: Document 06/19/21 15:19 NATHALY (Rec: 06/19/21 15:44 NATHALY [id number]) Nutrition Notes Initial or Follow up Reassessment Current Diagnosis Diabetes,Sepsis,Hypertension Other Pertinent Diagnosis T1DM, L-BKA, R-Toe Amputation, L-Fibula Osteomyelitis, Abscess in L-stump. Current Diet Consistent Carbohydrates Diet (since D 06/12), NPO (from 00:01). Labs/Tests 06/19: N/A. Pertinent Medications 06/19: Humalog 3 U, others nutritionally unremarkable. Height 5 ft 11 in Weight 65.8 kg [place] Body Weight (kg) 78.18 BMI 20.2 Weight change and time frame 1.2 Kg body weight loss in 1 week reported. Weight Status Appropriate Subjective/Other Information RD consult for routine F/U on Nutrition Education. Pt's PO intake of meals has been Good (100%) and well tolerated, according to ADL and Progress notes. Pt is on Room Air, O2 saturation @ 97%, according to Physical Assessment History notes. Pt presents large fluid collection in L-Posterior thigh and hamstring with foci of gas; surgical procedure planned for 06/20, according toProgress notes. Percent of energy/protein needs met: Prescribed Consistent Carbohydrates Diet provides for energy/protein needs (2, 061 Kcal/91 g) during LOS. Pt still in critical condition , not a candidate for Nutrition Education at the time, will assess feasibility on F/U. Burn Absent Trauma Absent GI Symptoms None Food Allergy Yes Skin Integrity/Comment Abscess in L-Stump Current % PO Good (75-100%) Minimum of two criteria No Is patient on ventilator? No Is Patient Ambulatory and/or Out of Bed No REE-([facility]-confined to bed) 1917.108 Calculation Used for Recommendations [facility] Additional Notes Protein: 0.8-1 g/Kg ABW; 54-80 g/day. Fluids: 1 ml/Kcal, or as per MD. Nutrition Intervention Change Diet Order: Continue Consistent Carbohydrates Diet. Goal #1 Maintain body weight within +/ -3% of admission body weight during LOS. Follow-Up By: 06/21/21 Additional Comments Nutrition education will be provided on F/U, if feasible. Continue monitoring food tolerance, %PO intake of meals , and BM.
--- NOTE | 2021-06-19 19:08 | Event Note ---
Date: 06/19/21 Patient's blood sugars are uncontrolled and labile as patient did not receive
[2021-06-20] MEDS: IBUPROFEN 600 MG TAB PO SCH ×3 (01:47→17:45)
[2021-06-20] MEDS ORDERED: DEXTROSE 50% IN WATER (25GM) 50 ML SYRINGE IV ONE (03:00)
[2021-06-20] MEDS: GABAPENTIN 100 MG CAP PO SCH ×3 (06:08→22:05)
[2021-06-20] MEDS: metroNIDAZOLE 500 MG TAB PO SCH ×3 (06:08→22:05)
[2021-06-20] MEDS: HEPARIN 5,000 UNIT/1 ML VIAL SUB-Q SCH ×3 (06:11→22:09)
[2021-06-20] MEDS: INSULIN LISPRO 100 UNIT/ML SUB-Q SCH ×4 (08:09→22:05)
[2021-06-20] MEDS: INSULIN NPH/REGULAR 70/30 INJ SUB-Q SCH ×2 (08:10→17:46)
[2021-06-20] MEDS ORDERED: fentaNYL 100 MCG/2 ML INJ IV NR (08:36)
[2021-06-20] MEDS ORDERED: MIDAZOLAM 5 MG/5 ML INJ MDV IV NR (08:36)
[2021-06-20] MEDS ORDERED: SODIUM CHLORIDE 0.9% 500 ML 500 ML IV SCH (09:00)
[2021-06-20 09:14] LABS: BUN/Creatinine Ratio 34; Blood Urea Nitrogen 31 mg/dL (9-20); Calcium 8.2 mg/dL (8.4-10.2); Hemolysis Index 103
[2021-06-20 09:20] LABS: Hematocrit 25.5 % (35.5-45.6); Hemoglobin 8.2 gm/dl (11.8-15.2); Mean Corpuscular HGB Conc 32 % (32-34); Mean Corpuscular Volume 81 fl (84-94); Red Blood Count 3.15 M/mm3 (3.65-5.03); Red Cell Distribution Width 16.1 % (13.2-15.2)
--- NOTE | 2021-06-20 09:21 | Progress Note ---
Assessment and Plan Assessment and plan: CT pelvis with contrast large complex fluid collection in the left posterior thigh and hamstring area of increased density centrally within the complex collection with some foci gas findings concerning for large intramuscular subcutaneous abscess may be hematoma blood products centrally with areas of foci peripherally the inferior extent of the collection not well seen bladder wall thickening with fluid in the pelvis --Febrile illness; -No longer has fever more hemodynamically stable. T-max last 24 hours is 102 F Patient has severe sepsis due to osteomyelitis left BKA stump As well as muscular abscess left lower extremity Patient is on IV Rocephin total 6 weeks stop date 07/24/2021 Follow cultures/ID following - left femur osteomyelitis ; Surgery evaluated the patient, no surgical intervention at this point ID evaluated the patient long-term antibiotics total 6 weeks Case management consulted --Muscular abscess left thigh Status post CT-guided IR drainage 06/12/2021 -Not a candidate for any further debridement at this time for osteomyelitis Will be difficult to use prosthesis therefore will take a more conservative approach to debridement. Cultures positive for Proteus, continue Rocephin next, Continue current antibiotics, pain medications, Surgery following - sepsis/osteomyelitis/muscular abscess status post I&D -Multifactorial secondary to multiple lower extremity abscess s/pvancomycin cefepime. Will require 6 weeks antibiotics Rocephin --uncontrolled diabetes/labile blood sugars/difficult to control -Hemoglobin A1c 11.4. Labile blood sugars Accu-Cheks sliding scale coverage ADA diet Long-acting insulin, adjust dose as needed Diabetic education, nutrition education Home health nurse for disease monitoring upon discharge -- hypertension -Fairly well controlled with amlodipine 5 mg. -We will benefit from GLENNA at some point for renal protection. But does not have to be now. --generalized anxiety; We will add low-dose Xanax 0.253 times a day as needed for anxiety Closely monitor the patient and adjust management as needed Plan of care reviewed with the patient and his nurse Physical therapy/Occupational Therapy evaluation and treatment as tolerated Discharge planning per case voyage management system operator recommendations noted and appreciated Subjective Date of service: 06/20/21 Principal diagnosis: Left leg abscess, osteomyelitis, hyperosmotic nonketotic state Interval history: 40-year-old male patient with history of type 1 diabetes mellitus DKA, left BKA, right great toe amputation was admitted through emergency room with worsening left leg pain fatigue nausea and vomiting, patient was evaluated by vascular interventional patient had Left lower extremity thigh muscle abscess status post CT-guided drain placement, patient has osteomyelitis, surgery, ID following recommended long-term antibiotics 06/16/2021; osteomyelitis of the left lower extremity, long-term antibiotics total 6 weeks per ID 06/17; patient was given IV Lasix for fluid overload and scrotal edema, edema slightly improved We will continue low-dose Lasix 20 mg p.o. daily and closely monitor input output 06/18; labile blood sugars, unable to stabilize due to. Soft severe hypoglycemia Closely monitor blood sugars and adjust as needed 06/19; uncontrolled labile blood sugars , closely monitor and adjust as needed Diabetic education, diabetic diet education Continue current management Disposition; long-term antibiotics, possible placement when medically stable ; 06/20/2021 patient scheduled for continued incision and drainage with drain placement this a.m. Scheduled for surgical procedure at 11 AM. Objective - Constitutional Vitals: Vital Signs - 12hr 06/19/21 06/20/21 21:41 04:45 Temperature 98.5 F 98.3 F Pulse Rate 111 H 87 Respiratory 18 18 Rate Blood Pressure 113/73 100/62 O2 Sat by Pulse 97 98 Oximetry General appearance: Present: no acute distress - EENT Eyes: PERRL, EOM intact Ears: bilateral: normal - Neck Neck: supple, normal ROM - Respiratory Respiratory effort: normal Respiratory: bilateral: CTA - Cardiovascular Rhythm: regular Heart Sounds: Present: S1 & S2. Absent: gallop, rub Extremity abnormal: other (Area bandage with drain in the left lateral) - Integumentary Integumentary: clear, warm, dry - Musculoskeletal Musculoskeletal: 1, strength equal bilaterally - Psychiatric Psychiatric: memory intact, appropriate mood/affect, intact judgment & insight - Labs CBC & Chem 7: 06/20/21 08:14 06/20/21 08:14 Labs: Abnormal lab results 06/19/21 06/19/21 06/20/21 Range/Units 11:31 16:26 01:52 Sodium (137-145) mmol/L Potassium (3.6-5.0) mmol/L Chloride (98-107) mmol/L BUN (9-20) mg/dL Glucose (75-100) mg/dL POC Glucose 247 H 382 H 50 L (70-105) mg/dL Calcium (8.4-10.2) mg/dL 06/20/21 06/20/21 06/20/21 Range/Units 03:18 04:41 07:58 Sodium (137-145) mmol/L Potassium (3.6-5.0) mmol/L Chloride (98-107) mmol/L BUN (9-20) mg/dL Glucose (75-100) mg/dL POC Glucose 162 H 171 H 238 H (70-105) mg/dL Calcium (8.4-10.2) mg/dL 06/20/21 Range/Units 08:14 Sodium 136 L (137-145) mmol/L Potassium 5.5 H D (3.6-5.0) mmol/L Chloride 96.1 L (98-107) mmol/L BUN 31 H (9-20) mg/dL Glucose 250 H (75-100) mg/dL POC Glucose (70-105) mg/dL Calcium 8.2 L (8.4-10.2) mg/dL
[2021-06-20 09:23] LABS: Platelet Count 727 K/mm3 (140-440)
--- NOTE | 2021-06-20 09:29 | Progress Note ---
Assessment and Plan Left leg intra muscular process. He will be admitted to have iv ab, rehydration and consultaito to IR. Percutaneous drainage would be better so as not to interfer with the wearing of a prosthetic limb. Patient with continued left leg pain. He now notes that he has had periods of severe cramping into the back of his leg going up into his butt cheek on the left side. It is possible that during 1 of these episodes he had an intramuscu lar hemorrhage. Dr. Harden successfully placed drain percutaneously. placement of second drain and piccline today. We will continue to follow patient with you IR to evaluate today. Subjective Date of service: 06/20/21 Patient Reports: Positive: feels better Objective Vital Signs - 12hr 06/19/21 06/20/21 21:41 04:45 Temperature 98.5 F 98.3 F Pulse Rate 111 H 87 Respiratory 18 18 Rate Blood Pressure 113/73 100/62 O2 Sat by Pulse 97 98 Oximetry - Labs 06/20/21 08:14 06/20/21 08:14 Diabetes panel 06/20/21 Range/Units 08:14 Sodium 136 L (137-145) mmol/L Potassium 5.5 H D (3.6-5.0) mmol/L Chloride 96.1 L (98-107) mmol/L Carbon Dioxide 28 (22-30) mmol/L BUN 31 H (9-20) mg/dL Creatinine 0.9 (0.8-1.3) mg/dL Glucose 250 H (75-100) mg/dL Calcium 8.2 L (8.4-10.2) mg/dL Calcium panel 06/20/21 Range/Units 08:14 Calcium 8.2 L (8.4-10.2) mg/dL Pituitary panel 06/20/21 Range/Units 08:14 Sodium 136 L (137-145) mmol/L Potassium 5.5 H D (3.6-5.0) mmol/L Chloride 96.1 L (98-107) mmol/L Carbon Dioxide 28 (22-30) mmol/L BUN 31 H (9-20) mg/dL Creatinine 0.9 (0.8-1.3) mg/dL Glucose 250 H (75-100) mg/dL Calcium 8.2 L (8.4-10.2) mg/dL Adrenal panel 06/20/21 Range/Units 08:14 Sodium 136 L (137-145) mmol/L Potassium 5.5 H D (3.6-5.0) mmol/L Chloride 96.1 L (98-107) mmol/L Carbon Dioxide 28 (22-30) mmol/L BUN 31 H (9-20) mg/dL Creatinine 0.9 (0.8-1.3) mg/dL Glucose 250 H (75-100) mg/dL Calcium 8.2 L (8.4-10.2) mg/dL
[2021-06-20] MEDS ORDERED: DEXTROSE 5% IN WATER 1,000 ML IV SCH (12:00)
[2021-06-20] MEDS: amLODIPine 5 MG TAB PO SCH (12:07)
[2021-06-20] MEDS: FUROSEMIDE 20 MG TAB PO SCH (12:07)
--- NOTE | 2021-06-20 13:16 | Event Note ---
Date: 06/20/21 Off the floor for IR drainage. Please send cultures. Continue IV ceftriaxone 2 g daily and Flagyl. Will f/u tomorrow.
--- NOTE | 2021-06-20 14:26 | Operative Report ---
Operative Report Operative Report: EXAM: CT-guided 10 Polish drain placement in the left upper thigh fluid collection CT-guided 10 Polish drain placement in the left mid thigh fluid collection DATE: 06/20/2021 STRETCHER OPERATOR: LUCIO MACEDO MD INDICATION: Worsening intramuscular abscess in the left thigh musculature MEDICATIONS: Please see nursing report for full details. DEVICES: 10 Polish APD drainage catheter (x2) CONTRAST: None PROCEDURE: Risks, benefits, and alternatives were discussed with the patient; written informed consent was obtained. The patient was placed prone on the CT scanner and turret lathe machinist imaging was performed of the left thigh demonstrating a multiloculated fluid collection in the left posterior thigh musculature. The area was prepped and draped in a sterile fashion. Finder needle was used to access the area in a manner that did not pass through the insertion of the muscles. The area was anesthetized prior to needle access. Intermittent CT scanning was performed until an 18-gauge needle was passed into the fluid collection in the mid posterior thigh musculature and a 0.035 inch wire was passed into the fluid collection. Serial dilatation was performed and ultimately an 10 Polish AOD drainage catheter was advanced over the wire. Approximately 20 mL of foul-smelling purulent fluid was removed and a suction drain was attached. The drain was secured with 2-0 silk suture. A second more superior collection in the left thigh musculature was noted. The area was prepped and draped in a sterile fashion. Finder needle was used to access the area in a manner that did not pass through the insertion of the muscles. The area was anesthetized prior to needle access. Intermittent CT scanning was performed until an 18-gauge needle was passed into the fluid collection in the upper posterior thigh musculature and a 0.035 inch wire was passed into the fluid collection. Serial dilatation was performed and ultimately an 10 Polish AOD drainage catheter was advanced over the wire. Approximately 10 mL of foul-smelling purulent fluid was removed and a suction drain was attached. The drain was secured with 2-0 silk suture. Patient tolerated the procedure well. No immediate postprocedural complications. FINDINGS: Both foul-smelling pinkish purulent fluid samples was sent to the lab for culture. IMPRESSION: Successful CT-guided drainage placement in left mid posterior thigh musculature. Successful CT-guided drainage placement in left upper posterior thigh musculature.
[2021-06-20] MEDS: MORPHINE 4 MG/1 ML INJ IV PRN ×2 (14:40→22:11)
[2021-06-20] MEDS: cefTRIAXone/NS 2 GM/100 ML 2 GM/100 ML BAG IV SCH (15:43)
[2021-06-20] MEDS: DEXTROSE 50% IN WATER (25GM) 50 ML SYRINGE IV PRN (21:57)
[2021-06-21] MEDS: IBUPROFEN 600 MG TAB PO SCH ×3 (00:09→17:02)
[2021-06-21] MEDS: HEPARIN 5,000 UNIT/1 ML VIAL SUB-Q SCH ×3 (06:19→21:42)
[2021-06-21] MEDS: metroNIDAZOLE 500 MG TAB PO SCH ×3 (06:19→21:42)
[2021-06-21] MEDS: GABAPENTIN 100 MG CAP PO SCH ×3 (06:19→21:42)
[2021-06-21] MEDS: MORPHINE 4 MG/1 ML INJ IV PRN ×3 (06:20→21:43)
[2021-06-21] MEDS: INSULIN NPH/REGULAR 70/30 INJ SUB-Q SCH ×2 (08:05→17:03)
[2021-06-21] MEDS: INSULIN LISPRO 100 UNIT/ML SUB-Q SCH ×4 (08:06→21:46)
[2021-06-21] MEDS ORDERED: INSULIN LISPRO 100 UNIT/ML SUB-Q ONE (09:30)
[2021-06-21] MEDS: FUROSEMIDE 20 MG TAB PO SCH (10:02)
[2021-06-21] MEDS: amLODIPine 5 MG TAB PO SCH (10:02)
--- NOTE | 2021-06-21 10:51 | Progress Note ---
Assessment and Plan Cultures: Blood culture 06/10/21 no growth so far IR drainage culture 06/12/2021 Proteus mirabilis A/P: 40-year-old male past medical history type 1 diabetes, prior left BKA, right toe amputations now with: #Sepsis secondary to left femur osteomyelitis and intramuscular abscesses, s/p IR drainage on 06/12/2021. CT pelvis showed a large complex fluid collection in the left posterior thigh and hamstring region with foci of gas. S/p 2 additional IR drains in left upper thigh fluid collection, left mid thigh fluid collection on 06/20/2021 #Left femur osteomyelitis: Will require 6 weeks of antibiotics #Acute thrombocytosis: Reactive secondary to above #Diabetes mellitus, uncontrolled: tight glycemic control for best outcomes. #Penicillin allergy: Tolerating ceftriaxone without issue. Recs: -Follow-up new IR drainage cultures prior to discharge -Continue IV ceftriaxone 2 g daily + Flagyl -will need 6 weeks of abx Kalina Jefferson MD, FACP, [facility] O: [phone] F: [phone] C: [phone] Subjective Date of service: 06/21/21 Principal diagnosis: Left leg abscess, osteomyelitis, hyperosmotic nonketotic state Interval history: No fever. Underwent 2 additional drain placement in the left thigh by IR yesterday. Reports his pain is better. Objective - Exam Narrative Exam: Physical Exam: Constitutional: Alert, cooperative. No acute distress Head, Ears, Nose: Normocephalic, atraumatic. External ears, nose normal Eyes: Conjunctivae/corneas clear. No icterus. No ptosis. Neck: Supple, no meningeal signs Cardiovascular: S1, S2 + Respiratory: Good air entry, clear to auscultation bilaterally GI: Soft, non-tender; bowel sounds normal. No peritoneal signs Musculoskeletal: Left BKA, L thigh drains x 3 present. right foot with prior toe amputations. Skin: No rash or abscess Hem/Lymphatic: No palpable cervical or supraclavicular nodes. No lymphangitis Psych: Mood ok. Affect normal Neurological: Awake, alert, oriented. No gross abnormality - Constitutional Vitals: Vital Signs Temp Pulse Resp BP Pulse Ox 97.7 F 97 H 18 118/66 97 06/21/21 04:31 06/21/21 10:02 06/21/21 04:31 06/21/21 10:02 06/21/21 08:56 Temperature -Last 24 Hours Temperature 97.7 F Temperature 98.4 F Temperature 98.4 F - Labs CBC & Chem 7: 06/20/21 08:14 06/20/21 08:14 Labs: Abnormal lab results 06/20/21 06/20/21 06/20/21 Range/Units 11:37 14:38 16:44 POC Glucose 226 H 250 H 284 H (70-105) mg/dL 06/20/21 06/20/21 06/21/21 Range/Units 21:41 23:45 07:53 POC Glucose 55 L 159 H 519 H (70-105) mg/dL 06/21/21 Range/Units 09:11 POC Glucose > 600 H (70-105) mg/dL
[2021-06-21] MEDS: cefTRIAXone/NS 2 GM/100 ML 2 GM/100 ML BAG IV SCH (12:32)
--- NOTE | 2021-06-21 12:49 | Progress Note ---
Assessment and Plan Assessment and plan: CT pelvis with contrast large complex fluid collection in the left posterior thigh and hamstring area of increased density centrally within the complex collection with some foci gas findings concerning for large intramuscular subcutaneous abscess may be hematoma blood products centrally with areas of foci peripherally the inferior extent of the collection not well seen bladder wall thickening with fluid in the pelvis --Febrile illness; -No longer has fever more hemodynamically stable. T-max last 24 hours is 99 F Patient has severe sepsis due to osteomyelitis left BKA stump Patient had additional 2 drains placed today. If continue to drain muscular abscess should do well. Patient is on IV Rocephin total 6 weeks stop date 07/24/2021 Discharge when stable by surgery. Follow cultures/ID following - left femur osteomyelitis ; Surgery evaluated the patient, no surgical intervention at this point ID evaluated the patient long-term antibiotics total 6 weeks Case management consulted --Muscular abscess left thigh Status post CT-guided IR drainage 06/12/2021 -Not a candidate for any further debridement at this time for osteomyelitis Will be difficult to use prosthesis therefore will take a more conservative approach to debridement. Cultures positive for Proteus, continue Rocephin next, Continue current antibiotics, pain medications, Surgery following - sepsis/osteomyelitis/muscular abscess status post I&D -Multifactorial secondary to multiple lower extremity abscess s/pvancomycin cefepime. Will require 6 weeks antibiotics Rocephin --uncontrolled diabetes/labile blood sugars/difficult to control -Hemoglobin A1c 11.4. Labile blood sugars Was 500 today. Will increase 7030 to 25 units twice daily. Accu-Cheks sliding scale coverage ADA diet Long-acting insulin, adjust dose as needed Diabetic education, nutrition education Home health nurse for disease monitoring upon discharge -- hypertension -Fairly well controlled with amlodipine 5 mg. -We will benefit from GLENNA at some point for renal protection. But does not have to be now. --generalized anxiety; We will add low-dose Xanax 0.253 times a day as needed for anxiety Closely monitor the patient and adjust management as needed Plan of care reviewed with the patient and his nurse Physical therapy/Occupational Therapy evaluation and treatment as tolerated Discharge planning per case service delivery management consultant recommendations noted and appreciated Subjective Date of service: 06/21/21 Principal diagnosis: Left leg abscess, osteomyelitis, hyperosmotic nonketotic state Interval history: 40-year-old male patient with history of type 1 diabetes mellitus DKA, left BKA, right great toe amputation was admitted through emergency room with worsening left leg pain fatigue nausea and vomiting, patient was evaluated by vascular interventional patient had Left lower extremity thigh muscle abscess status post CT-guided drain placement, patient has osteomyelitis, surgery, ID following recommended long-term antibiotics 06/16/2021; osteomyelitis of the left lower extremity, long-term antibiotics total 6 weeks per ID 06/17; patient was given IV Lasix for fluid overload and scrotal edema, edema slightly improved We will continue low-dose Lasix 20 mg p.o. daily and closely monitor input output 06/18; labile blood sugars, unable to stabilize due to. Soft severe hypoglycemia Closely monitor blood sugars and adjust as needed 06/19; uncontrolled labile blood sugars , closely monitor and adjust as needed Diabetic education, diabetic diet education Continue current management Disposition; long-term antibiotics, possible placement when medically stable ; 06/20/2021 patient scheduled for continued incision and drainage with drain placement this a.m. Scheduled for surgical procedure at 11 AM. 06/21/2021. 2 additional drains were placed today. Patient states he felt immediate relief. Spoke to surgeon muscle should do well after abscess has been removed and continues to drain accordingly. Hospital course complicated by uncontrolled blood sugar. Will give 14 units regular insulin and increase long-acting insulin. Objective - Constitutional Vitals: Vital Signs - 12hr 06/21/21 06/21/21 06/21/21 04:31 08:56 10:02 Temperature 97.7 F Pulse Rate 87 97 H Respiratory 18 Rate Blood Pressure 111/67 118/66 O2 Sat by Pulse 98 97 Oximetry General appearance: Present: no acute distress - EENT Eyes: PERRL, EOM intact ENT: hearing intact - Neck Neck: supple - Respiratory Respiratory effort: normal Respiratory: bilateral: CTA - Breasts Breasts: deferred Extremities: pulses intact, No edema, normal color, Full ROM Extremity abnormal: other (Drains appeared to be functioning appropriately.) - Gastrointestinal General gastrointestinal: Present: soft, non-tender, non-distended, normal bowel sounds - Musculoskeletal Musculoskeletal: strength equal bilaterally - Neurologic Neurologic: moves all extremities - Psychiatric Psychiatric: memory intact, appropriate mood/affect, intact judgment & insight - Labs CBC & Chem 7: 06/20/21 08:14 06/21/21 07:56 Labs: Abnormal lab results 04/03/0106/20/21 06/20/21 Range/Units 14:38 16:44 21:41 Glucose (75-100) mg/dL POC Glucose 250 H 284 H 55 L (70-105) mg/dL 06/20/21 06/21/21 06/21/21 Range/Units 23:45 07:53 07:56 Glucose 318 H (75-100) mg/dL POC Glucose 159 H 519 H (70-105) mg/dL 06/21/21 06/21/21 Range/Units 09:11 11:35 Glucose (75-100) mg/dL POC Glucose > 600 H 391 H (70-105) mg/dL
--- NOTE | 2021-06-21 14:39 | Cat Scan Report ---
PLEASE SEE OPERATIVE REPORT 06/20/21 @1426 MTDD
[2021-06-22] MEDS: CYCLOBENZAPRINE 10 MG TAB PO PRN (00:01)
[2021-06-22] MEDS: IBUPROFEN 600 MG TAB PO SCH ×3 (00:01→17:00)
[2021-06-22] MEDS: GABAPENTIN 100 MG CAP PO SCH ×2 (05:13→14:03)
[2021-06-22] MEDS: metroNIDAZOLE 500 MG TAB PO SCH (05:13)
[2021-06-22] MEDS: MORPHINE 4 MG/1 ML INJ IV PRN ×2 (05:13→12:35)
[2021-06-22] MEDS: HEPARIN 5,000 UNIT/1 ML VIAL SUB-Q SCH ×2 (05:14→14:03)
[2021-06-22] MEDS: INSULIN NPH/REGULAR 70/30 INJ SUB-Q SCH (08:00)
[2021-06-22] MEDS: INSULIN LISPRO 100 UNIT/ML SUB-Q SCH ×3 (08:07→16:58)
--- NOTE | 2021-06-22 08:28 | Progress Note ---
Assessment and Plan Cultures: Blood culture 06/10/21 no growth so far IR drainage culture 06/12/2021 Proteus mirabilis IR drainage culture 06/20/2021 Proteus mirabilis IR drainage culture 06/20/2021 Proteus mirabilis A/P: 40-year-old male past medical history type 1 diabetes, prior left BKA, right toe amputations now with: #Sepsis secondary to left femur osteomyelitis and intramuscular abscesses, s/p IR drainage on 06/12/2021. CT pelvis showed a large complex fluid collection in the left posterior thigh and hamstring region with foci of gas. S/p 2 additional IR drains in left upper thigh fluid collection, left mid thigh fluid collection on 06/20/2021 #Left femur osteomyelitis: Will require 6 weeks of antibiotics #Acute thrombocytosis: Reactive secondary to above #Diabetes mellitus, uncontrolled: tight glycemic control for best outcomes. #Penicillin allergy: Tolerating ceftriaxone without issue. Recs: -new cultures also growing Proteus. Flagyl discontinued -Continue IV ceftriaxone 2 g daily -will need 6 weeks of abx until 07/24/2021 -drain management per surgery and IR Kalina Jefferson MD, FACP, OM[facility] ([facility] O: [phone] F: [phone] C: [phone] Subjective Date of service: 06/22/21 Principal diagnosis: Left leg abscess, osteomyelitis, hyperosmotic nonketotic state Interval history: No fever. Pain is better. No new complaints. Objective - Exam Narrative Exam: Physical Exam: Constitutional: Alert, cooperative. No acute distress Head, Ears, Nose: Normocephalic, atraumatic. External ears, nose normal Eyes: Conjunctivae/corneas clear. No icterus. No ptosis. Neck: Supple, no meningeal signs Cardiovascular: S1, S2 + Respiratory: Good air entry, clear to auscultation bilaterally GI: Soft, non-tender; bowel sounds normal. No peritoneal signs Musculoskeletal: Left BKA, L thigh drains x 3 present. Right foot with prior toe amputations. Skin: No rash or abscess Hem/Lymphatic: No palpable cervical or supraclavicular nodes. No lymphangitis Psych: Mood ok. Affect normal Neurological: Awake, alert, oriented. No gross abnormality - Constitutional Vitals: Vital Signs Temp Pulse Resp BP Pulse Ox 98.0 F 93 H 20 112/70 98 06/22/21 06:19 06/22/21 06:19 06/22/21 06:19 06/22/21 06:19 06/22/21 06:19 Temperature -Last 24 Hours Temperature 98.0 F Temperature 98.4 F Temperature 98.6 F Temperature 98.4 F - Labs CBC & Chem 7: 06/20/21 08:14 06/21/21 07:56 Labs: Abnormal lab results 06/21/21 06/21/21 06/21/21 Range/Units 07:53 07:56 09:11 Glucose 318 H (75-100) mg/dL POC Glucose 519 H > 600 H (70-105) mg/dL 06/21/21 06/21/21 06/22/21 Range/Units 11:35 16:51 07:13 Glucose (75-100) mg/dL POC Glucose 391 H 41 L 282 H (70-105) mg/dL
[2021-06-22] MEDS: FUROSEMIDE 20 MG TAB PO SCH (09:09)
[2021-06-22] MEDS: amLODIPine 5 MG TAB PO SCH (09:09)
--- NOTE | 2021-06-22 10:54 | Discharge Summary ---
Providers - Providers Date of Admission: 06/10/21 12:52 Date of discharge: 06/22/21 Attending physician: SHILO SOLIS 06/10/21 06:33 Consult to Dietitian/Nutrition [CONS] Routine Physician Instructions: Reason For Exam: DKA Reason for Consult: Nutrition Recommendations Reason for Consult: Diet education 06/10/21 09:48 Consult to Physician [CONS] Urgent Comment: Consulting Provider: CESAR KENNEDY Physician Instructions: Reason For Exam: hx of L BKA, left fib osteo, biceps femoris absces Consult to Physician [CONS] Urgent Comment: Consulting Provider: CHAPARRO HINES Physician Instructions: Reason For Exam: hx of L BKA, left fib osteo, biceps femoris absces 06/10/21 10:59 Consult to Physician [CONS] Routine Comment: Consulting Provider: YUAN SAEZ Physician Instructions: Reason For Exam: osteomyelitis 06/10/21 11:11 Consult to Physician [CONS] Urgent Comment: Consulting Provider: LUCIO MACEDO Physician Instructions: Reason For Exam: hx of L BKA, left fib osteo, biceps femoris absces 06/10/21 14:50 Consult to Wound/ET Nurse [CONS] Routine Reason For Exam: wound eval, left leg 06/15/21 19:51 Physical Therapy Evaluation and Treat [CONS] Routine Comment: Evaluate and treat/DC needs Reason For Exam: General debility/osteomyelitis/left BKA 06/16/21 15:05 Consult to Case Management [CONS] Routine Services Needed at Discharge: Home Health Services Notified:: cm notified Additional Physician Instructions: Meeta Saez MD [facility] M: [phone] O: [phone] F: [phone] Outpatient parenteral antibiotic therapy orders Diagnosis: Left leg osteomyelitis Antibiotic administration: ceftriaxone 2g q24h until 07/24/2021 Line: PICC Lab monitoring: CBC with differential,CMP, CRP once per week preferably on Saturday or Saturday For critical labs, call office: [phone] Meeta Saez 06/20/21 08:58 PICC Line Insertion [Consult to PICC Line RN] [CONS] Stat Reason For Exam: poor venous access Type Line:: PICC Primary care physician: COLLECTION TELLER Hospitalization Condition: Stable Pertinent studies: CT left leg: acute osteomyelitis of proximal fibula with overlying soft tissue ulcer with intramuscular multiloculated abscess in the biceps femoris muscle. Chest x-ray unremarkable Procedures: Successful CT-guided drainage placement in the left posterior thigh musculature/abscess per interventional radiologist CT-guided 8 Macedonian drain placement in the left thigh musculature 06/13/[address]-guided drainage placement in left mid posterior thigh musculature. Successful CT-guided drainage placement in left upper posterior thigh musculature. Hospital course: 40-year-old male with past medical history of uncontrolled type 1 diabetes, history of left BKA, history of right toe amputation presenting to our facility with complaint of left leg pain. Patient complains of worsening leg pain, nausea, and vomiting. Patient utilizes a left leg prosthesis due to his hx of left bka to help ambulate but states that he has had issues with fitment and has noticed skin erroding from his amputation site for some itme now. Upon presentation to the ED CT scan revealed significant abscess formation along left leg. Patient had CT-guided drain placed initially. Hospital course was complicated by episodes of hypoglycemia. Patient's type I diabetic and was somewhat difficult to control with infection. Will require tapering up on his insulin 7030 to 35 units twice daily. Hospital course also complicated by the blood cultures growing Proteus. ID consult was obtained and patient scheduled to receive Rocephin 2 g daily until July 26, 2021. On approximately 4 7 patient begin to have more pain in the area of the left leg. Patient was found to have additional abscess there and fluid that required new drains to be placed in both the mid thigh and anterior thigh. Patient had significant improvement of pain after that. Patient was then scheduled to have IV antibiotics run through the PICC line until 07/26/21 Plan for patient to go home with the sister and have home health. Disposition: 30 STILL A PATIENT Final Discharge Diagnosis (Prints w/discharge instructions): Osteomyelitis multiple abscesses left leg uncontrolled diabetes Time spent for discharge: 38 min - Discharge Diagnoses (1) Abscess of muscle of thigh Status: Acute (2) Cellulitis of left thigh Status: Acute (3) Dehydration Status: Acute (4) Hyperglycemia due to diabetes mellitus Status: Acute (5) Osteomyelitis of fibula Status: Acute (6) Sepsis Status: Acute Core Measure Documentation - Palliative Care Palliative Care/ Comfort Measures: Not Applicable - Core Measures Any of the following diagnoses?: none Exam - Constitutional Vitals: Temp Pulse Resp BP Pulse Ox 98.0 F 93 H 20 112/70 98 06/22/21 06:19 06/22/21 06:19 06/22/21 06:19 06/22/21 06:19 06/22/21 06:19 General appearance: Present: no acute distress, well-nourished - EENT Eyes: Present: PERRL - Neck Neck: Present: supple, normal ROM - Respiratory Respiratory effort: normal - Cardiovascular Heart Sounds: Present: S1 & S2. Absent: rub, click - Extremities Extremity abnormal: other (Bandage with a drain placed anteriorly left leg mid left leg and posterior left thigh old BKA right side) Peripheral Pulses: within normal limits Plan Activity: up only with assistance Weight Bearing Status: Non-Weight Bearing Diet: diabetic Special Instructions: home health RN Follow up with: PRIMARY CARE,MD [Primary Care Provider] - 3-5 Days Prescriptions: amLODIPine 5 mg PO QDAY #30 tablet Cyclobenzaprine [Flexeril 10 MG TAB] 5 mg PO Q8H PRN #60 tablet PRN Reason: Muscle Spasm Gabapentin 100 mg PO Q8HR #90 capsule Lispro Insulin [HumaLOG] 0 unit SUB-Q ACHS 30 Days units Furosemide [Lasix TAB] 20 mg PO QDAY #20 tablet Insulin NPH/Regular [NovoLIN 70/30] 33 unit SUB-Q BIDDIAB #7 units oxyCODONE /ACETAMINOPHEN [Percocet 5/325 mg] 2 tab PO Q4H PRN #60 tablet PRN Reason: Pain, Moderate (4-6) ALPRAZolam [Xanax TAB] 0.25 mg PO Q8H PRN #30 tablet PRN Reason: Anxiety
[2021-06-22] MEDS: cefTRIAXone/NS 2 GM/100 ML 2 GM/100 ML BAG IV SCH (12:22)
[2021-06-22] MEDS: DEXTROSE 50% IN WATER (25GM) 50 ML SYRINGE IV PRN (16:29)
[2021-06-22] MEDS ORDERED: INSULIN NPH/REGULAR 70/30 INJ SUB-Q SCH (17:00)
[2021-06-22 17:02] VITALS: BP 107/65
== END 2021-06-22 18:20 | disposition home health service (06) | DRG 871 ==
LOC: ED 06:11 → 3A 12:52
PROVIDERS: ADMIT Internal Medicine; ATTEND Internal Medicine
PROC: 0K9R30Z Drainage of Left Upper Leg Muscle with Drainage Device, Percutaneous Approach (ICD-10-PCS; principal; 2021-06-12)
PROC: 02HV33Z Insertion of Infusion Device into Superior Vena Cava, Percutaneous Approach (ICD-10-PCS; 2021-06-20)
PROC: 0K9R30Z Drainage of Left Upper Leg Muscle with Drainage Device, Percutaneous Approach (ICD-10-PCS; 2021-06-20)
DX: A41.9 Sepsis, unspecified organism (principal); N17.0 Acute kidney failure with tubular necrosis; L02.416 Cutaneous abscess of left lower limb; L03.116 Cellulitis of left lower limb; E86.0 Dehydration; M86.162 Other acute osteomyelitis, left tibia and fibula; Z91.19 Patient's noncompliance with other medical treatment and regimen; E10.40 Type 1 diabetes mellitus with diabetic neuropathy, unspecified; E10.65 Type 1 diabetes mellitus with hyperglycemia; I10 Essential (primary) hypertension; F41.1 Generalized anxiety disorder; Z79.899 Other long term (current) drug therapy; Z89.512 Acquired absence of left leg below knee; Z89.411 Acquired absence of right great toe
CPT/HCPCS: 10160; 36415; 71045; 72193; 77012; 80048; 80053; 80076; 80202; 80307; 81001; 82140; 82805; 82947; 82962; 83036; 83690; 83735; 84100; 84439; 84443; 85007; 85025; 85027; 86140; 87040; 87076; 87116; 87186; 93005; G0378; J3490; J7517; Q0162; Q0177; Q9967; C1769; J0692; J0696; J1200; J1644; J1815; J1940; J2250; J2270; J2405; J2765; J3010; J3370; J7030; J7040; J7050; J7070

== ENCOUNTER 2021-09-17 00:09 | Emergency (ER) | payer MEDICAID ==
[2021-09-17 02:23] LABS: Basophils # (Auto) 0.1 K/mm3 (0.0-0.1); Basophils % (Auto) 1.4 % (0.0-1.8); Eosinophils % (Auto) 0.4 % (0.0-4.3); Hematocrit 30.4 % (35.5-45.6); Hemoglobin 10.1 gm/dl (11.8-15.2); Lymphocytes # (Auto) 1.1 K/mm3 (1.2-5.4); Lymphocytes % (Auto) 12.4 % (13.4-35.0); Mean Corpuscular HGB Conc 33 % (32-34); Mean Corpuscular Volume 81 fl (84-94); Monocytes # (Auto) 0.3 K/mm3 (0.0-0.8); Monocytes % (Auto) 2.8 % (0.0-7.3); Platelet Count 476 K/mm3 (140-440); Red Blood Count 3.75 M/mm3 (3.65-5.03); Red Cell Distribution Width 15.4 % (13.2-15.2)
[2021-09-17 02:42] LABS: Alanine Aminotransferase 9 units/L (7-56); Albumin 3.9 g/dL (3.9-5); Blood Urea Nitrogen 21 mg/dL (9-20); Calcium 9.4 mg/dL (8.4-10.2); Hemolysis Index 2
[2021-09-17 02:59] LABS: BUN/Creatinine Ratio 35
--- NOTE | 2021-09-17 03:01 | Emergency Department Report ---
ED General Adult HPI - General Chief complaint: Hypoglycemia Stated complaint: HYPOGLYCEMIA Time Seen by Provider: 09/17/21 01:27 Source: patient Mode of arrival: Stretcher Limitations: No Limitations - History of Present Illness Initial comments: 40-year-old male with known history of insulin-dependent diabetes mellitus, history of recent admission for left leg osteomyelitis, history of left BKA and left thigh abscess admitted several times for the same presents to the hospital with hypoglycemia. Patient states he took his Novolin 70/30 in the morning and had water but cannot recall what else he had to eat or drink or do throughout the day. As per triage blood sugar was 20 upon EMS arrival. He received oral glucose which increased it to 107. It is documented patient had dinner and Mountain Dew prior to arrival although patient does not confirm this. Patient has multiple drains in his left upper leg which were placed due to abscesses. He also has a PICC arm to left arm. He was discharged here on July 11 on Etrapenum for 6 to 8 weeks and patient states he completed his course of treatment. He is requesting to have his drains removed. He has not followed up with any of the outpatient doctors as directed. He denies fever or pain - Related Data Previous Rx's Medication Instructions Recorded Last Taken Type Acetaminophen [Acetaminophen TAB] 650 mg PO Q4H PRN tablet 06/22/21 Unknown Rx Furosemide [Lasix TAB] 20 mg PO QDAY #20 tablet 06/22/21 Unknown Rx Gabapentin 100 mg PO Q8HR #90 capsule 06/22/21 Unknown Rx amLODIPine 5 mg PO QDAY #30 tablet 06/22/21 Unknown Rx ALPRAZolam [Xanax TAB] 0.25 mg PO Q8H PRN #10 tablet 07/11/21 Unknown Rx Ertapenem [INVanz] 1 gm IV QDAY vial 07/11/21 Unknown Rx HYDROcodone/APAP 5-325 [[place] 1 each PO Q4H PRN #14 tablet 07/11/21 Unknown Rx 5-325 mg TAB] Insulin NPH/Regular [NovoLIN 70/30] 15 unit SUB-Q BIDDIAB #10 ml 07/11/21 Unknown Rx Lispro Insulin [HumaLOG] 0 unit SUB-Q ACHS 30 Days units 07/11/21 Unknown Rx Psyllium Seed (with Sugar) 1 each PO QDAY #30 packet 07/11/21 Unknown Rx [Metamucil] Allergies Allergy/AdvReac Type Severity Reaction Status Date / Time piperacillin [From Zosyn] Allergy Anaphylaxis Verified 06/12/21 12:18 shellfish derived Allergy Anaphylaxis Verified 06/12/21 12:18 tazobactam [From Zosyn] Allergy Anaphylaxis Verified 06/12/21 12:18 ED Review of Systems ROS: Stated complaint: HYPOGLYCEMIA Other details as noted in HPI Comment: All other systems reviewed and negative ED Past Medical Hx - Past Medical History Previous Medical History?: Yes Hx Heart Attack/AMI: No Hx Congestive Heart Failure: No Hx Diabetes: Yes Hx Deep Vein Thrombosis: (unknown) Hx Arthritis: No Hx Seizures: No Hx Asthma: No Hx COPD: No Hx HIV: No - Surgical History Past Surgical History?: Yes Hx Pacemaker: No Hx Internal Defibrillator: No Hx Cholecystectomy: No Hx Appendectomy: No Additional Surgical History: Left BKA, right great toe amputation - Social History Smoking Status: Never Smoker Substance Use Type: None - Medications Home Medications: Home Medications Medication Instructions Recorded Confirmed Last Taken Type Acetaminophen [Acetaminophen TAB] 650 mg PO Q4H PRN tablet 06/22/21 07/01/21 Unknown Rx Furosemide [Lasix TAB] 20 mg PO QDAY #20 tablet 06/22/21 07/01/21 Unknown Rx Gabapentin 100 mg PO Q8HR #90 capsule 06/22/21 07/01/21 Unknown Rx amLODIPine 5 mg PO QDAY #30 tablet 06/22/21 07/01/21 Unknown Rx ALPRAZolam [Xanax TAB] 0.25 mg PO Q8H PRN #10 tablet 07/11/21 Unknown Rx Ertapenem [INVanz] 1 gm IV QDAY vial 07/11/21 Unknown Rx HYDROcodone/APAP 5-325 [[place] 1 each PO Q4H PRN #14 tablet 07/11/21 Unknown Rx 5-325 mg TAB] Insulin NPH/Regular [NovoLIN 70/30] 15 unit SUB-Q BIDDIAB #10 ml 07/11/21 Unknown Rx Lispro Insulin [HumaLOG] 0 unit SUB-Q ACHS 30 Days units 07/11/21 Unknown Rx Psyllium Seed (with Sugar) 1 each PO QDAY #30 packet 07/11/21 Unknown Rx [Metamucil] ED Physical Exam - General Limitations: No Limitations - Other Other exam information: General: No acute distress Head: Atraumatic Eyes: normal appearance ENT: Moist mucous membranes Neck: Normal appearance, no midline tenderness Chest: Clear to auscultation bilaterally CV: Regular rate and rhythm Abdomen: Soft, normal bowel sounds, nontender, nondistended, no rebound or gua rding Back: Normal inspection Extremity: Patient has 3 surgical drains inserted into his left leg above the knee. There is minimal drainage in one of his drainage bags. Patient states he feels like the drainage is decreasing over time. There is not any redness, warmth, fluctuance, or tenderness at drainage site. Left PICC line in place without surrounding erythema, warmth, or tenderness Neuro: Alert O x 3, no facial asymmetry, speech clear, no gross motor sensory deficit Psych: Appropriate behavior Skin: No rash ED Course Vital Signs 09/17/21 09/17/21 09/17/21 00:09 01:11 01:31 Temperature 97 F L 98.7 F Pulse Rate 78 82 Respiratory 18 15 Rate Blood Pressure 165/86 Blood Pressure 162/96 [Right] O2 Sat by Pulse 99 99 100 Oximetry - Consultations Consultation #1: 09/17/21 05:[address] Herman regarding improving abscesses. Patient does not require admission at this time for other issues and she is advised that patient follow-up in the office as directed to have his drains removed ED Medical Decision Making - Lab Data Result diagrams: 09/17/21 01:54 09/17/21 01:54 Lab Results 09/17/21 09/17/21 09/17/21 Range/Units 01:54 01:54 03:59 WBC 9.2 (4.5-11.0) K/mm3 RBC 3.75 (3.65-5.03) M/mm3 Hgb 10.1 L (11.8-15.2) gm/dl Hct 30.4 L (35.5-45.6) % MCV 81 L (84-94) fl MCH 27 L (28-32) pg MCHC 33 (32-34) % RDW 15.4 H (13.2-15.2) % Plt Count 476 H (140-440) K/mm3 Lymph % (Auto) 12.4 L (13.4-35.0) % [place] % (Auto) 2.8 (0.0-7.3) % Eos % (Auto) 0.4 (0.0-4.3) % Baso % (Auto) 1.4 (0.0-1.8) % Lymph # (Auto) 1.1 L (1.2-5.4) K/mm3 [place] # (Auto) 0.3 (0.0-0.8) K/mm3 Eos # (Auto) 0.0 (0.0-0.4) K/mm3 Baso # (Auto) 0.1 (0.0-0.1) K/mm3 Seg Neutrophils % 83.0 H (40.0-70.0) % Seg Neutrophils # 7.6 (1.8-7.7) K/mm3 Sodium 139 (137-145) mmol/L Potassium 4.3 (3.6-5.0) mmol/L Chloride 99.4 (98-107) mmol/L Carbon Dioxide 27 (22-30) mmol/L Anion Gap 17 mmol/L BUN 21 H (9-20) mg/dL Creatinine 0.6 L (0.8-1.3) mg/dL Estimated GFR > 60 ml/min BUN/Creatinine Ratio 35 % Glucose 342 H (75-100) mg/dL POC Glucose 410 H (70-105) mg/dL Calcium 9.4 (8.4-10.2) mg/dL Total Bilirubin < 0.20 (0.1-1.2) mg/dL AST 12 (5-40) units/L ALT 9 (7-56) units/L Alkaline Phosphatase 187 H (35-129) units/L Total Protein 7.4 (6.3-8.2) g/dL Albumin 3.9 (3.9-5) g/dL Albumin/Globulin Ratio 1.1 % Urine Color (Yellow) Urine Turbidity (Clear) Urine pH (5.0-7.0) Ur Specific [place] (1.003-1.030) Urine Protein (Negative) mg/dL Urine Glucose (UA) (Negative) mg/dL Urine Ketones (Negative) mg/dL Urine Blood (Negative) Urine Nitrite (Negative) Urine Bilirubin (Negative) Urine Urobilinogen (<2.0) mg/dL Ur Leukocyte Esterase (Negative) Urine WBC (Auto) (0.0-6.0) /HPF Urine RBC (Auto) (0.0-6.0) /HPF Urine Bacteria (Auto) (Negative) /HPF Urine Mucus /HPF 09/17/21 Range/Units 05:17 WBC (4.5-11.0) K/mm3 RBC (3.65-5.03) M/mm3 Hgb (11.8-15.2) gm/dl Hct (35.5-45.6) % MCV (84-94) fl MCH (28-32) pg MCHC (32-34) % RDW (13.2-15.2) % Plt Count (140-440) K/mm3 Lymph % (Auto) (13.4-35.0) % [place] % (Auto) (0.0-7.3) % Eos % (Auto) (0.0-4.3) % Baso % (Auto) (0.0-1.8) % Lymph # (Auto) (1.2-5.4) K/mm3 [place] # (Auto) (0.0-0.8) K/mm3 Eos # (Auto) (0.0-0.4) K/mm3 Baso # (Auto) (0.0-0.1) K/mm3 Seg Neutrophils % (40.0-70.0) % Seg Neutrophils # (1.8-7.7) K/mm3 Sodium (137-145) mmol/L Potassium (3.6-5.0) mmol/L Chloride (98-107) mmol/L Carbon Dioxide (22-30) mmol/L Anion Gap mmol/L BUN (9-20) mg/dL Creatinine (0.8-1.3) mg/dL Estimated GFR ml/min BUN/Creatinine Ratio % Glucose (75-100) mg/dL POC Glucose (70-105) mg/dL Calcium (8.4-10.2) mg/dL Total Bilirubin (0.1-1.2) mg/dL AST (5-40) units/L ALT (7-56) units/L Alkaline Phosphatase (35-129) units/L Total Protein (6.3-8.2) g/dL Albumin (3.9-5) g/dL Albumin/Globulin Ratio % Urine Color Yellow (Yellow) Urine Turbidity Clear (Clear) Urine pH 5.0 (5.0-7.0) Ur Specific [place] 1.023 (1.003-1.030) Urine Protein >500 (Negative) mg/dL Urine Glucose (UA) >=500 (Negative) mg/dL Urine Ketones Neg (Negative) mg/dL Urine Blood Neg (Negative) Urine Nitrite Neg (Negative) Urine Bilirubin Neg (Negative) Urine Urobilinogen < 2.0 (<2.0) mg/dL Ur Leukocyte Esterase Neg (Negative) Urine WBC (Auto) 1.0 (0.0-6.0) /HPF Urine RBC (Auto) 5.0 (0.0-6.0) /HPF Urine Bacteria (Auto) 2+ (Negative) /HPF Urine Mucus Few /HPF - Radiology Data Radiology results: report reviewed CT pelvis w con INDICATION: hx of infection with drains in place. TECHNIQUE: All CT scans at this location are performed using the following dose modulation technique: Automated exposure control. CONTRAST: Omnipaque 300, 100 cc COMPARISON: CT pelvis 06/30/2021. FINDINGS: Negative for pelvic mass, fluid collection or inflammation. Moderate colonic stool. Moderate bladder distention IMPRESSION: Negative CT pelvis with contrast. CT lower extremity LT w con INDICATION: hx of infection with drains in place. TECHNIQUE: All CT scans at this location are performed using the following dose modulation technique: Automated exposure control. CONTRAST: Omnipaque 300, 100 cc IV injection. COMPARISON: 06/30/2021 FINDINGS: Status post previous left [id number] amputation. Muscular atrophy is seen at the proximal calf. Multifocal drains are seen within the musculature of the left calf with predominant resolution of the previously seen multiloculated abscess. One tiny focus of residual is seen measuring 6 mm x 9 mm x 8 cm. IMPRESSION: 1. Near complete drainage of multiloculated abscess at the left thigh. 2. Previous [id number] amputation on the left. - Medical Decision Making 40-year-old patient presents to the hospital with hypoglycemia. Cause unclear h owever, it seems that patient did not have much to eat today as per his history. Imaging test shows improvement of his left lower limb abscesses. Patient does not appear to have an acute infection at this time. During ED stay glucose increased to the 400s. Insulin will be provided prior to discharge. Patient will be signed out to oncoming provider Dr. Portillo to [place] once glucose is in the 200s Case was discussed with Dr. Herman general surgery who was involved in patient's care during hospitalization. She advises that patient follows up in the office to have his surgical drains removed. Therefore, they will not be removed in the ED Critical Care Time: No Critical care attestation.: If time is entered above; I have spent that time in minutes in the direct care of this critically ill patient, excluding procedure time. ED Disposition Clinical Impression: Hypoglycemia, Leg abscess, Medically noncompliant Disposition: 01 HOME / SELF CARE / HOMELESS Is pt being admited?: No Does the pt Need Aspirin: No Condition: Stable Instructions: Surgical Drain Home Care, Hypoglycemia, [id number] Additional Instructions: Continue current medications as prescribed. It is very important you follow-up with your doctors in the office. You provided several doctors for follow-up that were involved in your care during your recent hospitalization. I have included the contact information for Dr. Herman the general surgeon who may remove your drains if indicated. Please return if symptoms worsen as indicated by your discharge instructions Referrals: NAZIA HERMAN MD [Staff Physician] - 3-5 Days (general surgeon ) YOLANDE MARSH MD [Staff Physician] - 3-5 Days (Infectious disease doctor) BARBARA KNAPP MD [Primary Care Provider] - 3-5 Days (Primary care doctor)
--- NOTE | 2021-09-17 04:16 | Cat Scan Report ---
CT pelvis w con INDICATION: hx of infection with drains in place. TECHNIQUE: All CT scans at this location are performed using the following dose modulation technique: Automated exposure control. CONTRAST: Omnipaque 300, 100 cc COMPARISON: CT pelvis 06/30/2021. FINDINGS: Negative for pelvic mass, fluid collection or inflammation. Moderate colonic stool. Moderate bladder distention IMPRESSION: Negative CT pelvis with contrast. Signer Name: Arsen Newman MD Signed: 09/17/2021 4:11 AM Workstation Name: [id number]
--- NOTE | 2021-09-17 04:24 | Cat Scan Report ---
CT lower extremity LT w con INDICATION: hx of infection with drains in place. TECHNIQUE: All CT scans at this location are performed using the following dose modulation technique: Automated exposure control. CONTRAST: Omnipaque 300, 100 cc IV injection. COMPARISON: 06/30/2021 FINDINGS: Status post previous left [id number] amputation. Muscular atrophy is seen at the proxim al calf. Multifocal drains are seen within the musculature of the left calf with predominant resoluti on of the previously seen multiloculated abscess. One tiny focus of residual is seen measuring 6 mm x 9 mm x 8 cm. IMPRESSION: 1. Near complete drainage of multiloculated abscess at the left thigh. 2. Previous [id number]-mri-[id number] amputation on the left. Signer Name: Arsen Newman MD Signed: 09/17/2021 4:20 AM Workstation Name: [id number]
[2021-09-17 05:29] LABS: Bilirubin,Urine NEG (Negative); Blood,Urine NEG (Negative); Color,Urine Yellow (Yellow); Urobilinogen,Urine < 2.0 mg/dL (<2.0)
[2021-09-17 05:30] LABS: Bacteria,Urine 2+ /HPF (Negative); Mucus,Urine FEW /HPF
[2021-09-17 05:31] LABS: Protein,Urine >500 mg/dL (Negative)
[2021-09-17] MEDS ORDERED: INSULIN REGULAR, HUMAN 100 UNITS/1 ML IV ONE (05:32)
[2021-09-17 09:22] VITALS: BP 118/75
== END 2021-09-17 09:22 | disposition home or self-care (01) ==
LOC: ED 00:09
DX: E11.649 Type 2 diabetes mellitus with hypoglycemia without coma (principal); L02.416 Cutaneous abscess of left lower limb; Z91.14 Patient's other noncompliance with medication regimen; R10.2 Pelvic and perineal pain; Z88.0 Allergy status to penicillin; Z91.013 Allergy to seafood
CPT/HCPCS: 36415; 72193; 73701; 80053; 81001; 82962; 85025; 99284; Q9967; J1815